=== PATIENT | male | born 1970 | race Caucasian/White ===

== ENCOUNTER → 2019-06-24 | Outpatient (CLI) | payer MEDICAID, SELFPAY | PROVIDERS: Visit Provider Social Worker Clinical | DX: F33.2 Major depressive disorder, recurrent severe without psychotic features (principal); F43.12 Post-traumatic stress disorder, chronic | CPT/HCPCS: 36415; 80061; 83036; 83721 ==

== ENCOUNTER → 2019-07-07 08:45 | Outpatient (BNVA) | payer MEDICAID, SELFPAY | PROVIDERS: PCP Nurse Practitioner Family; Visit Provider Social Worker Clinical | DX: F33.2 Major depressive disorder, recurrent severe without psychotic features (principal); F43.12 Post-traumatic stress disorder, chronic | CPT/HCPCS: 90834 ==

== ENCOUNTER → 2019-07-20 10:09 | Outpatient (BNVA) | payer MEDICAID, SELFPAY | PROVIDERS: PCP Nurse Practitioner Family; Visit Provider Nurse Practitioner | DX: F33.2 Major depressive disorder, recurrent severe without psychotic features (principal); F43.12 Post-traumatic stress disorder, chronic | CPT/HCPCS: 99213 ==

== ENCOUNTER → 2019-08-02 08:05 | Outpatient (BNVA) | payer MEDICAID, SELFPAY | PROVIDERS: PCP Nurse Practitioner Family; Visit Provider Social Worker Clinical | DX: F33.2 Major depressive disorder, recurrent severe without psychotic features (principal); F43.12 Post-traumatic stress disorder, chronic | CPT/HCPCS: 90834 ==

== ENCOUNTER → 2019-08-12 08:44 | Outpatient (BNVA) | payer MEDICAID, SELFPAY | PROVIDERS: PCP Nurse Practitioner Family; Visit Provider Social Worker Clinical | DX: F33.2 Major depressive disorder, recurrent severe without psychotic features (principal); F43.12 Post-traumatic stress disorder, chronic | CPT/HCPCS: 90834; 90839 ==

== ENCOUNTER → 2019-08-19 10:34 | Outpatient (BNVA) | payer MEDICAID, SELFPAY | PROVIDERS: PCP Nurse Practitioner Family; Visit Provider Otolaryngology | DX: M54.2 Cervicalgia (principal); R49.0 Dysphonia; R49.9 Unspecified voice and resonance disorder; R47.02 Dysphasia; J34.2 Deviated nasal septum | CPT/HCPCS: 99214 ==

== ENCOUNTER 2019-08-22 16:50 | Observation (INO) | payer MEDICAID, SELFPAY ==
[2019-08-22] VITALS (15 sets, daily range): BP systolic 106–162; BP diastolic 80–102; PULSE 60–99; RESP 12–20; TEMP 36.4–37.2; O2SAT 89–98
--- NOTE | 2019-08-22 07:06 | PM.HPUD ---
H&P update H&P Update: DATE OF SURGERY/PROCEDURE: 08/22/19 DATE H&P PERFORMED: 08/17/19 H&P UPDATE INFORMATION: H&P completed within last 30 days CHANGES TO PREVIOUS DOCUMENTATION: Possible mild right superior laryngeal nerve injury per ENT exam. Plan right-sided approach to minimize risk of bilateral nerve injury. PREOP DIAGNOSIS: Intervertebral disc disorder with myelopathy, midcervical PRIMARY INDICATION FOR PROCEDURE: Neck pain, gait instability, right > left upper extremity symptoms. PLANNED PROCEDURE: Operation Date: 08/22/19 10:55 Proposed Procedures C4-C5, revision C3-C4 anterior cervical discectomy/fusion/fixation, possible C6-C7, possible C5-C6, possible corpectomy ([id number]) M50.00(Not Applicable) - Ronny Posey MD Full H&P Perinent History: Medical/Surgical History: Medical History (Updated 08/19/19 @ 11:41 by Ronny De Los Santos MD) Deviated septum Dysphasia Dysphonia Intervertebral cervical disc disorder with myelopathy, cervical region Major depressive disorder, recurrent severe without psychotic features Post-traumatic stress disorder, chronic Family History: Family History (Updated 06/13/19 @ 10:55 by ALONZO Higgins) Father Diabetes CAD (coronary artery disease) Hypertension Dementia Brother CAD (coronary artery disease) Grandmother Stroke Maternal x3 Mother Dementia Schizophrenia Grandfather Cancer Both Maternal and Paternal Family/Other Cancer Uncles both maternal and paternal Social History: Social History Smoking and tobacco status: former smoker Alcohol intake: never Lives independently: Yes Household members: spouse Marital status: Current occupational status: unemployed History of recent travel: No
[2019-08-22 10:08] LABS: Glucose Point of Care 189 mg/dL (70-110)
[2019-08-22] MEDS: lidocaine 1% INJ 20 mL INTRADERMA (10:34)
[2019-08-22] MEDS: sodium chloride 0.9% 1,000 ML 30 ML IV (10:35)
--- NOTE | 2019-08-22 10:43 | ANES.PREANE2 ---
Pre-Anesthetic Assessment Pre-Anesthetic Assessment: Height/Weight: Height 1.73 m Weight 112.491 kg Temp Pulse Resp BP Pulse Ox 97.8 F 60 18 126/87 98 08/22/19 09:53 08/22/19 09:53 08/22/19 09:53 08/22/19 09:53 08/22/19 09:53 Preop Diagnosis: Intervertebral disc disorder with myelopathy, midcervical Proposed Procedure: Operation Date: 08/22/19 10:55 Proposed Procedures p C4-C5, revision C3-C4 anterior cervical discectomy/fusion/fixation, possible C6-C7, possibleC5-C6, possible corpectomy ([id number], [id number]) M50.00(Not Applicable) - Ronny Posey MD Last intake: Intake Last Liquid Date 08/22/19 Last Liquid Time 08:00 Last Solid Date 08/21/19 Last Solid Time 22:30 Social: Social History: Tobacco (quit 2000) and No alcohol Exam: Pre-Anes Outpt Exam: alert, oriented x 3, clear to auscultation bilaterally and regular rate & rhythm Airway: Submandibular: WNL Cervical ROM: WNL MP: 2 Dentition: Other (teeth ok) History/ROS: No significant history except as noted Pulmonary: Pulmonary: WOO and Sleep apnea CV/HEM: CV/HEM: CAD (stent 2017) and HTN Comments: aortic aneurisum 4.7cm : : Chronic renal Insufficiency Hepatic: Hepatic: None reported GI: GI: None reported Metabolic: Metabolic: DM, Hyperlipidemia and Morbid obesity Musc/skel: Musc/skel: Lower Back Pain, OA/DJD and Weakness Neuropsych: Neuropsych: Anxiety, Depression and Neuropathy (bilat UE, and right foot) Anesthetic Plan: ASA status: 3 Anesthesia: Anesthesia Evaluation and General Risk of > 500 ml blood loss (7ml/kg in children): No Meds/Allergies Current Medications: Current Medications Generic Name Dose Route Start Last Admin Trade Name Freq PRN Reason Stop Dose Admin Sodium Chloride 1,000 mls @ 30 ml s/hr 08/22/19 09:45 08/22/19 10:35 Sodium Chloride 0.9% IV 08/23/19 09:44 30 mls/hr .Q24H MANUEL Administration Lidocaine HCl 0.1 ml 08/22/19 09:36 08/22/19 10:34 Lidocaine 1% INTRADERMA 08/23/19 09:35 0.1 ml PRN PRN Administration anesthetic prior to IV start PFSH Anesthesia PFSH: Medical History Deviated septum Dysphasia Dysphonia Intervertebral cervical disc disorder with myelopathy, cervical region Major depressive disorder, recurrent severe without psychotic features Post-traumatic stress disorder, chronic Surgical History H/O carpal tunnel repair (~2018) H/O hernia repair Hx of cardiac catheterization S/P cervical spinal fusion (~06/15/17) C3-C4 ACDFF, 06/2017, Dr. Brigitte Guy Stented coronary artery Family History Father Diabetes CAD (coronary artery disease) Hypertension Dementia Brother CAD (coronary artery disease) Grandmother Stroke Maternal x3 Mother Dementia Schizophrenia Grandfather Cancer Both Maternal and Paternal Family/Other Cancer Uncles both maternal and paternal Social History Smoking and tobacco status: former smoker Alcohol intake: never Lives independently: Yes Household members: spouse Marital status: Current occupational status: unemployed History of recent travel: No Data Anesthesia Other Labs: Laboratory Results - last 48 hr 08/22/19 10:05 POC Glucose 189 Cardiac Studies: No Data to Display
--- NOTE | 2019-08-22 10:45 | XR_ITS ---
WS: [id number] XR cervical spine 1[facility]port [id number] REASON FOR EXAM: surgery FINDINGS: Intraoperative localization views a marker is seen anteriorly 0.6 to the level of the C3-4 level with anterior fusion and at level. Endotracheal tube well identified. XR/XR cervical spine 1[facility]port [id number] IMPRESSION: Intraoperative markers identified.
--- NOTE | 2019-08-22 11:06 | PM.OP2 ---
 Brief Operative Note: Date of procedure: 08/22/19 Pre-op diagnosis: Intervertebral disc disorder with myelopathy, midcervical Post-op diagnosis: same Procedure Done: C4 corpectomy, C3-C5 fusion/fixation Surgeon: Ronny Posey Estimated blood loss (mL): 50 Complications: None Post-op Plan: PACU, then surgical murillo Condition: stable Disposition: PACU Coding Level of Care Code Acute Rn Orthopaedic for Loretta Pradhan
[2019-08-22 11:55] LABS: Anion Gap 19.4 (5-19); Blood Urea Nitrogen 13 mg/dL (6-20); Calcium 10.5 mg/dL (8.5-10.5); Carbon Dioxide 23 mmol/L (22-29); Chloride 99 mmol/L (98-107); Glomerular Filtration Rate 89.7 mL/min (90-130); Glucose 190 mg/dL (65-115); Osmolality Calculated 285 mOsm/kg (285-295); Potassium 4.4 mmol/L (3.5-5.1); Sodium 137 mmol/L (136-145)
--- NOTE | 2019-08-22 12:51 | XR_ITS ---
WS: [id number] XR cervical spine [facility] [id number] REASON FOR EXAM: surgery FINDINGS: Lateral localizing interoperative projection of the cervical spine A marker is seen over the inferior growth plate of the C4 vertebra for localization. XR/XR cervical spine 1[facility]port [id number] IMPRESSION: Single localizing projections.
--- NOTE | 2019-08-22 14:44 | SUR.OPER ---
CALLED IN WAITING ROOM AND GAVE UPDATE
[2019-08-22] MEDS: ceFAZolin 1,000 mg SDV 2000 MG IVP ×2 (15:21)
--- NOTE | 2019-08-22 15:33 | XR_ITS ---
WS: [id number] XR cervical spine [facility] [id number] REASON FOR EXAM: SURGERY FINDINGS: Localization lateral view interoperative shows localization of the C5 level. There is anterior fusion C3 and C4. XR/XR cervical spine 1[facility]port [id number] IMPRESSION: Cervical spine lateral view C5 interoperative
--- NOTE | 2019-08-22 15:51 | XR_ITS ---
WS: [id number] XR cervical spine 1[facility] [id number] REASON FOR EXAM: SURGERY FINDINGS: Intraoperative lateral projection shows the fusion extends from the C3-C4-C5 level with int raspinal fusion the alignment is satisfactory. XR/XR cervical spine 1[facility]port [id number] IMPRESSION: Single view shows fusion now of C3, C4, C5 with intraspinal spacers.
[2019-08-22] MEDS: ondansetron 2 mg/ML SDV 2 mL 4 MG IVP ×2 (17:05→17:11)
[2019-08-22] MEDS: fentaNYL 50 mcg/mL INJ 2mL IVP ×2 (17:09→17:14)
[2019-08-22] MEDS: metoclopramide 5 mg/mL SDV 2 mL 10 MG IVP (17:41)
[2019-08-22 18:49] LABS: Glucose Point of Care 179 mg/dL (70-110)
[2019-08-22] MEDS: gemfibrozil 600 mg Tablet PO (18:56)
[2019-08-22] MEDS: docusate sodium 100 mg Capsule PO (18:56)
[2019-08-22] MEDS: divalproex ER 250 mg Tablet (24H) PO (18:56)
[2019-08-22] MEDS: HYDROcodone-acetaminophen 5-325 mg Tablet PO (18:57)
[2019-08-22] MEDS: ketorolac 30 mg/mL INJ IVP ×2 (18:57→23:45)
[2019-08-22] MEDS: lactated ringers 1,000 ML 90 ML IV (19:05)
--- NOTE | 2019-08-22 19:11 | P.PN_ITS ---
Subjective Subjective: Interval history: Reports sore throat. Sitting up in bed feeding himself Juliana. Vitals/I&O/Wt Last Vital Signs Temp 98.9 F 08/22/19 18:30 Pulse 99 08/22/19 18:30 Resp 18 08/22/19 18:30 BP 136/88 08/22/19 18:30 Pulse Ox 95 08/22/19 18:30 08/22/19 08/22/19 08/22/19 06:59 14:59 22:59 Intake Total 50 / 50 1000 / 1050 Output Total 900 / 900 Balance 50 / 50 100 / 150 Physical Exam Const: COMMON NORMALS: no apparent distress and alert GENERAL APPEARANCE: cooperative Neck/C-Spine: GENERAL: Yes trachea midline CERVICAL SPINE: Yes collar present OTHER: Surgical site dressing changed at bedside. Minimal serosanguineous drainage on dressing. Incision without erythema, fullness or active drainage. NECK IMAGES: 1. surgical incision Resp: COMMON NORMALS: normal respiratory effort EFFORT & INSPECTION: Yes able to speak in complete sentences and No stridor Neuro: COMMON NORMALS: moves all extremities SENSORIUM/ORIENTATION: Yes alert SPEECH: speech normal Psych: COMMON NORMALS: mental status grossly normal ATTITUDE: Yes calm and Yes engaged ACTIVITY/MOTOR BEHAVIOR: Yes appropriate eye contact THOUGHT CONTENT: Yes normal thought content INSIGHT: insight good JUDGEMENT: judgment good Urinary Catheter Management^: Wynne: Cath Placed During This Visit: yes Urethral Indwelling: No Urinary Catheter Date of Insertion: 08/22/19 Urinary Catheter Time of Insertion: 12:05 Data : 08/22/19 10:10 A&P Assessment and plan (1) Intervertebral cervical disc disorder with myelopathy, cervical region: Doing well after C4 corpectomy and anterior fusion/fixation performed earlier today. Intra-op/postop x-rays were suboptimal. Plan x-rays in R adiology Dept tomorrow. Complete scheduled IV antibiotic doses. Complete Physical Therapy postop spine protocol. Anticipate home tomorrow. Status: Acute Code(s): M50.00 - Cervical disc disorder with myelopathy, unspecified cervical region Attestations Medical Necessity Statement*: Patient is appropriate for in-hospital management after revision anterior cervical fusion and fixation surgery . Coding Level of Care Code Acute Supplier Quality Manager for [facility] Fwd Exam Detailed Diagnoses Intervertebral cervical disc disorder with myelopathy, cervical region M50.00
[2019-08-22] MEDS: atorvastatin 40 mg Tablet 80 MG PO (20:41)
[2019-08-22] MEDS: BuSPIRONE 10 mg Tablet PO (20:42)
[2019-08-22] MEDS: gabapentin 300 mg Capsule 600 MG PO (20:42)
[2019-08-22 21:03] LABS: Glucose Point of Care 176 mg/dL (70-110)
[2019-08-23] VITALS (7 sets, daily range): BP systolic 91–136; BP diastolic 55–80; PULSE 70–89; RESP 16–20; TEMP 36.6–36.7; O2SAT 90–95
[2019-08-23] MEDS: lactated ringers 1,000 ML 90 ML IV (05:43)
[2019-08-23 06:28] LABS: Glucose Point of Care 134 mg/dL (70-110)
[2019-08-23] MEDS: ketorolac 30 mg/mL INJ IVP ×2 (06:34→12:18)
--- NOTE | 2019-08-23 07:00 | XR_ITS ---
WS: [id number] XR cervical spine 3V* [id number] REASON FOR EXAM: postop fusion FINDINGS: Postop evaluation of the cervical spine shows now there is evidence of anterior fusion C3-C 4-C5 satisfactory placed.. There is mild deviation of the trachea toward the right side. XR/XR cervical spine 3V* [id number] IMPRESSION: Anterior fusion C3-C4-C5 with intraspinal fusion. There is mild deviation of the trachea toward the left side.
--- NOTE | 2019-08-23 08:58 | PC.PT ---
Evaluation completed, cervical collar adjustment and HEP instruction. pt walked 320'. However, pt noted swallowing problems, seem to have become worst since surgery. 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 Thank You
[2019-08-23] MEDS: docusate sodium 100 mg Capsule PO (09:01)
[2019-08-23] MEDS: losartan 50 mg Tablet 25 MG PO (09:01)
[2019-08-23] MEDS: ranolazine (12HR) 500 mg Tablet 1000 MG PO (09:01)
[2019-08-23] MEDS: PARoxetine 20 mg Tablet 40 MG PO (09:01)
[2019-08-23] MEDS: gemfibrozil 600 mg Tablet PO (09:02)
[2019-08-23] MEDS: BuSPIRONE 10 mg Tablet PO (09:02)
[2019-08-23] MEDS: gabapentin 300 mg Capsule 600 MG PO (09:03)
[2019-08-23] MEDS: divalproex ER 250 mg Tablet (24H) PO (09:03)
[2019-08-23] MEDS: ferrous sulfate EC 325 mg Tablet PO (09:03)
[2019-08-23] MEDS: isosorbide mononitrate ER 60 mg Tablet 120 MG PO (09:03)
[2019-08-23] MEDS: propranolol 20 mg Tablet 60 MG PO (09:10)
[2019-08-23] MEDS: lacosamide 50 mg Tablet 150 MG PO (09:10)
[2019-08-23] MEDS: HYDROcodone-acetaminophen 5-325 mg Tablet PO (09:22)
[2019-08-23 11:29] LABS: Glucose Point of Care 143 mg/dL (70-110)
--- NOTE | 2019-08-23 13:57 | ANE.PACU2 ---
 Inpatient post-anesthesia follow up: Airway intact: Yes Vital signs: Temperature 98 F Pulse Rate 89 Respiratory Rate 20 Blood Pressure 91/55 Pulse Oximetry 95 Oxygen Delivery Me thod Room Air Oxygen Flow Rate 2 Fraction of Inspir ed Oxygen Hydration adequate: Yes Nausea and vomiting: No Pain level: 2 Mental status: Baseline
--- NOTE | 2019-08-23 16:17 | PM.OP ---
Operative Report Date of procedure: August 22, 2019 Pre-op Diagnosis: Intervertebral disc disorder with myelopathy, midcervical Pre-op Diagnosis: Cervical fusion history Post-op diagnosis: same (with collapse of vertebra and instability of joint) Procedure Done: 1. C4 corpectomy. 2. C3-C5 anterior plate and screw fixation. 3. Placement of intervertebral prosthetic device. 4. C3-C5 anterior fusion utilizing morselized autograft obtained from the osteophytectomy/corpectomy. Implants: Bengal Interbody Cage. Synthes Vectra plate/screws. Specimens removed/disposition: C4-C5 disc to pathology for permanent section. C3-C4 fixation plate/screws to patient, after cleaning. Surgeon: Ronny Posey Anesthesia: General Estimated blood loss (mL): 50 IV fluids (mL): 1,000 Urine output (mL): 850 Complications: None. Condition: stable Disposition: PACU Brief History: The patient is a 49-year-old white male with symptomatic, radiographically confirmed cervical disc/joint disease and associated neural impingement. He had undergone a prior C3-C4 ACDFF, with transient symptom benefit obtained following surgery. Imaging studies demonstrated stable fixation hardware, a solid anterior fusion at C3-C4, and residual/recurrent disc-osteophyte related cord impingement at C3-C4, C4-C5 and posterior to C4. Lesser changes were noted at C5-C6 and C6-C7. Conservative management did not provide adequate lasting symptom relief. After review of the diagnostic and treatment options with the risks/potential benefits/rationale for each, the patient requested to proceed with surgical intervention. Pre-operative ENT evaluation suggested possible residual nerve dysfunction related to the prior right-sided neck surgery, and re-entry from the right was planned to minimize the risk of bilateral nerve palsy. Procedure: After routine preoperative evaluation and informed consent were obtained, the patient was taken to the Operating Room. He was placed under general endotracheal anesthesia by Anesthesia personnel. He was positioned supine and fit in the Gilbert-Wells tongs for the application of in-line cervical traction. The anterolateral neck on the right was prepared with hair clippers. The prior transverse surgical scar was marked with a sterile skin marker, after evaluation with intraoperative radiography. The area was scrubbed with Betadine, prepped with DuraPrep, and draped with sterile towels and drapes. Ioban surgical barrier was applied. The proposed incision site was infiltrated with 1% Xylocaine with Epinephrine. The skin incision was made and carried down into the subcutaneous tissues. The platysma was identified and divided in the direction of its fibers. A plane was dissected just medial to the carotid sheath and lateral to the midline esophagus and trachea. Prevertebral soft tissues were bluntly dissected free of the anterior margin of the cervical spine and the previously implanted fixation hardware. Longus coli muscles were freed from their medial attachments. Deep self-retaining retractors were placed. Extensive subcutaneous and prevertebral scarring was encountered. The locking mechanisms within the plate were released, and the bilateral C3 and C4 screws were removed intact. The plate was then removed, and the explanted hardware was transferred from the sterile field for cleaning and eventual return to the patient. Solid fusion was evident across the C3-C4 interspace. The C4-C5 interspace was then incised with a #11 blade. Discectomy was accomplished utilizing various curettes and pituitary rongeurs. Anterior marginal osteophytes were resected with the Lempert and Kerrison rongeurs. Cartilaginous end plates were stripped free with curettes. Posterior marginal osteophytes were resected with thin foot plate Kerrison rongeurs. The medial aspects of the neural foramina were enlarged in a similar manner. Posterior longitudinal ligament was divided and resected as necessary to further the decompression. Due to residual osteophyte encroachment posterior to C4 and the significant disc/osteophyte impingement at the fused C3-C4 interspace, a C4 corpectomy was pursued. The [employer] Benoit high-speed drill with tai mike and various rongeurs were utilized to complete the corpectomy/osteophytectomy portions of the procedure and for endplate preparation. Once the decompression was felt to be adequate, the corpectomy defect was sized. A 24 mm lordotic Bengal Cage was chosen. The Cage was packed with morselized autograft obtained from the osteophytectomy/corpectomy portions of the procedure. The Cage was placed with the aid of a mallet and impaction tools, while in-line cervical traction was applied via the Gilbert-Wells tongs. Intraoperative fluoroscopy was utilized to assess device positioning. Once the Cage was felt to be in good position, a Synthes Vectra plate of the desired size was chosen. The plate was secured to the C3 and C5 vertebral bodies, bilaterally, with a combination of 4.5mm x 16mm and 4.5mm x 14mm self-drilling screws. Final screw tightening was performed, and the locking mechanisms within the plate were noted to engage the screws at each site. The construct was inspected, fluoroscopically evaluated, and felt to be in good position and secure. The wound was copiously irrigated with sterile saline and antibiotic irrigation. Hemostasis was ensured with the bipolar electrocautery and SurgiFlo hemostatic matrix. Wound closure was performed in multiple layers with 2-0 Vicryl Plus simple interrupted closure of the platysma and deep dermis as separate layers. Final skin closure was performed with 4-0 Vicryl Plus in a running subcuticular pattern. Steri-Strips were applied, and a sterile dressing was placed. The patient was released from the [facility] and fit in a Karnes collar. He was transferred onto the Recovery Room cart in the supine position. He was extubated without incident. The patient tolerated the procedure well. All sponge, needle, and instrument counts were correct at the completion of the procedure.
--- NOTE | 2019-08-23 21:25 | PM.DCS ---
Discharge Providers Date of Admission: 08/22/19 16:50 Date of Discharge: August 23, 2019 Attending Provider at Admission: Ronny Posey MD Attending Provider at Discharge: Ronny Posey MD Primary Care Provider: Kaden Dempsey NP Diagnoses at Discharge Discharge Diagnosis (1) Intervertebral cervical disc disorder with myelopathy, cervical region: Status: Acute (2) Collapse of vertebra: Status: Acute (3) Instability of joint: Status: Acute (4) S/P cervical spinal fusion: Status: Acute Problem details: C3-C4 ACDFF, 06/2017, Dr. Brigitte Guy Reason for Visit Reason for Visit: Brief History: The patient is a 49-year-old white male with symptomatic, radiographically confirmed cervical disc/joint disease and associated neural impingement. He had undergone a prior C3-C4 ACDFF, with transient symptom benefit obtained following surgery. Imaging studies demonstrated stable fixation hardware, a solid anterior fusion at C3-C4, and residual/recurrent disc-osteophyte related cord impingement at C3-C4, C4-C5 and posterior to C4. Lesser changes were noted at C5-C6 and C6-C7. Conservative management did not provide adequate lasting symptom relief. After review of the diagnostic and treatment options with the risks/potential benefits/rationale for each, the patient requested to proceed with surgical intervention. Pre-operative ENT evaluation suggested possible residual nerve dysfunction related to the prior right-sided neck surgery, and re-entry from the right was planned to minimize the risk of bilateral nerve palsy. Hospital Course Hospital Course: The patient underwent a C4 corpectomy, C4-C5 and revision C3-C4 ACDFF on 08-22-2019. He tolerated the procedure well, and noted improvement in pre-operative symptoms following surgery. He experienced sore throat, but tolerated diet well. He completed perioperative IV antibiotics and the Physical Therapy postoperative spine protocol. He was ambulatory, voiding, and tolerating diet prior to discharge home on POD#1. Physical Exam Const: COMMON NORMALS: no apparent distress GENERAL APPEARANCE: cooperative and comfortable Neck/C-Spine: COMMON NORMALS: supple and no JVD GENERAL: Yes trachea midline and No anterior neck swelling CERVICAL SPINE: Yes collar present NECK IMAGES: 1. surgical scar Resp: COMMON NORMALS: normal respiratory effort EFFORT & INSPECTION: No tachypneic, No respiratory distress and No stridor Cardio: COMMON NORMALS: no JVD Extremity: COMMON NORMALS: no clubbing, cyanosis or edema Neuro: COMMON NORMALS: moves all extremities and no focal motor deficits (bilateral upper extremities) MOTOR EXAM: strength 5/5 throughout Psych: COMMON NORMALS: thought process normal and speech normal ATTITUDE: Yes calm and Yes engaged ACTIVITY/MOTOR BEHAVIOR: Yes appropriate eye contact SPEECH: Yes normal speech MOOD & AFFECT: Yes euthymic mood THOUGHT PROCESS: normal thought process THOUGHT CONTENT: Yes normal thought content INSIGHT: insight good JUDGEMENT: judgment good Skin: WOUNDS: Yes surgical site (surgical site dressing clean/dry/intact.) Urinary Catheter Management^: Wynne: Cath Placed During This Visit: yes Urethral Indwelling: No Urinary Catheter Date of Insertion: 08/22/19 Urinary Catheter Time of Insertion: 12:05 Discharge Data Data Completed and Pending: Completed Studies During Hospitalization Category Date Time Status XR cervical spine 1Vport 16162 Rout ine Exams 08/22/19 10:45 Completed XR cervical spine 1Vport 65980 Rout ine Exams 08/22/19 12:51 Completed XR cervical spine 1Vport 28705 Rout ine Exams 08/22/19 15:33 Completed XR cervical spine 1Vport [id number] Rout ine Exams 08/22/19 15:51 Completed XR cervical spine 3V* [id number] Routine Exams 08/23/19 07:00 Completed Pathology: Surgic al [PTH] Routine Pth 08/22/19 16:58 Completed Imaging^: Other Xray: Attestation: I personally reviewed and interpreted this imaging study as follows: (Postop changes of recent C4 corpectomy and C3-C5 anterior fusion/fixation. Limited evaluation of caudal extent of construct. ) Procedures Performed: C4 corpectomy. C4-C5 and revision C3-C4 anterior discectomy/osteophytectomy. C3-C5 anterior plate and screw fixation. Placement of C3-C5 interbody prosthetic device. C3-C5 anterior fusion utilizing morselized autograft from the osteophytectomy/corpectomy. Intravenous antibiotics. Physical Therapy. Vitals: Last Vital Signs Temp 98 F 08/23/19 13:22 Pulse 89 08/23/19 13:22 Resp 20 H 08/23/19 13:22 BP 91/55 08/23/19 13:22 Pulse Ox 95 08/23/19 13:22 Discharge Plan Discharge Patient Disposition: Home, Self-Care Condition: Stable Prescriptions: New Butler 10-325 mg tablet 1 tab PO Q4H MDD 5 tabs PRN (Reason: pain) Qty: 30 RF: 0 ketorolac 10 mg tablet 10 mg PO TID PRN (Reason: pain) Qty: 10 RF: 0 Continued promethazine 25 mg tablet 25 mg PO BID PRN (Reason: Nausea) RF: 0 tizanidine 2 mg capsule 1 mg PO BID PRN (Reason: Muscle Spasm) RF: 0 gemfibrozil 600 mg tablet 600 mg PO BID RF: 0 Lantus U-100 Insulin 100 unit/mL solution 30 unit SUBCUT BID RF: 0 propranolol 60 mg capsule,extended release 24 hr 60 mg PO BID RF: 0 atorvastatin 80 mg tablet 80 mg PO DAILY RF: 0 magnesium oxide 500 mg tablet 500 mg PO DAILY RF: 0 metformin 1,000 mg tablet extended release 24hr 1,000 mg PO BID RF: 0 Vimpat 150 mg tablet 150 mg PO BID RF: 0 modafinil 200 mg tablet 200 mg PO QAM RF: 0 isosorbide mononitrate 120 mg tablet extended release 24 hr 120 mg PO QAM RF: 0 Jardiance 25 mg tablet 25 mg PO QAM RF: 0 paroxetine HCl [Paxil] 40 mg tablet 40 mg PO DAILY Qty: 30 RF: 2 buspirone 10 mg tablet 10 mg PO TID Qty: 90 RF: 2 losartan 25 mg tablet 25 mg PO DAILY RF: 0 ranolazine [Ranexa] 1,000 mg tablet extended release 12 hr 1,000 mg PO BID RF: 0 divalproex [Depakote ER] 250 mg tablet extended release 24 hr 250 mg PO BID RF: 0 gabapentin 600 mg tablet 600 mg PO TID RF: 0 Iron (ferrous sulfate) 325 MG 325 mg PO DAILY RF: 0 Nitro-Bid 0.4 MG 0.4 mg buccal PRN RF: 0 acetaminophen 1,000 MG 1,000 mg PO DAILY RF: 0 insulin regular human 10 UNITS 10 units SUBCUT AC RF: 0 Held diclofenac potassium 50 mg tablet 50 mg PO ONCE PRN (Reason: Inflammation) RF: 0 Hold Instructions: Resume on 08/25/19. Hold while taking Toradol (ketorolac). aspirin [Adult Aspirin Regimen] 81 mg tablet,delayed release (DR/EC) 81 mg PO DAILY RF: 0 Hold Instructions: Resume on 08/25/19. tramadol 50 mg tablet 100 mg PO Q6H PRN (Reason: Pain) RF: 0 Hold Instructions: Resume on 08/26/19. Hold while taking hydrocodone (Butler). Brilinta 90 MG 90 mg PO BID RF: 0 Hold Instructions: Resume on 08/29/19. No Action amoxicillin 875 mg tablet 875 mg PO BID RF: 0 methylprednisolone [Medrol (Luis)] 4 mg tablets,dose pack See Rx Instructions PO PER PKG DIR Qty: 21 RF: 0 Discharge Orders: Discharge Order (Routine); Ordered 08/23/19 Ordered By: Ronny Posey Other Ambulatory Orders: XR cervical spine 3V* [id number] (Routine) Timeframe: 2 Weeks Facility: [facility] - Location: [facility] Ordered By: Ronny Posey Referrals: Ronny Posey MD [Physician] - 09/01/19 1:00 pm (You will need to have AP/lateral c-spine x-rays prior to visit.) Discharge Diet: Advance as tolerated Discharge Activity: Limit activity as instructed Patient Instructions: Hydrocodone/Acetaminophen (By mouth), Ketorolac (By mouth), Dysphagia, Dysphonia, Diabetic Neuropathy (DC) Activity Restrictions/Additional Instructions: Activity -Cervical fusion: Wear cervical collar 24 hours a day. Change as necessary for showering, shaving, or if it becomes soiled. -No lifting or reaching overhead. - No driving until office followup visit - No lifting/pushing/pulling over 10 pounds - Avoid twisting or bending - Walking is encouraged - Home exercise per physical therapist - You may engage in sexual intercourse at any time as long as it is comfortable for you - Check with your doctor before returning to work. Notify your doctor if you develop: - temperature of 101.5 degrees F. or higher - redness or swelling of the incision - Foul drainage - increasing pain - increasing numbness or tingling in the arms or legs - New or increasing problems with vision, balance, memory, speaking, nausea or vomiting Hygiene: - Showering is okay - No tub baths or soaking Other: Remove outer bandage 3 days after surgery. If you have paper strips, leave in place until they fall off on their own. If you have stitches, keep your incision dry until the stitches are removed. Your doctor's office is available to answer any questions from 7 AM to 5:00 PM, Thursday through at [phone]. After hours, go to the emergency room at [facility] or call 911 for assistance. 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
== END 2019-08-23 14:05 | disposition home or self-care (01) ==
LOC: MEDSURG 16:51
PROVIDERS: Anesthesiology; Admitting Provider Specialist; PCP Nurse Practitioner Family; Visit Provider Specialist
PROC: 0RB30ZZ Excision of Cervical Vertebral Disc, Open Approach (ICD-10-PCS; CPT 22551; principal; 2019-08-22 10:55)
DX: M50.021 Cervical disc disorder at C4-C5 level with myelopathy (principal); Z98.1 Arthrodesis status; M48.52XA Collapsed vertebra, not elsewhere classified, cervical region, initial encounter for fracture; G47.30 Sleep apnea, unspecified; I25.10 Atherosclerotic heart disease of native coronary artery without angina pectoris; Z95.5 Presence of coronary angioplasty implant and graft; I10 Essential (primary) hypertension; E11.9 Type 2 diabetes mellitus without complications; E66.01 Morbid (severe) obesity due to excess calories; Z68.37 Body mass index [BMI] 37.0-37.9, adult; E78.5 Hyperlipidemia, unspecified; M19.90 Unspecified osteoarthritis, unspecified site; Z83.3 Family history of diabetes mellitus; Z82.49 Family history of ischemic heart disease and other diseases of the circulatory system; Z87.891 Personal history of nicotine dependence
CPT/HCPCS: 20938; 22554; 63081; 12345; 36416; 72020; 72040; 80048; 82962; 88304; 96361; 96365; 96372; 96375; 97110; 97161; C1713; G0378; J0330; J0690; J1815; J1885; J2001; J2405; J2704; J2765; J3010; J3490; J7030; L0172; L0174

== ENCOUNTER → 2019-08-25 09:01 | Outpatient (BNVA) | payer MEDICAID, SELFPAY | PROVIDERS: PCP Nurse Practitioner Family; Visit Provider Counselor Professional | DX: F33.2 Major depressive disorder, recurrent severe without psychotic features (principal); F43.12 Post-traumatic stress disorder, chronic | CPT/HCPCS: 90834 ==

== ENCOUNTER 2019-08-26 16:10 | Outpatient (CLI) | payer MEDICAID, SELFPAY ==
--- NOTE | 2019-08-26 16:18 | CTR_ITS ---
PROCEDURE INFORMATION: Exam: CT Cervical Spine Without Contrast Exam date and time: 08/26/2019 5:01 PM Age: 49 years old Clinical indication: Device placement; Internal orthopedic prosthetic device, implant or graft of neck; Prior surgery; Surgery date: 3-7 days post-operative; Surgery type: C-spine; Additional info: S/P cervical spinal fusion TECHNIQUE: Imaging protocol: Computed tomography images of the cervical spine without contrast. Total DLP: 753.6 mGy-cm Radiation optimization: All CT scans at this facility use at least one of these dose optimization techniques: automated exposure control; mA and/or kV adjustment per patient size (includes targeted exams where dose is matched to clinical indication); or iterative reconstruction. COMPARISON: CT Cervical Spine w cont [id number] 05/09/2019 9:15 AM FINDINGS: Vertebrae: There are postsurgical changes in the cervical spine with anterior spinal fusion with anterior metallic plate and screws into the bodies of C3 and C5 and partial corpectomy with resection of the left side of the C4 vertebral body and placement of instrumentation and bone graft in its place. The vertebrae are normally aligned. Discs/Spinal canal/Neural foramina: No disc herniations. No spinal canal stenosis. No neural foraminal narrowing. Oropharynx: There is some abnormal air in fluid in the retropharyngeal and right parapharyngeal space extending to the anterior side of the neck on the right consistent with some postoperative air and fluid. This causes some tracheal deviation towards the left such as seen on the postoperative radiographs of 08/22/2019. Without IV contrast evaluation of the fluid is incomplete. Correlation with the clinical findings is suggested. Lungs: Lung apices are normal. CT/CT cervical spin wo con* [id number] IMPRESSION: Postoperative changes of recent anterior spinal fusion as described Radiation Dose CTDIVOL = (mGy): DLP = 753.6 (mGy-cm)
== END 2019-08-26 16:11 | disposition home or self-care (01) ==
LOC: RAD 16:14
PROVIDERS: PCP Nurse Practitioner Family; Visit Provider Specialist
DX: Z98.1 Arthrodesis status (principal)
CPT/HCPCS: 72125

== ENCOUNTER 2019-09-01 08:23 | Outpatient (CLI) | payer MEDICAID, SELFPAY ==
--- NOTE | 2019-09-01 08:31 | CT_ITS ---
WS: [id number] CT NECK TECHNIQUE: Noncontrast CT of the neck with coronal and sagittal reformatted images. CLINICAL INFORMATION: trouble swallowing COMPARISON: CT cervical August 26, 2019 DLP: 1512.[address] scans at [facility] use at least one of these dose optimization techniques: automat ed exposure control; mA and/or kV adjustment per patient size (includes targeted exams where dose is matched to clinical indication); or iterative reconstruction. FINDINGS: Recent postoperative changes anterior cervical fusion with straightening of the normal cervical lordo sis. Anterior cervical fusion with corpectomy and interbody fusion graft at C3-C5. Partial corpectomy at C4. Prevertebral soft tissue edema is similar in appearance the prior examination. Postoperative edema and fluid along the right anterior neck incision site. This is overall unchanged since the rece nt cervical spine CT. Scattered pockets of air along the incision track and corpectomy site slightly improved. Small amount of retropharyngeal and prevertebral fluid with scattered pockets of air. Edema with part ial effacement of the hypopharynx. Effacement of the right piriform sinus is unchanged. Normal vallec juvencio. Normal glottis and subglottic airway. Upper mediastinum appears normal. Parotid glands are normal. Normal submandibular glands. No other significant interval changes. CT/CT neck wo con [id number] IMPRESSION: 1. Recent postoperative changes anterior cervical fusion C3-C5 with partial co rpectomy and interbody fusion graft at C4. 2. Stable prevertebral soft tissue edema with persistent fluid collection soft tissues right neck along the surgical incision tract consistent with normal po stoperative change. Scattered air and fluid along the surgical tract. 3. Small amount of retropharyngeal and prevertebral fluid with scattered pocke ts of air not significantly changed. 4. Mild mass effect on the posterior hypopharynx with associated edema. Glotti s is normal. Effacement of the right piriform sinus is unchanged. No critical a irway stenosis. 5. No other significant changes from previous.
== END 2019-09-01 08:24 | disposition home or self-care (01) ==
LOC: RADWPI 08:26
PROVIDERS: PCP Nurse Practitioner Family; Visit Provider Specialist
DX: J39.2 Other diseases of pharynx (principal); R13.10 Dysphagia, unspecified; Z98.1 Arthrodesis status
CPT/HCPCS: 70490

== ENCOUNTER → 2019-09-15 10:59 | Outpatient (BNVA) | payer MEDICAID, SELFPAY | PROVIDERS: PCP Nurse Practitioner Family; Visit Provider Counselor Professional | DX: F43.12 Post-traumatic stress disorder, chronic (principal); F33.2 Major depressive disorder, recurrent severe without psychotic features | CPT/HCPCS: 90834 ==

== ENCOUNTER → 2019-09-22 10:44 | Outpatient (BNVA) | payer MEDICAID, SELFPAY | PROVIDERS: PCP Nurse Practitioner Family; Visit Provider Counselor Professional | DX: F43.12 Post-traumatic stress disorder, chronic (principal); F33.2 Major depressive disorder, recurrent severe without psychotic features | CPT/HCPCS: 90834 ==

== ENCOUNTER → 2019-09-29 11:06 | Outpatient (BNVA) | payer MEDICAID, SELFPAY | PROVIDERS: PCP Nurse Practitioner Family; Visit Provider Counselor Professional | DX: F43.12 Post-traumatic stress disorder, chronic (principal); F33.2 Major depressive disorder, recurrent severe without psychotic features | CPT/HCPCS: 90834 ==

== ENCOUNTER 2019-10-04 13:53 | Outpatient (CLI) | payer MEDICAID, SELFPAY ==
--- NOTE | 2019-10-04 13:59 | XR_ITS ---
WS: [id number] CERVICAL SPINE TECHNIQUE: 3 views of the cervical spine CLINICAL INFORMATION: S/P cervical spinal fusion COMPARISON: None. FINDINGS: Straightening of the normal cervical lordosis. Anterior cervical fusion C3-C5 with partial corpectomy and interbody fusion graft. Hardware appears in good position. XR/XR cervical spine 3V* [id number] IMPRESSION: Normal postoperative C3-C5 anterior interbody cervical fusion.
== END 2019-10-04 13:54 | disposition home or self-care (01) ==
PROVIDERS: PCP Nurse Practitioner Family; Visit Provider Specialist
DX: Z98.1 Arthrodesis status (principal)
CPT/HCPCS: 72040

== ENCOUNTER → 2019-10-06 11:04 | Outpatient (BNVA) | payer MEDICAID, SELFPAY | PROVIDERS: PCP Nurse Practitioner Family; Visit Provider Counselor Professional | DX: F33.2 Major depressive disorder, recurrent severe without psychotic features (principal); F43.12 Post-traumatic stress disorder, chronic | CPT/HCPCS: 90834 ==

== ENCOUNTER 2019-10-06 21:27 | Emergency (ER) | payer MEDICAID, SELFPAY ==
[2019-10-06 21:43] VITALS: BP 149/98; PULSE 76; RESP 18; TEMP 36.4; O2SAT 98; BMI 38.0
--- NOTE | 2019-10-06 21:46 | W.ED.NECK ---
HPI - Neck Pain/Injury General: Chief Complaint: Neck Pain/Injury Stated Complaint: neck pain Time Seen by Provider: 10/06/19 21:32 Source: patient Mode of arrival: ambulatory History of Present Illness: HPI Narrative: 49-year-old male who had a surgery 3 weeks ago on his neck states he was holding a great Wili jumped and pulled him forward. He states his neck went back and he had some pain in his neck and has had some tingling in his bilateral arms. Patient was in a collar. He took Freeport and states his pain is much better and is now 3 out of 10. He denies any decrease in sensation or weakness to states that his arms feel like there is healing imminent and they feel light complaint: neck pain Onset (ago): hour(s) Place: home Severity: moderate Severity scale (1-10): 4 Quality: sharp Duration: constant Associated symptoms: Denies headache(s) or nausea Review of Systems Const: Denies: fever, chills, body aches or change in appetite Eyes: Denies: blurry vision or eye discomfort ENMT: Denies: throat pain or dental pain Card: Denies: chest pain Resp: Denies: shortness of breath GI: Denies: abdominal pain, nausea, vomiting or diarrhea : Denies: painful urination Musc: Reports: neck pain Skin/Breast: Denies: rash Neuro: Denies: headache Psych: Denies: depression Nathan/Lymph: Denies: easy bruising All/Imm: Denies: hives PFSH ED PFSH: Medical History Deviated septum Dysphasia Dysphonia Intervertebral cervical disc disorder with myelopathy, cervical region Major depressive disorder, recurrent severe without psychotic features Post-traumatic stress disorder, chronic Surgical History H/O carpal tunnel repair (~2018) H/O hernia repair History of fusion of cervical spine C4 corpectomy, revision C3-C4 and C4-C5 plate-screw fixation/interbody fusion; 08/22/2019; [facility] [place] Hx of cardiac catheterization S/P cervical spinal fusion (~06/15/17) C3-C4 ACDFF, 06/2017, Dr. Brigitte Guy Stented coronary artery Family History Father Diabetes CAD (coronary artery disease) Hypertension Dementia Brother CAD (coronary artery disease) Grandmother Stroke Maternal x3 Mother Dementia Schizophrenia Grandfather Cancer Both Maternal and Paternal Family/Other Cancer Uncles both maternal and paternal Social History Smoking and tobacco status: former smoker Alcohol intake: never Lives independently: Yes Household members: spouse Marital status: Current occupational status: unemployed History of recent travel: No Physical Exam Const: COMMON NORMALS: no apparent distress, oriented x3 and healthy appearing HENMT: COMMON NORMALS: normocephalic and head/scalp atraumatic HEAD & SCALP: normocephalic and atraumatic Eye: COMMON NORMALS: PERRL and EOMs intact bilaterally PUPIL: Yes PERRL Neck/C-Spine: COMMON NORMALS: full ROM and supple OTHER: currently in a post op c collar Chest: COMMONS NORMALS: inspection of chest normal and palpation of chest normal Resp: COMMON NORMALS: normal respiratory effort, no retractions, no use of accessory muscles and clear to auscultation bilaterally AUSCULTATION: clear to auscultation bilaterally Cardio: COMMON NORMALS: regular rate, regular rhythm and no murmurs RATE: regular rate RHYTHM: regular rhythm GI: COMMON NORMALS: normal to inspection, nondistended, normoactive bowel sounds, soft to palpation, non-tender and no masses PALPATION: Yes soft Extremity: COMMON NORMALS: normal to inspection and full ROM Neuro: COMMON NORMALS: oriented x3, moves all extremities and no focal motor deficits Psych: COMMON NORMALS: mental status grossly normal, thought process normal and cooperative THOUGHT PROCESS: normal thought process Skin: COMMON NORMALS: no rashes or lesions noted and no wounds GENERAL SKIN EXAM: no rashes or lesions noted Course Vital Signs: Vital signs: Vital Signs Temperature 97.5 F L 10/06/19 21:43 Pulse Rate 76 10/06/19 21:43 Respiratory Rate 18 10/06/19 21:43 Blood Pressure 149/98 10/06/19 21:43 Pulse Oximetry 98 10/06/19 21:43 MDM - Neck Pain/Injury MDM Narrative: Medical decision making narrative: Patient presents admitted with neck pain after dog pulled him. Spoke to Dr. Posey who recommended CT of the neck. CT neck here is negative will discharge and he is to follow-up with Dr. Posey in 1 to 3 days. He is return if he has any worsening neurologic symptoms. Patient has no signs of major injury and neuro exam is benign. Patient is stable for discharge. Discharge Plan Discharge Patient Disposition: Home, Self-Care Clinical Impression: Neck pain Condition: Stable Prescriptions: No Action promethazine 25 mg tablet 25 mg PO BID PRN (Reason: Nausea) RF: 0 tizanidine 2 mg capsule 1 mg PO BID PRN (Reason: Muscle Spasm) RF: 0 gemfibrozil 600 mg tablet 600 mg PO BID RF: 0 diclofenac potassium 50 mg tablet 50 mg PO ONCE PRN (Reason: Inflammation) RF: 0 Hold Instructions: Resume on 08/25/19. Hold while taking Toradol (ketorolac). Lantus U-100 Insulin 100 unit/mL solution 30 unit SUBCUT BID RF: 0 aspirin [Adult Aspirin Regimen] 81 mg tablet,delayed release (DR/EC) 81 mg PO DAILY RF: 0 Hold Instructions: Resume on 08/25/19. propranolol 60 mg capsule,extended release 24 hr 60 mg PO BID RF: 0 tramadol 50 mg tablet 100 mg PO Q6H PRN (Reason: Pain) RF: 0 Hold Instructions: Resume on 08/26/19. Hold while taking hydrocodone (Freeport). atorvastatin 80 mg tablet 80 mg PO DAILY RF: 0 magnesium oxide 500 mg tablet 500 mg PO DAILY RF: 0 metformin 1,000 mg tablet extended release 24hr 1,000 mg PO BID RF: 0 Vimpat 150 mg tablet 150 mg PO BID RF: 0 modafinil 200 mg tablet 200 mg PO QAM RF: 0 isosorbide mononitrate 120 mg tablet extended release 24 hr 120 mg PO QAM RF: 0 Jardiance 25 mg tablet 25 mg PO QAM RF: 0 paroxetine HCl [Paxil] 40 mg tablet 40 mg PO DAILY Qty: 30 RF: 2 buspirone 10 mg tablet 10 mg PO TID Qty: 90 RF: 2 losartan 25 mg tablet 25 mg PO DAILY RF: 0 ranolazine [Ranexa] 1,000 mg tablet extended release 12 hr 1,000 mg PO BID RF: 0 methylprednisolone [Medrol (Luis)] 4 mg tablets,dose pack See Rx Instructions PO PER PKG DIR Qty: 21 RF: 0 divalproex [Depakote ER] 250 mg tablet extended release 24 hr 250 mg PO BID RF: 0 gabapentin 600 mg tablet 600 mg PO TID RF: 0 Brilinta 90 MG 90 mg PO BID RF: 0 Hold Instructions: Resume on 08/29/19. Iron (ferrous sulfate) 325 MG 325 mg PO DAILY RF: 0 Nitro-Bid 0.4 MG 0.4 mg buccal PRN RF: 0 acetaminophen 1,000 MG 1,000 mg PO DAILY RF: 0 insulin regular human 10 UNITS 10 units SUBCUT AC RF: 0 Freeport 10-325 mg tablet 1 tab PO Q4H MDD 5 tabs PRN (Reason: pain) Qty: 30 RF: 0 ketorolac 10 mg tablet 10 mg PO TID PRN (Reason: pain) Qty: 10 RF: 0 Discharge Orders: Discharge Order (Routine); Ordered 10/06/19 Ordered By: Zachariah Licea Referrals: [facility] [Other] Ronny Posey MD [Physician] - Kaden Dempsey NP [Primary Care Provider] - Discharge Diet: Advance as tolerated Discharge Activity: Resume usual activity Patient Instructions: Cervical Sprain (ED) Discharge Date/Time: 10/06/19 23:30 Coding Level of Care Code 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
--- NOTE | 2019-10-06 21:49 | CTR_ITS ---
PROCEDURE INFORMATION: Exam: CT Cervical Spine Without Contrast Exam date and time: 10/06/2019 9:50 PM Age: 49 years old Clinical indication: Injury or trauma; Injury history: Head whipped back breakining up a dog fight; Work related; Initial encounter; Sprain or strain, cervical ligaments; Prior surgery; Surgery date: 1-6 months; Surgery type: C-spine surgery 5 weeks ago TECHNIQUE: Imaging protocol: Computed tomography images of the cervical spine without contrast. Total DLP: 839.93 mGy-cm Radiation optimization: All CT scans at this facility use at least one of these dose optimization techniques: automated exposure control; mA and/or kV adjustment per patient size (includes targeted exams where dose is matched to clinical indication); or iterative reconstruction. COMPARISON: CT cervical spin wo con* [id number] 08/26/2019 5:24 PM FINDINGS: Vertebrae: Since 08/26/2019 there has been no change. There is chronic anterior metallic fusion of C3 through C5 including a corpectomy bone graft. There is no subluxation or retropulsion. C2-C3: No disc herniation. No spinal canal stenosis. No neural foraminal narrowing. C3-C4: No disc herniation. No spinal canal stenosis. No neural foraminal narrowing. C4-C5: No disc herniation. No spinal canal stenosis. No neural foraminal narrowing. C5-C6: No disc herniation. No spinal canal stenosis. No neural foraminal narrowing. C6-C7: No disc herniation. No spinal canal stenosis. No neural foraminal narrowing. C7-T1: No disc herniation. No spinal canal stenosis. No neural foraminal narrowing. Soft tissues: Subcutaneous gas droplets have resolved. However solid bony graft fusion is not yet obtained. Lungs: Lung apices are normal. CT/CT cervical spin wo con* [id number] IMPRESSION: No change. Chronic anterior metallic fusion and corpectomy. No significant central spinal stenosis. Radiation Dose CTDIVOL = (mGy): DLP = 839.93 (mGy-cm)
[2019-10-06 23:49] VITALS: BP 101/65; PULSE 78; RESP 18; TEMP 36.5
--- NOTE | 2019-10-07 11:39 | DCPLANNER ---
patient manager had message to schedule a follow up appointment for patient with Dr. Posey. patient manager called [facility], spoke with Montse, gave clinic patients information. patient manager was told that patients information would be printed and given to Vickey for review. Clinic will call catalytic case operator and patient with appointment information.
--- NOTE | 2019-10-14 10:02 | DCPLANNER ---
Patient has a follow up appointment scheduled for Thursday, October 19, 2019 with Arlyn at [facility]. Clinic will call patient with appointment information.
--- NOTE | 2019-11-30 07:59 | DCPLANNER ---
Patient attended appointment scheduled for 10.19.19 with [facility].
== END 2019-10-06 23:30 | disposition home or self-care (01) ==
PROVIDERS: Emergency Provider Emergency Medicine; PCP Nurse Practitioner Family
DX: M54.2 Cervicalgia (principal); E11.42 Type 2 diabetes mellitus with diabetic polyneuropathy; I73.9 Peripheral vascular disease, unspecified; J34.2 Deviated nasal septum; R47.02 Dysphasia; R49.0 Dysphonia; F43.12 Post-traumatic stress disorder, chronic; F33.2 Major depressive disorder, recurrent severe without psychotic features; Z79.4 Long term (current) use of insulin; Z79.82 Long term (current) use of aspirin; Z98.1 Arthrodesis status; Z87.891 Personal history of nicotine dependence
CPT/HCPCS: 12345; 72125; 90834; 99281; 99283

== ENCOUNTER → 2019-10-12 07:45 | Outpatient (BNVA) | payer MEDICAID, SELFPAY | PROVIDERS: PCP Nurse Practitioner Family; Visit Provider Nurse Practitioner | DX: F43.12 Post-traumatic stress disorder, chronic (principal); F33.2 Major depressive disorder, recurrent severe without psychotic features | CPT/HCPCS: 99214 ==

== ENCOUNTER → 2019-10-13 12:09 | Outpatient (BNVA) | payer MEDICAID, SELFPAY | PROVIDERS: PCP Nurse Practitioner Family; Visit Provider Counselor Professional | DX: F33.2 Major depressive disorder, recurrent severe without psychotic features (principal); F43.12 Post-traumatic stress disorder, chronic | CPT/HCPCS: 90834 ==

== ENCOUNTER 2019-10-19 07:48 | Outpatient (CLI) | payer MEDICAID, SELFPAY ==
--- NOTE | 2019-10-19 08:00 | CT_ITS ---
WS: [id number] CT CERVICAL SPINE TECHNIQUE: Noncontrast CT of the cervical spine with coronal and sagittal reformatted images. CLINICAL INFORMATION: Postop follow-up COMPARISON: CT October 06, 2019 DLP: 2475.[address] scans at [facility] use at least one of these dose optimization techniques: automat ed exposure control; mA and/or kV adjustment per patient size (includes targeted exams where dose is matched to clinical indication); or iterative reconstruction. FINDINGS: Straightening of the normal cervical lordosis. Anterior cervical fusion C3-C5 with partial corpectomy at C4 and interbody fusion graft. C2-C3: Normal. C3-C4: Postoperative changes. Mild central canal stenosis. Mild right foraminal narrowing. C4-C5: Postoperative changes. Mild central canal stenosis. Mild bilateral bony foraminal narrowing. M ild facet arthropathy. C5-C6: Postoperative changes. Mild bilateral bony foraminal narrowing. Spinal canal is patent. Mild f acet arthropathy. C6-C7: Mild osteophytic ridging. Spinal canal and foramen are patent. C7-T1: No significant disc bulging. Spinal canal and foramen are patent. Visualized posterior nasopharynx: Normal. Prevertebral soft tissues: Normal. CT/CT cervical spin wo con* [id number] IMPRESSION: 1. Straightening of the normal cervical lordosis. 2. Stable postoperative changes C3-C5 with anterior cervical fusion. Corpectom y at C4 with interbody fusion graft. No evidence of hardware loosening. 3. No significant central canal stenosis. 4. Mild bony foraminal narrowing described above.
== END 2019-10-19 07:49 | disposition home or self-care (01) ==
LOC: RADWPI 07:51
PROVIDERS: PCP Nurse Practitioner Family; Visit Provider Specialist
DX: Z98.1 Arthrodesis status (principal)
CPT/HCPCS: 72125

== ENCOUNTER → 2019-10-20 08:55 | Outpatient (BNVA) | payer MEDICAID, SELFPAY | PROVIDERS: PCP Nurse Practitioner Family; Visit Provider Counselor Professional | DX: F43.12 Post-traumatic stress disorder, chronic (principal); F33.2 Major depressive disorder, recurrent severe without psychotic features | CPT/HCPCS: 90834 ==

== ENCOUNTER → 2019-10-27 08:58 | Outpatient (BNVA) | payer MEDICAID, SELFPAY | PROVIDERS: PCP Nurse Practitioner Family; Visit Provider Counselor Professional | DX: F43.12 Post-traumatic stress disorder, chronic (principal); F33.2 Major depressive disorder, recurrent severe without psychotic features | CPT/HCPCS: 90834 ==

== ENCOUNTER → 2019-11-01 08:34 | Outpatient (BNVA) | payer MEDICAID, SELFPAY | PROVIDERS: PCP Nurse Practitioner Family; Visit Provider Counselor Professional | DX: F43.12 Post-traumatic stress disorder, chronic (principal); F33.2 Major depressive disorder, recurrent severe without psychotic features | CPT/HCPCS: 90834 ==

== ENCOUNTER → 2019-11-02 08:30 | Outpatient (BNVA) | payer MEDICAID, SELFPAY | PROVIDERS: PCP Nurse Practitioner Family; Visit Provider Counselor Professional | DX: F43.12 Post-traumatic stress disorder, chronic (principal); F33.2 Major depressive disorder, recurrent severe without psychotic features | CPT/HCPCS: 90834 ==

== ENCOUNTER → 2019-11-08 08:44 | Outpatient (BNVA) | payer MEDICAID, SELFPAY | PROVIDERS: PCP Nurse Practitioner Family; Visit Provider Counselor Professional | DX: F43.12 Post-traumatic stress disorder, chronic (principal); F33.2 Major depressive disorder, recurrent severe without psychotic features; F44.5 Conversion disorder with seizures or convulsions | CPT/HCPCS: 90834 ==

== ENCOUNTER → 2019-11-11 12:00 | Outpatient (BNVA) | payer MEDICAID, SELFPAY | PROVIDERS: Visit Provider Counselor Professional | DX: F43.12 Post-traumatic stress disorder, chronic (principal) | CPT/HCPCS: 90834 ==

== ENCOUNTER → 2019-11-16 08:45 | Outpatient (BNVA) | payer MEDICAID, SELFPAY | PROVIDERS: Visit Provider Counselor Professional | DX: F43.12 Post-traumatic stress disorder, chronic (principal); F33.2 Major depressive disorder, recurrent severe without psychotic features | CPT/HCPCS: 90834 ==

== ENCOUNTER → 2019-11-22 08:12 | Outpatient (BNVA) | payer MEDICAID, SELFPAY | PROVIDERS: Visit Provider Nurse Practitioner | DX: F43.12 Post-traumatic stress disorder, chronic (principal); F33.2 Major depressive disorder, recurrent severe without psychotic features | CPT/HCPCS: 90834 ==

== ENCOUNTER 2019-11-22 09:23 | Outpatient (CLI) | payer MEDICAID, SELFPAY ==
--- NOTE | 2019-11-22 09:33 | XR_ITS ---
WS: [id number] CERVICAL SPINE 5 VIEWS HISTORY: NECK PAIN, BACK PAIN, LUMBAR COMPARISON: None available. Straightening of the normal cervical lordosis. Anterior cervical fusion hardware from C3 to C5. Inter body spacers at C3-4 and C4-5. No lucency around the pedicle screws or interval change. Lateral masses of C1 and C2 are aligned. Soft tissues are normal. XR/XR cervical spine 3V* [id number] IMPRESSION: Postoperative changes from C3 to C5 appears stable as compared to 10/04/2019. No acute interval change.
--- NOTE | 2019-11-22 09:33 | XR_ITS ---
WS: [id number] LUMBAR SPINE: 3 VIEWS TECHNIQUE: AP, lateral and L5-S1 spot. HISTORY: NECK PAIN, BACK PAIN, LUMBAR pain. COMPARISON: 05/09/2019 and 05/04/2019 Posterior lumbar alignment is normal. Severe degenerative disc space narrowing at L5-S1 with vacuum p henomenon. Osteophytes extend posterior and anterior from the endplates. S1 is partially lumbarized. Very slight LEFT convex curvature of the lumbar spine. SI joints are symmetric bilaterally. No soft tissue abnormalities. XR/XR lumbar spine 2-3V* [id number] IMPRESSION: 1. Severe degenerative disc disease at L5-S1 with mild progression since 2018. 2. Partial sacralization of S1.
== END 2019-11-22 09:24 | disposition home or self-care (01) ==
LOC: RADWPI 09:26
PROVIDERS: Family Provider Nurse Practitioner Family; PCP Nurse Practitioner Family; Visit Provider Nurse Practitioner Family
DX: M54.2 Cervicalgia (principal); M54.5 Low back pain; M51.37 Other intervertebral disc degeneration, lumbosacral region; Q76.49 Other congenital malformations of spine, not associated with scoliosis
CPT/HCPCS: 72040; 72100; 99213

== ENCOUNTER → 2019-11-25 08:10 | Outpatient (BNVA) | payer MEDICAID, SELFPAY | PROVIDERS: Visit Provider Counselor Professional | DX: F43.12 Post-traumatic stress disorder, chronic (principal); F33.2 Major depressive disorder, recurrent severe without psychotic features | CPT/HCPCS: 90834 ==

== ENCOUNTER → 2019-11-29 08:37 | Outpatient (BNVA) | payer MEDICAID, SELFPAY | PROVIDERS: Visit Provider Counselor Professional | DX: F43.12 Post-traumatic stress disorder, chronic (principal); F33.2 Major depressive disorder, recurrent severe without psychotic features | CPT/HCPCS: 90834 ==

== ENCOUNTER 2019-12-05 08:14 | Outpatient (RCR) | payer MEDICAID, SELFPAY | END 2020-01-03 23:59 | disposition home or self-care (01) | LOC: SPT 08:14 | PROVIDERS: Family Provider Nurse Practitioner Family; PCP Nurse Practitioner Family; Referring Provider Specialist; Visit Provider Specialist | DX: M54.2 Cervicalgia (principal) | CPT/HCPCS: 97110; 97161 ==

== ENCOUNTER → 2019-12-07 08:13 | Outpatient (BNVA) | payer MEDICAID, SELFPAY | PROVIDERS: Family Provider Nurse Practitioner Family; PCP Nurse Practitioner Family; Visit Provider Counselor Professional | DX: F43.12 Post-traumatic stress disorder, chronic (principal); F33.2 Major depressive disorder, recurrent severe without psychotic features | CPT/HCPCS: 90834 ==

== ENCOUNTER → 2019-12-15 08:34 | Outpatient (BNVA) | payer MEDICAID, SELFPAY | PROVIDERS: Family Provider Nurse Practitioner Family; PCP Nurse Practitioner Family; Visit Provider Counselor Professional | DX: F43.12 Post-traumatic stress disorder, chronic (principal); F33.2 Major depressive disorder, recurrent severe without psychotic features | CPT/HCPCS: 90834 ==

== ENCOUNTER → 2019-12-21 08:14 | Outpatient (BNVA) | payer MEDICAID, SELFPAY | PROVIDERS: Family Provider Nurse Practitioner Family; PCP Nurse Practitioner Family; Visit Provider Counselor Professional | DX: F33.2 Major depressive disorder, recurrent severe without psychotic features (principal); F43.12 Post-traumatic stress disorder, chronic | CPT/HCPCS: 90834 ==

== ENCOUNTER → 2019-12-29 08:22 | Outpatient (BNVA) | payer MEDICAID, SELFPAY | PROVIDERS: Family Provider Nurse Practitioner Family; PCP Nurse Practitioner Family; Visit Provider Counselor Professional | DX: F43.12 Post-traumatic stress disorder, chronic (principal); F33.2 Major depressive disorder, recurrent severe without psychotic features; F44.5 Conversion disorder with seizures or convulsions | CPT/HCPCS: 90834 ==

== ENCOUNTER 2020-01-04 04:31 | Outpatient (RCR) | payer MEDICAID, SELFPAY | END 2020-02-03 23:59 | disposition home or self-care (01) | LOC: SPT 04:31 | PROVIDERS: Family Provider Nurse Practitioner Family; PCP Nurse Practitioner Family; Referring Provider Specialist; Visit Provider Specialist | DX: M54.2 Cervicalgia (principal) | CPT/HCPCS: 97110 ==

== ENCOUNTER 2020-01-04 21:47 | Emergency (ER) | payer MEDICAID, SELFPAY ==
[2020-01-04 21:58] VITALS: BP 134/72; PULSE 118; RESP 18; TEMP 36.9; O2SAT 95; BMI 38.0
--- NOTE | 2020-01-04 22:00 | XRR_ITS ---
PROCEDURE INFORMATION: Exam: XR Chest, 1 View Exam date and time: 01/04/2020 10:20 PM Age: 49 years old Clinical indication: Chest pain; Prior surgery; Surgery date: 6+ months; Surgery type: Stents; Patient HX: [place] like he got overheated working outside. Diaphoretic and tunnel vision. Some vomiting. Heart palpitations; Additional info: Cp TECHNIQUE: Imaging protocol: XR of the chest Views: 1 view. COMPARISON: CR Chest 1 [place] [id number] 05/26/2018 11:58 PM FINDINGS: Lungs: Lungs are well aerated without a focal area of consolidation. Pleural space: Unremarkable. No pleural effusion. No pneumothorax. Heart/Mediastinum: The cardiac silhouette appears enlarged, some of which is magnification related to the AP projection. Bones/joints: Unremarkable. XR/XR chest 1V portable [id number] IMPRESSION: Lungs are well aerated without a focal area of consolidation.
--- NOTE | 2020-01-04 22:10 | ED_ITS ---
HPI - Chest Pain General: Chief Complaint: Chest Pain Stated Complaint: heart palps Time Seen by Provider: 01/04/20 22:02 Source: patient Mode of arrival: ambulatory Limitations: no limitations History of Present Illness: HPI narrative: 49-year-old male who states he is outside working today at 2. Patient states he felt like he got overheated working outside and became diaphoretic and had tunnel vision. He states that he had another episode 1 hour later while he is working with the same. He states since then he has had nausea and did had vomiting. He states he had chest pain along with palpitations with heart rates up to 130s. States he is feeling improved currently being in cooler air. Heart rates now 109. He denies any shortness of breath. He denies any fevers. MD complaint: chest pain Associated symptoms: Reports nausea, palpitations and vomiting; Deny dyspnea or fever(s) Review of Systems Const: Denies: fever(s), chills, body aches or change in appetite Eyes: Denies: blurry vision or eye discomfort ENMT: Denies: throat pain or dental pain Card: Reports: chest pain and palpitations Resp: Denies: dyspnea GI: Reports: nausea and vomiting : Denies: dysuria Musc: Denies: neck pain or back pain Skin/Breast: Denies: rash Neuro: Denies: headache(s) Psych: Denies: depression Nathan/Lymph: Denies: easy bruising All/Imm: Denies: urticaria PFS ED PFSH: Medical History (Updated 01/05/20 @ 00:53 by Zachariah Licea MD) Deviated septum Dysphasia Dysphonia Intervertebral cervical disc disorder with myelopathy, cervical region Major depressive disorder, recurrent severe without psychotic features Post-traumatic stress disorder, chronic Surgical History H/O carpal tunnel repair (~2018) H/O hernia repair History of fusion of cervical spine C4 corpectomy, revision C3-C4 and C4-C5 plate-screw fixation/interbody fusion[place] [facility] [place] cardiac catheterization S/P cervical spinal fusion (~06/15/17) C3-C4 ACDFF, 06/2017, Dr. Brigitte Guy Stented coronary artery Family History Father Diabetes CAD (coronary artery disease) Hypertension Dementia Brother CAD (coronary artery disease) Grandmother Stroke Maternal x3 Mother Dementia Schizophrenia Grandfather Cancer Both Maternal and Paternal Family/Other Cancer Uncles both maternal and paternal Social History Smoking and tobacco status: former smoker Alcohol intake: never Lives independently: Yes Household members: spouse Marital status: Current occupational status: unemployed History of recent travel: No Physical Exam Const: COMMON NORMALS: no acute distress, patient oriented x3 and healthy appearing HENMT: COMMON NORMALS: normocephalic and atraumatic HEAD & SCALP: normocephalic and atraumatic Eye: COMMON NORMALS: Equal, round and reactive pupils present and EOMs intact bilaterally PUPIL: Yes Equal, round and reactive pupils present Neck/C-Spine: COMMON NORMALS: full ROM and supple Chest: COMMONS NORMALS: normal inspection of the chest and normal palpation of entire chest wall Resp: COMMON NORMALS: normal respiratory effort, No retractions, No use of accessory muscles and clear to auscultation bilaterally AUSCULTATION: clear to auscultation bilaterally Cardio: COMMON NORMALS: regular rhythm and No murmurs present (Cardio) RATE: tachycardic RHYTHM: regular rhythm GI: COMMON NORMALS: Normal to inspection, nondistended, normoactive bowel sounds present, Soft to palpation, non-tender and no masses PALPATION: Yes Soft to palpation Extremity: COMMON NORMALS: normal to inspection and full ROM Neuro: COMMON NORMALS: patient oriented x3, moves all extremities and no focal motor deficits Psych: COMMON NORMALS: mental status grossly normal, Normal thought process present and cooperative THOUGHT PROCESS: Normal thought process present Skin: COMMON NORMALS: no rashes or lesions noted and no wounds GENERAL SKIN EXAM: no rashes or lesions noted Course Vital Signs: Vital signs: Vital Signs Temperature 98.5 F 01/04/20 21:58 Pulse Rate 90 01/05/20 01:23 Respiratory Rate 18 01/05/20 01:23 Blood Pressure 127/70 01/05/20 01:23 Pulse Oximetry 98 01/05/20 01:23 MDM - Chest Pain MDM Narrative: Medical decision making narrative: Ronny presents with chest pain that is very atypical in nature. Patient's initial and repeat troponins here are negative. I believe this is likely all due to heat exposure. Patient is feeling improved I feel he is stable for discharge. He is to follow-up with primary care doctor in 3 to 5 days return to ER if worsening. Patient understands and agrees to plan. Lab Data: Labs: Lab Results 01/04/20 01/04/20 01/04/20 Range/Units 22:20 22:20 22:20 WBC 5.7 (4.0-10.0) 10^3/ uL RBC 5.15 (4.1-5.3) 10^6/u L Hgb 14.7 (11.7-16.6) g/dL Hct 43.8 (42.0-52.0) % MCV 85.0 (80-94) fL MCH 28.5 (28.0-34.0) pg MCHC 33.6 (30.0-36.0) g/dL RDW 13.3 (12.1-15.1) % Plt Count 302 (130-400) 10^3/c mm MPV 11.0 H (7.4-10.4) fL Neut % (Auto) 62.8 % Lymph % (Auto) 25.8 % [place] % (Auto) 9.2 % Eos % (Auto) 1.7 % Baso % (Auto) 0.2 % Neut # (Auto) 3.6 (1.8-7.7) 10^3/u L Lymph # (Auto) 1.5 (0.8-4.8) 10^3/u L [place] # (Auto) 0.5 (0.2-0.9) 10^3/u L Eos # (Auto) 0.1 (0.0-0.8) 10^3/u L Baso # (Auto) 0.0 (0.0-0.1) 10^3/u L Nucleated RBC % (a uto) 0 % Nucleated RBCs # 0.0 /100WBC Sodium 138 (136-145) mmol/L Potassium 3.8 (3.5-5.1) mmol/L Chloride 95 L (98-107) mmol/L Carbon Dioxide 22 (22-29) mmol/L Anion Gap 24.8 H (5-19) BUN 11 (6-20) mg/dL Creatinine 1.1 (0.7-1.2) mg/dL GFR Calculation 71.1 L (90-130) mL/min Glucose 346 H (65-115) mg/dL Calculated Osmolal ity 296 H (285-295) mOsm/k g Calcium 10.0 (8.5-10.5) mg/dL Total Bilirubin 0.7 (0.15-1.2) mg/dL AST 30 (0-40) U/L ALT 28 (0-41) U/L Alkaline Phosphata se 88 (40-130) IU/L Troponin T Baselin e 13 (0-15) ng/L Troponin T 120 Min lizet (0-15) ng/L Delta Troponin T (0-10) ABS# Total Protein 8.5 (6.6-8.7) g/dL Albumin 5.1 (3.5-5.2) g/dL Globulin 3.4 (1.3-4.6) g/dL 01/05/20 Range/Units 00:29 WBC (4.0-10.0) 10^3/ uL RBC (4.1-5.3) 10^6/u L Hgb (11.7-16.6) g/dL Hct (42.0-52.0) % MCV (80-94) fL MCH (28.0-34.0) pg MCHC (30.0-36.0) g/dL RDW (12.1-15.1) % Plt Count (130-400) 10^3/c mm MPV (7.4-10.4) fL Neut % (Auto) % Lymph % (Auto) % [place] % (Auto) % Eos % (Auto) % Baso % (Auto) % Neut # (Auto) (1.8-7.7) 10^3/u L Lymph # (Auto) (0.8-4.8) 10^3/u L [place] # (Auto) (0.2-0.9) 10^3/u L Eos # (Auto) (0.0-0.8) 10^3/u L Baso # (Auto) (0.0-0.1) 10^3/u L Nucleated RBC % (a uto) % Nucleated RBCs # /100WBC Sodium (136-145) mmol/L Potassium (3.5-5.1) mmol/L Chloride (98-107) mmol/L Carbon Dioxide (22-29) mmol/L Anion Gap (5-19) BUN (6-20) mg/dL Creatinine (0.7-1.2) mg/dL GFR Calculation (90-130) mL/min Glucose (65-115) mg/dL Calculated Osmolal ity (285-295) mOsm/k g Calcium (8.5-10.5) mg/dL Total Bilirubin (0.15-1.2) mg/dL AST (0-40) U/L ALT (0-41) U/L Alkaline Phosphata se (40-130) IU/L Troponin T Baselin e (0-15) ng/L Troponin T 120 Min lizet 11.55 (0-15) ng/L Delta Troponin T -1.45 L (0-10) ABS# Total Protein (6.6-8.7) g/dL Albumin (3.5-5.2) g/dL Globulin (1.3-4.6) g/dL Imaging Data^: CXR: Attestation: I personally reviewed and interpreted this imaging study as follows: My impression: no acute abnormality EKG Data^: EKG 1: Attestation: I personally reviewed and interpreted this EKG as follows: EKG interpretation date: 01/04/20 EKG interpretation time: 21:56 Interpretation: sinus tach hr [address] or t wave abnormalities qrs 89 qtc 383 Discharge Plan Discharge Patient Disposition: Home, Self-Care Clinical Impression: Chest pain Qualifiers: Chest pain type: unspecified Qualified Code(s): R07.9 - Chest pain, unspecified Headache Qualifiers: Headache type: unspecified Headache chronicity pattern: acute headache Intractability: not intractable Qualified Code(s): R51 - Headache Heat exposure Qualifiers: Encounter type: initial encounter Qualified Code(s): T67.9XXA - Effect of heat and light, unspecified, initial encounter Condition: Stable Prescriptions: No Action promethazine 25 mg tablet 25 mg PO BID PRN (Reason: Nausea) RF: 0 tizanidine 2 mg capsule 1 mg PO BID PRN (Reason: Muscle Spasm) RF: 0 gemfibrozil 600 mg tablet 600 mg PO BID RF: 0 diclofenac potassium 50 mg tablet 50 mg PO ONCE PRN (Reason: Inflammation) RF: 0 Hold Instructions: Resume on 08/25/19. Hold while taking Toradol (ketorolac). Lantus U-100 Insulin 100 unit/mL solution 30 unit SUBCUT BID RF: 0 aspirin [Adult Aspirin Regimen] 81 mg tablet,delayed release (DR/EC) 81 mg PO DAILY RF: 0 Hold Instructions: Resume on 08/25/19. propranolol 60 mg capsule,extended release 24 hr 60 mg PO BID RF: 0 tramadol 50 mg tablet 100 mg PO Q6H PRN (Reason: Pain) RF: 0 Hold Instructions: Resume on 08/26/19. Hold while taking hydrocodone ([place]). atorvastatin 80 mg tablet 80 mg PO DAILY RF: 0 magnesium oxide 500 mg tablet 500 mg PO DAILY RF: 0 metformin 1,000 mg tablet extended release 24hr 1,000 mg PO BID RF: 0 Vimpat 150 mg tablet 150 mg PO BID RF: 0 modafinil 200 mg tablet 200 mg PO QAM RF: 0 isosorbide mononitrate 120 mg tablet extended release 24 hr 120 mg PO QAM RF: 0 Jardiance 25 mg tablet 25 mg PO QAM RF: 0 losartan 25 mg tablet 25 mg PO DAILY RF: 0 ranolazine [Ranexa] 1,000 mg tablet extended release 12 hr 1,000 mg PO BID RF: 0 methylprednisolone [Medrol (Luis)] 4 mg tablets,dose pack See Rx Instructions PO PER PKG DIR Qty: 21 RF: 0 paroxetine HCl [Paxil] 30 mg tablet 60 mg PO DAILY Qty: 60 RF: 1 buspirone 10 mg tablet 10 mg PO TID Qty: 90 RF: 2 divalproex [Depakote ER] 250 mg tablet extended release 24 hr 250 mg PO BID RF: 0 gabapentin 600 mg tablet 600 mg PO TID RF: 0 nitroglycerin 0.4 mg tablet, sublingual 0.4 mg SUBLINGUAL Q5M PRN (Reason: chest pain) Qty: 25 RF: 3 Brilinta 90 MG 90 mg PO BID RF: 0 Hold Instructions: Resume on 08/29/19. Iron (ferrous sulfate) 325 MG 325 mg PO DAILY RF: 0 acetaminophen 1,000 MG 1,000 mg PO DAILY RF: 0 insulin regular human 10 UNITS 10 units SUBCUT AC RF: 0 [place] 10-325 mg tablet 1 tab PO Q4H MDD 5 tabs PRN (Reason: pain) Qty: 30 RF: 0 ketorolac 10 mg tablet 10 mg PO TID PRN (Reason: pain) Qty: 10 RF: 0 Discharge Orders: Discharge Order (Routine); Ordered 01/05/20 Ordered By: Zachariah Licea Referrals: Regla Watkins FNP [Primary Care Provider] - 1-3 days Discharge Diet: Advance as tolerated Discharge Activity: Resume usual activity Patient Instructions: Chest Pain (ED), Heat Exhaustion (ED) Discharge Date/Time: 01/05/20 01:28 Coding Level of Care Code ED [employer] for Loretta Fwsangita 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
[2020-01-04 22:33] LABS: Basophils % 0.2 %; Eosinophils # 0.1 10^3/uL (0.0-0.8); Eosinophils % 1.7 %; Hematocrit 43.8 % (42.0-52.0); Hemoglobin 14.7 g/dL (11.7-16.6); Lymphocytes # 1.5 10^3/uL (0.8-4.8); Lymphocytes % 25.8 %; Mean Corpuscular HGB Conc 33.6 g/dL (30.0-36.0); Mean Corpuscular Hemoglobin 28.5 pg (28.0-34.0); Monocytes # 0.5 10^3/uL (0.2-0.9); Monocytes % 9.2 %; Neutrophils # 3.6 10^3/uL (1.8-7.7); Neutrophils % 62.8 %; Nucleated Red Blood Cells % 0 %; Platelet Count 302 10^3/cmm (130-400); Red Blood Count 5.15 10^6/uL (4.1-5.3); Red Cell Distribution Width 13.3 % (12.1-15.1); White Blood Count 5.7 10^3/uL (4.0-10.0)
[2020-01-04 22:59] LABS: Alanine Aminotransferase 28 U/L (0-41); Albumin Level 5.1 g/dL (3.5-5.2); Alkaline Phosphatase 88 IU/L (40-130); Anion Gap 24.8 (5-19); Aspartate Amino Transferase 30 U/L (0-40); Blood Urea Nitrogen 11 mg/dL (6-20); Carbon Dioxide 22 mmol/L (22-29); Chloride 95 mmol/L (98-107); Globulin 3.4 g/dL (1.3-4.6); Glomerular Filtration Rate 71.1 mL/min (90-130); Glucose 346 mg/dL (65-115); Osmolality Calculated 296 mOsm/kg (285-295); Potassium 3.8 mmol/L (3.5-5.1); Sodium 138 mmol/L (136-145); Total Bilirubin 0.7 mg/dL (0.15-1.2); Total Protein 8.5 g/dL (6.6-8.7)
[2020-01-04 23:03] LABS: Troponin(5th) Baseline 13 ng/L (0-15)
[2020-01-04] MEDS: ondansetron 2 mg/ML SDV 2 mL 4 MG IVP (23:25)
[2020-01-04] MEDS: sodium chloride 0.9% 1,000 ML 999 ML IV (23:25)
[2020-01-05 00:41] VITALS: BP 120/71; PULSE 84; RESP 20; O2SAT 95
[2020-01-05 00:48] LABS: Troponin 5 2HR 11.55 ng/L (0-15)
[2020-01-05 00:49] VITALS: RESP 16
[2020-01-05] MEDS: morphine 4 mg/mL SDV 1 mL IVP (00:49)
[2020-01-05] MEDS: ondansetron 2 mg/ML SDV 2 mL 4 MG IVP (00:50)
[2020-01-05 01:19] LABS: Troponin 5 2HR Delta -1.45 ABS# (0-10)
[2020-01-05 01:22] VITALS: BP 123/70; PULSE 90; RESP 18; O2SAT 98
[2020-01-05 01:23] VITALS: BP 127/70; PULSE 90; RESP 18; O2SAT 98
== END 2020-01-05 01:28 | disposition home or self-care (01) ==
PROVIDERS: Emergency Provider Emergency Medicine; PCP Nurse Practitioner Family
DX: R07.9 Chest pain, unspecified (principal); R51 Headache; T67.9XXA Effect of heat and light, unspecified, initial encounter; Z79.4 Long term (current) use of insulin; Z79.82 Long term (current) use of aspirin; Z87.891 Personal history of nicotine dependence
CPT/HCPCS: 12345; 36415; 71045; 80053; 84484; 85025; 96361; 96374; 96375; 96376; 99282; 99284; J2270; J2405; J7030

== ENCOUNTER → 2020-01-05 08:00 | Outpatient (BNVA) | payer MEDICAID, SELFPAY | PROVIDERS: PCP Nurse Practitioner Family; Visit Provider Counselor Professional | DX: F43.12 Post-traumatic stress disorder, chronic (principal); F33.2 Major depressive disorder, recurrent severe without psychotic features; F44.5 Conversion disorder with seizures or convulsions | CPT/HCPCS: 90834; 90832 ==

== ENCOUNTER 2020-01-09 07:43 | Outpatient (CLI) | payer MEDICAID, SELFPAY ==
--- NOTE | 2020-01-09 08:00 | CT_ITS ---
WS: [id number] CTA THORACIC TECHNIQUE: Contrast enhanced CTA of the thoracic aorta with coronal and sagittal reformatted images a nd maximum intensity projection (MIP) images. CLINICAL INFORMATION: Evaluation of dilated aortic root COMPARISON: CT chest 8 16,018 DLP: 1377.[address] scans at [facility] use at least one of these dose optimization techniques: automat ed exposure control; mA and/or kV adjustment per patient size (includes targeted exams where dose is matched to clinical indication); or iterative reconstruction. FINDINGS: Normal caliber thoracic aorta. No evidence of thoracic aortic aneurysm. Aortic root measures 3.3 cm. LAD stent. No mediastinal or hilar lymphadenopathy. No evidence of dissection or intramural hematoma in the thoracic aorta. Visualized upper abdominal aorta is normal. Lungs are well aerated. No acute p ulmonary infiltrates. No suspicious pulmonary parenchymal abnormalities. Normal GE junction. Adrenal glands are normal. Hypertrophic changes thoracic spine. CT/CT angio chest [id number] IMPRESSION: 1. Normal caliber thoracic aorta. No evidence of aortic aneurysm. Normal aorti c root. 2. No mediastinal or hilar lymphadenopathy. 3. Lungs are well aerated. No acute pulmonary infiltrates. 4. No other significant findings.
[2020-01-09] MEDS: iohexol 350 mg/mL 100 mL Btl IV (08:40)
== END 2020-01-09 07:44 | disposition home or self-care (01) ==
LOC: RADWPI 07:46
PROVIDERS: Family Provider Nurse Practitioner Family; PCP Nurse Practitioner Family; Visit Provider Internal Medicine Cardiovascular Disease
DX: I77.810 Thoracic aortic ectasia (principal)
CPT/HCPCS: 71275; Q9967

== ENCOUNTER → 2020-01-12 08:12 | Outpatient (BNVA) | payer MEDICAID, SELFPAY | PROVIDERS: Family Provider Nurse Practitioner Family; PCP Nurse Practitioner Family; Visit Provider Counselor Professional | DX: F43.12 Post-traumatic stress disorder, chronic (principal); F33.2 Major depressive disorder, recurrent severe without psychotic features | CPT/HCPCS: 90834 ==

== ENCOUNTER → 2020-01-13 09:14 | Outpatient (BNVA) | payer MEDICAID, SELFPAY | PROVIDERS: Family Provider Nurse Practitioner Family; PCP Nurse Practitioner Family; Visit Provider Nurse Practitioner | DX: F43.12 Post-traumatic stress disorder, chronic (principal); F33.2 Major depressive disorder, recurrent severe without psychotic features | CPT/HCPCS: 99213 ==

== ENCOUNTER → 2020-01-19 07:55 | Outpatient (BNVA) | payer MEDICAID, SELFPAY | PROVIDERS: Family Provider Nurse Practitioner Family; PCP Nurse Practitioner Family; Visit Provider Counselor Professional | DX: F43.12 Post-traumatic stress disorder, chronic (principal); F33.2 Major depressive disorder, recurrent severe without psychotic features | CPT/HCPCS: 90834 ==

== ENCOUNTER → 2020-01-26 07:52 | Outpatient (BNVA) | payer MEDICAID, SELFPAY | PROVIDERS: Family Provider Nurse Practitioner Family; PCP Nurse Practitioner Family; Visit Provider Counselor Professional | DX: F43.12 Post-traumatic stress disorder, chronic (principal); F33.2 Major depressive disorder, recurrent severe without psychotic features | CPT/HCPCS: 90834 ==

== ENCOUNTER 2020-01-30 10:29 | Outpatient (CLI) | payer MEDICAID, SELFPAY ==
--- NOTE | 2020-01-30 10:45 | CT_ITS ---
WS: [id number] CT CERVICAL SPINE HISTORY: s/p cervical spinal fusion TECHNIQUE: Contiguous 2.5 mm axial imaging performed through the entire cervical spine. Sagittal and coronal reformats also performed. All CT scans at [facility] use at least one of these do se optimization techniques: automated exposure control; mA and/or kV adjustment per patient size (inc ludes targeted exams where dose is matched to clinical indication); or iterative reconstruction. DLP: 1840.32 mGycm COMPARISON: 10/19/2019 Mild straightening of the normal cervical lordosis. Anterior cervical fusion extends from C3 through C5. Partial corpectomy at C4. No change in position of the hardware. No lucency around the hardware c omponents. C2-C3: Normal. C3-C4: Osteophytic ridging with mild central and RIGHT foraminal narrowing. Small central disc protru josie. C4-C5: Diffuse osteophytic ridging. Mild central and bilateral foraminal stenosis. No change. C5-C6: Mild osteophytic ridging. Very mild encroachment upon the ventral thecal sac and foramen. C6-C7: Mild osteophytic ridging. No stenosis. C7-T1: Normal. Soft tissues are normal. Lung apices are clear. CT/CT cervical spin wo con* [id number] IMPRESSION: 1. Stable postoperative changes from C3 through C5 with anterior cervical fusi on hardware. 2. Partial C4 corpectomy. 3. Mild central and foraminal stenoses as above. No interval change.
== END 2020-01-30 10:30 | disposition home or self-care (01) ==
LOC: RADWPI 10:32
PROVIDERS: Family Provider Nurse Practitioner Family; PCP Nurse Practitioner Family; Visit Provider Specialist
DX: Z98.1 Arthrodesis status (principal); M48.02 Spinal stenosis, cervical region
CPT/HCPCS: 72125

== ENCOUNTER → 2020-02-02 07:56 | Outpatient (BNVA) | payer MEDICAID, SELFPAY | PROVIDERS: Family Provider Nurse Practitioner Family; PCP Nurse Practitioner Family; Visit Provider Counselor Professional | DX: F33.2 Major depressive disorder, recurrent severe without psychotic features (principal); F43.12 Post-traumatic stress disorder, chronic | CPT/HCPCS: 90834 ==

== ENCOUNTER → 2020-02-10 08:39 | Outpatient (BNVA) | payer MEDICAID, SELFPAY | PROVIDERS: Family Provider Nurse Practitioner Family; PCP Nurse Practitioner Family; Visit Provider Counselor Professional | DX: F43.12 Post-traumatic stress disorder, chronic (principal); F33.2 Major depressive disorder, recurrent severe without psychotic features | CPT/HCPCS: 90834; 99204 ==

== ENCOUNTER → 2020-02-16 08:33 | Outpatient (BNVA) | payer MEDICAID, SELFPAY | PROVIDERS: Family Provider Nurse Practitioner Family; PCP Nurse Practitioner Family; Visit Provider Counselor Professional | DX: F43.12 Post-traumatic stress disorder, chronic (principal); F33.2 Major depressive disorder, recurrent severe without psychotic features | CPT/HCPCS: 90834 ==

== ENCOUNTER → 2020-02-22 08:19 | Outpatient (BNVA) | payer MEDICAID, SELFPAY | PROVIDERS: Family Provider Nurse Practitioner Family; PCP Nurse Practitioner Family; Visit Provider Counselor Professional | DX: F43.12 Post-traumatic stress disorder, chronic (principal); F33.2 Major depressive disorder, recurrent severe without psychotic features | CPT/HCPCS: 90834 ==

== ENCOUNTER → 2020-02-27 07:47 | Outpatient (BNVA) | payer MEDICAID, SELFPAY | PROVIDERS: Family Provider Nurse Practitioner Family; PCP Nurse Practitioner Family; Visit Provider Psychiatry & Neurology Psychiatry | DX: F33.2 Major depressive disorder, recurrent severe without psychotic features (principal); F43.12 Post-traumatic stress disorder, chronic | CPT/HCPCS: 99204 ==

== ENCOUNTER → 2020-02-29 10:08 | Outpatient (BNVA) | payer MEDICAID, SELFPAY | PROVIDERS: Family Provider Nurse Practitioner Family; PCP Nurse Practitioner Family; Visit Provider Counselor Professional | DX: F43.12 Post-traumatic stress disorder, chronic (principal); F33.2 Major depressive disorder, recurrent severe without psychotic features | CPT/HCPCS: 90834 ==

== ENCOUNTER → 2020-03-07 08:35 | Outpatient (BNVA) | payer MEDICAID, SELFPAY | PROVIDERS: Family Provider Nurse Practitioner Family; PCP Nurse Practitioner Family; Visit Provider Counselor Professional | DX: F43.12 Post-traumatic stress disorder, chronic (principal); F33.2 Major depressive disorder, recurrent severe without psychotic features | CPT/HCPCS: 90834 ==

== ENCOUNTER → 2020-03-15 08:00 | Outpatient (BNVA) | payer MEDICAID, SELFPAY | PROVIDERS: Family Provider Nurse Practitioner Family; Visit Provider Counselor Professional | DX: F43.12 Post-traumatic stress disorder, chronic (principal); F33.2 Major depressive disorder, recurrent severe without psychotic features | CPT/HCPCS: 90834 ==

== ENCOUNTER → 2020-03-19 08:21 | Outpatient (BNVA) | payer MEDICAID, SELFPAY | PROVIDERS: Family Provider Nurse Practitioner Family; PCP Nurse Practitioner Family; Visit Provider Counselor Professional | DX: F43.12 Post-traumatic stress disorder, chronic (principal); F33.2 Major depressive disorder, recurrent severe without psychotic features | CPT/HCPCS: 90834 ==

== ENCOUNTER → 2020-03-26 08:54 | Outpatient (BNVA) | payer MEDICAID, SELFPAY | PROVIDERS: Family Provider Nurse Practitioner Family; Visit Provider Counselor Professional | DX: F43.12 Post-traumatic stress disorder, chronic (principal); F33.2 Major depressive disorder, recurrent severe without psychotic features | CPT/HCPCS: 90834 ==

== ENCOUNTER → 2020-03-27 10:41 | Outpatient (BNVA) | payer MEDICAID, SELFPAY | PROVIDERS: Family Provider Nurse Practitioner Family; Visit Provider Psychiatry & Neurology Psychiatry | DX: F32.3 Major depressive disorder, single episode, severe with psychotic features (principal); F43.12 Post-traumatic stress disorder, chronic | CPT/HCPCS: 99203 ==

== ENCOUNTER → 2020-04-06 09:18 | Outpatient (BNVA) | payer MEDICAID, SELFPAY | PROVIDERS: Family Provider Nurse Practitioner Family; Visit Provider Counselor Professional | DX: F43.12 Post-traumatic stress disorder, chronic (principal); F33.2 Major depressive disorder, recurrent severe without psychotic features | CPT/HCPCS: 90834 ==

== ENCOUNTER → 2020-04-09 08:28 | Outpatient (BNVA) | payer MEDICAID, SELFPAY | PROVIDERS: Family Provider Nurse Practitioner Family; Visit Provider Counselor Professional | DX: F43.12 Post-traumatic stress disorder, chronic (principal) | CPT/HCPCS: 90834; 99204 ==

== ENCOUNTER → 2020-04-16 08:33 | Outpatient (BNVA) | payer MEDICAID, SELFPAY | PROVIDERS: Family Provider Nurse Practitioner Family; Visit Provider Counselor Professional | DX: F32.3 Major depressive disorder, single episode, severe with psychotic features (principal); F43.12 Post-traumatic stress disorder, chronic | CPT/HCPCS: 90834 ==

== ENCOUNTER → 2020-04-17 09:50 | Outpatient (BNVA) | payer MEDICAID, SELFPAY | PROVIDERS: Family Provider Nurse Practitioner Family; Visit Provider Podiatrist Foot & Ankle Surgery | DX: E11.8 Type 2 diabetes mellitus with unspecified complications (principal); R21 Rash and other nonspecific skin eruption; M25.571 Pain in right ankle and joints of right foot | CPT/HCPCS: 73610 ==

== ENCOUNTER 2020-04-24 20:35 | Emergency (ER) | payer MEDICAID, SELFPAY ==
[2020-04-24 20:52] VITALS: BP 141/85; PULSE 80; RESP 14; TEMP 36.7; O2SAT 97; BMI 36.5
[2020-04-24 21:24] LABS: Add Urine Microscopic? NO
[2020-04-24] MEDS: sodium chloride 0.9% 1,000 ML 999 ML IV ×2 (21:34)
[2020-04-24] MEDS: insulin regular-human 100 units/1 mL 10 UNIT IVP (21:34)
[2020-04-24 21:43] LABS: ABG PCO2 39.5 mmHg (35-45); ABG PH Result 7.41 (7.35-7.45); Arterial Blood Gas Hematocrit 42.3 % (42-52); Base Excess ABG 0.6 mmol/L (-2.0-2.0); Blood Gas Allen Test Pos; Blood Gas Sample Site Radial, left; Blood Gas Sample Type Arterial; HCO3 ABG 25.2 mmol/L (22-26)
[2020-04-24 21:52] LABS: Bilirubin Urine Neg (Negative); Blood Urine Neg (Negative); Glucose Urine UA 4+ (Normal); Ketones Urine Negative (Negative); Leukocyte Esterase Urine Negative (Negative); Nitrate Urine Negative (Negative); Protein Urine Neg (Negative); Specific Gravity, Urine 1.005 (1.005-1.030); Urine Appearance Clear (CLEAR); Urine Color Yellow (Yellow); Urobilinogen Urine Norm (Negative); pH Urine 6.5 (5-7)
[2020-04-24 21:53] LABS: Alanine Aminotransferase 24 U/L (0-41); Albumin Level 4.3 g/dL (3.5-5.2); Alkaline Phosphatase 78 IU/L (40-130); Anion Gap 16.8 (5-19); Aspartate Amino Transferase 23 U/L (0-40); Blood Urea Nitrogen 13 mg/dL (6-20); Calcium 9.6 mg/dL (8.5-10.5); Carbon Dioxide 22 mmol/L (22-29); Chloride 93 mmol/L (98-107); Globulin 2.8 g/dL (1.3-4.6); Glomerular Filtration Rate 89.3 mL/min (90-130); Osmolality Calculated 292 mOsm/kg (285-295); Potassium 3.8 mmol/L (3.5-5.1); Sodium 128 mmol/L (136-145); Total Bilirubin 0.2 mg/dL (0.15-1.2); Total Protein 7.1 g/dL (6.6-8.7)
[2020-04-24 21:55] LABS: Glucose 571 mg/dL (65-115)
[2020-04-24 22:01] LABS: Basophils % 0.2 %; Eosinophils # 0.2 10^3/uL (0.0-0.8); Eosinophils % 3.8 %; Hematocrit 43.1 % (42.0-52.0); Lymphocytes # 1.7 10^3/uL (0.8-4.8); Lymphocytes % 28.9 %; Mean Corpuscular HGB Conc 32.5 g/dL (30.0-36.0); Mean Corpuscular Hemoglobin 27.9 pg (28.0-34.0); Mean Platelet Volume 11.2 fL (7.4-10.4); Monocytes # 0.5 10^3/uL (0.2-0.9); Monocytes % 8.2 %; Neutrophils # 3.37 10^3/uL (1.8-7.7); Neutrophils % 58.7 %; Nucleated Red Blood Cells % 0 %; Platelet Count 274 10^3/cmm (130-400); Red Blood Count 5.01 10^6/uL (4.1-5.3); Red Cell Distribution Width 12.6 % (12.1-15.1); White Blood Count 5.7 10^3/uL (4.0-10.0)
[2020-04-24 22:08] LABS: Ketone (Acetest) Serum Negative (Negative)
--- NOTE | 2020-04-24 22:11 | ED_ITS ---
HPI - General Adult General: Chief complaint: General Medical Stated complaint: blood sugar 600+ Time Seen by Provider: 04/24/20 21:06 Source: patient Mode of arrival: ambulatory Limitations: no limitations History of Present Illness: HPI narrative: 50-year-old male history diabetes states he checked his blood sugar tonight and was over 600. Patient does take insulin but states that he is scared of needles and has not been given himself his insulin shots. Patient denies any vomiting or diarrhea. Denies any chest pain. He is has felt slightly lightheaded. Denies any worsening or improving factors. Associated symptoms: Deny chest pain, dyspnea, headache(s), nausea, rash or vomiting Review of Systems Const: Denies: fever(s), chills, body aches or change in appetite Eyes: Denies: blurry vision or eye discomfort ENMT: Denies: throat pain or dental pain Card: Denies: chest pain Resp: Denies: dyspnea GI: Denies: abdominal pain, nausea, vomiting or diarrhea : Denies: dysuria Musc: Denies: neck pain or back pain Skin/Breast: Denies: rash Neuro: Denies: headache(s) Psych: Denies: depression Nathan/Lymph: Denies: easy bruising All/Imm: Denies: urticaria PFSH ED PFSH: Medical History Deviated septum Dysphasia Dysphonia Intervertebral cervical disc disorder with myelopathy, 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 Brigitte Guy Status post spinal arthrodesis Stented coronary artery Family History Father Diabetes CAD (coronary artery disease) Hypertension Dementia Brother CAD (coronary artery disease) Grandmother Stroke Maternal x3 Mother Dementia Schizophrenia Grandfather Cancer Both Maternal and Paternal Family/Other Cancer Uncles both maternal and paternal Social History Smoking and tobacco status: former smoker Alcohol intake: never Lives independently: Yes Household members: spouse Marital status: Current occupational status: unemployed History of recent travel: No Physical Exam Const: COMMON NORMALS: no acute distress, patient oriented x3 and healthy appearing HENMT: COMMON NORMALS: normocephalic and atraumatic HEAD & SCALP: normocephalic and atraumatic Eye: COMMON NORMALS: Equal, round and reactive pupils present and EOMs intact bilaterally PUPIL: Yes Equal, round and reactive pupils present Neck/C-Spine: COMMON NORMALS: full ROM and supple Chest: COMMONS NORMALS: normal inspection of the chest and normal palpation of entire chest wall Resp: COMMON NORMALS: normal respiratory effort, No retractions, No use of accessory muscles and clear to auscultation bilaterally AUSCULTATION: clear to auscultation bilaterally Cardio: COMMON NORMALS: regular rate, regular rhythm and No murmurs present (Cardio) RATE: regular rate RHYTHM: regular rhythm GI: COMMON NORMALS: Normal to inspection, nondistended, normoactive bowel sounds present, Soft to palpation, non-tender and no masses PALPATION: Yes Soft to palpation Extremity: COMMON NORMALS: normal to inspection and full ROM Neuro: COMMON NORMALS: patient oriented x3, moves all extremities and no focal motor deficits Psych: COMMON NORMALS: mental status grossly normal, Normal thought process present and cooperative THOUGHT PROCESS: Normal thought process present Skin: COMMON NORMALS: no rashes or lesions noted and no wounds GENERAL SKIN EXAM: no rashes or lesions noted Course Vital Signs: Vital signs: Vital Signs Temperature 98.1 F 04/24/20 20:52 Pulse Rate 80 04/24/20 20:52 Respiratory Rate 14 04/24/20 20:52 Blood Pressure 141/85 04/24/20 20:52 Pulse Oximetry 97 04/24/20 20:52 MDM - General Adult MDM Narrative: Medical decision making narrative: Patient presents here with hyperglycemia from noncompliance. Patient is not in DKA and he is well- appearing here. Patient is stable for discharge and is to use his insulin as prescribed. He is return if worsening Lab Data: Labs: Lab Results 04/24/20 04/24/20 04/24/20 Range/Units 20:55 21:15 21:15 WBC 5.7 (4.0-10.0) 10^3/ uL RBC 5.01 (4.1-5.3) 10^6/u L Hgb 14.0 (11.7-16.6) g/dL Hct 43.1 (42.0-52.0) % MCV 86.0 (80-94) fL MCH 27.9 L (28.0-34.0) pg MCHC 32.5 (30.0-36.0) g/dL RDW 12.6 (12.1-15.1) % Plt Count 274 (130-400) 10^3/c mm MPV 11.2 H (7.4-10.4) fL Neut % (Auto) 58.7 % Lymph % (Auto) 28.9 % [place] % (Auto) 8.2 % Eos % (Auto) 3.8 % Baso % (Auto) 0.2 % Neut # (Auto) 3.37 (1.8-7.7) 10^3/u L Lymph # (Auto) 1.7 (0.8-4.8) 10^3/u L [place] # (Auto) 0.5 (0.2-0.9) 10^3/u L Eos # (Auto) 0.2 (0.0-0.8) 10^3/u L Baso # (Auto) 0.0 (0.0-0.1) 10^3/u L Nucleated RBC % (a uto) 0 % Nucleated RBCs # 0.0 /100WBC Specimen Type Sample Site ABG pH (7.35-7.45) ABG pCO2 (35-45) mmHg ABG pO2 (80.0-100.0) mmH g ABG HCO3 (22-26) mmol/L ABG Base Excess (-2.0-2.0) mmol/ L Lamberto Test Hematocrit (42-52) % Phys Asst ID Sodium 128 L (136-145) mmol/L Potassium 3.8 (3.5-5.1) mmol/L Chloride 93 L (98-107) mmol/L Carbon Dioxide 22 (22-29) mmol/L Anion Gap 16.8 (5-19) BUN 13 (6-20) mg/dL Creatinine 0.9 (0.7-1.2) mg/dL GFR Calculation 89.3 L (90-130) mL/min Glucose 571 H* (65-115) mg/dL Calculated Osmolal ity 292 (285-295) mOsm/k g Calcium 9.6 (8.5-10.5) mg/dL Total Bilirubin 0.2 (0.15-1.2) mg/dL AST 23 (0-40) U/L ALT 24 (0-41) U/L Alkaline Phosphata se 78 (40-130) IU/L Total Protein 7.1 (6.6-8.7) g/dL Albumin 4.3 (3.5-5.2) g/dL Globulin 2.8 (1.3-4.6) g/dL Urine Color Yellow (Yellow) Urine Appearance Clear (CLEAR) Urine pH 6.5 (5-7) Ur Specific Gravit y 1.005 (1.005-1.030) Urine Protein Neg (Negative) Urine Glucose (UA) 4+ H (Normal) Urine Ketones Negative (Negative) Urine Blood Neg (Negative) Urine Nitrate Negative (Negative) Urine Bilirubin Neg (Negative) Urine Urobilinogen Norm (Negative) mg/dL Ur Leukocyte Lien ase Negative (Negative) Serum Ketones Negative (Negative) 20/20 Range/Units 21:35 WBC (4.0-10.0) 10^3/ uL RBC (4.1-5.3) 10^6/u L Hgb (11.7-16.6) g/dL Hct (42.0-52.0) % MCV (80-94) fL MCH (28.0-34.0) pg MCHC (30.0-36.0) g/dL RDW (12.1-15.1) % Plt Count (130-400) 10^3/c mm MPV (7.4-10.4) fL Neut % (Auto) % Lymph % (Auto) % [place] % (Auto) % Eos % (Auto) % Baso % (Auto) % Neut # (Auto) (1.8-7.7) 10^3/u L Lymph # (Auto) (0.8-4.8) 10^3/u L [place] # (Auto) (0.2-0.9) 10^3/u L Eos # (Auto) (0.0-0.8) 10^3/u L Baso # (Auto) (0.0-0.1) 10^3/u L Nucleated RBC % (a uto) % Nucleated RBCs # /100WBC Specimen Type Arterial Sample Site Radial, left ABG pH 7.41 (7.35-7.45) ABG pCO2 39.5 (35-45) mmHg ABG pO2 101.0 H (80.0-100.0) mmH g ABG HCO3 25.2 (22-26) mmol/L ABG Base Excess 0.6 (-2.0-2.0) mmol/ L Lamberto Test Pos Hematocrit 42.3 (42-52) % Phys Asst ID shanelle Sodium (136-145) mmol/L Potassium (3.5-5.1) mmol/L Chloride (98-107) mmol/L Carbon Dioxide (22-29) mmol/L Anion Gap (5-19) BUN (6-20) mg/dL Creatinine (0.7-1.2) mg/dL GFR Calculation (90-130) mL/min Glucose (65-115) mg/dL Calculated Osmolal ity (285-295) mOsm/k g Calcium (8.5-10.5) mg/dL Total Bilirubin (0.15-1.2) mg/dL AST (0-40) U/L ALT (0-41) U/L Alkaline Phosphata se (40-130) IU/L Total Protein (6.6-8.7) g/dL Albumin (3.5-5.2) g/dL Globulin (1.3-4.6) g/dL Urine Color (Yellow) Urine Appearance (CLEAR) Urine pH (5-7) Ur Specific Gravit y (1.005-1.030) Urine Protein (Negative) Urine Glucose (UA) (Normal) Urine Ketones (Negative) Urine Blood (Negative) Urine Nitrate (Negative) Urine Bilirubin (Negative) Urine Urobilinogen (Negative) mg/dL Ur Leukocyte Lien ase (Negative) Serum Ketones (Negative) Discharge Plan Discharge Patient Disposition: Home Clinical Impression: Hyperglycemia Condition: Stable Prescriptions: No Action promethazine 25 mg tablet 25 mg PO BID PRN (Reason: Nausea) RF: 0 tizanidine 2 mg capsule 1 mg PO BID PRN (Reason: Muscle Spasm) RF: 0 gemfibrozil 600 mg tablet 600 mg PO BID RF: 0 diclofenac potassium 50 mg tablet 50 mg PO ONCE PRN (Reason: Inflammation) RF: 0 Hold Instructions: Resume on 08/25/19. Hold while taking Toradol (ketorolac). Lantus U-100 Insulin 100 unit/mL solution 30 unit SUBCUT BID RF: 0 aspirin [Adult Aspirin Regimen] 81 mg tablet,delayed release (DR/EC) 81 mg PO DAILY RF: 0 Hold Instructions: Resume on 08/25/19. propranolol 60 mg capsule,extended release 24 hr 60 mg PO BID RF: 0 magnesium oxide 500 mg tablet 500 mg PO DAILY RF: 0 metformin 1,000 mg tablet extended release 24hr 1,000 mg PO BID RF: 0 Vimpat 150 mg tablet 150 mg PO BID RF: 0 modafinil 200 mg tablet 200 mg PO QAM RF: 0 isosorbide mononitrate 120 mg tablet extended release 24 hr 120 mg PO QAM RF: 0 Jardiance 25 mg tablet 25 mg PO QAM RF: 0 losartan 25 mg tablet 25 mg PO DAILY RF: 0 atorvastatin 80 mg tablet 40 mg PO DAILY RF: 0 ranolazine [Ranexa] 1,000 mg tablet extended release 12 hr 1,000 mg PO BID RF: 0 methylprednisolone [Medrol (Luis)] 4 mg tablets,dose pack See Rx Instructions PO PER PKG DIR Qty: 21 RF: 0 triamcinolone acetonide 0.1 % cream 1 applic TOPICAL DAILY 28 Days Qty: 30 RF: 0 buspirone 10 mg tablet 20 mg PO TID 30 Days Qty: 180 RF: 4 aripiprazole 10 mg tablet 10 mg PO DAILY 30 Days Qty: 30 RF: 4 modafinil 100 mg tablet 100 mg PO DAILY RF: 0 divalproex [Depakote ER] 250 mg tablet extended release 24 hr 250 mg PO BID RF: 0 paroxetine HCl [Paxil] 30 mg tablet 60 mg PO DAILY Qty: 60 RF: 1 nitroglycerin 0.4 mg tablet, sublingual 0.4 mg SUBLINGUAL Q5M PRN (Reason: chest pain) Qty: 25 RF: 3 Iron (ferrous sulfate) 325 MG 325 mg PO DAILY RF: 0 acetaminophen 1,000 MG 1,000 mg PO DAILY RF: 0 insulin regular human 10 UNITS 10 units SUBCUT AC RF: 0 [place] 10-325 mg tablet 1 tab PO Q4H MDD 5 tabs PRN (Reason: pain) Qty: 30 RF: 0 ketorolac 10 mg tablet 10 mg PO TID PRN (Reason: pain) Qty: 10 RF: 0 Discharge Orders: Discharge Order (Routine); Ordered 04/24/20 Ordered By: Zachariah Licea Referrals: Regla Watkins FNP [Primary Care Provider] - 1-3 days Discharge Diet: Advance as tolerated Discharge Activity: Resume usual activity Patient Instructions: Diabetic Hyperglycemia (ED) Coding Level of Care Code ED Lumber Checker for Chg 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
[2020-04-24 22:50] LABS: Glucose Point of Care 310 mg/dL (70-110)
[2020-04-24 23:13] VITALS: PULSE 87; RESP 18; O2SAT 99
[2020-04-25 06:36] LABS: Glucose Point of Care 570 mg/dL (70-110)
== END 2020-04-24 23:15 | disposition home or self-care (01) ==
PROVIDERS: Emergency Provider Emergency Medicine; PCP Nurse Practitioner Family
DX: E11.65 Type 2 diabetes mellitus with hyperglycemia (principal); Z79.4 Long term (current) use of insulin; Z79.82 Long term (current) use of aspirin; Z87.891 Personal history of nicotine dependence
CPT/HCPCS: 12345; 36416; 36600; 80053; 81003; 82009; 82803; 82962; 85025; 96361; 96374; 96375; 99283; J1815; J7030

== ENCOUNTER → 2020-04-26 07:56 | Outpatient (BNVA) | payer MEDICAID, SELFPAY | PROVIDERS: Family Provider Nurse Practitioner Family; Visit Provider Counselor Professional | DX: F32.3 Major depressive disorder, single episode, severe with psychotic features (principal); F43.12 Post-traumatic stress disorder, chronic | CPT/HCPCS: 90834 ==

== ENCOUNTER → 2020-04-30 08:13 | Outpatient (BNVA) | payer MEDICAID, SELFPAY | PROVIDERS: Family Provider Nurse Practitioner Family; Visit Provider Counselor Professional | DX: F43.12 Post-traumatic stress disorder, chronic (principal); F32.3 Major depressive disorder, single episode, severe with psychotic features | CPT/HCPCS: 90834 ==

== ENCOUNTER 2020-05-01 09:14 | Outpatient (CLI) | payer MEDICAID, SELFPAY ==
--- NOTE | 2020-05-01 09:43 | MR_ITS ---
WS: [id number] MRI RIGHT ANKLE NONCONTRAST AND CONTRAST TECHNIQUE: Sagittal proton density, sagittal STIR, axial proton density, axial T1, axial T2 fat sat, coronal proton density, coronal proton density fat sat, coronal T2 fat sat. Postgadolinium imaging ob tained CLINICAL INFORMATION: painful soft tissue mass COMPARISON: None. FINDINGS: Palpable marker in the area of concern in the anterior lower barrera. Normal underlying soft tissues. No evidence of pathologic mass or lesion. A few prominent veins in this area may correspond to the palp able abnormality. No evidence of drainable abscess or fluid collection. Distal tibial plafond is normal. Normal medial and lateral malleolus. Normal deltoid ligament and ATF . Normal bone marrow signal in the calcaneus. Distal Achilles is normal. Normal peroneal tendon sheat h. Partially visualized extensor and flexor compartment tendons appear normal. No other significant f indings. MR/MR ankle RT wo/w con [id number] IMPRESSION: 1. Palpable marker in the area of concern anterior lower barrera. No evidence of pathologic mass or lesion. Normal underlying soft tissues a few prominent veins which may correspond to area of concern. 2. No other abnormalities. 3. Normal bone marrow signal in the talus and calcaneus. 4. No other significant findings.
== END 2020-05-01 09:15 | disposition home or self-care (01) ==
LOC: RADWPI 09:15
PROVIDERS: Family Provider Nurse Practitioner Family; PCP Nurse Practitioner Family; Visit Provider Podiatrist Foot & Ankle Surgery
DX: M79.89 Other specified soft tissue disorders (principal)
CPT/HCPCS: 73723; A9579

== ENCOUNTER → 2020-05-07 13:42 | Outpatient (BNVA) | payer MEDICAID, SELFPAY | PROVIDERS: Family Provider Nurse Practitioner Family; PCP Nurse Practitioner Family; Visit Provider Psychiatry & Neurology Psychiatry | DX: F32.3 Major depressive disorder, single episode, severe with psychotic features (principal); F43.12 Post-traumatic stress disorder, chronic | CPT/HCPCS: 99204 ==

== ENCOUNTER 2020-05-08 14:38 | Outpatient (CLI) | payer MEDICAID, SELFPAY ==
--- NOTE | 2020-05-08 15:15 | MR_ITS ---
WS: [id number] MRI LUMBAR SPINE NONCONTRAST TECHNIQUE: Sagittal T1, T2 and STIR imaging. Axial T1 and T2 imaging. CLINICAL INFORMATION: M48.062 Spinal stenosis, lumbar region with neurogenic cl... COMPARISON: None. FINDINGS: Mild lumbar curve. No acute compression. Disc space narrowing worse L5-S1 with endplate degenerative changes. L1-L2: Normal. L2-L3: No significant disc bulging. Mild facet arthropathy. Spinal canal and foramen are patent. L3-L4: No significant disc bulging. Mild facet arthropathy. Mild left and no significant right forami nal narrowing. Spinal canal is patent. L4-L5: Mild disc bulging with slight effacement of ventral thecal sac. Mild bilateral foraminal narro wing. Mild facet arthropathy. Spinal canal is patent. L5-S1: Mild disc bulging with endplate ridging. Shallow central protrusion with slight impingement tr aversing S1 nerve roots bilaterally. Moderate facet arthropathy. Moderate to severe bilateral foramin al narrowing impinges the exiting L5 nerve roots bilaterally. Visualized pelvic bony structures: Normal. Paravertebral soft tissues: Normal. MR/MR lumbar spine wo con* [id number] IMPRESSION: 1. Mild lumbar curve. No acute compression. Disc space narrowing worse L5-S1. 2. Shallow central disc protrusion L5-S1 slightly impinges the traversing S1 n erve roots bilaterally. 3. Moderate to severe bilateral L5-S1 bony foraminal narrowing impinges the ex iting L5 nerve roots bilaterally.Correlation for L5 nerve root symptoms. 4. Small right foraminal protrusion with mild right L4-5 foraminal narrowing. 5. Moderate facet arthropathy L4-L5 and L5-S1.
== END 2020-05-08 14:39 | disposition home or self-care (01) ==
LOC: RADSHAW 14:40
PROVIDERS: Family Provider Nurse Practitioner Family; PCP Nurse Practitioner Family; Visit Provider Orthopaedic Surgery
DX: M48.062 Spinal stenosis, lumbar region with neurogenic claudication (principal); M47.816 Spondylosis without myelopathy or radiculopathy, lumbar region; M47.817 Spondylosis without myelopathy or radiculopathy, lumbosacral region; M51.26 Other intervertebral disc displacement, lumbar region; M51.27 Other intervertebral disc displacement, lumbosacral region
CPT/HCPCS: 72148

== ENCOUNTER → 2020-05-10 07:54 | Outpatient (BNVA) | payer MEDICAID, SELFPAY | PROVIDERS: Family Provider Nurse Practitioner Family; Visit Provider Counselor Professional | DX: F43.12 Post-traumatic stress disorder, chronic (principal); F33.2 Major depressive disorder, recurrent severe without psychotic features | CPT/HCPCS: 90834 ==

== ENCOUNTER → 2020-05-16 08:02 | Outpatient (BNVA) | payer MEDICAID, SELFPAY | PROVIDERS: Family Provider Nurse Practitioner Family; Visit Provider Counselor Professional | DX: F43.12 Post-traumatic stress disorder, chronic (principal); F33.2 Major depressive disorder, recurrent severe without psychotic features | CPT/HCPCS: 90834 ==

== ENCOUNTER → 2020-05-24 08:05 | Outpatient (BNVA) | payer MEDICAID, SELFPAY | PROVIDERS: Family Provider Nurse Practitioner Family; Visit Provider Counselor Professional | DX: F43.12 Post-traumatic stress disorder, chronic (principal); F33.2 Major depressive disorder, recurrent severe without psychotic features | CPT/HCPCS: 90834; 99204 ==

== ENCOUNTER → 2020-05-28 14:01 | Outpatient (BNVA) | payer MEDICAID, SELFPAY | PROVIDERS: Family Provider Nurse Practitioner Family; Visit Provider Psychiatry & Neurology Psychiatry | DX: F32.3 Major depressive disorder, single episode, severe with psychotic features (principal); Z20.828 Contact with and (suspected) exposure to other viral communicable diseases; F43.12 Post-traumatic stress disorder, chronic; M47.816 Spondylosis without myelopathy or radiculopathy, lumbar region | CPT/HCPCS: 87635; 99202 ==

== ENCOUNTER → 2020-05-29 07:52 | Outpatient (BNVA) | payer MEDICAID, SELFPAY | PROVIDERS: Family Provider Nurse Practitioner Family; Visit Provider Counselor Professional | DX: F43.12 Post-traumatic stress disorder, chronic (principal); F32.3 Major depressive disorder, single episode, severe with psychotic features | CPT/HCPCS: 90834 ==

== ENCOUNTER 2020-06-04 08:30 | Day surgery (SDC) | payer MEDICAID, SELFPAY ==
--- NOTE | 2020-05-30 09:33 | ECG_ITS ---
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: : 1970 Requested By: Jessenia Lopez Order Number: [id number] Lavinia MD: DYLON LILLY Measurements Intervals [place] Rate: 69 P: 37 IL: 151 QRS: 7 QRSD: 89 T: 36 QT: 408 QTc: 438 Interpretive Statements SINUS RHYTHM LOW QRS VOLTAGE IN EXTREMITY LEADS [QRS DEFLECTION < 0.5 mV IN LIMB LEADS] Compared to ECG 05/27/2018 00:10:12 Low QRS voltage now present Electronically Signed On 05-31-2020 15:32:18 DIRECTOR OF MANUFACTURING OPERATIONS by DYLON LILLY [email or web address] Museumpanola medical [email or web address] lake joint township district memorial hospitalTelemedicine Solutions [id number]
[2020-05-30 09:57] VITALS: BMI 36.3
--- NOTE | 2020-05-30 10:09 | ANES.PREANE2 ---
Pre-Anesthetic Assessment Pre-Anesthetic Assessment: Height/Weight: Height 1.73 m Weight 108.409 kg Preop Diagnosis: Intervertebral disc disorder with myelopathy, midcervical Proposed Procedure: Operation Date: 06/04/20 10:10 Proposed Procedures p L4/5 and L5/S1 Lumbar Laminectomy with partial fecetetomy 66339 [id number] M48.061(Not Applicable) - Wai Campbell DO Familial anesthetic complications: None Social: Social History: No alcohol and No tobacco Comment: former smoker Exam: Pre-Anes Outpt Exam: alert, oriented x 3, clear to auscultation bilaterally and regular rate & rhythm Airway: Cervical ROM: WNL (neck fusion) MP: 3 Dentition: Other (broken teeth, removed teeth) Additional comments: deviated nasal septum Pulmonary: Pulmonary: Sleep apnea (cpap) CV/HEM: CV/HEM: Angina (Stable) (take nitro 1x every 3 weeks, so has been improving), CAD (2 stents (last placed 2016 - not on blood thinner)) and HTN Comments: > 4 METS : : Chronic renal Insufficiency Metabolic: Metabolic: DM Neuropsych: Neuropsych: Seizure (psychogenic nonepileptic seizures) Anesthetic Plan: ASA status: 3 Anesthesia: General Risk of > 500 ml blood loss (7ml/kg in children): No PFSH Anesthesia PFSH: Medical History (Updated 05/10/20 @ 11:02 by Wai Campbell DO) Deviated septum Dysphasia Dysphonia Intervertebral cervical disc disorder with myelopathy, 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 Brigitte Guy Status post spinal arthrodesis Stented coronary artery Family History Father Diabetes CAD (coronary artery disease) Hypertension Dementia Brother CAD (coronary artery disease) Grandmother Stroke Maternal x3 Mother Dementia Schizophrenia Grandfather Cancer Both Maternal and Paternal Family/Other Cancer Uncles both maternal and paternal Social History Smoking and tobacco status: former smoker Alcohol intake: never Lives independently: Yes Household members: spouse Marital status: Current occupational status: unemployed History of recent travel: No Data Anesthesia Cardiac Studies: No Data to Display
[2020-06-04] VITALS (7 sets, daily range): BP systolic 112–134; BP diastolic 75–91; PULSE 69–95; RESP 11–18; TEMP 36.2–36.5; O2SAT 92–99
--- NOTE | 2020-06-04 | SCC_ITS ---
Procedure Done: 1. Right L4/5 Partial laminectomy and Partial facetectomy 2. Right L5/S1 Partial laminectomy and Partial facetectomy 21.0 seconds of fluoroscopic guidance, for a cumulative dose of 15.65 mGy, was provided to Dr. Campbell by the radiology department. C-arm images of the lumbar spine were saved for the patient's permanent record. [facility]
--- NOTE | 2020-06-04 | XR_ITS ---
WS: [id number] INTRAOPERATIVE TECHNIQUE: 4 Spot fluoroscopic images for intraoperative purposes. FLUOROSCOPY TIME: 21.0 seconds CLINICAL INFORMATION: Decompression, OR PICTURES COMPARISON: None. FINDINGS: Localization marker projected over the L5-S1 disc space. S1 is partially lumbarized. Final image demo nstrates localization marker over the L4-5 disc space on the AP imaging XR/XR lumbar spine 2-3V* [id number] IMPRESSION: Images obtained for intraoperative purposes.
[2020-06-04] MEDS: sodium chloride 0.9% 1,000 ML 30 ML IV (08:59)
--- NOTE | 2020-06-04 09:53 | P.ANESUD_ITS ---
Pre-Anesthetic Update Pre-Anesthetic Assessment: Date of Surgery/Procedure: 06/04/20 Preop Lalitha gnosis: Lumbar stenosis Proposed Procedure: Operation Date: 06/04/20 10:10 Proposed Procedures p L4/5 and L5/S1 Lumbar Laminectomy with partial fecetetomy 45712 [id number] M48.061(Not Applicable) - Wai Campbell DO Last Intake: Intake Last Liquid Date 06/03/20 Last Liquid Time 23:00 Last Solid Date 06/03/20 Last Solid Time 20:30 Vitals: Temperature 97.7 F 06/04/20 08:40 Temperature Source Temporal Artery S can 06/04/20 08:40 Pulse Rate 69 06/04/20 08:40 Pulse Rhythm 06/04/20 08:40 Pulse Strength 3+ Normal 06/04/20 08:40 Respiratory Rate 18 06/04/20 08:40 Blood Pressure 113/75 06/04/20 08:40 Blood Pressure [place] n 87 06/04/20 08:40 Pulse Oximetry 97 06/04/20 08:40 Oxygen Delivery Me thod 06/04/20 08:40 Exam: Pre-Anes Outpt Exam: alert, oriented x 3, clear to auscultation bilaterally and regular rate & rhythm Cardiac Studies: No Data to Display
[2020-06-04 09:54] LABS: Glucose Point of Care 174 mg/dL (70-110)
--- NOTE | 2020-06-04 11:12 | W.PM.OPSUD ---
Surgery/Procedure H&P Update DATE OF PROCEDURE: June 04, 2020 DATE H&P PERFORMED: 05/10/20 H&P UPDATE INFORMATION: I have reviewed H&P completed within last 30 days, I have examined patient prior to procedure and No changes to prior documentation PREOP DIAGNOSIS: Lumbar stenosis PLANNED PROCEDURE: Operation Date: 06/04/20 10:10 Proposed Procedures p L4/5 and L5/S1 Lumbar Laminectomy with partial fecetetomy [id number] M48.061(Not Applicable) - Wai Campbell DO
--- NOTE | 2020-06-04 12:06 | SUR.PREOP ---
Signed consent on chart order does not match consent provided by the office which has been signed by , patient, pre op nurse. notified of this. He said it did match, but was worded differently. It was stated to him that the wording needed to match. No new order or consent entered.
--- NOTE | 2020-06-04 13:27 | P.OP_ITS ---
Operative Report Date of procedure: June 04, 2020 Pre-op Diagnosis: Lumbar stenosis Post-op diagnosis: same Procedure Done: 1. Right L4/5 Partial laminectomy and Partial facetectomy 2. Right L5/S1 Partial laminectomy and Partial facetectomy Surgeon: Wai Campbell Anesthesia: General Estimated blood loss (mL): 10 Condition: stable Disposition: PACU Procedure: 1. Right L4/5 Partial laminectomy and Partial facetectomy 2. Right L5/S1 Partial laminectomy and Partial facetectomy Patient was brought to the operative suite placed in the prone position after undergoing anesthesia all areas impingement well-padded patient's prepped and draped normal sterile fashion. Skin was made over the L5 level. This confirmed with C-arm guidance then was brought to the right L5-S1 space. Dilators were passed to the retractors inserted onto the L5 lamina laminectomy and partial facetectomy were performed ligamentum flavum was taken down from L5-S1. Dura and S1 nerve root were identified the facet was taken down medially with a high- speed bur as well as Kerrison rongeurs and curettes ligamentum flavum was significant thickened. Dura was in good repair large curette was used to pass through the L5-S1 foramen as well as passed around the S1 pedicle. Ensuring that the nerves were adequately decompressed. Attention was then brought to the right L4-5 level. Dilators were passed to the retractors inserted onto the L4 lamina laminectomies perform using high-speed bur curettes Hamm and curettes. Ligamentum flavum was taken down from L4-L5. The L4-5 foramen was palpated and felt to be adequate decompressed with large curette and then the L5 nerve was traced around the L5 pedicle wounds were irrigated and wound was closed with Vicryl and Monocryl suture sterile dressings were applied and patient was transferred to the PACU in stable condition.
--- NOTE | 2020-06-04 13:39 | SUR.PHASEI ---
PT AWAKE ALERT ON RA GOOD RESP VSS IV PATENT PT ABLE TO MOVE ALL EXT TO COMMAND, PT VISUALIZED FINGERS EASILY, NO VISION PROBLEMS, PT TALKATIVE ASKING FOR WATER TO SIP ON,
--- NOTE | 2020-06-04 14:03 | PM.PACU ---
PACU note PACU note: VSS Post-Anesthesia Exam: awake Disposition: discharged
--- NOTE | 2020-06-04 17:06 | PM.PACU ---
PACU note PACU note: VSS Post-Anesthesia Exam: awake Disposition: discharged
== END 2020-06-04 14:40 | disposition home or self-care (01) ==
PROVIDERS: PCP Nurse Practitioner Family; Visit Provider Orthopaedic Surgery
PROC: (CPT 63030; principal; 2020-06-04 10:10)
DX: M48.061 Spinal stenosis, lumbar region without neurogenic claudication (principal); Z87.891 Personal history of nicotine dependence; Z98.1 Arthrodesis status
CPT/HCPCS: 63030; 63035; 12345; 36416; 72100; 76000; 82962; 93005; J0690; J2370; J2405; J2704; J2710; J3010; J3490; J7030

== ENCOUNTER → 2020-06-07 08:00 | Outpatient (BNVA) | payer MEDICAID, SELFPAY | PROVIDERS: Family Provider Nurse Practitioner Family; Visit Provider Counselor Professional | DX: F43.12 Post-traumatic stress disorder, chronic (principal); F33.2 Major depressive disorder, recurrent severe without psychotic features | CPT/HCPCS: 90834 ==

== ENCOUNTER → 2020-06-18 08:00 | Outpatient (BNVA) | payer MEDICAID, SELFPAY | PROVIDERS: Family Provider Nurse Practitioner Family; Visit Provider Counselor Professional | DX: F43.12 Post-traumatic stress disorder, chronic (principal); F33.2 Major depressive disorder, recurrent severe without psychotic features | CPT/HCPCS: 90834 ==

== ENCOUNTER → 2020-06-19 09:11 | Outpatient (BNVA) | payer MEDICAID, SELFPAY | PROVIDERS: Family Provider Nurse Practitioner Family; Visit Provider Psychiatry & Neurology Psychiatry | DX: F32.3 Major depressive disorder, single episode, severe with psychotic features (principal); F43.12 Post-traumatic stress disorder, chronic | CPT/HCPCS: 99204 ==

== ENCOUNTER → 2020-06-25 07:42 | Outpatient (BNVA) | payer MEDICAID, SELFPAY | PROVIDERS: Family Provider Nurse Practitioner Family; Visit Provider Counselor Professional | DX: F43.12 Post-traumatic stress disorder, chronic (principal); F33.2 Major depressive disorder, recurrent severe without psychotic features | CPT/HCPCS: 90834 ==

== ENCOUNTER → 2020-07-02 07:52 | Outpatient (BNVA) | payer MEDICAID, SELFPAY | PROVIDERS: Family Provider Nurse Practitioner Family; Visit Provider Counselor Professional | DX: F43.12 Post-traumatic stress disorder, chronic (principal); F33.2 Major depressive disorder, recurrent severe without psychotic features | CPT/HCPCS: 90834 ==

== ENCOUNTER → 2020-07-09 07:40 | Outpatient (BNVA) | payer MEDICAID, SELFPAY | PROVIDERS: Family Provider Nurse Practitioner Family; Visit Provider Counselor Professional | DX: F43.12 Post-traumatic stress disorder, chronic (principal); F33.2 Major depressive disorder, recurrent severe without psychotic features | CPT/HCPCS: 90834 ==

== ENCOUNTER → 2020-07-11 13:48 | Outpatient (BNVA) | payer OTHER, SELFPAY | PROVIDERS: Family Provider Nurse Practitioner Family; Visit Provider Psychiatry & Neurology Psychiatry | DX: F33.2 Major depressive disorder, recurrent severe without psychotic features (principal) | CPT/HCPCS: 80061; 83036 ==

== ENCOUNTER → 2020-07-18 08:07 | Outpatient (BNVA) | payer MEDICAID, SELFPAY ==
[2020-07-17 16:06] VITALS: BP 121/63; BMI 37.1
== END ==
PROVIDERS: Family Provider Nurse Practitioner Family; Visit Provider Counselor Professional
DX: F43.12 Post-traumatic stress disorder, chronic (principal)
CPT/HCPCS: 90834

== ENCOUNTER → 2020-07-23 07:58 | Outpatient (BNVA) | payer MEDICAID, SELFPAY ==
[2020-07-17 16:06] VITALS: BP 121/63; BMI 37.1
== END ==
PROVIDERS: Family Provider Nurse Practitioner Family; Visit Provider Counselor Professional
DX: F43.12 Post-traumatic stress disorder, chronic (principal); F33.2 Major depressive disorder, recurrent severe without psychotic features
CPT/HCPCS: 90834

== ENCOUNTER → 2020-07-27 07:45 | Outpatient (BNVA) | payer MEDICAID, SELFPAY ==
[2020-07-17 16:06] VITALS: BP 121/63; BMI 37.1
== END ==
PROVIDERS: Family Provider Nurse Practitioner Family; Visit Provider Psychiatry & Neurology Psychiatry
DX: F32.3 Major depressive disorder, single episode, severe with psychotic features (principal); F43.12 Post-traumatic stress disorder, chronic
CPT/HCPCS: 99204

== ENCOUNTER → 2020-07-30 07:50 | Outpatient (BNVA) | payer MEDICAID, SELFPAY ==
[2020-07-17 16:06] VITALS: BP 121/63; BMI 37.1
== END ==
PROVIDERS: Family Provider Nurse Practitioner Family; Visit Provider Counselor Professional
DX: F43.12 Post-traumatic stress disorder, chronic (principal); F33.2 Major depressive disorder, recurrent severe without psychotic features
CPT/HCPCS: 90834

== ENCOUNTER → 2020-08-13 07:37 | Outpatient (BNVA) | payer MEDICAID, SELFPAY ==
[2020-07-17 16:06] VITALS: BP 121/63; BMI 37.1
== END ==
PROVIDERS: Family Provider Nurse Practitioner Family; PCP Internal Medicine; Visit Provider Counselor Professional
DX: F43.12 Post-traumatic stress disorder, chronic (principal); F33.2 Major depressive disorder, recurrent severe without psychotic features
CPT/HCPCS: 90834

== ENCOUNTER → 2020-08-24 08:00 | Outpatient (BNVA) | payer MEDICAID, SELFPAY ==
[2020-08-21 08:32] VITALS: BP 121/63; BMI 37.1
== END ==
PROVIDERS: Family Provider Nurse Practitioner Family; PCP Internal Medicine; Visit Provider Counselor Professional
DX: F43.12 Post-traumatic stress disorder, chronic (principal); F33.2 Major depressive disorder, recurrent severe without psychotic features
CPT/HCPCS: 90834

== ENCOUNTER → 2020-08-28 08:38 | Outpatient (BNVA) | payer MEDICAID, SELFPAY ==
[2020-08-21 08:32] VITALS: BP 121/63; BMI 37.1
== END ==
PROVIDERS: Family Provider Nurse Practitioner Family; PCP Internal Medicine; Visit Provider Counselor Professional
DX: F43.12 Post-traumatic stress disorder, chronic (principal); F33.2 Major depressive disorder, recurrent severe without psychotic features
CPT/HCPCS: 90834

== ENCOUNTER → 2020-09-03 07:47 | Outpatient (BNVA) | payer MEDICAID, SELFPAY ==
[2020-08-21 08:32] VITALS: BP 121/63; BMI 37.1
== END ==
PROVIDERS: Family Provider Nurse Practitioner Family; PCP Internal Medicine; Visit Provider Counselor Professional
DX: F32.3 Major depressive disorder, single episode, severe with psychotic features (principal); F33.2 Major depressive disorder, recurrent severe without psychotic features
CPT/HCPCS: 90834

== ENCOUNTER 2020-09-03 11:49 | Outpatient (CLI) | payer MEDICARE, MEDICAID, SELFPAY ==
[2020-08-21 08:32] VITALS: BP 121/63; BMI 37.1
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
== END 2020-09-03 11:50 | disposition home or self-care (01) ==
PROVIDERS: PCP Internal Medicine; Visit Provider Nurse Practitioner Family
DX: M54.6 Pain in thoracic spine (principal); M54.2 Cervicalgia; M47.816 Spondylosis without myelopathy or radiculopathy, lumbar region
CPT/HCPCS: 72040; 72070; 72110

== ENCOUNTER → 2020-09-06 07:47 | Outpatient (BNVA) | payer MEDICAID, SELFPAY ==
[2020-08-21 08:32] VITALS: BP 121/63; BMI 37.1
== END ==
PROVIDERS: Family Provider Nurse Practitioner Family; PCP Internal Medicine; Visit Provider Counselor Professional
DX: F43.12 Post-traumatic stress disorder, chronic (principal); F33.2 Major depressive disorder, recurrent severe without psychotic features
CPT/HCPCS: 90834

== ENCOUNTER → 2020-09-07 07:41 | Outpatient (BNVA) | payer MEDICARE, MEDICAID, SELFPAY ==
[2020-08-21 08:32] VITALS: BP 121/63; BMI 37.1
== END ==
PROVIDERS: Family Provider Nurse Practitioner Family; PCP Internal Medicine; Visit Provider Psychiatry & Neurology Psychiatry
DX: F32.3 Major depressive disorder, single episode, severe with psychotic features (principal); F43.12 Post-traumatic stress disorder, chronic
CPT/HCPCS: 99204

== ENCOUNTER → 2020-09-11 07:41 | Outpatient (BNVA) | payer MEDICAID, SELFPAY ==
[2020-08-21 08:32] VITALS: BP 121/63; BMI 37.1
== END ==
PROVIDERS: Family Provider Nurse Practitioner Family; PCP Internal Medicine; Visit Provider Counselor Professional
DX: F43.12 Post-traumatic stress disorder, chronic (principal); F33.2 Major depressive disorder, recurrent severe without psychotic features
CPT/HCPCS: 90834

== ENCOUNTER → 2020-09-17 07:48 | Outpatient (BNVA) | payer MEDICAID, SELFPAY ==
[2020-08-21 08:32] VITALS: BP 121/63; BMI 37.1
== END ==
PROVIDERS: Family Provider Nurse Practitioner Family; PCP Internal Medicine; Visit Provider Counselor Professional
DX: F43.12 Post-traumatic stress disorder, chronic (principal); F33.2 Major depressive disorder, recurrent severe without psychotic features
CPT/HCPCS: 90834

== ENCOUNTER → 2020-09-24 07:46 | Outpatient (BNVA) | payer MEDICAID, SELFPAY ==
[2020-08-21 08:32] VITALS: BP 121/63; BMI 37.1
== END ==
PROVIDERS: Family Provider Nurse Practitioner Family; PCP Internal Medicine; Visit Provider Counselor Professional
DX: F43.12 Post-traumatic stress disorder, chronic (principal); F33.2 Major depressive disorder, recurrent severe without psychotic features
CPT/HCPCS: 90834

== ENCOUNTER → 2020-10-01 09:00 | Outpatient (BNVA) | payer MEDICARE, MEDICAID, SELFPAY ==
[2020-08-21 08:32] VITALS: BP 121/63; BMI 37.1
== END ==
PROVIDERS: Family Provider Nurse Practitioner Family; PCP Internal Medicine; Visit Provider Counselor Professional
DX: F43.12 Post-traumatic stress disorder, chronic (principal); F33.2 Major depressive disorder, recurrent severe without psychotic features
CPT/HCPCS: 90834

== ENCOUNTER → 2020-10-02 07:50 | Outpatient (BNVA) | payer MEDICARE, MEDICAID, SELFPAY ==
[2020-08-21 08:32] VITALS: BP 121/63; BMI 37.1
== END ==
PROVIDERS: Family Provider Nurse Practitioner Family; PCP Internal Medicine; Visit Provider Counselor Professional
DX: F43.12 Post-traumatic stress disorder, chronic (principal); F33.2 Major depressive disorder, recurrent severe without psychotic features
CPT/HCPCS: 90834

== ENCOUNTER → 2020-10-08 07:57 | Outpatient (BNVA) | payer MEDICAID, SELFPAY ==
[2020-08-21 08:32] VITALS: BP 121/63; BMI 37.1
== END ==
PROVIDERS: Family Provider Nurse Practitioner Family; PCP Internal Medicine; Visit Provider Counselor Professional
DX: F43.12 Post-traumatic stress disorder, chronic (principal)
CPT/HCPCS: 90834

== ENCOUNTER → 2020-10-16 07:54 | Outpatient (BNVA) | payer MEDICARE, MEDICAID, SELFPAY ==
[2020-08-21 08:32] VITALS: BP 121/63; BMI 37.1
== END ==
PROVIDERS: Family Provider Nurse Practitioner Family; PCP Internal Medicine; Visit Provider Counselor Professional
DX: F43.12 Post-traumatic stress disorder, chronic (principal); F33.2 Major depressive disorder, recurrent severe without psychotic features
CPT/HCPCS: 90834

== ENCOUNTER → 2020-10-22 07:38 | Outpatient (BNVA) | payer MEDICARE, MEDICAID, SELFPAY ==
[2020-08-21 08:32] VITALS: BP 121/63; BMI 37.1
== END ==
PROVIDERS: Family Provider Nurse Practitioner Family; PCP Internal Medicine; Visit Provider Psychiatry & Neurology Psychiatry
DX: F32.3 Major depressive disorder, single episode, severe with psychotic features (principal); F43.12 Post-traumatic stress disorder, chronic
CPT/HCPCS: 99214

== ENCOUNTER → 2020-10-23 07:45 | Outpatient (BNVA) | payer MEDICARE, MEDICAID, SELFPAY ==
[2020-08-21 08:32] VITALS: BP 121/63; BMI 37.1
== END ==
PROVIDERS: Family Provider Nurse Practitioner Family; PCP Internal Medicine; Visit Provider Counselor Professional
DX: F43.12 Post-traumatic stress disorder, chronic (principal)
CPT/HCPCS: 90834

== ENCOUNTER → 2020-10-29 07:57 | Outpatient (BNVA) | payer MEDICARE, MEDICAID, SELFPAY ==
[2020-08-21 08:32] VITALS: BP 121/63; BMI 37.1
== END ==
PROVIDERS: Family Provider Nurse Practitioner Family; PCP Internal Medicine; Visit Provider Counselor Professional
DX: F43.12 Post-traumatic stress disorder, chronic (principal); F33.2 Major depressive disorder, recurrent severe without psychotic features
CPT/HCPCS: 90834

== ENCOUNTER → 2020-12-20 07:38 | Outpatient (BNVA) | payer MEDICARE, MEDICAID, SELFPAY ==
[2020-08-21 08:32] VITALS: BP 121/63; BMI 37.1
== END ==
PROVIDERS: Family Provider Nurse Practitioner Family; PCP Internal Medicine; Visit Provider Psychiatry & Neurology Psychiatry
DX: F32.3 Major depressive disorder, single episode, severe with psychotic features (principal); F43.12 Post-traumatic stress disorder, chronic
CPT/HCPCS: 99214

== ENCOUNTER → 2021-01-24 07:44 | Outpatient (BNVA) | payer MEDICARE, MEDICAID, SELFPAY ==
[2020-08-21 08:32] VITALS: BP 121/63; BMI 37.1
== END ==
PROVIDERS: Family Provider Nurse Practitioner Family; PCP Internal Medicine; Visit Provider Psychiatry & Neurology Psychiatry
DX: F32.3 Major depressive disorder, single episode, severe with psychotic features (principal); F43.12 Post-traumatic stress disorder, chronic
CPT/HCPCS: 99214

== ENCOUNTER 2021-02-11 06:00 | Outpatient (RCR) | payer MEDICARE, MEDICAID, SELFPAY ==
[2020-08-21 08:32] VITALS: BP 121/63; BMI 37.1
== END 2021-03-05 23:59 | disposition home or self-care (01) ==
LOC: SPT 06:00
PROVIDERS: Family Provider Nurse Practitioner Family; PCP Internal Medicine; Referring Provider Internal Medicine; Visit Provider Internal Medicine
DX: M54.9 Dorsalgia, unspecified (principal)
CPT/HCPCS: 97110; G0283

== ENCOUNTER → 2021-02-12 08:57 | Outpatient (BNVA) | payer MEDICARE, MEDICAID, SELFPAY ==
[2020-08-21 08:32] VITALS: BP 121/63; BMI 37.1
== END ==
PROVIDERS: Family Provider Nurse Practitioner Family; PCP Internal Medicine; Visit Provider Social Worker Clinical
DX: F43.12 Post-traumatic stress disorder, chronic (principal); F33.2 Major depressive disorder, recurrent severe without psychotic features
CPT/HCPCS: 90834

== ENCOUNTER → 2021-02-21 07:46 | Outpatient (BNVA) | payer MEDICARE, MEDICAID, SELFPAY ==
[2020-08-21 08:32] VITALS: BP 121/63; BMI 37.1
== END ==
PROVIDERS: Family Provider Nurse Practitioner Family; PCP Internal Medicine; Visit Provider Psychiatry & Neurology Psychiatry
DX: F32.3 Major depressive disorder, single episode, severe with psychotic features (principal); F43.12 Post-traumatic stress disorder, chronic
CPT/HCPCS: 99214

== ENCOUNTER → 2021-02-25 08:49 | Outpatient (BNVA) | payer MEDICARE, MEDICAID, SELFPAY ==
[2020-08-21 08:32] VITALS: BP 121/63; BMI 37.1
== END ==
PROVIDERS: Family Provider Nurse Practitioner Family; PCP Internal Medicine; Visit Provider Social Worker Clinical
DX: F43.12 Post-traumatic stress disorder, chronic (principal); F33.2 Major depressive disorder, recurrent severe without psychotic features
CPT/HCPCS: 90791

== ENCOUNTER → 2021-03-04 08:45 | Outpatient (BNVA) | payer MEDICARE, MEDICAID, SELFPAY ==
[2020-08-21 08:32] VITALS: BP 121/63; BMI 37.1
== END ==
PROVIDERS: Family Provider Nurse Practitioner Family; PCP Internal Medicine; Visit Provider Social Worker Clinical
DX: F43.12 Post-traumatic stress disorder, chronic (principal); F33.2 Major depressive disorder, recurrent severe without psychotic features
CPT/HCPCS: 90834

== ENCOUNTER 2021-03-06 06:00 | Outpatient (RCR) | payer MEDICARE, MEDICAID, SELFPAY ==
[2020-08-21 08:32] VITALS: BP 121/63; BMI 37.1
== END 2021-03-14 23:00 | disposition home or self-care (01) ==
LOC: SPT 06:00
PROVIDERS: Family Provider Nurse Practitioner Family; PCP Internal Medicine; Referring Provider Internal Medicine; Visit Provider Internal Medicine
DX: M54.5 Low back pain (principal)
CPT/HCPCS: 97110

== ENCOUNTER → 2021-03-12 10:50 | Outpatient (BNVA) | payer MEDICARE, MEDICAID, SELFPAY ==
[2020-08-21 08:32] VITALS: BP 121/63; BMI 37.1
== END ==
PROVIDERS: Family Provider Nurse Practitioner Family; PCP Internal Medicine; Visit Provider Social Worker Clinical
DX: F43.12 Post-traumatic stress disorder, chronic (principal); F33.2 Major depressive disorder, recurrent severe without psychotic features
CPT/HCPCS: 90834

== ENCOUNTER → 2021-03-19 08:44 | Outpatient (BNVA) | payer MEDICARE, MEDICAID, SELFPAY ==
[2020-08-21 08:32] VITALS: BP 121/63; BMI 37.1
== END ==
PROVIDERS: Family Provider Nurse Practitioner Family; PCP Internal Medicine; Visit Provider Social Worker Clinical
DX: F43.12 Post-traumatic stress disorder, chronic (principal); F33.2 Major depressive disorder, recurrent severe without psychotic features
CPT/HCPCS: 90834

== ENCOUNTER 2021-03-21 14:48 | Outpatient (CLI) | payer MEDICARE, MEDICAID, SELFPAY ==
[2020-08-21 08:32] VITALS: BP 121/63; BMI 37.1
--- NOTE | 2021-03-21 15:00 | USCV_ITS ---
Ronny Benitez Age: 50 Gender: M : 1970 Exam Date: 03/21/2021 15:15 Ordering Phys: Lexi Levi MD ([email or web address]) Technologist: [place] [facility] [place]: Dilated aortic root, coronary artery disease BP: 120 / 78 HR: 83 Rhythm: Sinus Technical Quality: Adequate MEASUREMENTS (Male / Female) Normal Values 2D ECHO LV Diastolic Diameter PLAX 3.6 cm 4.2 - 5.9 / 3.9 - 5.3 cm LV Systolic Diameter PLAX 2.4 cm IVS Diastolic Thickness 1.1 cm 0.6 - 1.0 / 0.6 - 0.9 cm IVS Systolic Thickness 1.2 cm LVPW Diastolic Thickness 1.0 cm 0.6 - 1.0 / 0.6 - 0.9 cm LVPW Systolic Thickness 1.2 cm LVOT Diameter 2.2 cm LV Ejection Fraction 2D Teich 60.6 % LA Diameter 3.1 cm LA Width 3.9 cm LA Height 4.2 cm RA Width 4.4 cm RA Height 4.4 cm Aorta at Sinotubular Diameter 3.3 cm DOPPLER AV Peak Velocity 113.0 cm/s LVOT Peak Velocity 71.0 cm/s AV Area Cont Eq vti 2.6 cm squared AV Area Cont Eq pk 2.3 cm squared MV Area PHT 5.0 cm squared Mitral E to A Ratio 0.8 MV E' Velocity 66.0 cm/s Mitral E to LV E' Septal Ratio 5.9 TR Peak Velocity 208.0 cm/s TR Peak Gradient 17.3 mmHg TV Peak E Velocity 68.0 cm/s Right Atrial Pressure 3.0 mmHg Pulmonary Artery Systolic Pressu 20.3 mmHg FINDINGS Left Ventricle Normal left ventricular cavity size. Normal left ventricular systolic function. Left ventricular ejection fraction is estimated at 65%. No diagnostic regional wall motion abnormality. Normal diastolic function. Right Ventricle Normal right ventricular size and systolic function. Right ventricular systolic pressure 28 mmHg. Right Atrium Normal right atrial size. Left Atrium Left atrium not well visualized. Normal left atrial size. Mitral Valve Mildly thickened mitral valve. No mitral valve stenosis. No significant mitral valve regurgitation. Aortic Valve Mildly thickened trileaflet aortic valve. No aortic valve stenosis. No aortic valve regurgitation. Tricuspid Valve Tricuspid valve not well visualized. Trace tricuspid valve regurgitation. Pulmonic Valve Pulmonic valve not well visualized. Pericardium No pericardial effusion. Aorta Dilated aortic root measured anteroposteriorly at 45 mm. CONCLUSIONS 1. This is a technically difficult study. 2. Normal left ventricular cavity size and systolic function. Left ventricular ejection fraction is estimated at 65%. No diagnostic regional wall motion abnormality. Normal diastolic function. 3. Dilated aortic root measured anteroposteriorly at 45 mm. 4. No significant valvular abnormality. 5. No prior similar studies to compare. Lexi Levi MD (Electronically Signed) Final Date: 25 March 2021 16:28 S
== END 2021-03-21 14:49 | disposition home or self-care (01) ==
LOC: US 14:50
PROVIDERS: PCP Internal Medicine; Visit Provider Internal Medicine Cardiovascular Disease
DX: I25.118 Atherosclerotic heart disease of native coronary artery with other forms of angina pectoris (principal); I77.810 Thoracic aortic ectasia
CPT/HCPCS: 93306

== ENCOUNTER → 2021-03-26 08:36 | Outpatient (BNVA) | payer MEDICARE, MEDICAID, SELFPAY ==
[2020-08-21 08:32] VITALS: BP 121/63; BMI 37.1
== END ==
PROVIDERS: Family Provider Nurse Practitioner Family; PCP Internal Medicine; Visit Provider Social Worker Clinical
DX: F43.12 Post-traumatic stress disorder, chronic (principal); F33.2 Major depressive disorder, recurrent severe without psychotic features
CPT/HCPCS: 90834

== ENCOUNTER → 2021-04-08 08:44 | Outpatient (BNVA) | payer MEDICARE, MEDICAID, SELFPAY ==
[2020-08-21 08:32] VITALS: BP 121/63; BMI 37.1
== END ==
PROVIDERS: Family Provider Nurse Practitioner Family; PCP Internal Medicine; Visit Provider Social Worker Clinical
DX: F43.12 Post-traumatic stress disorder, chronic (principal); F33.2 Major depressive disorder, recurrent severe without psychotic features
CPT/HCPCS: 90834

== ENCOUNTER → 2021-04-11 08:31 | Outpatient (BNVA) | payer MEDICARE, MEDICAID, SELFPAY ==
[2020-08-21 08:32] VITALS: BP 121/63; BMI 37.1
== END ==
PROVIDERS: Family Provider Nurse Practitioner Family; PCP Internal Medicine; Visit Provider Psychiatry & Neurology Psychiatry
DX: F32.3 Major depressive disorder, single episode, severe with psychotic features (principal); F43.12 Post-traumatic stress disorder, chronic
CPT/HCPCS: 99214

== ENCOUNTER → 2021-04-18 09:44 | Outpatient (BNVA) | payer MEDICARE, MEDICAID, SELFPAY ==
[2020-08-21 08:32] VITALS: BP 121/63; BMI 37.1
== END ==
PROVIDERS: Family Provider Nurse Practitioner Family; PCP Internal Medicine; Visit Provider Social Worker Clinical
DX: F43.12 Post-traumatic stress disorder, chronic (principal); F33.2 Major depressive disorder, recurrent severe without psychotic features
CPT/HCPCS: 90834

== ENCOUNTER → 2021-04-25 08:45 | Outpatient (BNVA) | payer MEDICARE, MEDICAID, SELFPAY ==
[2020-08-21 08:32] VITALS: BP 121/63; BMI 37.1
== END ==
PROVIDERS: Family Provider Nurse Practitioner Family; PCP Internal Medicine; Visit Provider Social Worker Clinical
DX: F43.12 Post-traumatic stress disorder, chronic (principal); F33.2 Major depressive disorder, recurrent severe without psychotic features
CPT/HCPCS: 90834

== ENCOUNTER → 2021-05-02 10:45 | Outpatient (BNVA) | payer MEDICARE, MEDICAID, SELFPAY ==
[2020-08-21 08:32] VITALS: BP 121/63; BMI 37.1
== END ==
PROVIDERS: Family Provider Nurse Practitioner Family; PCP Internal Medicine; Visit Provider Social Worker Clinical
DX: F43.12 Post-traumatic stress disorder, chronic (principal); F33.2 Major depressive disorder, recurrent severe without psychotic features
CPT/HCPCS: 90834

== ENCOUNTER → 2021-05-09 12:48 | Outpatient (BNVA) | payer MEDICARE, MEDICAID, SELFPAY ==
[2020-08-21 08:32] VITALS: BP 121/63; BMI 37.1
== END ==
PROVIDERS: Family Provider Nurse Practitioner Family; PCP Internal Medicine; Visit Provider Social Worker Clinical
DX: F43.12 Post-traumatic stress disorder, chronic (principal); F33.2 Major depressive disorder, recurrent severe without psychotic features
CPT/HCPCS: 90834

== ENCOUNTER → 2021-05-13 08:20 | Outpatient (BNVA) | payer MEDICARE, MEDICAID, SELFPAY ==
[2020-08-21 08:32] VITALS: BP 121/63; BMI 37.1
== END ==
PROVIDERS: Family Provider Nurse Practitioner Family; PCP Internal Medicine; Visit Provider Internal Medicine
DX: E11.9 Type 2 diabetes mellitus without complications (principal); E78.2 Mixed hyperlipidemia; I25.118 Atherosclerotic heart disease of native coronary artery with other forms of angina pectoris; I73.9 Peripheral vascular disease, unspecified; Z79.4 Long term (current) use of insulin; Z79.84 Long term (current) use of oral hypoglycemic drugs; I10 Essential (primary) hypertension; Z87.891 Personal history of nicotine dependence
CPT/HCPCS: 99214

== ENCOUNTER → 2021-05-16 13:00 | Outpatient (BNVA) | payer MEDICARE, MEDICAID, SELFPAY ==
[2020-08-21 08:32] VITALS: BP 121/63; BMI 37.1
== END ==
PROVIDERS: Family Provider Nurse Practitioner Family; PCP Internal Medicine; Visit Provider Social Worker Clinical
DX: F43.12 Post-traumatic stress disorder, chronic (principal); F33.2 Major depressive disorder, recurrent severe without psychotic features
CPT/HCPCS: 90834

== ENCOUNTER → 2021-05-22 08:45 | Outpatient (BNVA) | payer MEDICARE, MEDICAID, SELFPAY ==
[2020-08-21 08:32] VITALS: BP 121/63; BMI 37.1
== END ==
PROVIDERS: Family Provider Nurse Practitioner Family; PCP Internal Medicine; Visit Provider Social Worker Clinical
DX: F43.12 Post-traumatic stress disorder, chronic (principal); F33.2 Major depressive disorder, recurrent severe without psychotic features
CPT/HCPCS: 90834

== ENCOUNTER → 2021-05-23 14:05 | Outpatient (BNVA) | payer MEDICARE, MEDICAID, SELFPAY ==
[2020-08-21 08:32] VITALS: BP 121/63; BMI 37.1
== END ==
PROVIDERS: Family Provider Nurse Practitioner Family; PCP Internal Medicine; Visit Provider Psychiatry & Neurology Psychiatry
DX: F32.3 Major depressive disorder, single episode, severe with psychotic features (principal); F43.12 Post-traumatic stress disorder, chronic
CPT/HCPCS: 99214

== ENCOUNTER → 2021-05-27 12:46 | Outpatient (BNVA) | payer MEDICARE, MEDICAID, SELFPAY ==
[2020-08-21 08:32] VITALS: BP 121/63; BMI 37.1
== END ==
PROVIDERS: Family Provider Nurse Practitioner Family; PCP Internal Medicine; Visit Provider Social Worker Clinical
DX: F43.12 Post-traumatic stress disorder, chronic (principal); F33.2 Major depressive disorder, recurrent severe without psychotic features
CPT/HCPCS: 90834

== ENCOUNTER → 2021-06-05 09:50 | Outpatient (BNVA) | payer MEDICARE, MEDICAID, SELFPAY ==
[2020-08-21 08:32] VITALS: BP 121/63; BMI 37.1
== END ==
PROVIDERS: Family Provider Nurse Practitioner Family; PCP Internal Medicine; Visit Provider Social Worker Clinical
DX: F43.12 Post-traumatic stress disorder, chronic (principal); F33.2 Major depressive disorder, recurrent severe without psychotic features
CPT/HCPCS: 90834

== ENCOUNTER → 2021-06-12 09:47 | Outpatient (BNVA) | payer MEDICARE, MEDICAID, SELFPAY ==
[2020-08-21 08:32] VITALS: BP 121/63; BMI 37.1
== END ==
PROVIDERS: Family Provider Nurse Practitioner Family; PCP Internal Medicine; Visit Provider Social Worker Clinical
DX: F43.12 Post-traumatic stress disorder, chronic (principal); F33.2 Major depressive disorder, recurrent severe without psychotic features
CPT/HCPCS: 90834

== ENCOUNTER → 2021-06-19 09:19 | Outpatient (BNVA) | payer MEDICARE, MEDICAID, SELFPAY ==
[2020-08-21 08:32] VITALS: BP 121/63; BMI 37.1
== END ==
PROVIDERS: Family Provider Nurse Practitioner Family; PCP Internal Medicine; Visit Provider Social Worker Clinical
DX: F43.12 Post-traumatic stress disorder, chronic (principal); F33.2 Major depressive disorder, recurrent severe without psychotic features
CPT/HCPCS: 90834

== ENCOUNTER → 2021-07-12 07:49 | Outpatient (BNVA) | payer MEDICARE, MEDICAID, SELFPAY ==
[2020-08-21 08:32] VITALS: BP 121/63; BMI 37.1
== END ==
PROVIDERS: Family Provider Nurse Practitioner Family; PCP Internal Medicine; Visit Provider Social Worker Clinical
DX: F43.12 Post-traumatic stress disorder, chronic (principal); F33.2 Major depressive disorder, recurrent severe without psychotic features
CPT/HCPCS: 90834

== ENCOUNTER → 2021-07-18 08:34 | Outpatient (BNVA) | payer MEDICARE, MEDICAID, SELFPAY ==
[2020-08-21 08:32] VITALS: BP 121/63; BMI 37.1
== END ==
PROVIDERS: Family Provider Nurse Practitioner Family; PCP Internal Medicine; Visit Provider Social Worker Clinical
DX: F43.12 Post-traumatic stress disorder, chronic (principal); F33.2 Major depressive disorder, recurrent severe without psychotic features
CPT/HCPCS: 90834

== ENCOUNTER → 2021-07-25 07:24 | Outpatient (BNVA) | payer MEDICARE, MEDICAID, SELFPAY ==
[2020-08-21 08:32] VITALS: BP 121/63; BMI 37.1
== END ==
PROVIDERS: Family Provider Nurse Practitioner Family; PCP Internal Medicine; Visit Provider Social Worker Clinical
DX: F43.12 Post-traumatic stress disorder, chronic (principal); F33.2 Major depressive disorder, recurrent severe without psychotic features
CPT/HCPCS: 90834

== ENCOUNTER 2021-07-27 07:49 | Outpatient (CLI) | payer MEDICARE, MEDICAID, SELFPAY ==
[2020-08-21 08:32] VITALS: BP 121/63; BMI 37.1
[2021-07-27 08:06] VITALS: BP 128/76; PULSE 63; RESP 16; TEMP 36.7; O2SAT 97; BMI 38.0
[2021-07-27 09:03] VITALS: BP 124/74; PULSE 61; RESP 16; TEMP 36.8; O2SAT 95
[2021-07-27 10:04] VITALS: BP 115/74; PULSE 60; RESP 14; TEMP 36.6; O2SAT 98
== END 2021-07-27 07:50 | disposition home or self-care (01) ==
PROVIDERS: PCP Internal Medicine; Visit Provider Internal Medicine
DX: U07.1 COVID-19 (principal)
CPT/HCPCS: 96365

== ENCOUNTER → 2021-08-01 08:48 | Outpatient (BNVA) | payer MEDICARE, MEDICAID, SELFPAY ==
[2020-08-21 08:32] VITALS: BP 121/63; BMI 37.1
== END ==
PROVIDERS: PCP Internal Medicine; Visit Provider Social Worker Clinical
DX: F43.12 Post-traumatic stress disorder, chronic (principal); F33.2 Major depressive disorder, recurrent severe without psychotic features
CPT/HCPCS: 90834

== ENCOUNTER → 2021-08-14 08:13 | Outpatient (BNVA) | payer MEDICARE, MEDICAID, SELFPAY ==
[2020-08-21 08:32] VITALS: BP 121/63; BMI 37.1
== END ==
PROVIDERS: PCP Internal Medicine; Visit Provider Social Worker Clinical
DX: F43.12 Post-traumatic stress disorder, chronic (principal); F33.2 Major depressive disorder, recurrent severe without psychotic features
CPT/HCPCS: 90834

== ENCOUNTER → 2021-08-16 10:45 | Outpatient (BNVA) | payer MEDICARE, MEDICAID, SELFPAY ==
[2020-08-21 08:32] VITALS: BP 121/63; BMI 37.1
== END ==
PROVIDERS: PCP Internal Medicine; Visit Provider Psychiatry & Neurology Psychiatry
DX: F32.3 Major depressive disorder, single episode, severe with psychotic features (principal); F43.12 Post-traumatic stress disorder, chronic
CPT/HCPCS: 99214

== ENCOUNTER → 2021-08-22 08:46 | Outpatient (BNVA) | payer MEDICARE, MEDICAID, SELFPAY ==
[2020-08-21 08:32] VITALS: BP 121/63; BMI 37.1
== END ==
PROVIDERS: PCP Internal Medicine; Visit Provider Social Worker Clinical
DX: F43.12 Post-traumatic stress disorder, chronic (principal); F33.2 Major depressive disorder, recurrent severe without psychotic features
CPT/HCPCS: 90834

== ENCOUNTER → 2021-08-27 08:38 | Outpatient (BNVA) | payer MEDICARE, MEDICAID, SELFPAY ==
[2020-08-21 08:32] VITALS: BP 121/63; BMI 37.1
== END ==
PROVIDERS: PCP Internal Medicine; Visit Provider Social Worker Clinical
DX: F43.12 Post-traumatic stress disorder, chronic (principal); F33.2 Major depressive disorder, recurrent severe without psychotic features
CPT/HCPCS: 90834

== ENCOUNTER → 2021-09-06 07:56 | Outpatient (BNVA) | payer MEDICARE, MEDICAID, SELFPAY ==
[2020-08-21 08:32] VITALS: BP 121/63; BMI 37.1
== END ==
PROVIDERS: PCP Internal Medicine; Visit Provider Social Worker Clinical
DX: F43.12 Post-traumatic stress disorder, chronic (principal); F33.2 Major depressive disorder, recurrent severe without psychotic features
CPT/HCPCS: 90834

== ENCOUNTER 2021-09-09 16:43 | Outpatient (CLI) | payer MEDICARE, MEDICAID, SELFPAY ==
[2020-08-21 08:32] VITALS: BP 121/63; BMI 37.1
--- NOTE | 2021-09-09 17:00 | XR_ITS ---
WS: [id number] RIGHT SHOULDER: 3 VIEW(S) TECHNIQUE: Internal and external rotation with Y view. HISTORY: SHOULDER PAIN, RIGHT, UNSPECIFIED FALL COMPARISON: None available. No fracture or dislocation or soft tissue abnormality. Glenohumeral and AC joints are unremarkable. XR/XR shoulder RT min 2V* [id number] IMPRESSION: Normal RIGHT shoulder.
== END 2021-09-09 16:44 | disposition home or self-care (01) ==
PROVIDERS: PCP Internal Medicine; Visit Provider Nurse Practitioner Family
DX: M25.511 Pain in right shoulder (principal); W19.XXXA Unspecified fall, initial encounter
CPT/HCPCS: 73030

== ENCOUNTER → 2021-09-12 08:48 | Outpatient (BNVA) | payer MEDICARE, MEDICAID, SELFPAY ==
[2020-08-21 08:32] VITALS: BP 121/63; BMI 37.1
== END ==
PROVIDERS: PCP Internal Medicine; Visit Provider Social Worker Clinical
DX: F33.2 Major depressive disorder, recurrent severe without psychotic features (principal); F43.12 Post-traumatic stress disorder, chronic
CPT/HCPCS: 90834

== ENCOUNTER → 2021-09-17 09:58 | Outpatient (BNVA) | payer MEDICARE, MEDICAID, SELFPAY ==
[2020-08-21 08:32] VITALS: BP 121/63; BMI 37.1
== END ==
PROVIDERS: PCP Internal Medicine; Visit Provider Social Worker Clinical
DX: F43.12 Post-traumatic stress disorder, chronic (principal); F33.2 Major depressive disorder, recurrent severe without psychotic features
CPT/HCPCS: 90834

== ENCOUNTER → 2021-09-27 07:58 | Outpatient (BNVA) | payer MEDICARE, MEDICAID, SELFPAY ==
[2020-08-21 08:32] VITALS: BP 121/63; BMI 37.1
== END ==
PROVIDERS: PCP Internal Medicine; Visit Provider Social Worker Clinical
DX: F43.12 Post-traumatic stress disorder, chronic (principal); F33.2 Major depressive disorder, recurrent severe without psychotic features
CPT/HCPCS: 90834

== ENCOUNTER → 2021-10-02 08:42 | Outpatient (BNVA) | payer MEDICARE, MEDICAID, SELFPAY ==
[2020-08-21 08:32] VITALS: BP 121/63; BMI 37.1
== END ==
PROVIDERS: PCP Internal Medicine; Visit Provider Social Worker Clinical
DX: F33.2 Major depressive disorder, recurrent severe without psychotic features
CPT/HCPCS: 90837; 90834

== ENCOUNTER → 2021-10-08 09:51 | Outpatient (BNVA) | payer MEDICARE, MEDICAID, SELFPAY ==
[2020-08-21 08:32] VITALS: BP 121/63; BMI 37.1
== END ==
PROVIDERS: PCP Internal Medicine; Visit Provider Social Worker Clinical
DX: F43.12 Post-traumatic stress disorder, chronic (principal); F33.2 Major depressive disorder, recurrent severe without psychotic features
CPT/HCPCS: 90837; 90834

== ENCOUNTER → 2021-10-18 10:48 | Outpatient (BNVA) | payer MEDICARE, MEDICAID, SELFPAY ==
[2020-08-21 08:32] VITALS: BP 121/63; BMI 37.1
== END ==
PROVIDERS: PCP Internal Medicine; Visit Provider Social Worker Clinical
DX: F43.12 Post-traumatic stress disorder, chronic (principal); F33.2 Major depressive disorder, recurrent severe without psychotic features
CPT/HCPCS: 90834

== ENCOUNTER → 2021-10-23 09:49 | Outpatient (BNVA) | payer MEDICARE, MEDICAID, SELFPAY ==
[2020-08-21 08:32] VITALS: BP 121/63; BMI 37.1
== END ==
PROVIDERS: PCP Internal Medicine; Visit Provider Social Worker Clinical
DX: F43.12 Post-traumatic stress disorder, chronic (principal); F33.2 Major depressive disorder, recurrent severe without psychotic features
CPT/HCPCS: 90834

== ENCOUNTER → 2021-10-30 09:56 | Outpatient (BNVA) | payer MEDICARE, MEDICAID, SELFPAY ==
[2020-08-21 08:32] VITALS: BP 121/63; BMI 37.1
== END ==
PROVIDERS: PCP Internal Medicine; Visit Provider Social Worker Clinical
DX: F43.12 Post-traumatic stress disorder, chronic (principal); F33.2 Major depressive disorder, recurrent severe without psychotic features
CPT/HCPCS: 90834

== ENCOUNTER → 2021-11-01 09:06 | Outpatient (BNVA) | payer MEDICARE, MEDICAID, SELFPAY ==
[2020-08-21 08:32] VITALS: BP 121/63; BMI 37.1
== END ==
PROVIDERS: PCP Internal Medicine; Visit Provider Psychiatry & Neurology Psychiatry
DX: F32.3 Major depressive disorder, single episode, severe with psychotic features (principal); F43.12 Post-traumatic stress disorder, chronic
CPT/HCPCS: 99214

== ENCOUNTER → 2021-11-05 12:54 | Outpatient (BNVA) | payer MEDICARE, MEDICAID, SELFPAY ==
[2020-08-21 08:32] VITALS: BP 121/63; BMI 37.1
== END ==
PROVIDERS: PCP Internal Medicine; Visit Provider Social Worker Clinical
DX: F43.12 Post-traumatic stress disorder, chronic (principal); F33.2 Major depressive disorder, recurrent severe without psychotic features
CPT/HCPCS: 90834

== ENCOUNTER → 2021-11-12 10:37 | Outpatient (BNVA) | payer MEDICARE, MEDICAID, SELFPAY ==
[2020-08-21 08:32] VITALS: BP 121/63; BMI 37.1
== END ==
PROVIDERS: PCP Internal Medicine; Visit Provider Internal Medicine
DX: F43.12 Post-traumatic stress disorder, chronic (principal); F33.2 Major depressive disorder, recurrent severe without psychotic features; E11.42 Type 2 diabetes mellitus with diabetic polyneuropathy; I25.118 Atherosclerotic heart disease of native coronary artery with other forms of angina pectoris; E78.2 Mixed hyperlipidemia; I73.9 Peripheral vascular disease, unspecified; Z87.891 Personal history of nicotine dependence; Z79.4 Long term (current) use of insulin; Z79.84 Long term (current) use of oral hypoglycemic drugs
CPT/HCPCS: 90834; 99214

== ENCOUNTER → 2021-11-19 08:56 | Outpatient (BNVA) | payer MEDICARE, MEDICAID, SELFPAY ==
[2020-08-21 08:32] VITALS: BP 121/63; BMI 37.1
== END ==
PROVIDERS: PCP Internal Medicine; Visit Provider Podiatrist Foot & Ankle Surgery
DX: F33.2 Major depressive disorder, recurrent severe without psychotic features (principal); E11.8 Type 2 diabetes mellitus with unspecified complications; I73.9 Peripheral vascular disease, unspecified; B35.1 Tinea unguium; E11.42 Type 2 diabetes mellitus with diabetic polyneuropathy; L84 Corns and callosities
CPT/HCPCS: 90834; 11056; 11721

== ENCOUNTER → 2021-11-25 07:55 | Outpatient (BNVA) | payer MEDICARE, MEDICAID, SELFPAY ==
[2020-08-21 08:32] VITALS: BP 121/63; BMI 37.1
== END ==
PROVIDERS: PCP Internal Medicine; Visit Provider Social Worker Clinical
DX: F43.12 Post-traumatic stress disorder, chronic (principal); F33.2 Major depressive disorder, recurrent severe without psychotic features
CPT/HCPCS: 90834

== ENCOUNTER → 2021-12-04 07:48 | Outpatient (BNVA) | payer MEDICARE, MEDICAID, SELFPAY ==
[2020-08-21 08:32] VITALS: BP 121/63; BMI 37.1
== END ==
PROVIDERS: PCP Internal Medicine; Visit Provider Social Worker Clinical
DX: F43.12 Post-traumatic stress disorder, chronic (principal); F33.2 Major depressive disorder, recurrent severe without psychotic features
CPT/HCPCS: 90834

== ENCOUNTER → 2021-12-11 07:47 | Outpatient (BNVA) | payer MEDICARE, MEDICAID, SELFPAY ==
[2020-08-21 08:32] VITALS: BP 121/63; BMI 37.1
== END ==
PROVIDERS: PCP Internal Medicine; Visit Provider Social Worker Clinical
DX: F43.12 Post-traumatic stress disorder, chronic (principal); F33.2 Major depressive disorder, recurrent severe without psychotic features
CPT/HCPCS: 90834

== ENCOUNTER → 2021-12-13 09:25 | Outpatient (BNVA) | payer MEDICARE, MEDICAID, SELFPAY ==
[2020-08-21 08:32] VITALS: BP 121/63; BMI 37.1
== END ==
PROVIDERS: PCP Internal Medicine; Visit Provider Internal Medicine Cardiovascular Disease
DX: I25.118 Atherosclerotic heart disease of native coronary artery with other forms of angina pectoris (principal); I10 Essential (primary) hypertension; E78.2 Mixed hyperlipidemia; E11.42 Type 2 diabetes mellitus with diabetic polyneuropathy; Z87.891 Personal history of nicotine dependence; Z79.4 Long term (current) use of insulin
CPT/HCPCS: 99214

== ENCOUNTER → 2021-12-17 07:46 | Outpatient (BNVA) | payer MEDICARE, MEDICAID, SELFPAY ==
[2020-08-21 08:32] VITALS: BP 121/63; BMI 37.1
== END ==
PROVIDERS: PCP Internal Medicine; Visit Provider Social Worker Clinical
DX: F33.2 Major depressive disorder, recurrent severe without psychotic features (principal); F43.12 Post-traumatic stress disorder, chronic
CPT/HCPCS: 90834

== ENCOUNTER → 2021-12-25 07:45 | Outpatient (BNVA) | payer MEDICARE, MEDICAID, SELFPAY ==
[2020-08-21 08:32] VITALS: BP 121/63; BMI 37.1
== END ==
PROVIDERS: PCP Internal Medicine; Visit Provider Social Worker Clinical
DX: F33.2 Major depressive disorder, recurrent severe without psychotic features (principal); F43.12 Post-traumatic stress disorder, chronic
CPT/HCPCS: 90834

== ENCOUNTER → 2021-12-30 07:45 | Outpatient (BNVA) | payer MEDICARE, MEDICAID, SELFPAY ==
[2020-08-21 08:32] VITALS: BP 121/63; BMI 37.1
== END ==
PROVIDERS: PCP Internal Medicine; Visit Provider Social Worker Clinical
DX: F33.2 Major depressive disorder, recurrent severe without psychotic features (principal); F43.12 Post-traumatic stress disorder, chronic
CPT/HCPCS: 90834

== ENCOUNTER → 2021-12-31 07:10 | Outpatient (BNVA) | payer MEDICARE, MEDICAID, SELFPAY ==
[2020-08-21 08:32] VITALS: BP 121/63; BMI 37.1
== END ==
PROVIDERS: PCP Internal Medicine; Visit Provider Psychiatry & Neurology Psychiatry
DX: F33.9 Major depressive disorder, recurrent, unspecified (principal); F43.12 Post-traumatic stress disorder, chronic
CPT/HCPCS: 99214

== ENCOUNTER 2022-02-03 09:06 | Outpatient (CLI) | payer MEDICARE, OTHER, MEDICAID, SELFPAY ==
[2020-08-21 08:32] VITALS: BP 121/63; BMI 37.1
[2022-02-03 10:15] LABS: Chol HDL Ratio 2.19 mg/dL (1.0-5.00); Cholesterol 103 mg/dL (0-200); HDL Cholesterol 47 mg/dL (60-100); LDL Cholesterol Calculated 18 mg/dL (50-129); LDL HDL Ratio 0.38 RATIO (0.00-3.22); Triglycerides 189 mg/dL (0-150)
[2022-02-03 10:37] LABS: Estmated Average Glucose 114; Hemoglobin A1C 5.6 % (4.0-6.0)
== END 2022-02-03 09:07 | disposition home or self-care (01) ==
LOC: LAB 09:09
PROVIDERS: PCP Internal Medicine; Visit Provider Internal Medicine
DX: E78.2 Mixed hyperlipidemia (principal); E11.9 Type 2 diabetes mellitus without complications
CPT/HCPCS: 36415; 80061; 83036

== ENCOUNTER → 2022-02-10 08:35 | Outpatient (BNVA) | payer MEDICARE, MEDICAID, SELFPAY ==
[2020-08-21 08:32] VITALS: BP 121/63; BMI 37.1
== END ==
PROVIDERS: PCP Internal Medicine; Visit Provider Internal Medicine
DX: E11.42 Type 2 diabetes mellitus with diabetic polyneuropathy (principal); E11.59 Type 2 diabetes mellitus with other circulatory complications; I25.118 Atherosclerotic heart disease of native coronary artery with other forms of angina pectoris; E78.2 Mixed hyperlipidemia; I73.9 Peripheral vascular disease, unspecified; Z87.891 Personal history of nicotine dependence; Z79.84 Long term (current) use of oral hypoglycemic drugs; Z79.4 Long term (current) use of insulin
CPT/HCPCS: 99214

== ENCOUNTER → 2022-03-25 07:59 | Outpatient (BNVA) | payer MEDICARE, MEDICAID, SELFPAY ==
[2020-08-21 08:32] VITALS: BP 121/63; BMI 37.1
== END ==
PROVIDERS: PCP Internal Medicine; Visit Provider Podiatrist Foot & Ankle Surgery
DX: I73.9 Peripheral vascular disease, unspecified (principal); B35.1 Tinea unguium; E11.42 Type 2 diabetes mellitus with diabetic polyneuropathy; L84 Corns and callosities; Z79.4 Long term (current) use of insulin; Z79.84 Long term (current) use of oral hypoglycemic drugs
CPT/HCPCS: 11056; 11721

== ENCOUNTER → 2022-03-27 09:32 | Outpatient (BNVA) | payer MEDICARE, MEDICAID, OTHER, SELFPAY ==
[2020-08-21 08:32] VITALS: BP 121/63; BMI 37.1
== END ==
PROVIDERS: Absent Provider Surgery; Visit Provider Surgery
DX: Z12.11 Encounter for screening for malignant neoplasm of colon (principal)
CPT/HCPCS: 99024

== ENCOUNTER 2022-06-20 06:04 | Day surgery (SDC) | payer OTHER, MEDICARE, MEDICAID, SELFPAY ==
[2020-08-21 08:32] VITALS: BP 121/63; BMI 37.1
[2022-06-18 08:49] VITALS: BMI 37.2
[2022-06-20 06:27] VITALS: BP 145/82; PULSE 67; RESP 18; TEMP 36.3; O2SAT 98
[2022-06-20 06:34] LABS: Glucose Point of Care 166 mg/dL (70-110)
[2022-06-20] MEDS: sodium chloride 0.9% 1,000 ML 30 ML IV (06:34)
--- NOTE | 2022-06-20 06:53 | ANES.PREANE2 ---
Pre-Anesthetic Assessment Height/Weight: Height 1.73 m Weight 111.13 kg Temp Pulse Resp BP Pulse Ox O2 Del Method 97.3 F L 67 18 145/82 98 06/20/22 06:27 06/20/22 06:27 06/20/22 06:27 06/20/22 06:27 06/20/22 06:27 06/20/22 06:27 Preop Diagnosis: screening Operation Date: 06/20/22 07:30 Proposed Procedures p Colonoscopy 29890,Z12.11(Not Applicable) - Cornelius James DO Familial anesthetic complications: None Was Beta Alberto taken within 24 hours: N/A Was Clonidine taken within 24 hours: N/A Last intake: Intake Last Liquid Date 06/19/22 Last Liquid Time 22:00 Last Solid Date 06/18/22 Last Solid Time 20:00 Social No alcohol and No tobacco Exam alert, oriented x 3, clear to auscultation bilaterally and regular rate & rhythm Airway Submandibular: within normal limits Cervical ROM: within normal limits Dentition: full History/ROS No significant history except as noted Pulmonary Sleep Apnea CV/HEM Coronary Artery Disease (2 stents 2016) and Hypertension None reported Hepatic None reported GI None reported Metabolic Diabetes Mellitus (Type II) and Morbid Obesity [facility] [place] Lower Back Pain Neuropsych Seizure (2016 once, no longer on medication) Anesthetic Plan ASA status: 3 Anesthesia: Anesthesia Evaluation and MAC Risk of > 500 ml blood loss (7ml/kg in children): No Medications/Allergies Home Medications Medication Instructions Recorded Confirmed Last Taken Type aspirin 81 mg tablet,delayed 81 mg PO DAILY 07/20/19 06/18/22 06/17/22 History release (Adult Aspirin Regimen) empagliflozin 25 mg tablet 25 mg PO QAM 07/20/19 06/18/22 06/19/22 History (Jardiance) magnesium oxide 500 mg tablet 500 mg PO DAILY 07/20/19 06/18/22 06/19/22 History metformin 1,000 mg tablet,extended 1,000 mg PO BID 07/20/19 06/18/22 06/18/22 History release 24hr Iron (ferrous sulfate) 325 mg PO DAILY 08/19/19 06/18/22 06/18/22 History fenofibrate nanocrystallized 145 145 mg PO DAILY 07/30/20 06/18/22 06/19/22 History mg tablet insulin glargine 100 unit/mL 40 unit SUBCUT DAILY 07/30/20 06/18/22 06/19/22 History subcutaneous solution (Lantus U-100 Insulin) atorvastatin 40 mg tablet 80 mg PO DAILY 10/22/20 06/18/22 06/19/22 History nitroglycerin 0.4 mg sublingual 0.4 mg sublingual Q5M PRN chest 01/08/21 06/18/22 07/26/21 Rx tablet pain #25 tabs acetaminophen 1,000 mg PO DAILY PRN Pain 01/24/21 06/18/22 06/18/22 History furosemide 20 mg tablet (Lasix) 20 mg PO DAILY PRN edema #30 tabs 01/29/21 06/20/22 06/06/22 Rx modafinil 200 mg tablet 200 mg PO BID 01/29/21 06/18/22 06/19/22 History insulin regular human 24 units SUBCUT .BEFOREMEAL 05/13/21 06/18/22 06/18/22 History Diabetic shoes with 3 inserts #1 ea 11/19/21 04/22/22 Unknown Rx evolocumab 140 mg/mL subcutaneous 140 mg SUBCUT .q 2 wks #6 mL 11/27/21 06/20/22 06/07/22 Rx pen injector (Pta Patel) propranolol 60 mg tablet 90 mg PO DIRECTED #135 tabs 12/13/21 06/18/22 06/19/22 Rx buspirone 10 mg tablet 20 mg PO TID 30 days #180 tabs 02/02/22 06/18/22 06/19/22 Rx paroxetine HCl 30 mg tablet (Paxil) 60 mg PO DAILY 30 days #60 tabs 02/02/22 06/18/22 06/18/22 Rx dextroamphetamine-amphetamine 5 mg 5 mg PO QAM 30 days #30 tabs 05/16/22 06/18/22 06/18/22 Rx tablet (Adderall) aripiprazole 20 mg tablet (Abilify) 20 mg PO DAILY 06/18/22 06/18/22 06/19/22 History bupropion HCl 150 mg 24 hr tablet, 150 mg PO QAM 06/18/22 06/18/22 06/19/22 History extended release (Wellbutrin XL) isosorbide mononitrate 120 mg 120 mg PO DAILY 06/18/22 06/18/22 06/19/22 History tablet,extended release 24 hr ranolazine 1,000 mg 1,000 mg PO BID 06/18/22 06/18/22 06/19/22 History tablet,extended release,12 hr (Ranexa) Allergies Allergy/AdvReac Type Severity Reaction Status Date / Time prednisone Allergy Intermediate ADR-Abdominal Verified 06/18/22 08:43 Pain Current Medications Generic Name Dose Route Start Last Admin Trade Name Freq PRN Reason Stop Dose Admin Sodium Chloride 1,000 mls @ 30 mls/hr 06/20/22 06:15 06/20/22 06:34 Sodium Chloride 0.9% IV 06/21/22 06:14 30 mls/hr .Q24H MANUEL Administration PFSH Anesthesia Medical History CAD (coronary artery disease) Deviated septum Diabetes mellitus Dysphasia Dysphonia HTN (hypertension) Hyperlipidemia Intervertebral cervical disc disorder with myelopathy, 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 Brigitte Guy Status post spinal arthrodesis Stented coronary artery Family History Father Diabetes CAD (coronary artery disease) Hypertension Dementia Brother CAD (coronary artery disease) Grandmother Stroke Maternal x3 Mother Dementia Schizophrenia Grandfather Cancer Both Maternal and Paternal Family/Other Cancer Uncles both maternal and paternal Social History Smoking and tobacco status: former smoker Quit status (tobacco): has quit using tobacco Year quit tobacco: 2000 Second hand smoke exposure: No Alcohol intake: never Lives independently: Yes Household members: spouse Marital status: Current occupational status: unemployed History of recent travel: No Current gender identity: Male Data Anesthesia Cardiac Studies: Echocardiogram 03/21/21
--- NOTE | 2022-06-20 07:49 | P.HP_ITS ---
Providers/Chief Complaint Primary Care Provider: Devora Rivera MD Chief Complaint: encounter for screening History of Present Illness Ronny Benitez is a 52 year old male here for his second screening colonoscopy. He denies any abdominal pain hematochezia melena or any other symptoms. Review of Systems General: Reports: 10 or more systems reviewed and unremarkable except in HPI and below Medications/Allergies Home Medications Medication Instructions Recorded Confirmed Last Taken Type aspirin 81 mg tablet,delayed 81 mg PO DAILY 07/20/19 06/18/22 06/17/22 History release (Adult Aspirin Regimen) empagliflozin 25 mg tablet 25 mg PO QAM 07/20/19 06/18/22 06/19/22 History (Jardiance) magnesium oxide 500 mg tablet 500 mg PO DAILY 07/20/19 06/18/22 06/19/22 History metformin 1,000 mg tablet,extended 1,000 mg PO BID 07/20/19 06/18/22 06/18/22 History release 24hr Iron (ferrous sulfate) 325 mg PO DAILY 08/19/19 06/18/22 06/18/22 History fenofibrate nanocrystallized 145 145 mg PO DAILY 07/30/20 06/18/22 06/19/22 History mg tablet insulin glargine 100 unit/mL 40 unit SUBCUT DAILY 07/30/20 06/18/22 06/19/22 History subcutaneous solution (Lantus U-100 Insulin) atorvastatin 40 mg tablet 80 mg PO DAILY 10/22/20 06/18/22 06/19/22 History nitroglycerin 0.4 mg sublingual 0.4 mg sublingual Q5M PRN chest 01/08/21 06/18/22 07/26/21 Rx tablet pain #25 tabs acetaminophen 1,000 mg PO DAILY PRN Pain 01/24/21 06/18/22 06/18/22 History furosemide 20 mg tablet (Lasix) 20 mg PO DAILY PRN edema #30 tabs 01/29/21 06/20/22 06/06/22 Rx modafinil 200 mg tablet 200 mg PO BID 01/29/21 06/18/22 06/19/22 History insulin regular human 24 units SUBCUT .BEFOREMEAL 05/13/21 06/18/22 06/18/22 History Diabetic shoes with 3 inserts #1 ea 11/19/21 04/22/22 Unknown Rx evolocumab 140 mg/mL subcutaneous 140 mg SUBCUT .q 2 wks #6 mL 11/27/21 06/20/22 06/07/22 Rx pen injector (Pat Patel) propranolol 60 mg tablet 90 mg PO DIRECTED #135 tabs 12/13/21 06/18/22 06/19/22 Rx buspirone 10 mg tablet 20 mg PO TID 30 days #180 tabs 02/02/22 06/18/22 06/19/22 Rx paroxetine HCl 30 mg tablet (Paxil) 60 mg PO DAILY 30 days #60 tabs 02/02/22 06/18/22 06/18/22 Rx dextroamphetamine-amphetamine 5 mg 5 mg PO QAM 30 days #30 tabs 05/16/22 06/18/22 06/18/22 Rx tablet (Adderall) aripiprazole 20 mg tablet (Abilify) 20 mg PO DAILY 06/18/22 06/18/22 06/19/22 History bupropion HCl 150 mg 24 hr tablet, 150 mg PO QAM 06/18/22 06/18/22 06/19/22 History extended release (Wellbutrin XL) isosorbide mononitrate 120 mg 120 mg PO DAILY 06/18/22 06/18/22 06/19/22 History tablet,extended release 24 hr ranolazine 1,000 mg 1,000 mg PO BID 06/18/22 06/18/22 06/19/22 History tablet,extended release,12 hr (Ranexa) Allergies Allergy/AdvReac Type Severity Reaction Status Date / Time prednisone Allergy Intermediate ADR-Abdominal Verified 06/18/22 08:43 Pain PFSH Acute PFSH: Medical History CAD (coronary artery disease) Deviated septum Diabetes mellitus Dysphasia Dysphonia HTN (hypertension) Hyperlipidemia Intervertebral cervical disc disorder with myelopathy, 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 Brigitte Guy Status post spinal arthrodesis Stented coronary artery Family History Father Diabetes CAD (coronary artery disease) Hypertension Dementia Brother CAD (coronary artery disease) Grandmother Stroke Maternal x3 Mother Dementia Schizophrenia Grandfather Cancer Both Maternal and Paternal Family/Other Cancer Uncles both maternal and paternal Social History Smoking and tobacco status: former smoker Quit status (tobacco): has quit using tobacco Year quit tobacco: 2000 Second hand smoke exposure: No Alcohol intake: never Lives independently: Yes Household members: spouse Marital status: Current occupational status: unemployed History of recent travel: No Current gender identity: Male Vitals/I&O/Wt Last Vital Signs Temp 97.3 F L 06/20/22 06:27 Pulse 67 06/20/22 06:27 Resp 18 06/20/22 06:27 BP 145/82 06/20/22 06:27 Pulse Ox 98 06/20/22 06:27 O2 Del Method 06/20/22 06:27 Weight last 48 hrs Weight 245 lb A&P Assessment and plan (1) Colon cancer screening: Plan Colonoscopy The risks and benefits of the procedure, including bleeding, infection, intestinal perforation requiring surgery, missed lesion were explained to the patient. The patient is understanding of the risks and wishes to proceed. Attestations Medical Necessity Statement*: Home Coding Level of Care Code Acute Sewer Contractor for Chg Fwd Diagnoses Colon cancer screening Z12.11
[2022-06-20 08:11] VITALS: BP 106/74; PULSE 68; RESP 17; TEMP 36.1; O2SAT 94
[2022-06-20 08:21] VITALS: BP 113/68; PULSE 67; RESP 16; O2SAT 93
--- NOTE | 2022-06-20 14:34 | ANE.PACU2 ---
Inpatient post-anesthesia follow up: Airway intact: Yes Vital signs: Temperature 97.0 F Pulse Rate 67 Respiratory Rate 16 Blood Pressure 113/68 Pulse Oximetry 93 Oxygen Delivery Me thod Room Air Oxygen Flow Rate Fraction of Inspir ed Oxygen Hydration adequate: Yes Nausea and vomiting: No Pain level: 1 Mental status: Baseline
== END 2022-06-20 08:45 | disposition home or self-care (01) ==
PROVIDERS: PCP Internal Medicine; Visit Provider Surgery
PROC: 0DJD8ZZ Inspection of Lower Intestinal Tract, Via Natural or Artificial Opening Endoscopic (ICD-10-PCS; CPT 45378; principal; 2022-06-20 07:30)
DX: Z12.11 Encounter for screening for malignant neoplasm of colon (principal); I25.10 Atherosclerotic heart disease of native coronary artery without angina pectoris; E11.9 Type 2 diabetes mellitus without complications; Z79.4 Long term (current) use of insulin; I10 Essential (primary) hypertension; E78.5 Hyperlipidemia, unspecified; Z98.1 Arthrodesis status; Z87.891 Personal history of nicotine dependence; G47.30 Sleep apnea, unspecified; Z95.5 Presence of coronary angioplasty implant and graft; E66.01 Morbid (severe) obesity due to excess calories; Z68.37 Body mass index [BMI] 37.0-37.9, adult; Z79.82 Long term (current) use of aspirin
CPT/HCPCS: 36416; 82962; G0121; J2704; J7030

== ENCOUNTER 2023-01-09 10:22 | Outpatient (CLI) | payer OTHER, MEDICARE, MEDICAID, SELFPAY ==
[2020-08-21 08:32] VITALS: BP 121/63; BMI 37.1
--- NOTE | 2023-01-09 10:37 | XR_ITS ---
WS: [id number] Chest 2 views, 01/09/2023 Clinical Data: CHEST WALL PAIN, COUGH Comparison: Portable chest, 01/04/2020 Findings: No nodules, masses or effusions are seen. There is minimal bibasilar patchy opacity which m ay represent atelectasis and/or minimal pneumonia. The heart is normal. The pulmonary vascularity is not increased. No pneumothorax is seen. The aortic arch and descending thoracic aorta show tortuosity . There is an anterior cervical disc fusion. XR/XR chest 2V* [id number] Impression: 1. Minimal bibasilar opacities which could represent atelectasis and/or pneumon ia. 2. Atherosclerosis.
== END 2023-01-09 10:23 | disposition home or self-care (01) ==
LOC: RAD 10:23
PROVIDERS: PCP Internal Medicine; Visit Provider Internal Medicine
DX: R07.89 Other chest pain (principal); R05.9 Cough, unspecified; R91.8 Other nonspecific abnormal finding of lung field; I70.90 Unspecified atherosclerosis
CPT/HCPCS: 71046

== ENCOUNTER 2023-01-23 08:26 | Outpatient (CLI) | payer OTHER, MEDICARE, MEDICAID, SELFPAY ==
[2020-08-21 08:32] VITALS: BP 121/63; BMI 37.1
--- NOTE | 2023-01-23 08:41 | XR_ITS ---
WS: [id number] Exam: XR chest 2V* [id number] Date/Time of Exam: 01/23/2023 8:44 AM Reason For Exam: CHEST WALL PAIN/COUGH Comparison 01/09/2023. The lungs are clear and fully expanded. Mild eventration of the right diaphragm unchanged. Normal car diomediastinal silhouette. No pleural effusions. Regional bony elements are intact. Fusion hardware s een in the lower C-spine. XR/XR chest 2V* [id number] IMPRESSION: 1. Negative chest.
== END 2023-01-23 08:27 | disposition home or self-care (01) ==
PROVIDERS: PCP Internal Medicine; Visit Provider Nurse Practitioner Family
DX: R07.89 Other chest pain (principal); R05.9 Cough, unspecified
CPT/HCPCS: 71046

== ENCOUNTER 2023-03-05 17:47 | Emergency (ER) | payer OTHER, MEDICARE, MEDICAID, SELFPAY ==
[2020-08-21 08:32] VITALS: BP 121/63; BMI 37.1
[2023-03-05 17:51] VITALS: BP 149/84; PULSE 105; RESP 18; TEMP 36.9; O2SAT 96; BMI 39.0
--- NOTE | 2023-03-05 17:56 | ECG_ITS ---
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 Measurements Intervals [facility] Rate: 104 P: 18 GA: 129 QRS: 71 QRSD: 89 T: 18 QT: 341 QTc: 449 Interpretive Statements SINUS TACHYCARDIA LOW QRS VOLTAGE IN EXTREMITY LEADS [QRS DEFLECTION < 0.5 mV IN LIMB LEADS] PATTERN CONSISTENT WITH PULMONARY DISEASE Compared to ECG 05/30/2020 10:06:42 Sinus rhythm no longer present Electronically Signed On 03-05-2023 22:41:05 CDT by Matthew Pantoja M.D. [email or web address]
--- NOTE | 2023-03-05 18:13 | XRR_ITS ---
PROCEDURE INFORMATION: Exam: XR Chest Exam date and time: 03/05/2023 6:31 PM Age: 52 years old Clinical indication: Pain; Chest pressure; Prior surgery; Surgery date: 6+ months; Surgery type: Stents; Additional info: Cp TECHNIQUE: Imaging protocol: Radiologic exam of the chest. Views: 1 view. COMPARISON: CR XR chest 2V* [id number] 01/23/2023 8:[address] chest performed January 2020. FINDINGS: Lungs: Unremarkable. No consolidation. Pleural spaces: Unremarkable. No pleural effusion. No pneumothorax. Heart/Mediastinum: Cardiac silhouette is unchanged unremarkable. There is mild tortuosity of the ascending aorta unchanged. Bones/joints: Unremarkable for age. XR/XR chest 1V portable [id number] IMPRESSION: Stable chest. No active disease.
[2023-03-05 19:23] LABS: Basophils % 0.5 %; Eosinophils # 0.2 10^3/uL (0.0-0.8); Eosinophils % 2.5 %; Hematocrit 42.9 % (37-53); Lymphocytes # 1.9 10^3/uL (0.8-4.8); Lymphocytes % 24.9 %; Mean Corpuscular HGB Conc 33.6 g/dL (30-55); Mean Corpuscular Hemoglobin 27.5 pg (27-33); Mean Corpuscular Volume 81.9 fl (82-101); Mean Platelet Volume 10.6 fL (7.4-10.4); Monocytes # 0.5 10^3/uL (0.2-0.9); Monocytes % 7.2 %; Neutrophils # 4.84 10^3/uL (1.8-7.7); Neutrophils % 64.5 %; Nucleated Red Blood Cells % 0 %; Platelet Count 279 10^3/cmm (157-399); Red Blood Count 5.24 10^6/uL (3.85-5.65); Red Cell Distribution Width 13.9 % (12.1-15.1); White Blood Count 7.51 10^3/uL (3.29-11.43)
--- NOTE | 2023-03-05 19:36 | ED_ITS ---
HPI - Chest Pain General: Chief Complaint: Chest Pain Stated Complaint: CP/ SOB/ sent by PCP with EKG Time Seen by Provider: 03/05/23 18:09 Source: patient Mode of arrival: ambulatory Limitations: no limitations History of Present Illness: 52-year-old male states he been having some chest pain along with shortness of breath over the last 2 days. He states he felt like he had some slight increased lower extremity edema as well. States the pains been a pressure type pain he denies any pain currently. Denies any vomiting or diarrhea or diaphoresis. Associated symptoms: Reports dyspnea; Deny abdominal pain, fever(s), nausea or vomiting Review of Systems Const: Denies: fever(s) or chills ENMT: Denies: throat pain or dental pain Card: Reports: chest pain Resp: Reports: dyspnea GI: Denies: abdominal pain, nausea, vomiting or diarrhea : Denies: dysuria Musc: Reports: extremity swelling; Denies: neck pain or back pain Skin/Breast: Denies: rash Neuro: Denies: headache(s) PFSH ED PFSH: Medical History CAD (coronary artery disease) Deviated septum Diabetes mellitus Dysphasia Dysphonia HTN (hypertension) Hyperlipidemia Intervertebral cervical disc disorder with myelopathy, 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 Brigitte Guy Status post spinal arthrodesis Stented coronary artery Family History Father Diabetes CAD (coronary artery disease) Hypertension Dementia Brother CAD (coronary artery disease) Grandmother Stroke Maternal x3 Mother Dementia Schizophrenia Grandfather Cancer Both Maternal and Paternal Family/Other Cancer Uncles both maternal and paternal Social History Smoking and tobacco status: former smoker Quit status (tobacco): has quit using tobacco Year quit tobacco: 2000 Second hand smoke exposure: No Alcohol intake: never Substance/Drug Use: former Lives independently: Yes Household members: spouse Marital status: Current occupational status: unemployed Current gender identity: Male Course Vital Signs: Vital signs: Vital Signs Temperature 98.4 F 03/05/23 17:51 Pulse Rate 105 H 03/05/23 17:51 Respiratory Rate 18 03/05/23 17:51 Blood Pressure 149/84 03/05/23 17:51 Pulse Oximetry 96 03/05/23 17:51 Oxygen Delivery Me thod Room Air 03/05/23 17:51 MDM - Chest Pain Medical Decision Making Patient presents here with chest pain atypical in nature his troponins and D- dimer EKG here are all normal he has no signs of acute coronary syndrome he does have follow-up with inspector electromechanical Dr. Hobbs of this month he is to follow-up as scheduled return if worsening he understands agrees to plan. Medical Records I reviewed the patient's medical records. Lab Data I reviewed the patient's lab results. 03/05/23 19:05 03/05/23 19:05 Radiology Impressions Chest X-Ray 03/05/23 18:13 IMPRESSION: Stable chest. No active disease. Laboratory Results WBC 7.51 10^3/uL (3.29-11.43) 03/05/23 19:05 RBC 5.24 10^6/uL (3.85-5.65) 03/05/23 19:05 Hgb 14.40 g/dL (11.27-16.99) 03/05/23 19:05 Hct 42.9 % (37-53) 03/05/23 19:05 MCV 81.9 fl (82-101) L 03/05/23 19:05 MCH 27.5 pg (27-33) 03/05/23 19:05 MCHC 33.6 g/dL (30-55) 03/05/23 19:05 RDW 13.9 % (12.1-15.1) 03/05/23 19:05 Plt Count 279 10^3/cmm (157-399) 03/05/23 19:05 MPV 10.6 fL (7.4-10.4) H 03/05/23 19:05 Neut % (Auto) 64.5 % 03/05/23 19:05 Lymph % (Auto) 24.9 % 03/05/23 19:05 [place] % (Auto) 7.2 % 03/05/23 19:05 Eos % (Auto) 2.5 % 03/05/23 19:05 Baso % (Auto) 0.5 % 03/05/23 19:05 Neut # (Auto) 4.84 10^3/uL (1.8-7.7) 03/05/23 19:05 Lymph # (Auto) 1.9 10^3/uL (0.8-4.8) 03/05/23 19:05 [place] # (Auto) 0.5 10^3/uL (0.2-0.9) 03/05/23 19:05 Eos # (Auto) 0.2 10^3/uL (0.0-0.8) 03/05/23 19:05 Baso # (Auto) 0.0 10^3/uL (0.0-0.1) 03/05/23 19:05 Nucleated RBC % (auto) 0 % 03/05/23 19:05 Nucleated RBCs # 0.0 /100WBC 03/05/23 19:05 D-Dimer 0.35 ug/mLFEU (0-0.59) 03/05/23 19:05 Sodium 133 mmol/L (136-145) L 03/05/23 19:05 Potassium 4.3 mmol/L (3.5-5.1) 03/05/23 19:05 Chloride 96 mmol/L (98-107) L 03/05/23 19:05 Carbon Dioxide 25 mmol/L (22-29) 03/05/23 19:05 Anion Gap 16.3 (5-19) 03/05/23 19:05 BUN 15 mg/dL (6-20) 03/05/23 19:05 Creatinine 0.9 mg/dL (0.7-1.2) 03/05/23 19:05 GFR Calculation 88.6 mL/min (90-130) L 03/05/23 19:05 Glucose 377 mg/dL (65-115) H 03/05/23 19:05 Calculated Osmolality 292 mOsm/kg (285-295) 03/05/23 19:05 Calcium 9.0 mg/dL (8.5-10.5) 03/05/23 19:05 Total Bilirubin 0.3 mg/dL (0.15-1.2) 03/05/23 19:05 AST 19 U/L (0-40) 03/05/23 19:05 ALT 22 U/L (0-41) 03/05/23 19:05 Alkaline Phosphatase 85 U/L (40-130) 03/05/23 19:05 Troponin T Baseline 9 ng/L (0-15) 03/05/23 19:05 Troponin T 120 Minute 11.20 ng/L (0-15) 03/05/23 21:04 Delta Troponin T 2.20 ABS# (0-10) 03/05/23 21:04 NT-Pro-B Natriuret Pep 36 pg/mL (0-125) 03/05/23 19:05 Total Protein 7.2 g/dL (6.6-8.7) 03/05/23 19:05 Albumin 4.4 g/dL (3.5-5.2) 03/05/23 19:05 Globulin 2.8 g/dL (1.3-4.6) 03/05/23 19:05 EKG Data EKG 1: I personally reviewed and interpreted this EKG as follows: EKG interpretation date: 03/05/23 EKG interpretation time: 19:35 Interpretation: nsr hr [address] or t wave abnormalities qrs 86 qtc 396 EKG 2: I personally reviewed and interpreted this EKG as follows: EKG interpretation date: 03/05/23 EKG interpretation time: 20:22 Interpretation: nsr hr [address] or t wave abnormalities qrs 87 qtc 397 Discharge Plan Discharge Patient Disposition: Home Clinical Impression: Chest pain Condition: Stable Prescriptions: No Action Lantus U-100 Insulin 100 unit/mL solution 40 unit SUBCUT DAILY aspirin [Adult Aspirin Regimen] 81 mg tablet,delayed release (DR/EC) 81 mg PO DAILY Hold Instructions: Resume on 08/25/19. magnesium oxide 500 mg tablet 500 mg PO DAILY metformin 1,000 mg tablet extended release 24hr 1,000 mg PO BID Jardiance 25 mg tablet 25 mg PO QAM modafinil 200 mg tablet 200 mg PO BID furosemide [Lasix] 20 mg tablet 20 mg PO DAILY PRN (Reason: edema) Qty: 30 2RF (DME) Diabetic shoes with 3 inserts See Rx Instructions .Route .MEDSUPPLY Qty: 1 0RF Rx Instructions: As directed by [facility] fenofibrate nanocrystallized 145 mg tablet 145 mg PO DAILY atorvastatin 40 mg tablet 80 mg PO DAILY propranolol 60 mg tablet 90 mg PO DIRECTED Qty: 135 3RF Rx Instructions: 60mg (1 tab) in AM and 30mg (0.5 tab) in PM Ozempic 1 mg/dose (2 mg/1.5 mL) pen injector SUBCUT aripiprazole [Abilify] 20 mg tablet 20 mg PO DAILY 30 Days Qty: 30 3RF bupropion HCl [Wellbutrin XL] 150 mg tablet extended release 24 hr 150 mg PO QAM Qty: 30 3RF buspirone 30 mg tablet 30 mg PO BID 30 Days Qty: 60 4RF clonazepam 0.5 mg tablet 0.5 mg PO DAILY PRN (Reason: anxiety) Qty: 15 3RF paroxetine HCl [Paxil] 30 mg tablet 60 mg PO DAILY 30 Days Qty: 60 3RF nitroglycerin 0.4 mg tablet, sublingual 0.4 mg SUBLINGUAL Q5M PRN (Reason: chest pain) Qty: 25 3RF Rx Instructions: do not exceed 3 doses per episode dextroamphetamine-amphetamine [Adderall] 5 mg tablet 5 mg PO QAM 30 Days Qty: 30 0RF Iron (ferrous sulfate) 325 MG 325 mg PO DAILY acetaminophen 1,000 MG 1,000 mg PO DAILY PRN (Reason: Pain) insulin regular human 10 UNITS 24 units SUBCUT .BEFOREMEAL Rx Instructions: base of 24 units plus 2 on a sliding scale, max dose of 28 per dose isosorbide mononitrate 120 mg tablet extended release 24 hr 120 mg PO DAILY Rx Instructions: TAKE 1 TABLET BY MOUTH EVERY MORNING ranolazine [Ranexa] 1,000 mg tablet extended release 12 hr 1,000 mg PO BID Discharge Orders: Discharge ED (Routine); Ordered 03/05/23 Ordered By: Zachariah Licea Referrals: Devora Rivera MD [Primary Care Provider] - 1-3 days Discharge Diet: Advance as tolerated Discharge Activity: Resume usual activity Patient Instructions: Chest Pain (ED) Coding Level of Care Code ED 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
[2023-03-05] MEDS: aspirin 81 mg Chew Tablet 324 MG PO (19:39)
[2023-03-05 19:43] LABS: Alanine Aminotransferase 22 U/L (0-41); Albumin Level 4.4 g/dL (3.5-5.2); Alkaline Phosphatase 85 U/L (40-130); Anion Gap 16.3 (5-19); Aspartate Amino Transferase 19 U/L (0-40); Blood Urea Nitrogen 15 mg/dL (6-20); Carbon Dioxide 25 mmol/L (22-29); Chloride 96 mmol/L (98-107); Globulin 2.8 g/dL (1.3-4.6); Glomerular Filtration Rate 88.6 mL/min (90-130); Glucose 377 mg/dL (65-115); Osmolality Calculated 292 mOsm/kg (285-295); Potassium 4.3 mmol/L (3.5-5.1); Sodium 133 mmol/L (136-145); Total Bilirubin 0.3 mg/dL (0.15-1.2); Total Protein 7.2 g/dL (6.6-8.7)
[2023-03-05 19:49] LABS: Troponin(5th) Baseline 9 ng/L (0-15)
[2023-03-05 20:07] LABS: D Dimer 0.35 ug/mLFEU (0-0.59)
--- NOTE | 2023-03-05 20:22 | ECG_ITS ---
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 Measurements Intervals [place] Rate: 73 P: 44 TN: 140 QRS: 2 QRSD: 87 T: 44 QT: 371 QTc: 411 Interpretive Statements SINUS RHYTHM Compared to ECG 05/30/2020 10:06:42 No significant changes Electronically Signed On 03-05-2023 22:41:10 CDT by Matthew Pantoja M.D. [id number]
[2023-03-05 20:29] LABS: NT Pro B Type Natriuretic Pept 36 pg/mL (0-125)
[2023-03-05 22:04] VITALS: BP 120/93; PULSE 84; RESP 18; O2SAT 96
== END 2023-03-05 22:05 | disposition home or self-care (01) ==
PROVIDERS: Emergency Provider Emergency Medicine; PCP Internal Medicine
DX: R07.9 Chest pain, unspecified (principal); Z79.82 Long term (current) use of aspirin; Z79.4 Long term (current) use of insulin; Z79.84 Long term (current) use of oral hypoglycemic drugs; Z87.891 Personal history of nicotine dependence; I25.10 Atherosclerotic heart disease of native coronary artery without angina pectoris; E11.9 Type 2 diabetes mellitus without complications; I10 Essential (primary) hypertension; E78.5 Hyperlipidemia, unspecified
CPT/HCPCS: 36415; 71045; 80053; 83880; 84484; 85025; 85378; 93005; 99285

== ENCOUNTER 2023-03-09 15:47 | Emergency (ER) | payer OTHER, MEDICARE, MEDICAID, SELFPAY ==
[2020-08-21 08:32] VITALS: BP 121/63; BMI 37.1
[2023-03-09 15:50] VITALS: BP 178/101; PULSE 90; RESP 16; TEMP 36.6; O2SAT 97; BMI 38.0
--- NOTE | 2023-03-09 15:56 | ECG_ITS ---
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 Measurements Intervals [place] Rate: 84 P: 44 DE: 148 QRS: 71 QRSD: 96 T: 38 QT: 361 QTc: 429 Interpretive Statements SINUS RHYTHM Compared to ECG 03/05/2023 20:22:02 No significant changes Electronically Signed On 03-09-2023 22:29:20 CDT by Matthew Pantoja M.D. [email or web address] medical [email or web address]/store/[id number]
--- NOTE | 2023-03-09 16:04 | XRR_ITS ---
PROCEDURE INFORMATION: Exam: XR Chest Exam date and time: 03/09/2023 4:09 PM Age: 52 years old Clinical indication: Pain; Chest pressure; Prior surgery; Surgery date: 6+ months; Surgery type: Coronary stents; Additional info: Chest pain TECHNIQUE: Imaging protocol: Radiologic exam of the chest. Views: 1 view. COMPARISON: CR (CHEST, ) 03/05/2023 6:31 PM FINDINGS: Lungs: Unremarkable. No consolidation. Pleural spaces: Unremarkable. No pleural effusion. No pneumothorax. Heart/Mediastinum: Unremarkable. No cardiomegaly. Bones/joints: Postsurgical hardware within the visualized lower cervical spine. Overlying monitor leads. Other findings: No significant change from previous exam. XR/XR chest 1V portable [id number] IMPRESSION: Stable chest with prior exam, without acute findings.
[2023-03-09 16:08] VITALS: BP 165/102; PULSE 81; RESP 17; O2SAT 98
[2023-03-09 16:54] LABS: Basophils % 0.4 %; Eosinophils # 0.2 10^3/uL (0.0-0.8); Eosinophils % 3.3 %; Hematocrit 38.9 % (37-53); Lymphocytes # 1.9 10^3/uL (0.8-4.8); Lymphocytes % 28.1 %; Mean Corpuscular HGB Conc 33.9 g/dL (30-55); Mean Corpuscular Hemoglobin 27.8 pg (27-33); Mean Corpuscular Volume 82.1 fl (82-101); Mean Platelet Volume 10.5 fL (7.4-10.4); Monocytes # 0.6 10^3/uL (0.2-0.9); Neutrophils # 3.93 10^3/uL (1.8-7.7); Neutrophils % 58.8 %; Nucleated Red Blood Cells % 0 %; Platelet Count 253 10^3/cmm (157-399); Red Blood Count 4.74 10^6/uL (3.85-5.65); White Blood Count 6.69 10^3/uL (3.29-11.43)
[2023-03-09 17:10] LABS: Partial Thromboplastin Time 26.2 SECONDS (23.9-36.7)
[2023-03-09] MEDS: nitroglycerin 0.4 mg sublingual Tablet SUBLINGUAL (17:12)
[2023-03-09] MEDS: metoprolol tartrate 1 mg/1 mL SDV 5 mL 5 MG IVP (17:12)
[2023-03-09 17:18] LABS: Troponin(5th) Baseline 6 ng/L (0-15)
[2023-03-09] MEDS: aspirin 325 mg Tablet PO (17:20)
[2023-03-09 17:26] LABS: Blood Urea Nitrogen 13 mg/dL (6-20); Calcium 9.1 mg/dL (8.5-10.5); Carbon Dioxide 22 mmol/L (22-29); Chloride 96 mmol/L (98-107); Glomerular Filtration Rate 88.6 mL/min (90-130); Glucose 421 mg/dL (65-115); NT Pro B Type Natriuretic Pept 36 pg/mL (0-125); Osmolality Calculated 294 mOsm/kg (285-295); Sodium 133 mmol/L (136-145)
--- NOTE | 2023-03-09 18:04 | ECG_ITS ---
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 Measurements Intervals [place] Rate: 99 P: 31 VA: 141 QRS: -14 QRSD: 89 T: 13 QT: 347 QTc: 446 Interpretive Statements SINUS RHYTHM INFERIOR MYOCARDIAL INFARCTION , PROBABLY OLD [40+ ms Q WAVE AND/OR ST/T ABNORMALITY IN II/aVF] Compared to ECG 03/09/2023 15:56:25 Myocardial infarct finding now present Electronically Signed On 03-09-2023 22:32:52 CDT by Matthew Pantoja M.D. [id number]
--- NOTE | 2023-03-09 18:04 | ED_ITS ---
HPI - Chest Pain General: Chief Complaint: Chest Pain Stated Complaint: chest pain Time Seen by Provider: 03/09/23 16:04 Source: patient Mode of arrival: ambulatory Limitations: no limitations History of Present Illness: See nursing assessment. 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 He denies any radiation of the pain. Denies any shortness of breath or nausea or vomiting. Denies any diaphoresis. He states he does have a history of coronary disease and had 2 stents placed 7 years ago for coronary artery disease. States he had chest pain about a week ago was seen in the emergency room at that time. He states work-up was negative that time. He has a follow-up appointment with his customer success manager Dr. Tejada on April 02. He states he is not on aspirin or Plavix. He does have history of coronary disease, hypertension but does not take any medications for hypertension, insulin-dependent diabetes mellitus. A lso has a history of ADHD. He states he quit smoking in 2000. States he has mild chest pressure now he rates 3 out of 10 in severity. He does not have nitroglycerin at home. Associated symptoms: Deny abdominal pain, dyspnea, fever(s), nausea, palpitations, syncope or vomiting Review of Systems Const: Denies: fever(s) or chills Eyes: Denies: change in vision ENMT: Denies: throat pain Card: Reports: chest pain; Denies: palpitations, irregular heart rhythm, edema, swelling of feet/ankles, lightheadedness, syncope or dyspnea on exertion Resp: Denies: dyspnea or wheezing GI: Denies: abdominal pain, nausea or vomiting : Denies: flank pain Musc: Denies: neck pain or back pain Skin/Breast: Denies: rash or pruritus Neuro: Denies: headache(s) or numbness in extremities Psych: Denies: anxiety Nathan/Lymph: Denies: enlarged lymph nodes PFSH ED PFSH: Medical History CAD (coronary artery disease) Deviated septum Diabetes mellitus Dysphasia Dysphonia HTN (hypertension) Hyperlipidemia Intervertebral cervical disc disorder with myelopathy, cervical region Major depressive disorder with psychotic features Major depressive disorder, recurrent severe without psychotic features Post-traumatic stress disorder, chronic Psychiatric care Recurrent major depression 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 Surgical History H/O carpal tunnel repair (~2018) H/O hernia repair History of fusion of cervical spine C4 corpectomy, revision C3-C4 and C4-C5 plate[place]screw fixation[place]interbody fusion[place] [facility] [place] of cardiac catheterization S/P cervical spinal fusion (~06/15/17) C3-C4 ACDFF, 06/2017, Dr. Brigitte Guy Status post spinal arthrodesis Stented coronary artery Family History Father Diabetes CAD (coronary artery disease) Hypertension Dementia Brother CAD (coronary artery disease) Grandmother Stroke Maternal x3 Mother Dementia Schizophrenia Grandfather Cancer Both Maternal and Paternal Family/Other Cancer Uncles both maternal and paternal Social History Smoking and tobacco status: former smoker Quit status (tobacco): has quit using tobacco Year quit tobacco: 2000 Second hand smoke exposure: No Alcohol intake: never Substance/Drug Use: former Lives independently: Yes Household members: spouse Marital status: Current occupational status: unemployed Current gender identity: Male Supplemental [facility] Information: Coronary stents x2 7 years ago Physical Exam Const: COMMON NORMALS: no acute distress, patient oriented x3, no limitations and well nourished GENERAL APPEARANCE: cooperative HENMT: COMMON NORMALS: normocephalic and atraumatic HEAD & SCALP: normocephalic and atraumatic FACE & SINUS: normal facial exam Eye: COMMON NORMALS: EOMs intact bilaterally Neck/C-Spine: COMMON NORMALS: full ROM, no lymphadenopathy, supple and no meningeal signs GENERAL: Yes normal visual inspection Lymph: LYMPHATIC: no lymphadenopathy noted Chest: COMMONS NORMALS: normal inspection of the chest and normal palpation of entire chest wall CHEST: No Ecchymosis present and No rash Resp: COMMON NORMALS: normal respiratory effort, No retractions and clear to auscultation bilaterally EFFORT & INSPECTION: No respiratory distress AUSCULTATION: clear to auscultation bilaterally Cardio: COMMON NORMALS: regular rate, regular rhythm and Peripheral pulses 2+ throughout JUGULAR VENOUS DISTENTION: no JVD RATE: regular rate RHYTHM: regular rhythm PERIPHERAL PULSES: Peripheral pulses 2+ throughout GI: COMMON NORMALS: Normal to inspection, nondistended, normoactive bowel sounds present, Soft to palpation, non-tender, No hepatosplenomegaly present and no masses PALPATION: Yes Soft to palpation and Yes No hepatosplenomegaly present OTHER: Obese : COMMON NORMALS: Yes no CVA tenderness BLADDER/KIDNEY EXAM: Yes no CVA tenderness Back/Pelvis: COMMON NORMALS: no CVA tenderness Extremity: COMMON NORMALS: normal to inspection, full ROM and capillary refill normal Neuro: COMMON NORMALS: patient oriented x3, CN's II-XII intact bilaterally, no focal motor deficits and no sensory deficits noted MENINGEAL SIGNS: Yes no meningeal signs Psych: COMMON NORMALS: mental status grossly normal and Normal thought process present THOUGHT PROCESS: Normal thought process present Skin: COMMON NORMALS: no rashes or lesions noted and no wounds GENERAL SKIN EXAM: no rashes or lesions noted Course Vital Signs: Vital signs: Vital Signs Temperature 97.9 F 03/09/23 15:50 Pulse Rate 81 03/09/23 16:08 Respiratory Rate 17 03/09/23 16:08 Blood Pressure 165/102 03/09/23 16:08 Pulse Oximetry 98 03/09/23 16:08 Oxygen Delivery Me thod Room Air 03/09/23 15:50 MDM - Chest Pain Medical Decision Making 52-year-old male with complaints of substernal chest pain with a history of coronary disease. Differential diagnoses include noncardiac chest pain, esophagitis, unstable angina, coronary disease. 2-hour troponin is essentially unchanged. Patient has an established customer success manager and will call the cardiology clinic tomorrow morning to see if he can get a sooner appointment. He likely needs cardiac stress test to evaluate his intermittent chest pain. 2000: A blood sugar down to 225. Lab Data 03/09/23 16:40 03/09/23 16:40 Radiology Impressions Chest X-Ray 03/09/23 16:04 IMPRESSION: Stable chest with prior exam, without acute findings. Laboratory Results WBC 6.69 10^3/uL (3.29-11.43) 03/09/23 16:40 RBC 4.74 10^6/uL (3.85-5.65) 03/09/23 16:40 Hgb 13.20 g/dL (11.27-16.99) 03/09/23 16:40 Hct 38.9 % (37-53) 03/09/23 16:40 MCV 82.1 fl (82-101) 03/09/23 16:40 MCH 27.8 pg (27-33) 03/09/23 16:40 MCHC 33.9 g/dL (30-55) 03/09/23 16:40 RDW 14.0 % (12.1-15.1) 03/09/23 16:40 Plt Count 253 10^3/cmm (157-399) 03/09/23 16:40 MPV 10.5 fL (7.4-10.4) H 03/09/23 16:40 Neut % (Auto) 58.8 % 03/09/23 16:40 Lymph % (Auto) 28.1 % 03/09/23 16:40 [place] % (Auto) 9.0 % 03/09/23 16:40 Eos % (Auto) 3.3 % 03/09/23 16:40 Baso % (Auto) 0.4 % 03/09/23 16:40 Neut # (Auto) 3.93 10^3/uL (1.8-7.7) 03/09/23 16:40 Lymph # (Auto) 1.9 10^3/uL (0.8-4.8) 03/09/23 16:40 [place] # (Auto) 0.6 10^3/uL (0.2-0.9) 03/09/23 16:40 Eos # (Auto) 0.2 10^3/uL (0.0-0.8) 03/09/23 16:40 Baso # (Auto) 0.0 10^3/uL (0.0-0.1) 03/09/23 16:40 Nucleated RBC % (auto) 0 % 03/09/23 16:40 Nucleated RBCs # 0.0 /100WBC 03/09/23 16:40 APTT 26.2 SECONDS (23.9-36.7) 03/09/23 16:40 Sodium 133 mmol/L (136-145) L 03/09/23 16:40 Potassium 4.0 mmol/L (3.5-5.1) 03/09/23 16:40 Chloride 96 mmol/L (98-107) L 03/09/23 16:40 Carbon Dioxide 22 mmol/L (22-29) 03/09/23 16:40 Anion Gap 19.0 (5-19) 03/09/23 16:40 BUN 13 mg/dL (6-20) 03/09/23 16:40 Creatinine 0.9 mg/dL (0.7-1.2) 03/09/23 16:40 GFR Calculation 88.6 mL/min (90-130) L 03/09/23 16:40 Glucose 421 mg/dL (65-115) H 03/09/23 16:40 POC Glucose 225 mg/dL (70-110) H 03/09/23 19:48 Calculated Osmolality 294 mOsm/kg (285-295) 03/09/23 16:40 Calcium 9.1 mg/dL (8.5-10.5) 03/09/23 16:40 Troponin T Baseline 6 ng/L (0-15) 03/09/23 16:40 Troponin T 120 Minute 6.81 ng/L (0-15) 03/09/23 19:03 Delta Troponin T 0.81 ABS# (0-10) 03/09/23 19:03 NT-Pro-B Natriuret Pep 36 pg/mL (0-125) 03/09/23 16:40 Imaging Data CXR: My impression: Nothing acute on chest x-ray. No infiltrates or effusions. No pulmonary edema or cardiomegaly. Patient has evidence of cervical fusion in the past. Radiologist's impression: [address] [id number] ReportSigned Patient: Ronny Benitez #: [id number]: 1970 /Sex: 52 / MADM Date: 03/09/23Loc: ERRoom/Bed:Attending Dr: Ordering Provider/Ordering MD: Earl Pagan MD Date of Service: 03/09/23 Procedure(s): XR chest 1V portable [id number] Accession Number(s): [id number] Report Number: [id number] PROCEDURE INFORMATION: Exam: XR Chest Exam date and time: 03/09/2023 4:09 PM Age: 52 years old Clinical indication: Pain; Chest pressure; Prior surgery; Surgery date: 6+ months; Surgery type: Coronary stents; Additional info: Chest pain TECHNIQUE: Imaging protocol: Radiologic exam of the chest. Views: 1 view. COMPARISON: CR (CHEST, ) 03/05/2023 6:31 PM FINDINGS: Lungs: Unremarkable. No consolidation. Pleural spaces: Unremarkable. No pleural effusion. No pneumothorax. Heart/Mediastinum: Unremarkable. No cardiomegaly. Bones/joints: Postsurgical hardware within the visualized lower cervical spine. Overlying monitor leads. Other findings: No significant change from previous exam. XR/XR chest 1V portable [id number] IMPRESSION: Stable chest with prior exam, without acute findings. Dictated By:Allen Todd MDSigned By:Allen Todd MDSigned Date/Time:03/09/23 1625 EKG Data EKG 1: I personally reviewed and interpreted this EKG as follows: EKG interpretation date: 03/09/23 EKG interpretation time: 16:03 Interpretation: Normal sinus rhythm with heart rate of 84. Normal QRS, normal ST segment, kinjal l P waves, normal T waves, normal NC interval, normal QT interval. Normal axis. Normal EKG. EKG 2: I personally reviewed and interpreted this EKG as follows: EKG interpretation date: 03/09/23 EKG interpretation time: 16:20 Prior EKG tracings: available for review Interpretation: Normal sinus rhythm heart rate 99. Normal axis, normal QRS, normal ST segment, normal NC interval, normal QT interval, normal P waves, normal T waves. Normal axis. Unchanged from previous EKG except for rate. Discharge Plan Discharge Patient Disposition: Home Clinical Impression: Insulin dependent diabetes mellitus Chest pain Qualifiers: Chest pain type: unspecified Qualified Code(s): R07.9 - Chest pain, unspecified HTN (hypertension) Qualifiers: Hypertension type: primary hypertension Qualified Code(s): I10 - Essential (primary) hypertension Hyperglycemia due to type 2 diabetes mellitus Qualifiers: Diabetes mellitus continuous churn buttermaker insulin use: with continuous churn buttermaker use Qualified Code(s): E11.65 - Type 2 diabetes mellitus with hyperglycemia Condition: Stable Prescriptions: No Action Lantus U-100 Insulin 100 unit/mL solution 40 unit SUBCUT DAILY aspirin [Adult Aspirin Regimen] 81 mg tablet,delayed release (DR/EC) 81 mg PO DAILY Hold Instructions: Resume on 08/25/19. magnesium oxide 500 mg tablet 500 mg PO DAILY metformin 1,000 mg tablet extended release 24hr 1,000 mg PO BID Jardiance 25 mg tablet 25 mg PO QAM modafinil 200 mg tablet 200 mg PO BID furosemide [Lasix] 20 mg tablet 20 mg PO DAILY PRN (Reason: edema) Qty: 30 2RF (DME) Diabetic shoes with 3 inserts See Rx Instructions .Route .MEDSUPPLY Qty: 1 0RF Rx Instructions: As directed by [facility] fenofibrate nanocrystallized 145 mg tablet 145 mg PO DAILY atorvastatin 40 mg tablet 80 mg PO DAILY propranolol 60 mg tablet 90 mg PO DIRECTED Qty: 135 3RF Rx Instructions: 60mg (1 tab) in AM and 30mg (0.5 tab) in PM Ozempic 1 mg/dose (2 mg/1.5 mL) pen injector SUBCUT aripiprazole [Abilify] 20 mg tablet 20 mg PO DAILY 30 Days Qty: 30 3RF bupropion HCl [Wellbutrin XL] 150 mg tablet extended release 24 hr 150 mg PO QAM Qty: 30 3RF buspirone 30 mg tablet 30 mg PO BID 30 Days Qty: 60 4RF clonazepam 0.5 mg tablet 0.5 mg PO DAILY PRN (Reason: anxiety) Qty: 15 3RF paroxetine HCl [Paxil] 30 mg tablet 60 mg PO DAILY 30 Days Qty: 60 3RF nitroglycerin 0.4 mg tablet, sublingual 0.4 mg SUBLINGUAL Q5M PRN (Reason: chest pain) Qty: 25 3RF Rx Instructions: do not exceed 3 doses per episode dextroamphetamine-amphetamine [Adderall] 5 mg tablet 5 mg PO QAM 30 Days Qty: 30 0RF Iron (ferrous sulfate) 325 MG 325 mg PO DAILY acetaminophen 1,000 MG 1,000 mg PO DAILY PRN (Reason: Pain) insulin regular human 10 UNITS 24 units SUBCUT .BEFOREMEAL Rx Instructions: base of 24 units plus 2 on a sliding scale, max dose of 28 per dose isosorbide mononitrate 120 mg tablet extended release 24 hr 120 mg PO DAILY Rx Instructions: TAKE 1 TABLET BY MOUTH EVERY MORNING ranolazine [Ranexa] 1,000 mg tablet extended release 12 hr 1,000 mg PO BID Discharge Orders: Discharge ED (Routine); Ordered 03/09/23 Ordered By: Earl Pagan Referrals: Devora Rivera MD [Primary Care Provider] - Discharge Diet: Diabetic and Low Salt Discharge Activity: Increase activity as tolerated Patient Instructions: Chest Pain (ED), Hypertension (ED), Diabetic Hyperglycemia (ED), Hypertension and Diabetes (ED), Diabetes and Nutrition (ED), Opioid Safety, Pain Management Activity Restrictions/Additional Instructions: Call your customer success manager in the morning to see if you can get an earlier appointment for work-up of your chest pain since you have been seen in the emergency room couple of times in the past week. Rest. Continue home medications as prescribed. May need to increase her insulin by 10% since your blood sugar was 420 here. You likely will need a cardiac stress test done due to your intermittent chest pain. Avoid added salt or caffeine. Coding Level of Care Code ED Middleware Engineer for Loretta Pradhan
[2023-03-09] MEDS: insulin regular-human 100 units/1 mL 7 UNIT IVP (18:22)
[2023-03-09 19:00] VITALS: BP 156/84; PULSE 76; RESP 16; O2SAT 95
[2023-03-09 19:30] VITALS: BP 131/86; PULSE 74; RESP 12; O2SAT 94
[2023-03-09 19:52] LABS: Glucose Point of Care 225 mg/dL (70-110)
[2023-03-09 19:54] LABS: Troponin 5 2HR 6.81 ng/L (0-15); Troponin 5 2HR Delta 0.81 ABS# (0-10)
[2023-03-09 20:12] VITALS: BP 149/78; PULSE 79; RESP 18; O2SAT 98
== END 2023-03-09 20:14 | disposition home or self-care (01) ==
PROVIDERS: Emergency Provider Family Medicine; PCP Internal Medicine
DX: E11.65 Type 2 diabetes mellitus with hyperglycemia (principal); R07.9 Chest pain, unspecified; I10 Essential (primary) hypertension; Z79.82 Long term (current) use of aspirin; Z79.4 Long term (current) use of insulin; Z79.84 Long term (current) use of oral hypoglycemic drugs; Z87.891 Personal history of nicotine dependence; I25.10 Atherosclerotic heart disease of native coronary artery without angina pectoris; E78.5 Hyperlipidemia, unspecified
CPT/HCPCS: 36416; 71045; 80048; 82962; 83880; 84484; 85025; 85730; 93005; 96374; 96375; 99285; J1815; J3490

== ENCOUNTER 2023-03-31 17:34 | Emergency (ER) | payer OTHER, MEDICARE, MEDICAID, SELFPAY ==
[2020-08-21 08:32] VITALS: BP 121/63; BMI 37.1
--- NOTE | 2023-03-31 17:36 | ECG_ITS ---
[facility] Test Date: 2023-03-31 Pat Name: Ronny Benitez Department: Room: Gender: Male Performance Improvement Specialist: : 1970 Requested By: Dann Christie Order Number: [id number] Lavinia MD: Sam Wesley M.D. Measurements Intervals [place] Rate: 107 P: 39 HI: 141 QRS: -22 QRSD: 88 T: 46 QT: 324 QTc: 434 Interpretive Statements SINUS TACHYCARDIA INFERIOR MYOCARDIAL INFARCTION , PROBABLY OLD [40+ ms Q WAVE AND/OR ST/T ABNORMALITY IN II/aVF] Compared to ECG 03/09/2023 16:14:54 Sinus rhythm no longer present Myocardial infarct finding still present Electronically Signed On 03-31-2023 21:12:36 CDT by Sam Wesley M.D. [id number]
[2023-03-31 17:42] VITALS: BP 146/93; PULSE 108; RESP 17; TEMP 36.5; O2SAT 96; BMI 38.0
--- NOTE | 2023-03-31 17:42 | XRR_ITS ---
PROCEDURE INFORMATION: Exam: XR Chest Exam date and time: 03/31/2023 6:05 PM Age: 53 years old Clinical indication: Shortness of breath; Prior surgery; Surgery date: 6+ months; Surgery type: Heart stents; Additional info: Cp TECHNIQUE: Imaging protocol: Radiologic exam of the chest. Views: 1 view. COMPARISON: 1. CR (CHEST, ) 03/09/2023 4:09 PM 2. CR (CHEST, ) 03/05/2023 6:31 PM 3. CR XR chest 2V* [id number] 01/23/2023 8:45 AM FINDINGS: Lungs: Unremarkable. No consolidation. Pleural spaces: Unremarkable. No pleural effusion. No pneumothorax. Heart/Mediastinum: Unremarkable. No cardiomegaly. Bones/joints: Unremarkable. XR/XR chest 1V portable [id number] IMPRESSION: No acute findings.
[2023-03-31 17:45] VITALS: BP 149/94; PULSE 111; O2SAT 94
[2023-03-31 18:00] VITALS: BP 172/111; PULSE 95; O2SAT 97
--- NOTE | 2023-03-31 18:03 | W.ED.CHESTPA ---
HPI - Chest Pain General: Chief Complaint: Chest Pain Stated Complaint: chest pain, sob, Time Seen by Provider: 03/31/23 17:47 History of Present Illness: This patient is a 53-year-old white male who presents to the ER stating that he has had chest pain off and on for the past few weeks. Today he developed chest pain 8:30 in the morning. Describes it more as a pressure sensation. He has also had palpitations. He took nitro several times today which helped. He takes aspirin daily and has taken his dose today. Currently rates his pain a 4 on a scale of 1-10. Patient states he is scheduled for an angiogram this . He does have a history of coronary artery disease with 2 stents. 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 Brigitte Guy Status post spinal arthrodesis Stented coronary artery Family History Father Diabetes CAD (coronary artery disease) Hypertension Dementia Brother CAD (coronary artery disease) Grandmother Stroke Maternal x3 Mother Dementia Schizophrenia Grandfather Cancer Both Maternal and Paternal Family/Other Cancer Uncles both maternal and paternal Social History Smoking and tobacco status: former smoker Quit status (tobacco): has quit using tobacco Year quit tobacco: 2000 Second hand smoke exposure: No Alcohol intake: never Substance/Drug Use: former Lives independently: Yes Household members: spouse Marital status: Current occupational status: unemployed Current gender identity: Male Physical Exam Const: COMMON NORMALS: no acute distress and patient oriented x3 HENMT: COMMON NORMALS: normocephalic HEAD & SCALP: normocephalic Eye: COMMON NORMALS: Equal, round and reactive pupils present, EOMs intact bilaterally and conjunctivae normal CONJUNCTIVA: Yes conjunctivae normal PUPIL: Yes Equal, round and reactive pupils present Neck/C-Spine: COMMON NORMALS: full ROM, no JVD and No carotid bruits Chest: COMMONS NORMALS: normal inspection of the chest and normal palpation of entire chest wall Resp: COMMON NORMALS: normal respiratory effort and clear to auscultation bilaterally AUSCULTATION: clear to auscultation bilaterally Cardio: COMMON NORMALS: no JVD GI: COMMON NORMALS: Normal to inspection, nondistended, normoactive bowel sounds present, Soft to palpation and non-tender PALPATION: Yes Soft to palpation Extremity: COMMON NORMALS: normal to inspection, no calf tenderness and no pedal edema Neuro: COMMON NORMALS: patient oriented x3, CN's II-XII intact bilaterally, moves all extremities, no focal motor deficits and no sensory deficits noted Skin: COMMON NORMALS: no rashes or lesions noted GENERAL SKIN EXAM: no rashes or lesions noted Course Vital Signs: Vital signs: Vital Signs Temperature 97.7 F 03/31/23 17:42 Pulse Rate 95 03/31/23 20:30 Respiratory Rate 17 03/31/23 17:42 Blood Pressure 154/87 03/31/23 20:30 Pulse Oximetry 94 03/31/23 20:30 Oxygen Delivery Me thod Room Air 03/31/23 20:30 MDM - Chest Pain Medical Decision Making EKG revealed mild sinus tachycardia at a rate of 107. No ST segment abnormalities. Chest x-ray was normal. CBC normal. CMP normal except for blood sugar of 357. BNP was normal at 36. Troponin was normal at 7. Patient was given sublingual nitro which did relieve his chest discomfort. Patient was discharged in stable condition instructed to use his sublingual nitro as needed. I did place him on isosorbide ER 30 mg/day and he was given his first dose in the emergency department. Contact ichthyology teacher as needed and follow-up with the angiogram on as previously scheduled. Lab Data 03/31/23 18:20 03/31/23 18:20 Radiology Impressions Chest X-Ray 03/31/23 17:42 IMPRESSION: No acute findings. Laboratory Results WBC 7.89 10^3/uL (3.29-11.43) 03/31/23 18:20 RBC 5.36 10^6/uL (3.85-5.65) 03/31/23 18:20 Hgb 15.60 g/dL (11.27-16.99) 03/31/23 18:20 Hct 42.7 % (37-53) 03/31/23 18:20 MCV 79.7 fl (82-101) L 03/31/23 18:20 MCH 29.1 pg (27-33) 03/31/23 18:20 MCHC 36.5 g/dL (30-55) 03/31/23 18:20 RDW 13.6 % (12.1-15.1) 03/31/23 18:20 Plt Count 323 10^3/cmm (157-399) 03/31/23 18:20 MPV 11.2 fL (7.4-10.4) H 03/31/23 18:20 Neut % (Auto) 63.4 % 03/31/23 18:20 Lymph % (Auto) 26.1 % 03/31/23 18:20 [place] % (Auto) 7.2 % 03/31/23 18:20 Eos % (Auto) 2.4 % 03/31/23 18:20 Baso % (Auto) 0.4 % 03/31/23 18:20 Neut # (Auto) 5.00 10^3/uL (1.8-7.7) 03/31/23 18:20 Lymph # (Auto) 2.1 10^3/uL (0.8-4.8) 03/31/23 18:20 [place] # (Auto) 0.6 10^3/uL (0.2-0.9) 03/31/23 18:20 Eos # (Auto) 0.2 10^3/uL (0.0-0.8) 03/31/23 18:20 Baso # (Auto) 0.0 10^3/uL (0.0-0.1) 03/31/23 18:20 Nucleated RBC % (auto) 0 % 03/31/23 18:20 Nucleated RBCs # 0.0 /100WBC 03/31/23 18:20 Sodium 134 mmol/L (136-145) L 03/31/23 18:20 Potassium 4.0 mmol/L (3.5-5.1) 03/31/23 18:20 Chloride 96 mmol/L (98-107) L 03/31/23 18:20 Carbon Dioxide 26 mmol/L (22-29) 03/31/23 18:20 Anion Gap 16.0 (5-19) 03/31/23 18:20 BUN 14 mg/dL (6-20) 03/31/23 18:20 Creatinine 0.9 mg/dL (0.7-1.2) 03/31/23 18:20 GFR Calculation 88.3 mL/min (90-130) L 03/31/23 18:20 Glucose 357 mg/dL (65-115) H 03/31/23 18:20 Calculated Osmolality 293 mOsm/kg (285-295) 03/31/23 18:20 Calcium 9.3 mg/dL (8.5-10.5) 03/31/23 18:20 Total Bilirubin 0.2 mg/dL (0.15-1.2) 03/31/23 18:20 AST 26 U/L (0-40) 03/31/23 18:20 ALT 21 U/L (0-41) 03/31/23 18:20 Alkaline Phosphatase 98 U/L (40-130) 03/31/23 18:20 Troponin T Baseline 7 ng/L (0-15) 03/31/23 18:20 Troponin T 120 Minute 6.95 ng/L (0-15) 03/31/23 20:17 Delta Troponin T -0.05 ABS# (0-10) L 03/31/23 20:17 NT-Pro-B Natriuret Pep 36 pg/mL (0-125) 03/31/23 18:20 Total Protein 7.7 g/dL (6.6-8.7) 03/31/23 18:20 Albumin 4.5 g/dL (3.5-5.2) 03/31/23 18:20 Globulin 3.2 g/dL (1.3-4.6) 03/31/23 18:20 All radiology interpretation(s) finalized by discharge Discharge Plan Discharge Patient Disposition: Home Clinical Impression: Chest pain Condition: Stable Prescriptions: New isosorbide mononitrate 30 mg tablet extended release 24 hr 30 mg PO QAM Qty: 30 0RF No Action Lantus U-100 Insulin 100 unit/mL solution 40 unit SUBCUT BID aspirin [Adult Aspirin Regimen] 81 mg tablet,delayed release (DR/EC) 81 mg PO DAILY Hold Instructions: Resume on 08/25/19. metformin 1,000 mg tablet extended release 24hr 1,000 mg PO BID modafinil 200 mg tablet 200 mg PO BID furosemide [Lasix] 20 mg tablet 20 mg PO DAILY PRN (Reason: edema) Qty: 30 2RF (DME) Diabetic shoes with 3 inserts See Rx Instructions .Route .MEDSUPPLY Qty: 1 0RF Rx Instructions: As directed by [facility] fenofibrate nanocrystallized 145 mg tablet 145 mg PO DAILY atorvastatin 40 mg tablet 80 mg PO DAILY propranolol 60 mg tablet 90 mg PO DIRECTED Qty: 135 3RF Rx Instructions: 60mg (1 tab) in AM and 30mg (0.5 tab) in PM Ozempic 1 mg/dose (2 mg/1.5 mL) pen injector SUBCUT aripiprazole [Abilify] 20 mg tablet 20 mg PO DAILY 30 Days Qty: 30 3RF bupropion HCl [Wellbutrin XL] 150 mg tablet extended release 24 hr 150 mg PO QAM Qty: 30 3RF buspirone 30 mg tablet 30 mg PO BID 30 Days Qty: 60 4RF clonazepam 0.5 mg tablet 0.5 mg PO DAILY PRN (Reason: anxiety) Qty: 15 3RF paroxetine HCl [Paxil] 30 mg tablet 60 mg PO DAILY 30 Days Qty: 60 3RF nitroglycerin 0.4 mg tablet, sublingual 0.4 mg SUBLINGUAL Q5M PRN (Reason: chest pain) Qty: 25 3RF Rx Instructions: do not exceed 3 doses per episode dextroamphetamine-amphetamine [Adderall] 5 mg tablet 5 mg PO QAM 30 Days Qty: 30 0RF acetaminophen 1,000 MG 1,000 mg PO DAILY PRN (Reason: Pain) insulin regular human 10 UNITS 24 units SUBCUT .BEFOREMEAL Rx Instructions: base of 24 units plus 2 on a sliding scale, max dose of 28 per dose Discharge Orders: Discharge ED (Routine); Ordered 03/31/23 Ordered By: Darryl Trevino Referrals: Devora Rivera MD [Primary Care Provider] - Coding Level of Care Code ED Business Continuity Management Director for Loretta Pradhan
[2023-03-31] MEDS: sodium chloride 0.9% 500 ML 999 ML IV (18:22)
[2023-03-31] MEDS: nitroglycerin 0.4 mg sublingual Tablet SUBLINGUAL ×2 (18:22→21:03)
[2023-03-31 18:36] LABS: Basophils % 0.4 %; Eosinophils # 0.2 10^3/uL (0.0-0.8); Eosinophils % 2.4 %; Hematocrit 42.7 % (37-53); Lymphocytes # 2.1 10^3/uL (0.8-4.8); Lymphocytes % 26.1 %; Mean Corpuscular HGB Conc 36.5 g/dL (30-55); Mean Corpuscular Hemoglobin 29.1 pg (27-33); Mean Corpuscular Volume 79.7 fl (82-101); Mean Platelet Volume 11.2 fL (7.4-10.4); Monocytes # 0.6 10^3/uL (0.2-0.9); Monocytes % 7.2 %; Neutrophils % 63.4 %; Nucleated Red Blood Cells % 0 %; Platelet Count 323 10^3/cmm (157-399); Red Blood Count 5.36 10^6/uL (3.85-5.65); Red Cell Distribution Width 13.6 % (12.1-15.1); White Blood Count 7.89 10^3/uL (3.29-11.43)
[2023-03-31 19:01] LABS: Troponin(5th) Baseline 7 ng/L (0-15)
[2023-03-31 19:15] VITALS: BP 201/97; PULSE 97; O2SAT 97
[2023-03-31 19:30] VITALS: BP 181/91; PULSE 91; O2SAT 94
[2023-03-31 19:31] LABS: Alanine Aminotransferase 21 U/L (0-41); Albumin Level 4.5 g/dL (3.5-5.2); Alkaline Phosphatase 98 U/L (40-130); Blood Urea Nitrogen 14 mg/dL (6-20); Calcium 9.3 mg/dL (8.5-10.5); Carbon Dioxide 26 mmol/L (22-29); Chloride 96 mmol/L (98-107); Globulin 3.2 g/dL (1.3-4.6); Glomerular Filtration Rate 88.3 mL/min (90-130); Glucose 357 mg/dL (65-115); NT Pro B Type Natriuretic Pept 36 pg/mL (0-125); Osmolality Calculated 293 mOsm/kg (285-295); Sodium 134 mmol/L (136-145); Total Bilirubin 0.2 mg/dL (0.15-1.2); Total Protein 7.7 g/dL (6.6-8.7)
[2023-03-31 19:34] LABS: Aspartate Amino Transferase 26 U/L (0-40)
--- NOTE | 2023-03-31 19:42 | ECG_ITS ---
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 Measurements Intervals [place] Rate: 99 P: 37 MO: 140 QRS: -10 QRSD: 87 T: 35 QT: 328 QTc: 421 Interpretive Statements SINUS RHYTHM LOW QRS VOLTAGE IN EXTREMITY LEADS [QRS DEFLECTION < 0.5 mV IN LIMB LEADS] PATTERN CONSISTENT WITH PULMONARY DISEASE Compared to ECG 03/31/2023 17:40:03 Low QRS voltage now present Sinus tachycardia no longer present Myocardial infarct finding no longer present Electronically Signed On 03-31-2023 21:19:28 CDT by Sam Wesley M.D. [id number]
[2023-03-31 20:30] VITALS: BP 154/87; PULSE 95; O2SAT 94
[2023-03-31] MEDS: isosorbide mononitrate ER 30 mg Tablet PO (21:02)
[2023-03-31 21:07] LABS: Troponin 5 2HR 6.95 ng/L (0-15); Troponin 5 2HR Delta -0.05 ABS# (0-10)
== END 2023-03-31 21:54 | disposition home or self-care (01) ==
PROVIDERS: Emergency Medicine; Emergency Provider Emergency Medicine; PCP Internal Medicine
DX: R07.9 Chest pain, unspecified (principal); Z79.82 Long term (current) use of aspirin; Z79.4 Long term (current) use of insulin; Z79.84 Long term (current) use of oral hypoglycemic drugs; Z87.891 Personal history of nicotine dependence; I25.10 Atherosclerotic heart disease of native coronary artery without angina pectoris; E11.9 Type 2 diabetes mellitus without complications; I10 Essential (primary) hypertension; E78.5 Hyperlipidemia, unspecified
CPT/HCPCS: 36415; 71045; 80053; 83880; 84484; 85025; 93005; 96360; 99285; J7040

== ENCOUNTER 2023-04-02 11:50 | Observation (INO) | payer OTHER, MEDICARE, MEDICAID, SELFPAY ==
[2020-08-21 08:32] VITALS: BP 121/63; BMI 37.1
[2023-04-02] VITALS (30 sets, daily range): BP systolic 109–158; BP diastolic 67–85; PULSE 75–102; RESP 8–22; O2SAT 90–96; BMI 38.0
--- NOTE | 2023-04-02 | XACV_ITS ---
Ht: 173 cm Wt: 113 kg BSA: 2.38 m2 Gender: Male : 1970 Any Known Allergies: Other Exam Priority: Routine Procedure(s): Procedure Description: Diagnostic procedure Procedure Description: PCI procedure Procedure Description: Drug Eluting Coronary Stent Procedure Description: Coronary Angiography Diagnostic Cath Status: Elective Diagnostic Findings * Left Anterior Descending has mid vessel stent with 20 to 30% in-stent restenosis. Step down seen post stent. * Posterior Descending Right has prior stent. It has a severe in-stent restenosis with 90% hazy stenosis. The stenosis is extending out of stent at proximal edge.. * Left Main has no disease. * Circumflex has no disease. * Coronary angiography shows right dominance. PCI Status: Elective PCI Indication: Other Interventional Findings * Procedure detail: We engaged RCA with JR4 guide catheter. IV heparin was administered to maintain anticoagulation. 0.014 run-through guidewire was used to cross the stenosis and was put in distal vessel. We predilated the stenosis with 3.0 x 12 mm NC balloon. This was followed by predilation with 2.75 x 15 mm balloon. We then placed a 3.0 x 15 mm resolute Ana drug-eluting stent. At this time final angiogram was performed that showed excellent stent expansion, no residual stenosis and RISHABH-3 flow. Guidewire and guide catheter were removed. 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 * Posterior Descending Right: 70% stenosis treated with a MDT NC EUPHORA RX [id number] BALLOON, MDT NC EUPHORA RX 2.37H27SA BALLOON, and MDT R ANA 3.0X15 TATE. 0% residual stenosis, RISHABH: 3 flow. Conclusions 1. Severe in-stent restenosis of 2. PDA 3. status post PCI with 1 stent.. 4. Posterior Descending Right was treated with a Balloon, Balloon, and Drug Eluting Stent. Recommendations * Dual antiplatelet therapy with aspirin and plavix for atleast 1 year. * High intensity statin therapy. * Outpatient cardiology follow up in 2-4 weeks. Interventional RX Recommendation: PCI w/o planned CABG Diagnostic RX Recommendation: PCI w/o planned CABG Anticoagulation: Heparin Pressures Phase:Rest AO : 108 / 69 ( 83 ) @ 11:05:00 AM 111 / 69 ( 85 ) @ 11:05:00 AM 92 / 78 ( 86 ) @ 11:10:00 AM 107 / 64 ( 80 ) @ 11:22:00 AM 91 / 72 ( 83 ) @ 11:23:00 AM 89 / 78 ( 84 ) @ 11:25:00 AM 99 / 83 ( 91 ) @ 11:29:00 AM 98 / 80 ( 90 ) @ 11:34:00 AM 96 / 76 ( 87 ) @ 11:35:00 AM 304 / 141 ( 174 ) @ 11:38:00 AM 95 / 79 ( 88 ) @ 11:40:00 AM Clinical Evaluation EBL: 5mL-10mL Procedural Details Procedure Consent Obtained. Admit Source: Out Patient. Current Diagnosis : Chest Pain. Pre-Procedure Time Out. Identified patient by full name and date of as verbalized by the patient/guarantor. Does the consent match the physician's order: Yes. Accurate & Complete Informed Consent: Yes. Inpatient/Outpatient History & Physical on Chart: Yes. If H&P is completed, is and addenduem needed: No; If yes, is the addendum complete: N/A. Visualize and Verify Site with Patient/Guarantor: N/A. Relevant Radiology Images available: Yes. The risks, benefits, and alternatives of sedation and/or procedure were discussed by physician. The patient agrees to continue. Procedure started. [place] Clinical Fraility Score: 3: Managing Well. Stock Shipper Indications: Worsening Angina. Chest Pain Symptom Assessment: Typical Angina Symptoms. Cardiovascular Instability: No, stable. Correct patient, site and procedure confirmed by cath team. Current diagnosis: Worsening Angina. PERRLA. Strong, equal hand brass roller bilaterally. Lungs clear x 5 lobes. IV Site on Arrival: 18 gauge in the right anticubital. IV Fluids: 0.9% NaCl at KVO. 0 mL infused prior to slab inspector. Pre Procedural Pulses: bilateral posterior tibial was 3+. Pre Procedural Pulses: bilateral dorsalis pedis was 3+. Pre Procedural Pulses: bilateral radial was 3+. Oxygen started at 3liters/min via nasal canula. bilateral groins was prepped with chloroprep then draped in the usual sterile fashion. right radial was prepped with chloroprep then draped in the usual sterile fashion. Physician notified. Baseline sample Acquired. HR: 62 BPM. Family updated by MD prior to arrival. Equipment: 6F - Radial. Equipment: 5F - Radial. Equipment: 5F - Femoral. Equipment: 6F - Femoral. Physician arrived. Physician scrubbed in. Immediate Pre-Procedure Time Out. Correct Patient: Yes; Correct Procedure: Yes; Correct Site: Yes; Correct Patient Position: Yes; Correct Supplies: Yes; Dried Flammable Prep: Yes; Blood Products Available: N/A;. Lidocaine 1% infiltrated to the right radial. Arterial access obtained. A 5 jordanian TIG catheter in over exchange wire. Catheter removed over the exhcange wire. unable to cannulate. A 5 jordanian JR4 catheter in over exchange wire. Multiple views taken of right coronary artery. Catheter removed over the exchange wire. A 5 jordanian JL3.5 catheter in over the exchange wire. Multiple views taken of left coronary artery. Catheter removed over the exchange wire. 6 jordanian JR 4 guide catheter was inserted over the wire. Guide seated in the LCS. Inventory: Runthrough, copilot, endoflator x2. Runthrough guidewire was advanced through the guide catheter to lesion in the PDA. Guidewire advanced across lesion. Inflation number : 1 A MDT NC EUPHORA RX [id number] BALLOON was prepped and advanced across the R PDA , then inflated to 12 ASHLEY for 0:15 seconds. Results checked. Inflation number: 2 The MDT NC EUPHORA RX 3.25V85SS BALLOON was reinflated across the R PDA, to 12 ASHLEY for 0:10 seconds. Results checked. Inflation number: 3 The MDT NC EUPHORA RX 3.49K08RN BALLOON was reinflated across the R PDA, to 10 ASHLEY for 0:11 seconds. Inflation number: 4 The MDT NC EUPHORA RX 3.02Q32BI BALLOON was reinflated across the R PDA, to 4 ASHLEY for 0:10 seconds. Inflation number: 5 The MDT NC EUPHORA RX 3.77B39KT BALLOON was reinflated across the R PDA, to 12 ASHLEY for 0:15 seconds. Balloon out. Results checked. Inflation number : 6 A MDT NC EUPHORA RX 2.80T55VR BALLOON was prepped and advanced across the R PDA , then inflated to 12 ASHLEY for 0:10 seconds. Inflation number: 7 The MDT NC EUPHORA RX 2.37I27ZS BALLOON was reinflated across the R PDA, to 18 ASHLEY for 0:23 seconds. Results checked. Balloon out. Results checked. Inflation Number : 8 A MDT R ANA 3.0X15 TATE -Lot Number# [id number] was prepped and advanced across the R PDA. The stent was deployed at 12 ASHLEY for 0:20 seconds. Expiration: 10/12/25. Results checked. stent balloon out over the wire. Inflation number: 9 The MDT NC EUPHORA RX 3.60G25XR BALLOON was reinflated across the R PDA, to 14 ASHLEY for 0:16 seconds. Inflation number: 10 The MDT NC EUPHORA RX 3.49I96PZ BALLOON was reinflated across the R PDA, to 12 ASHLEY for 0:10 seconds. Balloon out. Results checked. Wire out. Results checked. PTT drawn. Sent to lab. Guide catheter out over the exchange wire. Physician review of films. Physician scrubbed out. A TR Band was successful obtaining hemostatsis at the Right Radial artery insertion site. TR band placed. Hemostasis obtained. Post Procedure: Pulses reassessed and unchanged. PERRLA. Strong, equal hand brass roller bilaterally. No VTE prophylaxis required. Medication waste: Nitro- 49.8 mg. Total IV fluids: 75 mL. Fluoro: 15:02. Contrast type used: Omnipaque 300 mgI/mL, 500 mL bottle. [id number]. Post-op diagnosis: Severe RPDA Stenosis; status post 1 stent placement. Complications: None. Estimated blood loss: 5mL-10mL. Responsiveness - Normal response to verbal stimuli; alert and oriented, PERRLA. Airway - Unaffected, no intervention required; spontaneous ventilation. Circulation: W/N/L, pulses unchanged. Nausea/Vomiting: No. Procedure completed. Patient transferred by wheelchair to CPRU. Vital chart was stopped. Procedure started. Access Site Site: Right Radial artery Sheath Size: 6 Fr Hemostasis Method: TR Band Hemostasis Success: Successful Procedure Medications Start: 9:55 AM Stop: 9:55 AM Medication: Versed Amount: 1 mg Route: I.V. Start: 9:55 AM Stop: 9:55 AM Medication: Fentanyl Amount: 50 mcg Route: I.V. Start: 10:00 AM Stop: 10:00 AM Medication: Nitrogylcerin Amount: 200 mcg Route: I.A. Start: 10:04 AM Stop: 10:04 AM Medication: Versed Amount: 1 mg Route: I.V. Start: 10:05 AM Stop: 10:05 AM Medication: Heparin Amount: 5000 units Route: I.V. Start: 10:20 AM Stop: 10:20 AM Medication: Heparin Amount: 5000 units Route: I.V. Start: 10:31 AM Stop: 10:31 AM Medication: Heparin Amount: 1000 units Route: I.V. Start: 10:34 AM Stop: 10:34 AM Medication: Fentanyl Amount: 25 mcg Route: I.V. Start: 10:39 AM Stop: 10:39 AM Medication: Fentanyl Amount: 25 mcg Route: I.V. I, the attending physician, have reviewed and verified all procedure medications. Yes, all medications given per verbal order History/Risk Factors Hypertension: Yes Dyslipidemia: Yes Peripheral Arterial Disease (PAD): No Myocardial Infarction (MT): No Obesity: No Renal Disease: No Tobacco Use: Former Prior Interventions PCI: Yes CABG: No Valve Surgery: No Date of PCI: 12/09/2017 Report Signatures Finalized by Matthew Pantoja MD on 04/04/2023 12:52 PM
[2023-04-02] MEDS: aspirin 325 mg Tablet PO (07:40)
[2023-04-02] MEDS: diphenhydrAMINE 50 mg Capsule PO (07:40)
[2023-04-02 08:16] LABS: Glucose Point of Care 366 mg/dL (70-110)
--- NOTE | 2023-04-02 09:10 | W.PM.OPSUD ---
Surgery/Procedure H&P Update DATE OF PROCEDURE: April 02, 2023 DATE H&P PERFORMED: 03/19/23 H&P UPDATE INFORMATION: I have reviewed H&P completed within last 30 days, I have examined patient prior to procedure and No changes to prior documentation PREOP DIAGNOSIS: Worsening angina PRIMARY INDICATION FOR PROCEDURE: Worsening angina PLANNED PROCEDURE: Operation Date: 04/02/23 08:30 Proposed Procedures p [facility] [id number],I25.10(Left) - Matthew Pantoja M.D Possible percutaneous coronary intervetion PATIENT REASSESSED PRIOR TO SEDATION, WITH NO CHANGE NOTED: Yes PHYSICAL EXAM: alert, oriented x 3, clear to auscultation bilaterally and regular rate & rhythm AIRWAY EVAL/ANESTHESIA PLAN: normal airway, ASA III, Local Anesthesia, Risks, benefits & alternatives of sedation and/or procedure discussed and Patient agrees to continue as planned ADDITIONAL INFORMATION: Moderate sedation
--- NOTE | 2023-04-02 11:35 | PC.NURSE ---
1100: Patient returned to CPRU from laboratory monitor. TR Band to patient's right wrist intact, no drainage or hematoma noted. Vitals WDL. No c/o pain or discomfort. Will continue to monitor. 1130: Transfer orders received. TR Band to patient's right wrist intact, no drainage or hematoma noted. Vitals WDL. No c/o pain or discomfort. Report given to BRIDGET Branham. Patient transferred to CSU via wheelchair. All belongings sent with patient.
[2023-04-02 12:06] LABS: Partial Thromboplastin Time > 250.0 SECONDS (23.9-36.7)
[2023-04-02] MEDS: sodium chloride 0.9% 1,000 ML 100 ML IV ×2 (13:00→23:10)
[2023-04-02 16:55] LABS: Glucose Point of Care 363 mg/dL (70-110)
[2023-04-02] MEDS: insulin lispro 100 unit/1 mL SUBCUT ×2 (18:14→20:18)
[2023-04-02] MEDS: insulin glargine 100 units/1 mL 40 UNIT SUBCUT (20:18)
[2023-04-03 00:33] VITALS: BP 121/72; PULSE 74; RESP 17; TEMP 36.8; O2SAT 97
[2023-04-03 04:52] VITALS: BP 127/78; PULSE 72; RESP 15; TEMP 36.7; O2SAT 96
[2023-04-03 05:46] VITALS: PULSE 66
[2023-04-03 05:54] LABS: Glucose Point of Care 316 mg/dL (70-110)
[2023-04-03 06:22] LABS: Glucose Point of Care 212 mg/dL (70-110)
[2023-04-03] MEDS: isosorbide mononitrate ER 30 mg Tablet PO (07:17)
[2023-04-03] MEDS: buPROPion XL (24 HR) 150 mg Tablet PO (07:17)
[2023-04-03] MEDS: insulin lispro 100 unit/1 mL SUBCUT (07:17)
[2023-04-03 08:00] VITALS: BP 135/74; PULSE 86; RESP 12; TEMP 36.9; O2SAT 97
[2023-04-03] MEDS: atorvastatin 40 mg Tablet 80 MG PO (08:15)
[2023-04-03] MEDS: ARIPiprazole 10 mg Tablet 20 MG PO (08:15)
[2023-04-03] MEDS: aspirin 81 mg EC Tablet PO (08:15)
[2023-04-03] MEDS: clopidogrel 75 mg Tablet PO (08:15)
[2023-04-03] MEDS: insulin glargine 100 units/1 mL 40 UNIT SUBCUT (08:19)
--- NOTE | 2023-04-03 08:51 | PC.CHAP ---
Pastoral Care Encounter/Spiritual Assessment Type of Contact [] Declined fisher terrapin visit [] Patient/Family/Request visit [] Outpatient visit [] Follow-up visit [] Physician referral [] Code/Alert [x] Routine visit [] Staff referral [] Actively dying [] Patient sleeping [] Family support [] [] Out of room [] Palliative care [] [] Receiving care in room [] Pre-surgical visit [] Trauma [] Long length of stay [] ICU visit [] Other: Relational/Emotional Strength [x] Patient feels connected with others/family/visitors/staff [] Distress [] Loneliness/isolation [] Abandonment Spirituality of Patient [x] Person of Bettie [] Attends Anglican of their Bettie [x] Believes in Prayer [] Reads Bible or Jewish materials [] There are Spiritual issues to be addressed Supervisor Belt And Link Assembly Interventions [x] Prayer [x] Active listening [] Non-anxious presence [x] Spiritual/emotional support [] Crisis/trauma care [] Spiritual counseling [] Bereavement support [] Provided bereavement packet [] Provided Bible/devotional materials [] Provided toy/stuffed animal, coloring book to patient or family member [] Provided Communion [] Anointing/[place] [] Salvation x] Completed spiritual assessment [] Other: Impact on Illness or Injury [] Angry [] Fearful [] Anxious [] Often cries [] Exhaustion [] Unable to work [] Unable to attend islam [] Unable to walk/stand [] Unable to read [] Unable to drive [] Unable to eat/drink [] Unable to sleep [] Unable to be with family [] Patient intubated [] Other: Summary Time spent with patient 5 min
--- NOTE | 2023-04-03 08:59 | PM.DCS ---
Discharge Providers Date of Admission: 04/02/23 11:50 Date of Discharge: April 03, 2023 Attending Provider at Admission: Matthew Pantoja M.D Attending Provider at Discharge: Matthew Pantoja M.D Primary Care Provider: Devora Rivera MD Reason for Visit Reason for Visit: I25.10 Brief History: 53-year-old man with past medical history of CAD, diabetes, hypertension who has been having worsening angina. Plan for coronary angiogram with possible PCI. Hospital Course Hospital Course Coronary angiogram demonstrated severe PDA in-stent restenosis. He underwent successful revascularization with 1 stent. He was observed overnight and discharged home in a stable condition. He was discharged home on dual antiplatelet therapy with asprin and plavix Physical Exam Narrative: GENERAL: Patient is alert, awake and oriented x3. [] NECK: No jugular vein distension. [] HEENT: No cyanosis. No icterus. No pallor. [] HEART: Regular S1 and S2. No murmur, rub or gallop. [] LUNGS: Clear to auscultate bilaterally. [] CENTRAL NERVOUS SYSTEM: Grossly nonfocal. [] EXTREMITIES: Lower extremities with 1+ edema bilaterally. 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 Routine Exams 04/02/23 Taken Laboratory Results APTT > 250.0 SECONDS (23.9-36.7) H* 04/02/23 10:40 POC Glucose 212 mg/dL (70-110) H 04/03/23 06:08 Vitals Last Vital Signs Temp 98.5 F 04/03/23 08:00 Pulse 86 04/03/23 08:00 Resp 12 04/03/23 08:00 BP 135/74 04/03/23 08:00 Pulse Ox 97 04/03/23 08:00 O2 Del Method Room Air 04/03/23 08:00 Discharge Plan Discharge Patient Disposition: Home Condition: Stable Prescriptions: New clopidogrel 75 mg Tablet 75 mg PO DAILY Qty: 90 3RF Continued Lantus U-100 Insulin 100 unit/mL solution 40 unit SUBCUT BID aspirin [Adult Aspirin Regimen] 81 mg tablet,delayed release (DR/EC) 81 mg PO DAILY Hold Instructions: Resume on 08/25/19. modafinil 200 mg tablet 200 mg PO BID furosemide [Lasix] 20 mg tablet 20 mg PO DAILY PRN (Reason: edema) Qty: 30 2RF (DME) Diabetic shoes with 3 inserts See Rx Instructions .Route .MEDSUPPLY Qty: 1 0RF Rx Instructions: As directed by [facility] fenofibrate nanocrystallized 145 mg tablet 145 mg PO DAILY Ozempic 1 mg/dose (2 mg/1.5 mL) pen injector 1 mg SUBCUT Q7D aripiprazole [Abilify] 20 mg tablet 20 mg PO DAILY 30 Days Qty: 30 3RF bupropion HCl [Wellbutrin XL] 150 mg tablet extended release 24 hr 150 mg PO QAM Qty: 30 3RF buspirone 30 mg tablet 30 mg PO BID 30 Days Qty: 60 4RF clonazepam 0.5 mg tablet 0.5 mg PO DAILY PRN (Reason: anxiety) Qty: 15 3RF paroxetine HCl [Paxil] 30 mg tablet 60 mg PO DAILY 30 Days Qty: 60 3RF dextroamphetamine-amphetamine [Adderall] 5 mg tablet 5 mg PO QAM 30 Days Qty: 30 0RF acetaminophen 1,000 MG 1,000 mg PO DAILY PRN (Reason: Pain) insulin regular human 10 UNITS 24 units SUBCUT .BEFOREMEAL Rx Instructions: base of 24 units plus 2 on a sliding scale, max dose of 28 per dose atorvastatin 80 mg tablet 80 mg PO QPM propranolol 60 mg Tablet See Rx Instructions .ROUTE .COMPLEX Rx Instructions: 60 mg (1tablet) orally in the morning and 30 mg (1/2 tablet) in the evening. Held metformin 1,000 mg tablet extended release 24hr 1,000 mg PO BID Hold Instructions: Resume on 04/05/23. No Action clopidogrel [Plavix] 75 mg tablet 75 mg PO DAILY isosorbide mononitrate 30 mg tablet extended release 24 hr 30 mg PO QAM Qty: 90 3RF nitroglycerin 0.4 mg tablet, sublingual 0.4 mg SUBLINGUAL Q5M PRN (Reason: chest pain) Qty: 25 3RF Rx Instructions: do not exceed 3 doses per episode Discharge Orders: Discharge Order (Routine); Ordered 04/03/23 Ordered By: Matthew Pantoja Referrals: Matthew Pantoja M.D [Physician] - Chantelle Cueva FNP [Nurse Practitioner] - 7-10 days (Please call and schedule [facility] ) Discharge Diet: Cardiac and Diabetic Discharge Activity: Resume usual activity Patient Instructions: Heart Healthy Diet (DC), Coronary Angioplasty (DC), Chest Pain Stoplight, Opioid Safety, Post Angiogram Home Care Instructions Stand Alone Forms: Work/School Release Discharge Attestations Time Spent in Discharge Care*: less than 30 min Quality Metrics Clinical Quality Measures [ No reported AMI, CVA or VTE this stay] Coding Level of Care Code Acute Code for Chg Fwd Diagnoses
== END 2023-04-03 10:58 | disposition home or self-care (01) ==
LOC: CSU 11:51
PROVIDERS: Admitting Provider Internal Medicine; PCP Internal Medicine; Visit Provider Internal Medicine
DX: I25.118 Atherosclerotic heart disease of native coronary artery with other forms of angina pectoris (principal); I10 Essential (primary) hypertension; E78.2 Mixed hyperlipidemia; Z87.891 Personal history of nicotine dependence; E11.9 Type 2 diabetes mellitus without complications; Z79.82 Long term (current) use of aspirin; Z79.4 Long term (current) use of insulin; Z79.84 Long term (current) use of oral hypoglycemic drugs; Z98.1 Arthrodesis status; F32.3 Major depressive disorder, single episode, severe with psychotic features; R07.9 Chest pain, unspecified
CPT/HCPCS: 36415; 36416; 82962; 85730; 93454; 96360; 96365; 96367; 96372; 99152; 99153; C1725; C1769; C1874; C1887; C1894; C9600; G0378; J1644; J1815; J2250; J3010; J3490; J7030; Q0163; Q9967

== ENCOUNTER 2023-04-06 07:59 | Outpatient (CLI) | payer OTHER, MEDICARE, MEDICAID, SELFPAY ==
[2020-08-21 08:32] VITALS: BP 121/63; BMI 37.1
--- NOTE | 2023-04-06 08:11 | USCV_ITS ---
Ronny Benitez Age: 53 Gender: M : 1970 Exam Date: 04/06/2023 08:31 Ordering Phys: Devora Rivera MD Technologist: [place] [facility] [place]: peripheral edema BP: 148 / 80 HR: 90 Rhythm: Sinus Technical Quality: Adequate MEASUREMENTS (Male / Female) Normal Values 2D ECHO LV Chamber Size 5.2 cm RV Chamber Size 4.5 cm LVOT Diameter 2.1 cm LV Ejection Fraction MOD 2C 62.1 % LV Ejection Fraction 2C AL 62.7 % LA Diameter 2.9 cm LA Width 3.3 cm LA Height 4.9 cm RA Width 4.0 cm RA Height 5.3 cm Aorta at Sinotubular Diameter 3.3 cm IVC Diameter 1.6 cm M-MODE Aortic Annulus Diameter 4.0 cm LA Ao Ratio MM 0.8 MV E Point Septal Separation 1.1 cm DOPPLER AV Peak Velocity 130.0 cm/s LVOT Peak Velocity 106.0 cm/s AV Area Cont Eq vti 2.9 cm squared AV Area Cont Eq pk 2.9 cm squared MV Area PHT 3.2 cm squared Mitral E to A Ratio 0.8 MV E' Velocity 46.0 cm/s Mitral E to MV E' Ratio 11.1 Mitral E to LV E' Lateral Ratio 10.8 Mitral E to LV E' Septal Ratio 11.5 TR Peak Velocity 71.0 cm/s TR Peak Gradient 2.0 mmHg TV Peak E Velocity 77.0 cm/s Right Atrial Pressure 3.0 mmHg Pulmonary Artery Systolic Pressu 5.0 mmHg PV Peak Velocity 101.0 cm/s FINDINGS Left Ventricle Normal left ventricular size, systolic function with no diagnostic regional wall motion abnormalities. Left ventricular ejection fraction is estimated at 55 %. Normal diastolic function. Right Ventricle Normal right ventricular size and systolic function. RVSP could not be calculated due to incomplete tricuspid regurgitation velocity profile. Right Atrium Normal right atrial size. Left Atrium Normal left atrial size. Mitral Valve Structurally normal mitral valve. No mitral valve stenosis. No mitral valve regurgitation. Aortic Valve Structurally normal trileaflet aortic valve. No aortic valve stenosis. No aortic valve regurgitation. Tricuspid Valve Structurally normal tricuspid valve. Pulmonic Valve Pulmonic valve not well visualized. No pulmonary valve stenosis. Pericardium No pericardial effusion. Aorta Aorta not well visualized. Mildly dilated aortic root measured at 41 mm ashwin-posteriorly. IVC Normal IVC dimension with >50% respiratory change of the inferior vena cava. CONCLUSIONS 1. Normal left ventricular size, systolic function with no diagnostic regional wall motion abnormalities. Left ventricular ejection fraction is estimated at 55 %. Normal diastolic function. 2. Mildly dilated aortic root measured at 41 mm ashwin- posteriorly. However, it was not well visualized. 3. When compared to study dated 03/21/21, there may not have been any significant change. Lexi Levi MD (Electronically Signed) Final Date: 06 April 2023 17:14 S
== END 2023-04-06 08:00 | disposition home or self-care (01) ==
LOC: RAD 08:04
PROVIDERS: PCP Internal Medicine; Visit Provider Internal Medicine
DX: R60.0 Localized edema (principal)
CPT/HCPCS: 93306

== ENCOUNTER → 2023-04-16 10:18 | Outpatient (BNVA) | payer OTHER, MEDICARE, MEDICAID, SELFPAY ==
[2020-08-21 08:32] VITALS: BP 121/63; BMI 37.1
== END ==
PROVIDERS: PCP Internal Medicine; Visit Provider Nurse Practitioner Family
DX: I25.10 Atherosclerotic heart disease of native coronary artery without angina pectoris (principal)
CPT/HCPCS: 36415; 80048

== ENCOUNTER 2023-04-24 14:28 | Outpatient (RCR) | payer OTHER, MEDICARE, MEDICAID, SELFPAY ==
[2020-08-21 08:32] VITALS: BP 121/63; BMI 37.1
== END 2023-05-05 23:59 | disposition home or self-care (01) ==
LOC: CR 14:28
PROVIDERS: PCP Internal Medicine; Referring Provider Internal Medicine; Visit Provider Internal Medicine
DX: Z95.5 Presence of coronary angioplasty implant and graft (principal)
CPT/HCPCS: 93798

== ENCOUNTER 2023-05-11 15:30 | Outpatient (RCR) | payer OTHER, MEDICARE, MEDICAID, SELFPAY ==
[2020-08-21 08:32] VITALS: BP 121/63; BMI 37.1
== END 2023-06-04 23:59 | disposition home or self-care (01) ==
LOC: CR 15:30
PROVIDERS: PCP Internal Medicine; Referring Provider Internal Medicine; Visit Provider Internal Medicine
DX: Z95.5 Presence of coronary angioplasty implant and graft (principal)
CPT/HCPCS: 93798

== ENCOUNTER 2023-05-13 11:03 | Emergency (ER) | payer OTHER, MEDICARE, MEDICAID, SELFPAY ==
[2020-08-21 08:32] VITALS: BP 121/63; BMI 37.1
--- NOTE | 2023-05-13 11:04 | XR_ITS ---
WS: [id number] Portable AP upright chest, 05/13/2023 Clinical Data: cp Comparison: Portable chest, 03/31/2023 Findings: No nodules, masses or effusions are seen. The heart is normal. The pulmonary vascularity is not increased. No pneumonia or pneumothorax is seen. The aortic arch and descending thoracic aorta s how mild tortuosity. Monitor leads are on the chest wall. Impression: Atherosclerosis.
[2023-05-13 11:09] VITALS: BP 183/74; PULSE 117; RESP 17; O2SAT 98; BMI 38.0
--- NOTE | 2023-05-13 11:16 | W.ED.CHESTPA ---
HPI - Chest Pain General: Chief Complaint: Chest Pain Stated Complaint: sob, cp Time Seen by Provider: 05/13/23 11:12 Source: patient Mode of arrival: ambulatory Limitations: no limitations History of Present Illness: 53-year-old male has extensive coronary disease he had a stent placed in March he states he goes to cardiac rehab he states over the last 3 sessions this week he has had some chest pain along with shortness of breath after his rehab. States been more dyspnea he states that he does not have any pain currently did have some pain after his rehab based continue to have shortness of breath along with some tachycardia. Denies any fever denies any cough. Associated symptoms: Reports dyspnea; Deny abdominal pain, fever(s), nausea or vomiting Review of Systems Const: Denies: fever(s), chills, body aches or change in appetite ENMT: Denies: throat pain or dental pain Card: Reports: chest pain Resp: Reports: dyspnea GI: Denies: abdominal pain, nausea, vomiting or diarrhea Musc: Denies: neck pain or back pain Skin/Breast: Denies: rash Neuro: Denies: headache(s) PFSH ED PFSH: Medical History CAD (coronary artery disease) Deviated septum Diabetes mellitus Dysphasia Dysphonia HTN (hypertension) Hyperlipidemia Intervertebral cervical disc disorder with myelopathy, 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 Brigitte Guy Status post spinal arthrodesis Stented coronary artery Family History Father Diabetes CAD (coronary artery disease) Hypertension Dementia Brother CAD (coronary artery disease) Grandmother Stroke Maternal x3 Mother Dementia Schizophrenia Grandfather Cancer Both Maternal and Paternal Family/Other Cancer Uncles both maternal and paternal Social History Smoking and tobacco/nicotine status: former use of tobacco/nicotine Quit status (tobacco/nicotine): has quit using Year quit tobacco: 2000 Second hand smoke exposure: No Alcohol intake: never Substance/Drug Use: former Lives independently: Yes Household members: spouse Marital status: Current occupational status: unemployed Current gender identity: Male Physical Exam Const: COMMON NORMALS: patient oriented x3 HENMT: COMMON NORMALS: normocephalic and atraumatic HEAD & SCALP: normocephalic and atraumatic Eye: COMMON NORMALS: Equal, round and reactive pupils present and EOMs intact bilaterally PUPIL: Yes Equal, round and reactive pupils present Neck/C-Spine: COMMON NORMALS: full ROM and supple Chest: COMMONS NORMALS: normal inspection of the chest and normal palpation of entire chest wall Resp: COMMON NORMALS: normal respiratory effort, No retractions, No use of accessory muscles and clear to auscultation bilaterally AUSCULTATION: clear to auscultation bilaterally Cardio: COMMON NORMALS: regular rhythm and No murmurs present (Cardio) RATE: tachycardic RHYTHM: regular rhythm GI: INSPECTION: Yes normal to inspection Extremity: COMMON NORMALS: normal to inspection, full ROM and no calf tenderness Neuro: COMMON NORMALS: patient oriented x3, moves all extremities and no focal motor deficits Psych: COMMON NORMALS: mental status grossly normal, Normal thought process present and cooperative THOUGHT PROCESS: Normal thought process present Skin: COMMON NORMALS: no rashes or lesions noted and no wounds GENERAL SKIN EXAM: no rashes or lesions noted Course Vital Signs: Vital signs: Vital Signs Pulse Rate 111 H 05/13/23 12:34 Respiratory Rate 23 H 05/13/23 12:34 Blood Pressure 108/80 05/13/23 12:34 Pulse Oximetry 96 05/13/23 12:34 Oxygen Delivery Me thod Room Air 05/13/23 11:28 MDM - Chest Pain Medical Decision Making Patient presents here with chest pain has been chest pain-free here is initial repeat troponin level and D-dimer all negative. 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 Pino plan to follow in clinic on Thursday patient return if worsening he understands agrees to plan. Medical Records I reviewed the patient's medical records. Lab Data I reviewed the patient's lab results. 05/13/23 11:22 05/13/23 11:22 Laboratory Results WBC 7.38 10^3/uL (3.29-11.43) 05/13/23 11:22 RBC 5.21 10^6/uL (3.85-5.65) 05/13/23 11:22 Hgb 14.50 g/dL (11.27-16.99) 05/13/23 11:22 Hct 42.2 % (37-53) 05/13/23 11:22 MCV 81.0 fl (82-101) L 05/13/23 11:22 MCH 27.8 pg (27-33) 05/13/23 11:22 MCHC 34.4 g/dL (30-55) 05/13/23 11:22 RDW 13.7 % (12.1-15.1) 05/13/23 11:22 Plt Count 275 10^3/cmm (157-399) 05/13/23 11:22 MPV 10.5 fL (7.4-10.4) H 05/13/23 11:22 Neut % (Auto) 62.8 % 05/13/23 11:22 Lymph % (Auto) 26.3 % 05/13/23 11:22 [place] % (Auto) 7.5 % 05/13/23 11:22 Eos % (Auto) 2.3 % 05/13/23 11:22 Baso % (Auto) 0.7 % 05/13/23 11:22 Neut # (Auto) 4.64 10^3/uL (1.8-7.7) 05/13/23 11:22 Lymph # (Auto) 1.9 10^3/uL (0.8-4.8) 05/13/23 11:22 [place] # (Auto) 0.6 10^3/uL (0.2-0.9) 05/13/23 11:22 Eos # (Auto) 0.2 10^3/uL (0.0-0.8) 05/13/23 11:22 Baso # (Auto) 0.1 10^3/uL (0.0-0.1) 05/13/23 11:22 Nucleated RBC % (auto) 0 % 05/13/23 11:22 Nucleated RBCs # 0.0 /100WBC 05/13/23 11:22 D-Dimer 0.41 ug/mLFEU (0-0.59) 05/13/23 11:22 Sodium 133 mmol/L (136-145) L 05/13/23 11:22 Potassium 4.3 mmol/L (3.5-5.1) 05/13/23 11:22 Chloride 96 mmol/L (98-107) L 05/13/23 11:22 Carbon Dioxide 21 mmol/L (22-29) L 05/13/23 11:22 Anion Gap 20.3 (5-19) H 05/13/23 11:22 BUN 14 mg/dL (6-20) 05/13/23 11:22 Creatinine 1.0 mg/dL (0.7-1.2) 05/13/23 11:22 GFR Calculation 78.2 mL/min (90-130) L 05/13/23 11:22 Glucose 362 mg/dL (65-115) H 05/13/23 11:22 Calculated Osmolality 291 mOsm/kg (285-295) 05/13/23 11:22 Calcium 9.2 mg/dL (8.5-10.5) 05/13/23 11:22 Total Bilirubin 0.2 mg/dL (0.15-1.2) 05/13/23 11:22 AST 22 U/L (0-40) 05/13/23 11:22 ALT 25 U/L (0-41) 05/13/23 11:22 Alkaline Phosphatase 80 U/L (40-130) 05/13/23 11:22 Troponin T Baseline < 6 ng/L (0-15) 05/13/23 11:22 Troponin T 120 Minute 6.37 ng/L (0-15) 05/13/23 13:28 Delta Troponin T 0.37 ABS# (0-10) 05/13/23 13:28 NT-Pro-B Natriuret Pep 36 pg/mL (0-125) 05/13/23 11:22 Total Protein 6.9 g/dL (6.6-8.7) 05/13/23 11:22 Albumin 4.5 g/dL (3.5-5.2) 05/13/23 11:22 Globulin 2.4 g/dL (1.3-4.6) 05/13/23 11:22 All radiology interpretation(s) finalized by discharge EKG Data EKG 1: I personally reviewed and interpreted this EKG as follows: EKG interpretation date: 05/13/23 EKG interpretation time: 11:10 Interpretation: sinus tach hr [address] or t wave abnormalities qrs 86 qtc 374 EKG 2: I personally reviewed and interpreted this EKG as follows: EKG interpretation date: 05/13/23 EKG interpretation time: 13:17 Interpretation: nsr hr [address] or t wave abnormalities qrs 88 qtc 385 Discharge Plan Discharge Patient Disposition: Home Clinical Impression: Chest pain Condition: Stable Prescriptions: No Action Lantus U-100 Insulin 100 unit/mL solution 40 unit SUBCUT BID aspirin [Adult Aspirin Regimen] 81 mg tablet,delayed release (DR/EC) 81 mg PO DAILY Hold Instructions: Resume on 08/25/19. metformin 1,000 mg tablet extended release 24hr 1,000 mg PO BID Hold Instructions: Resume on 04/05/23. modafinil 200 mg tablet 200 mg PO BID furosemide [Lasix] 20 mg tablet 20 mg PO DAILY PRN (Reason: edema) Qty: 30 2RF (DME) Diabetic shoes with 3 inserts See Rx Instructions .Route .MEDSUPPLY Qty: 1 0RF Rx Instructions: As directed by [facility] fenofibrate nanocrystallized 145 mg tablet 145 mg PO DAILY Ozempic 1 mg/dose (2 mg/1.5 mL) pen injector 1 mg SUBCUT Q7D aripiprazole [Abilify] 20 mg tablet 20 mg PO DAILY 30 Days Qty: 30 3RF bupropion HCl [Wellbutrin XL] 150 mg tablet extended release 24 hr 150 mg PO QAM Qty: 30 3RF buspirone 30 mg tablet 30 mg PO BID 30 Days Qty: 60 4RF clonazepam 0.5 mg tablet 0.5 mg PO DAILY PRN (Reason: anxiety) Qty: 15 3RF paroxetine HCl [Paxil] 30 mg tablet 60 mg PO DAILY 30 Days Qty: 60 3RF clopidogrel [Plavix] 75 mg tablet 75 mg PO DAILY isosorbide mononitrate 30 mg tablet extended release 24 hr 30 mg PO QAM Qty: 90 3RF nitroglycerin 0.4 mg tablet, sublingual 0.4 mg SUBLINGUAL Q5M PRN (Reason: chest pain) Qty: 25 3RF Rx Instructions: do not exceed 3 doses per episode dextroamphetamine-amphetamine [Adderall] 5 mg tablet 5 mg PO QAM 30 Days Qty: 30 0RF acetaminophen 1,000 MG 1,000 mg PO DAILY PRN (Reason: Pain) insulin regular human 10 UNITS 24 units SUBCUT .BEFOREMEAL Rx Instructions: base of 24 units plus 2 on a sliding scale, max dose of 28 per dose atorvastatin 80 mg tablet 80 mg PO QPM propranolol 60 mg Tablet See Rx Instructions .ROUTE .COMPLEX Rx Instructions: 60 mg (1tablet) orally in the morning and 30 mg (1/2 tablet) in the evening. clopidogrel 75 mg Tablet 75 mg PO DAILY Qty: 90 3RF Discharge Orders: Discharge ED (Routine); Ordered 05/13/23 Ordered By: Zachariah Licea Referrals: Devora Rivera MD [Primary Care Provider] - Discharge Diet: Advance as tolerated Discharge Activity: Resume usual activity Patient Instructions: Chest Pain (ED) Coding Level of Care Code ED Classifier Tender for Loretta Pradhan
[2023-05-13 11:28] VITALS: BP 183/74; PULSE 110; RESP 16; O2SAT 97
[2023-05-13 11:38] LABS: Basophils # 0.1 10^3/uL (0.0-0.1); Basophils % 0.7 %; Eosinophils # 0.2 10^3/uL (0.0-0.8); Eosinophils % 2.3 %; Hematocrit 42.2 % (37-53); Lymphocytes # 1.9 10^3/uL (0.8-4.8); Lymphocytes % 26.3 %; Mean Corpuscular HGB Conc 34.4 g/dL (30-55); Mean Corpuscular Hemoglobin 27.8 pg (27-33); Mean Platelet Volume 10.5 fL (7.4-10.4); Monocytes # 0.6 10^3/uL (0.2-0.9); Monocytes % 7.5 %; Neutrophils # 4.64 10^3/uL (1.8-7.7); Neutrophils % 62.8 %; Nucleated Red Blood Cells % 0 %; Platelet Count 275 10^3/cmm (157-399); Red Blood Count 5.21 10^6/uL (3.85-5.65); Red Cell Distribution Width 13.7 % (12.1-15.1); White Blood Count 7.38 10^3/uL (3.29-11.43)
--- NOTE | 2023-05-13 11:44 | PC.NURSE ---
NEW BLOOD PRESSURE WAS LOWER THAN FIRST 183/74 DOWN TO 118/80 PROVIDER NOTIFIED AND DC LABETOLOL
[2023-05-13 11:53] LABS: D Dimer 0.41 ug/mLFEU (0-0.59)
[2023-05-13 12:12] LABS: Troponin(5th) Baseline < 6 ng/L (0-15)
[2023-05-13 12:22] LABS: Alanine Aminotransferase 25 U/L (0-41); Albumin Level 4.5 g/dL (3.5-5.2); Alkaline Phosphatase 80 U/L (40-130); Anion Gap 20.3 (5-19); Aspartate Amino Transferase 22 U/L (0-40); Blood Urea Nitrogen 14 mg/dL (6-20); Calcium 9.2 mg/dL (8.5-10.5); Carbon Dioxide 21 mmol/L (22-29); Chloride 96 mmol/L (98-107); Globulin 2.4 g/dL (1.3-4.6); Glomerular Filtration Rate 78.2 mL/min (90-130); Glucose 362 mg/dL (65-115); NT Pro B Type Natriuretic Pept 36 pg/mL (0-125); Osmolality Calculated 291 mOsm/kg (285-295); Potassium 4.3 mmol/L (3.5-5.1); Sodium 133 mmol/L (136-145); Total Bilirubin 0.2 mg/dL (0.15-1.2); Total Protein 6.9 g/dL (6.6-8.7)
[2023-05-13 12:34] VITALS: BP 108/80; PULSE 111; RESP 23; O2SAT 96
--- NOTE | 2023-05-13 13:17 | ECG_ITS ---
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 Measurements Intervals [place] Rate: 95 P: 40 MO: 128 QRS: 5 QRSD: 88 T: 41 QT: 332 QTc: 418 Interpretive Statements SINUS RHYTHM WITH SINUS ARRHYTHMIA LOW QRS VOLTAGE IN EXTREMITY LEADS [QRS DEFLECTION < 0.5 mV IN LIMB LEADS] POSSIBLE INFERIOR MYOCARDIAL INFARCTION , PROBABLY OLD [30 ms Q WAVE IN II/aVF] Compared to ECG 03/31/2023 19:36:06 Myocardial infarct finding now present Electronically Signed On 05-14-2023 0:51:59 INFORMATION DIRECTOR by Sam Wesley M.D. [email or web address].[employer]/store/OM/[id number]
[2023-05-13 13:57] LABS: Troponin 5 2HR 6.37 ng/L (0-15); Troponin 5 2HR Delta 0.37 ABS# (0-10)
--- NOTE | 2023-05-13 14:00 | DCPLANNER ---
Message sent to Cardiology for follow up of chest pain
== END 2023-05-13 14:11 | disposition home or self-care (01) ==
PROVIDERS: Emergency Provider Emergency Medicine; PCP Internal Medicine
DX: R07.9 Chest pain, unspecified (principal); Z79.82 Long term (current) use of aspirin; Z79.4 Long term (current) use of insulin; Z79.84 Long term (current) use of oral hypoglycemic drugs; Z79.02 Long term (current) use of antithrombotics/antiplatelets; Z87.891 Personal history of nicotine dependence; I25.10 Atherosclerotic heart disease of native coronary artery without angina pectoris; E11.9 Type 2 diabetes mellitus without complications; I10 Essential (primary) hypertension; E78.5 Hyperlipidemia, unspecified
CPT/HCPCS: 36415; 71045; 80053; 83880; 84484; 85025; 85378; 93005; 99285; J3490

== ENCOUNTER 2023-06-05 11:03 | Outpatient (RCR) | payer OTHER, MEDICARE, MEDICAID, SELFPAY ==
[2020-08-21 08:32] VITALS: BP 121/63; BMI 37.1
== END 2023-07-05 23:59 | disposition home or self-care (01) ==
LOC: CR 11:03
PROVIDERS: PCP Internal Medicine; Referring Provider Internal Medicine; Visit Provider Internal Medicine
DX: Z95.5 Presence of coronary angioplasty implant and graft (principal)
CPT/HCPCS: 93798

== ENCOUNTER 2023-07-03 14:37 | Emergency (ER) | payer OTHER, MEDICARE, MEDICAID, SELFPAY ==
[2020-08-21 08:32] VITALS: BP 121/63; BMI 37.1
[2023-07-03 15:07] VITALS: BP 111/73; PULSE 74; RESP 18; TEMP 36.6; O2SAT 94; BMI 42.9
--- NOTE | 2023-07-03 15:23 | XRR_ITS ---
PROCEDURE INFORMATION: Exam: XR Chest Exam date and time: 07/03/2023 4:11 PM Age: 53 years old Clinical indication: Shortness of breath; Prior surgery; Surgery date: 6+ months; Surgery type: Heart stents; Additional info: Poss aspiration of water TECHNIQUE: Imaging protocol: Radiologic exam of the chest. Views: 1 view. COMPARISON: CR XR chest 1V portable [id number] 05/13/2023 11:30 AM FINDINGS: Lungs: Unremarkable. No consolidation. Pleural spaces: Unremarkable. No pleural effusion. No pneumothorax. Heart/Mediastinum: Unremarkable. No cardiomegaly. Bones/joints: Previous cervical spine anterior fusion. XR/XR chest 1V portable [id number] IMPRESSION: No acute findings.
--- NOTE | 2023-07-03 15:42 | W.ED.GENADLT ---
HPI - General Adult General: Chief complaint: General Medical Stated complaint: cough Time Seen by Provider: 07/03/23 15:19 Source: patient Mode of arrival: ambulatory Limitations: no limitations History of Present Illness: Patient is a 53-year-old male here for evaluation of possible water aspiration. Patient states he was at a restaurant when he swallowed a drink of water and immediately felt like it got stuck in his chest. Patient states he began coughing and vomiting water. Patient states he has continued to cough up water. He feels like his chest is burning. He does not feel short of breath currently/at rest. He arrives to the ED in no acute distress with stable vital signs. Onset (ago): hour(s) Quality: burning Relieving factors: none Exacerbating factors: none Associated symptoms: Reports chest pain (feels like chest is burning); Deny dyspnea, malaise, palpitations or syncope Treatments prior to arrival: none Review of Systems Const: Denies: fever(s), chills, body aches, fatigue or malaise Card: Reports: chest pain (feels like chest is burning); Denies: palpitations, irregular heart rhythm, edema, swelling of feet/ankles, lightheadedness, syncope, pre-syncope, dyspnea on exertion, orthopnea, leg pain with exertion or acrocyanosis Resp: Reports: pain on inspiration; Denies: dyspnea, productive cough, non-productive cough, wheezing, stridor, change in phlegm color, hemoptysis or chest congestion GI: Denies: abdominal pain PFSH ED PFSH: Medical History Recurrent major depression 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 Psychiatric care Diabetes mellitus CAD (coronary artery disease) Hyperlipidemia HTN (hypertension) Major depressive disorder with psychotic features Deviated septum Dysphasia Dysphonia Intervertebral cervical disc disorder with myelopathy, cervical region Post-traumatic stress disorder, chronic Major depressive disorder, recurrent severe without psychotic features Surgical History Status post spinal arthrodesis History of fusion of cervical spine C4 corpectomy, revision C3-C4 and C4-C5 plate-screw fixation/interbody fusion; 08/22/2019; [facility] H/O hernia repair Hx of cardiac catheterization Stented coronary artery H/O carpal tunnel repair (~2018) S/P cervical spinal fusion (~06/15/17) C3-C4 ACDFF, 06/2017, Dr. Brigitte Guy Family History Father Diabetes CAD (coronary artery disease) Hypertension Dementia Brother CAD (coronary artery disease) Grandmother Stroke Maternal x3 Mother Dementia Schizophrenia Grandfather Cancer Both Maternal and Paternal Family/Other Cancer Uncles both maternal and paternal Social History Smoking and tobacco/nicotine status: former use of tobacco/nicotine Quit status (tobacco/nicotine): has quit using Year quit tobacco: 2000 Second hand smoke exposure: No Alcohol intake: never Substance/Drug Use: former Lives independently: Yes Household members: spouse Marital status: Current occupational status: unemployed Current gender identity: Male Physical Exam Const: COMMON NORMALS: no acute distress, patient oriented x3, no limitations, alert and well nourished NUTRITIONAL APPEARANCE: obese Neck/C-Spine: GENERAL: Yes normal visual inspection Chest: COMMONS NORMALS: normal inspection of the chest and normal palpation of entire chest wall Resp: COMMON NORMALS: normal respiratory effort and clear to auscultation bilaterally AUSCULTATION: clear to auscultation bilaterally Cardio: COMMON NORMALS: regular rate and regular rhythm RATE: regular rate RHYTHM: regular rhythm GI: COMMON NORMALS: Normal to inspection, nondistended, normoactive bowel sounds present, Soft to palpation and non-tender PALPATION: Yes Soft to palpation Neuro: COMMON NORMALS: patient oriented x3 SENSORIUM/ORIENTATION: Yes alert Course Vital Signs: Vital signs: Vital Signs Temperature 98 F 07/03/23 15:07 Pulse Rate 74 07/03/23 15:07 Respiratory Rate 18 07/03/23 15:07 Blood Pressure 111/73 07/03/23 15:07 Pulse Oximetry 94 07/03/23 15:07 Oxygen Delivery Me thod Room Air 07/03/23 15:07 [facility] - General Adult Medical Decision Making Patient appears in no acute distress. His vital signs are normal. He is satting at 94% on room air. CXR is unremarkable with no change compared to previous. Patient will be allowed discharge with return precautions. Medical Records I reviewed the patient's medical records. XR interpretation done by ED provider, pending radiology final review Discharge Plan Discharge Patient Disposition: Home Clinical Impression: Choking episode Condition: Stable Prescriptions: No Action Lantus U-100 Insulin 100 unit/mL solution 46 unit SUBCUT BID aspirin [Adult Aspirin Regimen] 81 mg tablet,delayed release (DR/EC) 81 mg PO QAM Hold Instructions: Resume on 08/25/19. metformin 1,000 mg tablet extended release 24hr 1,000 mg PO BID Hold Instructions: Resume on 04/05/23. furosemide [Lasix] 20 mg tablet 20 mg PO DAILY PRN (Reason: edema) Qty: 30 2RF (DME) Diabetic shoes with 3 inserts See Rx Instructions .Route .MEDSUPPLY Qty: 1 0RF Rx Instructions: As directed by [facility] fenofibrate nanocrystallized 145 mg tablet 145 mg PO DAILY isosorbide mononitrate 60 mg tablet extended release 24 hr 60 mg PO QAM Qty: 90 3RF bupropion HCl [Wellbutrin XL] 150 mg tablet extended release 24 hr 150 mg PO QAM Qty: 30 3RF buspirone 30 mg tablet 30 mg PO BID 30 Days Qty: 60 4RF clonazepam 0.5 mg tablet 0.5 mg PO DAILY PRN (Reason: anxiety) Qty: 15 3RF paroxetine HCl [Paxil] 30 mg tablet 60 mg PO DAILY 30 Days Qty: 60 3RF metoprolol tartrate 50 mg tablet 50 mg PO BID Qty: 60 0RF clopidogrel [Plavix] 75 mg tablet 75 mg PO DAILY nitroglycerin 0.4 mg tablet, sublingual 0.4 mg SUBLINGUAL Q5M PRN (Reason: chest pain) Qty: 25 3RF Rx Instructions: do not exceed 3 doses per episode dextroamphetamine-amphetamine [Adderall] 5 mg tablet 5 mg PO QAM 30 Days Qty: 30 0RF atorvastatin 80 mg tablet 80 mg PO QPM lisinopril 20 mg tablet 20 mg PO DAILY acetaminophen 500 mg Tablet 1,000 mg PO Q6H PRN (Reason: Pain) Humalog KwikPen Insulin 100 unit/mL insulin pen See Rx Instructions .ROUTE .COMPLEX Rx Instructions: base of 12 units plus 2 on a sliding scale, max dose of 28 per dose Jardiance 10 mg tablet 10 mg PO DAILY Ozempic 0.25 mg or 0.5 mg (2 mg/3 mL) pen injector 0.25 mg SUBCUT Q7D Rx Instructions: ON SAT Abilify 20 mg tablet 20 mg PO QAM Discharge Orders: Discharge ED (Routine); Ordered 07/03/23 Ordered By: Clarisse Linares Referrals: Devora Rivera MD [Primary Care Provider] - Coding Level of Care Code ED System Manager for Loretta Pradhan
== END 2023-07-03 16:31 | disposition home or self-care (01) ==
PROVIDERS: Emergency Provider Physician Assistant; PCP Internal Medicine
DX: T17.998A Other foreign object in respiratory tract, part unspecified causing other injury, initial encounter (principal); W44.F9XA Other object of natural or organic material, entering into or through a natural orifice, initial encounter; E11.9 Type 2 diabetes mellitus without complications; I25.10 Atherosclerotic heart disease of native coronary artery without angina pectoris; E78.5 Hyperlipidemia, unspecified; I10 Essential (primary) hypertension; Z87.891 Personal history of nicotine dependence
CPT/HCPCS: 71045; 99283

== ENCOUNTER 2023-08-20 09:05 | Outpatient (CLI) | payer OTHER, MEDICAID, SELFPAY ==
[2020-08-21 08:32] VITALS: BP 121/63; BMI 37.1
--- NOTE | 2023-08-20 09:14 | XR_ITS ---
WS: [id number] Cervical spine, 3 views, 08/20/2023 Clinical Data: NECK PAIN Comparison: Cervical spine, 09/03/2020 Findings: No compression fractures are seen. There is an anterior cervical disc fusion at C3-C5. Ther e is artificial disc material at C3-C4 and C4-C5. No prevertebral soft tissue swelling is present. Th e odontoid is unremarkable. The soft tissues of the neck and the lung apices are normal. Impression: Stable anterior cervical disc fusion C3-C5.
== END 2023-08-20 09:06 | disposition home or self-care (01) ==
LOC: LAB 09:08
PROVIDERS: PCP Internal Medicine; Visit Provider Internal Medicine
DX: M54.2 Cervicalgia (principal); Z98.1 Arthrodesis status
CPT/HCPCS: 72040

== ENCOUNTER → 2023-08-27 18:25 | Outpatient (BNVA) | payer OTHER, MEDICAID, SELFPAY ==
[2020-08-21 08:32] VITALS: BP 121/63; BMI 37.1
== END ==
PROVIDERS: PCP Internal Medicine; Visit Provider Nurse Practitioner
DX: J06.9 Acute upper respiratory infection, unspecified (principal)
CPT/HCPCS: 87400; 87426

== ENCOUNTER 2023-08-31 14:18 | Outpatient (CLI) | payer OTHER, SELFPAY ==
[2020-08-21 08:32] VITALS: BP 121/63; BMI 37.1
--- NOTE | 2023-08-31 14:26 | XR_ITS ---
WS: [id number] Exam: XR chest 2V* [id number] Date/Time of Exam: 08/31/2023 2:33 PM Reason For Exam: CHEST DISCOMFORT/COUGH Comparison 07/03/2023. Findings: The lungs are clear and fully expanded. Costophrenic angles are sharp. No infiltrates. Bronchovascula r relief appears normal. Cardiac silhouette is unremarkable. Bony elements are intact. IMPRESSION: Unremarkable chest radiograph.
== END 2023-08-31 14:19 | disposition home or self-care (01) ==
LOC: RAD 14:20
PROVIDERS: PCP Internal Medicine; Visit Provider Nurse Practitioner Family
DX: R05.9 Cough, unspecified (principal); R07.9 Chest pain, unspecified
CPT/HCPCS: 71046

== ENCOUNTER → 2023-09-01 15:00 | Outpatient (BNVA) | payer OTHER, SELFPAY ==
[2020-08-21 08:32] VITALS: BP 121/63; BMI 37.1
== END ==
PROVIDERS: PCP Internal Medicine; Visit Provider Orthopaedic Surgery
DX: M54.2 Cervicalgia (principal); M79.601 Pain in right arm; Z98.1 Arthrodesis status
CPT/HCPCS: 72040

== ENCOUNTER 2023-10-16 06:51 | Outpatient (CLI) | payer OTHER, MEDICARE, MEDICAID, SELFPAY ==
[2020-08-21 08:32] VITALS: BP 121/63; BMI 37.1
--- NOTE | 2023-10-16 07:15 | MR_ITS ---
WS: [id number] MRI CERVICAL SPINE NONCONTRAST TECHNIQUE: Sagittal T1, T2 and STIR imaging. Axial T2, gradient, and fiesta imaging. CLINICAL INFORMATION: neck pain COMPARISON: CT cervical 01/30/2020. Outside MRI 2018. FINDINGS: Straightening of the normal cervical lordosis. Postoperative changes ACDF C3-C5. No high-grade centra l canal stenosis. Tiny amount of chronic myelomalacia in the cervical cord at C3-4 unchanged. Partial corpectomy at C4 with interbody strut graft C2-C3: Moderate facet arthropathy. Mild LEFT foraminal narrowing. C3-C4: ACDF. Mild bilateral bony foraminal narrowing. Mild central canal stenosis. C4-C5: Interbody strut graft. Mild bilateral bony foraminal narrowing. Mild central canal stenosis. M oderate facet arthropathy. C5-C6: Mild disc bulge with osteophytic ridging. Moderate LEFT and mild RIGHT bony foraminal narrowin g. Moderate facet arthropathy. Mild central canal stenosis. C6-C7: Central disc osteophyte protrusion. Slight indentation on the cervical cord with mild central canal stenosis. Moderate LEFT greater than RIGHT bony foraminal narrowing. Uncovertebral joint hypert rophy. Moderate facet arthropathy. C7-T1: Mild LEFT and no significant RIGHT foraminal narrowing. Visualized brain stem structures: Normal. Prevertebral soft tissues: Normal. IMPRESSION: 1. Straightening of the normal cervical lordosis. ACDF C3-C5 with partial corpectomy at C4. 2. Chronic myelomalacia at the C3 level with mild chronic cord atrophy. 3. Disc osteophyte protrusion C6-7 with mild central canal stenosis and slight indentation of the ce rvical cord. 4. Moderate LEFT bony foraminal narrowing C5-C6 and C6-C7. 5. Mild chronic central canal stenosis C3-C5.
== END 2023-10-16 06:52 | disposition home or self-care (01) ==
LOC: RAD 06:51
PROVIDERS: PCP Internal Medicine; Visit Provider Orthopaedic Surgery
DX: M54.2 Cervicalgia (principal); M48.02 Spinal stenosis, cervical region; G95.89 Other specified diseases of spinal cord
CPT/HCPCS: 72141

== ENCOUNTER 2023-12-19 14:56 | Inpatient (IN) | payer OTHER, MEDICARE, MEDICAID, SELFPAY ==
[2020-08-21 08:32] VITALS: BP 121/63; BMI 37.1
[2023-12-19] VITALS (14 sets, daily range): BP systolic 93–126; BP diastolic 47–74; PULSE 72–93; RESP 16–29; TEMP 36.9–37; O2SAT 92–97; BMI 37.2
--- NOTE | 2023-12-19 15:08 | ECG_ITS ---
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 Measurements Intervals [place] Rate: 79 P: 27 SD: 146 QRS: -14 QRSD: 92 T: 29 QT: 363 QTc: 418 Interpretive Statements SINUS RHYTHM LOW QRS VOLTAGE IN EXTREMITY LEADS [QRS DEFLECTION < 0.5 mV IN LIMB LEADS] POSSIBLE ANTERIOR MYOCARDIAL INFARCTION , PROBABLY OLD [30 ms Q WAVE IN V3/V4, OR R < 0.2 mV IN V4] Compared to ECG 05/13/2023 13:17:31 Sinus arrhythmia no longer present Myocardial infarct finding still present Electronically Signed On 12-19-2023 21:32:40 CDT by Matthew Pantoja M.D. [id number] f
--- NOTE | 2023-12-19 15:29 | XRR_ITS ---
PROCEDURE INFORMATION: Exam: XR Chest Exam date and time: 12/19/2023 4:05 PM Age: 53 years old Clinical indication: Chest pressure; Patient HX: Chest pain; Cardiac stents x TECHNIQUE: Imaging protocol: Radiologic exam of the chest. Views: 1 view. COMPARISON: CR XR chest 2V* [id number] 31/08/2023 14:35 FINDINGS: Lungs: Unremarkable. No consolidation. Pleural spaces: Unremarkable. No pleural effusion. No pneumothorax. Heart/Mediastinum: Unremarkable. No cardiomegaly. Bones/joints: Unremarkable. XR/XR chest 1V portable [id number] IMPRESSION: Clear hypoventilatory chest
--- NOTE | 2023-12-19 15:49 | ED_ITS ---
HPI - Chest Pain 2 General: Chief Complaint: Chest Pain Stated Complaint: CP Time Seen by Provider: 12/19/23 15:27 History of Present Illness: 53-year-old man with a history of hypert ension, obesity, type 2 diabetes mellitus, hyperlipidemia and coronary artery disease status post stents who presents the emergency room with chest pain. He said around 11:00, 4 hours ago he had a episode of chest pain and took a couple of nitros and improved. Came back around 3 and he took some nitro and it has improved some but is still mild. He had some radiation into his left arm. Some mild diaphoresis. No nausea or vomiting. No cough. No fevers. No lower extremity swelling. He does feel slightly short of breath he says Review of Systems 2 Narrative: Constitutional symptoms: Negative except as documented in HPI. Skin symptoms: Negative except as documented in HPI. Eye symptoms: Negative except as documented in HPI. ENMT symptoms: Negative except as documented in HPI. Respiratory symptoms: Negative except as documented in HPI. Cardiovascular symptoms: Negative except as documented in HPI. Gastrointestinal symptoms: Negative except as documented in HPI. Genitourinary symptoms: Negative except as documented in HPI. Musculoskeletal symptoms: Negative except as documented in HPI. Neurologic symptoms: Negative except as documented in HPI. Psychiatric symptoms: Negative except as documented in HPI. Endocrine symptoms: Negative except as documented in HPI. PFSH ED 2 PFSH: Medical History Recurrent major depression 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 Psychiatric care Diabetes mellitus CAD (coronary artery disease) Hyperlipidemia HTN (hypertension) Major depressive disorder with psychotic features Deviated septum Dysphasia Dysphonia Intervertebral cervical disc disorder with myelopathy, cervical region Post-traumatic stress disorder, chronic Major depressive disorder, recurrent severe without psychotic features Surgical History Status post spinal arthrodesis History of fusion of cervical spine C4 corpectomy, revision C3-C4 and C4-C5 plate-screw fixation/interbody fusion[place] [facility] [place] Hx of cardiac catheterization Stented coronary artery H/O carpal tunnel repair (~2018) S/P cervical spinal fusion (~06/15/17) C3-C4 ACDFF, 06/2017, Dr. Brigitte Guy Family History Father Diabetes CAD (coronary artery disease) Hypertension Dementia Brother CAD (coronary artery disease) Grandmother Stroke Maternal x3 Mother Dementia Schizophrenia Grandfather Cancer Both Maternal and Paternal Family/Other Cancer Uncles both maternal and paternal Social History Smoking and tobacco/nicotine status: former use of tobacco/nicotine Quit status (tobacco/nicotine): has quit using Year quit tobacco: 2000 Second hand smoke exposure: No Alcohol intake: never Substance/Drug Use: former Lives independently: Yes Household members: spouse Marital status: Current occupational status: unemployed Current gender identity: Male Physical Exam 2 Narrative: EXAM NARRATIVE: General: Alert, no acute distress. Skin: Warm, dry. Head: Normocephalic, atraumatic. Neck: Supple, trachea midline. Eye: Extraocular movements are intact. Ears, nose, mouth and throat: mucosa moist. Cardiovascular: Regular, Normal peripheral perfusion. Respiratory: Lungs are clear to auscultation, respirations are non-labored, breath sounds are equal, Symmetrical chest wall expansion. Gastrointestinal: Soft, Nontender, Non distended, Normal bowel sounds. Musculoskeletal: Normal ROM, no deformity. Neurological: Alert and oriented, No focal neurological deficit observed. Psychiatric: Cooperative, appropriate mood & affect. Course 2 Vital Signs: Vital signs: Vital Signs Temperature 98.6 F 12/19/23 15:02 Pulse Rate 75 12/19/23 15:44 Respiratory Rate 17 12/19/23 15:02 Blood Pressure 114/65 12/19/23 15:44 Pulse Oximetry 97 12/19/23 15:44 Oxygen Delivery Me thod Room Air 12/19/23 15:44 MDM - Chest Pain Medical Decision Making Differential diagnosis for patient with chest pain includes but is not limited to and based on the above HPI, review of systems and physical exam: Pneumonia. unstable angina. angina. Acute coronary syndrome / MS. Pulmonary embolism. Costochondritis / musculoskeletal. Pleurisy. Pericarditis. Esophageal spasm. Pancreatis. Cholecystitis. Workup: Lab work, chest X-ray and EKG ordered to evaluate, rule in and rule out above pathologies. EKG: Time 1459. Rate 79. Normal sinus rhythm, No ST-T changes, no ectopy, normal SC & QRS intervals, This was reviewed and interpreted by myself the ER physician at 1505 Chest x-ray: No acute process. No infiltrate. No pneumothorax. No cardiomegaly. This was reviewed and interpreted by myself the ER physician. Lab Review: Laboratory results were reviewed and interpreted by myself the emergency room physician. White count is 6. Normal. No anemia. Hemoglobin is 14. Renal function is stable at fourteen 0.8. Sodium is low at 127 but likely just secondary to hyperglycemia with a glucose of 426. Initial cardiac markers negative. Repeat EKG: Time 1718. Rate 77. Normal sinus rhythm, No ST-T changes, no ectopy, normal SC & QRS intervals, This was reviewed and interpreted by myself the ER physician at 1722. No changes from previous EKG. I reviewed the patient's medical record. Emergency Department Assessment of Chest Pain Score (EDACS) from [employer] on 12/19/2023 All calculations should be rechecked by clinician prior to use RESULT SUMMARY: 20 points Not low risk. This patient is not a candidate for early discharge and should receive a standard chest pain evaluation with delayed troponin testing. INPUTS: Age ?> 53 years Sex ?> 6 = Male Diaphoresis ?> 3 = Yes Pain radiates to arm, shoulder, neck, or jaw ?> 5 = Yes Pain occurred or worsened with inspiration ?> 0 = No Pain is reproduced by palpation ?> 0 = No HEART Pathway for Early Discharge in Acute Chest Pain from [employer] on 12/19/2023 All calculations should be rechecked by clinician prior to use RESULT SUMMARY: 5 points HEART Pathway Score High risk 12-65% 30-day MACE Admit to hospital or observation. Further testing indicated. INPUTS: History ?> 2 = Highly suspicious EKG ?> 0 = Normal Age ?> 1 = 45-64 Risk factors ?> 2 = >= risk factors or history of atherosclerotic disease Initial troponin ?> 0 = <=ormal limit Reexamination: Patient remained stable. No increased work of breathing. No oxygen requirement. No altered mental status. He has a very mild nagging chest pain of about 1-2 he says. Assessment and plan: Chest pain Coronary artery disease Hyperglycemia -1 L normal saline bolus and 10 of IV insulin for his hyperglycemia ? Admit for observation and continued trending of troponins. -I discussed the patient with the hospitalist on-call who is admitting the patient. - Discussed findings and plan with patient. Answered any questions. - All laboratory values were reviewed and interpreted personally by myself, the ER physician - All imaging was reviewed and interpreted personally by myself, the ER physician. - Evaluation and treatment of this problem were appropriate in the emergency setting Lab Data 12/19/23 15:45 12/19/23 15:45 Radiology Impressions Chest X-Ray 12/19/23 15:29 IMPRESSION: Clear hypoventilatory chest Laboratory Results WBC 6.34 10^3/uL (3.29-11.43) 12/19/23 15:45 RBC 4.82 10^6/uL (3.85-5.65) 12/19/23 15:45 Hgb 14.10 g/dL (11.27-16.99) 12/19/23 15:45 Hct 39.2 % (37-53) 12/19/23 15:45 MCV 81.3 fl (82-101) L 12/19/23 15:45 MCH 29.3 pg (27-33) 12/19/23 15:45 MCHC 36.0 g/dL (30-55) 12/19/23 15:45 RDW 13.7 % (12.1-15.1) 12/19/23 15:45 Plt Count 257 10^3/cmm (157-399) 12/19/23 15:45 MPV 11.0 fL (7.4-10.4) H 12/19/23 15:45 Neut % (Auto) 59.1 % 12/19/23 15:45 Lymph % (Auto) 29.3 % 12/19/23 15:45 [place] % (Auto) 8.2 % 12/19/23 15:45 Eos % (Auto) 2.2 % 12/19/23 15:45 Baso % (Auto) 0.6 % 12/19/23 15:45 Neut # (Auto) 3.74 10^3/uL (1.8-7.7) 12/19/23 15:45 Lymph # (Auto) 1.9 10^3/uL (0.8-4.8) 12/19/23 15:45 [place] # (Auto) 0.5 10^3/uL (0.2-0.9) 12/19/23 15:45 Eos # (Auto) 0.1 10^3/uL (0.0-0.8) 12/19/23 15:45 Baso # (Auto) 0.0 10^3/uL (0.0-0.1) 12/19/23 15:45 Nucleated RBC % (auto) 0 % 12/19/23 15:45 Nucleated RBCs # 0.0 /100WBC 12/19/23 15:45 Sodium 127 mmol/L (136-145) L 12/19/23 15:45 Potassium 3.8 mmol/L (3.5-5.1) 12/19/23 15:45 Chloride 91 mmol/L (98-107) L 12/19/23 15:45 Carbon Dioxide 22 mmol/L (22-29) 12/19/23 15:45 Anion Gap 17.8 (5-19) 12/19/23 15:45 BUN 14 mg/dL (6-20) 12/19/23 15:45 Creatinine 0.8 mg/dL (0.7-1.2) 12/19/23 15:45 GFR Calculation 101.1 mL/min (90-130) 12/19/23 15:45 Glucose 426 mg/dL (65-115) H 12/19/23 15:45 Calculated Osmolality 283 mOsm/kg (285-295) L 12/19/23 15:45 Calcium 8.9 mg/dL (8.5-10.5) 12/19/23 15:45 Total Bilirubin 0.3 mg/dL (0.15-1.2) 12/19/23 15:45 AST 5 U/L (0-40) 12/19/23 15:45 ALT < 5 U/L (0-41) 12/19/23 15:45 Alkaline Phosphatase 78 U/L (40-130) 12/19/23 15:45 Troponin T Baseline 7 ng/L (0-15) 12/19/23 15:45 Total Protein 7.0 g/dL (6.6-8.7) 12/19/23 15:45 Albumin 3.8 g/dL (3.5-5.2) 12/19/23 15:45 Globulin 3.2 g/dL (1.3-4.6) 12/19/23 15:45 All radiology interpretation(s) finalized by discharge Discharge Plan Discharge Patient Disposition: Placed in Observation Admit Provider: Adrián Rubio Clinical Impression: Hyperglycemia Chest pain Qualifiers: Chest pain type: unspecified Qualified Code(s): R07.9 - Chest pain, unspecified CAD (coronary artery disease) Qualifiers: Coronary Disease-Associated Artery/Lesion type: [place] artery [place] vs. transplanted heart: [place] heart Associated angina: with stable angina Qualified Code(s): I25.118 - Atherosclerotic heart disease of [place] coronary artery with other forms of angina pectoris Coding Level of Care Code ED Photographer Motion Picture for Loretta Pradhan
[2023-12-19 16:02] LABS: Basophils % 0.6 %; Eosinophils # 0.1 10^3/uL (0.0-0.8); Eosinophils % 2.2 %; Hematocrit 39.2 % (37-53); Lymphocytes # 1.9 10^3/uL (0.8-4.8); Lymphocytes % 29.3 %; Mean Corpuscular Hemoglobin 29.3 pg (27-33); Mean Corpuscular Volume 81.3 fl (82-101); Monocytes # 0.5 10^3/uL (0.2-0.9); Monocytes % 8.2 %; Neutrophils # 3.74 10^3/uL (1.8-7.7); Neutrophils % 59.1 %; Nucleated Red Blood Cells % 0 %; Platelet Count 257 10^3/cmm (157-399); Red Blood Count 4.82 10^6/uL (3.85-5.65); Red Cell Distribution Width 13.7 % (12.1-15.1); White Blood Count 6.34 10^3/uL (3.29-11.43)
[2023-12-19 16:35] LABS: Albumin Level 3.8 g/dL (3.5-5.2); Alkaline Phosphatase 78 U/L (40-130); Blood Urea Nitrogen 14 mg/dL (6-20); Calcium 8.9 mg/dL (8.5-10.5); Carbon Dioxide 22 mmol/L (22-29); Chloride 91 mmol/L (98-107); Creatinine Clr Calc Pharmacy 129.1285; Globulin 3.2 g/dL (1.3-4.6); Glomerular Filtration Rate 101.1 mL/min (90-130); Glucose 426 mg/dL (65-115); Osmolality Calculated 283 mOsm/kg (285-295); Sodium 127 mmol/L (136-145); Total Bilirubin 0.3 mg/dL (0.15-1.2)
[2023-12-19 16:36] LABS: Troponin(5th) Baseline 7 ng/L (0-15)
[2023-12-19 16:46] LABS: Alanine Aminotransferase < 5 U/L (0-41); Aspartate Amino Transferase 5 U/L (0-40)
[2023-12-19 16:50] LABS: Anion Gap 17.8 (5-19)
[2023-12-19 16:51] LABS: Potassium 3.8 mmol/L (3.5-5.1)
[2023-12-19] MEDS: sodium chloride 0.9% 1,000 ML 999 ML IV (17:19)
[2023-12-19] MEDS: insulin regular-human 100 units/1 mL 10 UNIT IVP (17:19)
--- NOTE | 2023-12-19 17:29 | ECG_ITS ---
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 Measurements Intervals [place] Rate: 77 P: 3 SC: 129 QRS: -17 QRSD: 96 T: -4 QT: 365 QTc: 414 Interpretive Statements SINUS RHYTHM LOW QRS VOLTAGE IN EXTREMITY LEADS [QRS DEFLECTION < 0.5 mV IN LIMB LEADS] POSSIBLE ANTERIOR MYOCARDIAL INFARCTION , PROBABLY OLD [30 ms Q WAVE IN V3/V4, OR R < 0.2 mV IN V4] Compared to ECG 12/19/2023 14:59:55 No significant changes Electronically Signed On 12-19-2023 21:35:46 CDT by Matthew Pantoja M.D. [id number]
[2023-12-19 18:39] LABS: Troponin 5 2HR 6.09 ng/L (0-15)
[2023-12-19 18:40] LABS: Troponin 5 2HR Delta -0.91 ABS# (0-10)
[2023-12-19 18:57] LABS: Add Urine Microscopic? NO; Charge for UA Resulting for Rev
[2023-12-19 19:06] LABS: Procalcitonin 0.05 ng/mL (0-0.5); Thyroid Stimulating Hormone 1.51 uIU/mL (0.27-4.20); Vitamin B12 859 pg/mL (232-1245)
[2023-12-19 19:14] LABS: Bilirubin Urine Neg (Negative); Blood Urine Neg (Negative); Glucose Urine UA 4+ (Normal); Ketones Urine 1+ (Negative); Leukocyte Esterase Urine Negative (Negative); Nitrate Urine Negative (Negative); Protein Urine Neg (Negative); Urine Appearance Clear (CLEAR); Urine Color Yellow (Yellow); Urobilinogen Urine Neg (Negative); pH Urine 7 (5-7)
[2023-12-19 19:17] LABS: Blood Urea Nitrogen 14 mg/dL (6-20); Calcium 9.5 mg/dL (8.5-10.5); Carbon Dioxide 19 mmol/L (22-29); Chloride 94 mmol/L (98-107); Creatinine Clr Calc Pharmacy 129.1285; Glomerular Filtration Rate 101.1 mL/min (90-130); Glucose 443 mg/dL (65-115); Iron 80 ug/dL (59-158); Osmolality Calculated 290 mOsm/kg (285-295); Percent Saturation 27.4 % (20-50); Sodium 130 mmol/L (136-145); Total Iron Binding Capacity 291 mcg/dl; Unsaturated Iron Binding 211 ug/dL (112-347)
[2023-12-19 19:20] LABS: Anion Gap 20.9 (5-19); Potassium 3.9 mmol/L (3.5-5.1)
[2023-12-19] MEDS: aspirin 325 mg EC Tablet PO (19:52)
[2023-12-19] MEDS: pantoprazole 40 mg SDV IVP (19:53)
[2023-12-19] MEDS: enoxaparin 40 mg/0.4 mL Syringe SUBCUT (19:55)
[2023-12-19 20:39] LABS: Glucose Point of Care 299 mg/dL (70-110)
[2023-12-19] MEDS: insulin lispro 100 unit/1 mL SUBCUT (21:12)
--- NOTE | 2023-12-19 21:12 | ECG_ITS ---
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 Measurements Intervals [place] Rate: 70 P: 31 AK: 147 QRS: -4 QRSD: 96 T: 39 QT: 384 QTc: 415 Interpretive Statements SINUS RHYTHM Compared to ECG 12/19/2023 17:18:06 Myocardial infarct finding no longer present Electronically Signed On 12-19-2023 21:34:38 CDT by Matthew Pantoja M.D. [id number]
[2023-12-19 22:02] LABS: Troponin 5 6HR 7.09 ng/L (0-15); Troponin 5 6HR Delta 0.09 ng/L (0-12)
--- NOTE | 2023-12-19 22:23 | PM.HP ---
Providers/Chief Complaint Admitting Physician: Adrián Rubio MD Primary Care Provider: Devora Rivera MD Chief Complaint: CP History of Present Illness Ronny Benitez is a 53 year old male with past medical history of CAD prior stents and LAD and PDA, diabetes , C6-7 disc hernitaion , ypertension, obesity, type 2 diabetes mellitus, hyperlipidemia presented to the hospital with chest pain. Pain started at around 11:00 this morning. He took nitroglycerin and the pain improved. However he has still continued to have intermittent chest pain located in the middle of the chest. Associated symptoms have included diaphoresis and radiation into the left arm. No nausea or vomiting. Review of Systems General: Reports: 10 or more systems reviewed and unremarkable except in HPI and below Const: Denies: fever(s), chills or body aches Eyes: Denies: change in vision, blurry vision or photophobia ENMT: Reports: hoarseness; Denies: throat pain, enlarged tonsils, odynophagia or nasal congestion Card: Denies: chest pain, palpitations, irregular heart rhythm, edema, swelling of feet/ankles, lightheadedness, pre-syncope, dyspnea on exertion or orthopnea Resp: Denies: dyspnea, productive cough, non-productive cough, wheezing, stridor, pain on inspiration, change in phlegm color, hemoptysis or chest congestion GI: Denies: abdominal pain, nausea, vomiting, hematemesis, coffee ground emesis, dysphagia, heartburn, diarrhea, constipation, GI cramping, change in stool character, hematochezia or melena : Denies: flank pain, dysuria, urinary frequency, urinary urgency, urinary hesitancy or hematuria Musc: Denies: neck pain, back pain, extremity pain, joint swelling, joint warmth or deformity Neuro: Denies: headache(s), numbness in extremities, weakness in extremities, sensory changes, difficulty walking, frequent falls, dizziness, vertigo, behavioral changes, Slurred speech present or seizure-like activity Psych: Denies: anxiety, depression, suicidal ideation or homicidal ideation Endo: Denies: polyuria, polydipsia, tired all the time, cold intolerance or hot flashes Nathan/Lymph: Denies: easy bruising or easy bleeding Medications/Allergies Home Medications Medication Instructions Recorded Confirmed Last Taken Type aspirin 81 mg tablet,delayed 81 mg PO QAM 07/20/19 12/01/23 07/03/23 History release (Adult Aspirin Regimen) metformin 1,000 mg tablet,extended 1,000 mg PO BID 07/20/19 12/01/23 07/03/23 History release 24hr (osmotic) fenofibrate nanocrystallized 145 145 mg PO DAILY 07/30/20 12/01/23 07/03/23 History mg tablet furosemide 20 mg tablet (Lasix) 20 mg PO DAILY PRN edema #30 tabs 01/29/21 12/01/23 03/31/23 Rx Diabetic shoes with 3 inserts #1 ea 11/19/21 12/01/23 Unknown Rx insulin glargine 100 unit/mL 46 unit SUBCUT BID 03/19/23 12/01/23 07/03/23 History subcutaneous solution (Lantus U-100 Insulin) atorvastatin 80 mg tablet 80 mg PO QPM 04/03/23 12/01/23 07/02/23 History clopidogrel 75 mg tablet (Plavix) 75 mg PO DAILY 04/16/23 12/01/23 07/03/23 History isosorbide mononitrate 60 mg 60 mg PO QAM #90 tabs 06/08/23 12/01/23 07/03/23 Rx tablet,extended release 24 hr acetaminophen 500 mg tablet 1,000 mg PO Q6H PRN Pain 07/03/23 12/01/23 Unknown History empagliflozin 10 mg tablet 10 mg PO DAILY 07/03/23 12/01/23 07/03/23 History (Jardiance) insulin lispro 100 unit/mL See Rx Instructions .Route .COMPLEX 07/03/23 12/01/23 07/03/23 History subcutaneous pen (Humalog KwikPen (U-100) Insulin) lisinopril 20 mg tablet 20 mg PO DAILY 07/03/23 12/01/23 07/03/23 History metoprolol tartrate 50 mg tablet 50 mg PO BID #60 tabs 07/10/23 12/01/23 Unknown Rx aripiprazole 20 mg tablet (Abilify) 20 mg PO DAILY #30 tabs 12/04/23 12/04/23 Unknown Rx bupropion HCl 150 mg 24 hr tablet, 150 mg PO QAM #30 tabs 12/04/23 12/04/23 Unknown Rx extended release (Wellbutrin XL) buspirone 30 mg tablet 30 mg PO BID 30 days #60 tabs 12/04/23 12/04/23 Unknown Rx clonazepam 0.5 mg tablet 0.5 mg PO DAILY PRN anxiety #15 12/04/23 12/04/23 Unknown Rx tabs paroxetine HCl 30 mg tablet (Paxil) 60 mg (2 x 30 mg) PO DAILY 30 days 12/04/23 12/04/23 Unknown Rx #60 tabs nitroglycerin 0.4 mg sublingual 0.4 mg sublingual Q5M PRN chest 12/07/23 Unknown Rx tablet pain #25 tabs dextroamphetamine-amphetamine 5 mg 5 mg PO QAM 30 days #30 tabs 12/17/23 Unknown Rx tablet (Adderall) Allergies Allergy/AdvReac Type Severity Reaction Status Date / Time prednisone Allergy Intermediate ADR-Abdominal Verified 12/19/23 15:08 Pain PFSH Acute PFSH: Medical History Recurrent major depression 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 Psychiatric care Diabetes mellitus CAD (coronary artery disease) Hyperlipidemia HTN (hypertension) Major depressive disorder with psychotic features Deviated septum Dysphasia Dysphonia Intervertebral cervical disc disorder with myelopathy, cervical region Post-traumatic stress disorder, chronic Major depressive disorder, recurrent severe without psychotic features Surgical History Status post spinal arthrodesis History of fusion of cervical spine C4 corpectomy, revision C3-C4 and C4-C5 plate[place]screw fixation/interbody fusion[place] [facility] [place] Hx of cardiac catheterization Stented coronary artery H/O carpal tunnel repair (~2018) S/P cervical spinal fusion (~06/15/17) C3-C4 ACDFF, 06/2017, Dr. Brigitte Guy Family History Father Diabetes CAD (coronary artery disease) Hypertension Dementia Brother CAD (coronary artery disease) Grandmother Stroke Maternal x3 Mother Dementia Schizophrenia Grandfather Cancer Both Maternal and Paternal Family/Other Cancer Uncles both maternal and paternal Social History Smoking and tobacco/nicotine status: former use of tobacco/nicotine Quit status (tobacco/nicotine): has quit using Year quit tobacco: 2000 Second hand smoke exposure: No Alcohol intake: never Substance/Drug Use: former Lives independently: Yes Household members: spouse Marital status: Current occupational status: unemployed Current gender identity: Male Vitals/I&O/Wt Last Vital Signs Temp 98.5 F 12/19/23 21:13 Pulse 74 12/19/23 21:13 Resp 16 12/19/23 21:13 BP 93/47 12/19/23 21:13 Pulse Ox 97 12/19/23 21:27 O2 Del Method Room Air 12/19/23 21:27 12/19/23 12/19/23 12/19/23 06:59 14:59 22:59 Intake Total 1000 / 1000 Balance 1000 / 1000 Weight last 48 hrs Weight 111.13 kg Physical Exam Narrative: General: No acute distress, AO x3 HEENT: PERRLA, pupils bilaterally equal and reactive, pallors not present Chest: Normal vesicular breath sounds, no added sounds, equal good air entry bilaterally CVS: S1-S2 regular, no murmurs, no tachycardia, no gallops, no rubs Abdomen: Soft, nontender, no organomegaly, bowel sounds present Neuro: No focal deficits, no facial deformity, AO x3, power 5/5 in all limbs Data 12/20/23 03:24 12/20/23 03:24 Other data: Date of Service: 04/06/23 Procedure(s): CV. echo complete* [id number] CONCLUSIONS 1. Normal left ventricular size, systolic function with no diagnostic regional wall motion abnormalities. Left ventricular ejection fraction is estimated at 55 %. Normal diastolic function. 2. Mildly dilated aortic root measured at 41 mm [place]- posteriorly. However, it was not well visualized. 3. When compared to study dated 03/21/21, there may not have been any significant change. A&P Assessment and plan (1) CAD (coronary artery disease): Qualifiers: Coronary Disease-Associated Artery/Lesion type: [place] artery [place] vs. transplanted heart: [place] heart Associated angina: with stable angina Qualified Code(s): I25.118 - Atherosclerotic heart disease of [place] coronary artery with other forms of angina pectoris (2) Chest pain: Qualifiers: Chest pain type: unspecified Qualified Code(s): R07.9 - Chest pain, unspecified Plan 53-year-old male with significant past medical history of coronary artery disease presenting today with chest pain. EKG showing sinus rhythm without acute ST-T wave changes. Troponin series with baseline troponin at 7, 2-hour troponin at 6, pending 6-hour troponin trend. Given patient's past significant past medical history would observe overnight in the cardiac stepdown unit. Continues to have persistent chest pain may need further cardiac evaluation, possible stress test. Elavated blood sugar, start high dose insulin sliding scale, recheck CMP after insulin administration, check serum ketones, A1c Attestations Medical Necessity Statement*: less than 2 midnight stay is anticipated Coding Level of Care Code Acute Code for Chg Fwd Moderate MDM includes number and complexity of problems actively addressed during encounter, amount and/or complexity of data reviewed/ordered and described risk of complication, morbidity or mortality of management as documented Diagnoses Coronary artery disease of [place] artery of [place] heart with stable angina pectoris I25.118 Coronary Disease-Associated Artery/Lesion type: [place] artery [place] vs. transplanted heart: [place] heart Associated angina: with stable angina Chest pain R07.9 Chest pain type: unspecified
[2023-12-20] VITALS (8 sets, daily range): BP systolic 92–131; BP diastolic 53–70; PULSE 66–81; RESP 12–18; TEMP 36.6–36.9; O2SAT 92–96
[2023-12-20 03:54] LABS: Basophils % 0.3 %; Eosinophils # 0.2 10^3/uL (0.0-0.8); Hematocrit 38.8 % (37-53); Lymphocytes # 2.2 10^3/uL (0.8-4.8); Lymphocytes % 37.2 %; Mean Corpuscular HGB Conc 36.3 g/dL (30-55); Mean Corpuscular Hemoglobin 29.9 pg (27-33); Mean Corpuscular Volume 82.4 fl (82-101); Mean Platelet Volume 11.2 fL (7.4-10.4); Monocytes # 0.5 10^3/uL (0.2-0.9); Neutrophils # 3.05 10^3/uL (1.8-7.7); Neutrophils % 50.8 %; Nucleated Red Blood Cells % 0 %; Platelet Count 240 10^3/cmm (157-399); Red Blood Count 4.71 10^6/uL (3.85-5.65); Red Cell Distribution Width 13.9 % (12.1-15.1)
[2023-12-20 04:18] LABS: Estmated Average Glucose 298
[2023-12-20 04:38] LABS: Albumin Level 3.7 g/dL (3.5-5.2); Alkaline Phosphatase 64 U/L (40-130); Blood Urea Nitrogen 17 mg/dL (6-20); Calcium 9.1 mg/dL (8.5-10.5); Carbon Dioxide 21 mmol/L (22-29); Chloride 101 mmol/L (98-107); Creatinine Clr Calc Pharmacy 129.1285; Globulin 3.1 g/dL (1.3-4.6); Glomerular Filtration Rate 101.1 mL/min (90-130); Glucose 224 mg/dL (65-115); Magnesium 2.1 mg/dL (1.7-2.3); Osmolality Calculated 295 mOsm/kg (285-295); Phosphorus 4.4 mg/dL (2.5-4.5); Sodium 138 mmol/L (136-145); Total Bilirubin 0.2 mg/dL (0.15-1.2); Total Protein 6.8 g/dL (6.6-8.7)
[2023-12-20 04:39] LABS: Chol HDL Ratio 14.64 mg/dL (1.0-5.00); Cholesterol 322 mg/dL (0-200); HDL Cholesterol 22 mg/dL (60-100)
[2023-12-20 04:51] LABS: Alanine Aminotransferase < 5 U/L (0-41); Aspartate Amino Transferase 5 U/L (0-40)
[2023-12-20 04:54] LABS: Anion Gap 19.8 (5-19); Potassium 3.8 mmol/L (3.5-5.1); Triglycerides 2044 mg/dL (0-150)
[2023-12-20] MEDS: aspirin 81 mg EC Tablet PO (05:08)
[2023-12-20] MEDS: isosorbide mononitrate ER 60 mg Tablet PO (05:09)
[2023-12-20] MEDS: buPROPion XL (24 HR) 150 mg Tablet PO (05:09)
[2023-12-20 05:21] LABS: LDL Cholesterol Direct 59 mg/dL (0-100)
[2023-12-20 05:42] LABS: Ketone (Acetest) Serum Negative (Negative)
[2023-12-20 06:17] LABS: Glucose Point of Care 232 mg/dL (70-110)
[2023-12-20 06:34] LABS: Folate Level 16.6 ng/mL (4.5-32.2)
[2023-12-20] MEDS: ARIPiprazole 10 mg Tablet 20 MG PO (08:57)
[2023-12-20] MEDS: metoprolol tartrate 50 mg Tablet PO ×2 (08:57→17:42)
[2023-12-20] MEDS: insulin lispro 100 unit/1 mL SUBCUT ×4 (08:57→21:29)
[2023-12-20] MEDS: fenofibrate 145 mg Tablet PO (08:57)
[2023-12-20] MEDS: clopidogrel 75 mg Tablet PO (08:57)
[2023-12-20] MEDS: lisinopril 20 mg Tablet PO (08:57)
[2023-12-20] MEDS: PARoxetine 20 mg Tablet 60 MG PO (08:57)
[2023-12-20] MEDS: BuSPIRONE 10 mg Tablet 30 MG PO ×2 (08:57→17:42)
[2023-12-20] MEDS: insulin glargine 100 units/1 mL 46 UNIT SUBCUT ×2 (09:22→17:42)
[2023-12-20 10:10] LABS: Lipase 77 U/L (13-60)
--- NOTE | 2023-12-20 11:20 | USCV_ITS ---
Ronny Benitez Age: 53 Gender: M : 1970 Exam Date: 12/20/2023 16:38 Ordering Phys: Kendall Dwyer MD Technologist: Gurvinder Adhikari Exam Location: [facility] [place] Indication: chest pain BP: 108 / 53 HR: 61 Rhythm: Sinus Technical Quality: Adequate MEASUREMENTS (Male / Female) Normal Values 2D ECHO LV Diastolic Diameter PLAX 4.7 cm 4.2 - 5.9 / 3.9 - 5.3 cm IVS Diastolic Thickness 1.3 cm 0.6 - 1.0 / 0.6 - 0.9 cm IVS Systolic Thickness 1.5 cm LVPW Diastolic Thickness 1.6 cm 0.6 - 1.0 / 0.6 - 0.9 cm LVPW Systolic Thickness 1.5 cm LVOT Diameter 2.1 cm LV Ejection Fraction 2D Teich 60.5 % LV Ejection Fraction MOD 2C 70.8 % LV Ejection Fraction 2C AL 70.9 % LA Diameter 3.8 cm RA Systolic Volume 4C AL 28.5 ml RA Systolic Volume 4C MOD 28.8 ml LA Sys Volume AL 32.3 cm cubed LA Sys Volume Index AL 13.7 cm cubed/m squared Aorta at Sinotubular Diameter 2.7 cm IVC Diameter 1.4 cm M-MODE LA Ao Ratio MM 0.8 AV Cusp Separation MM 1.8 cm DOPPLER AV Peak Velocity 96.0 cm/s LVOT Peak Velocity 87.0 cm/s AV Area Cont Eq vti 3.0 cm squared AV Area Cont Eq pk 3.2 cm squared MV Peak Velocity 97.0 cm/s MV Area PHT 5.7 cm squared Mitral E to A Ratio 0.8 TR Peak Velocity 216.0 cm/s TR Peak Gradient 18.7 mmHg TR Mean Velocity 175.0 cm/s TR Mean Gradient 13.6 mmHg TR Velocity Time Integral 55.3 cm PV Peak Velocity 52.0 cm/s RV Ejection Time 0.3 s FINDINGS Left Ventricle Left ventricle is normal size. LV systolic function is normal with EF of 50-55%. No regional wall motion abnormalities. Grade 1 diastolic dysfunction. Right Ventricle Normal in size and function Right Atrium Normal in size Left Atrium Normal in size Mitral Valve Structurally normal mitral valve. Trace mitral regurgitation. Aortic Valve Aortic valve is thickened. No significant stenosis. Mild aortic regurgitation. Tricuspid Valve Insufficient TR jet to calculate RVSP. Pulmonic Valve Not well visualized Pericardium Normal Aorta Normal in size IVC Appears to be normal CONCLUSIONS LV systolic function is normal with EF of 50-55% Grade 1 diastolic dysfunction Trace mitral regurgitation Mild aortic regurgitation Compared to prior echocardiogram from 2022, patient now has grade 1 diastolic dysfunction and mild aortic regurgitation Matthew Pantoja MD (Electronically Signed) Final Date: 20 December 2023 22:09 S
--- NOTE | 2023-12-20 11:21 | ECG_ITS ---
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 The perfusion scan will be documented separately. DATA: Baseline heart rate was 61 beats per minute. Baseline blood pressure was 92/72 millimeters of mercury. Maximum heart rate achieved was 94. which was 56 % of the predicted target heart rate. Maximum blood pressure was 92/72 millimeters of mercury. The reason for ending the test was completion of the protocol. The patient did not experience any symptoms. ELECTROCARDIOGRAM: BASELINE: Sinus rhythm. Left axis., Interventricular conduction delay, otherwise, no ST-T changes suggestive of ischemia noted. No arrhythmia noted. EXERCISE: After Lexiscan injection, no ST-T changes suggestive of ischemic noted. No arrhythmia noted. CONCLUSION: Please note due to baseline abnormality of the EKG specificity and sensitivity of the EKG portion of LexiScan MIBI stress test will be low 1. EKG not suggestive of ischemia 2. Lexiscan injection unremarkable. 3. Perfusion scan will be documented separately. Electronically Signed On 12-22-2023 21:45:35 CDT by DYLON LILLY [email or web address]
[2023-12-20 11:53] LABS: Glucose Point of Care 234 mg/dL (70-110)
[2023-12-20] MEDS: sodium chloride 0.9% 1,000 ML 75 ML IV (12:28)
--- NOTE | 2023-12-20 13:07 | PM.PN ---
Vitals/I&O/Wt Last Vital Signs Temp 97.8 F 12/20/23 12:00 Pulse 81 12/20/23 12:00 Resp 12 12/20/23 07:58 BP 92/58 12/20/23 12:00 Pulse Ox 95 12/20/23 07:58 O2 Del Method Room Air 12/20/23 07:58 12/19/23 12/20/23 12/20/23 22:59 06:59 14:59 Intake Total 1000 / 1000 480 / 1480 120 / 120 Output Total 600 / 600 Balance 1000 / 1000 480 / 1480 -480 / -480 Weight last 48 hrs Weight 111.312 kg Weight 111.13 kg Physical Exam Const: COMMON NORMALS: no acute distress and patient oriented x3 Resp: COMMON NORMALS: normal respiratory effort, No retractions, No use of accessory muscles and clear to auscultation bilaterally AUSCULTATION: clear to auscultation bilaterally Cardio: COMMON NORMALS: regular rate, regular rhythm, S1 normal heart sound present and S2 normal heart sound present RATE: regular rate RHYTHM: regular rhythm HEART SOUNDS: S1 normal heart sound present and S2 normal heart sound present GI: COMMON NORMALS: Normal to inspection, nondistended, normoactive bowel sounds present and non-tender Extremity: COMMON NORMALS: no pedal edema Neuro: COMMON NORMALS: patient oriented x3 Psych: COMMON NORMALS: mental status grossly normal Data 12/20/23 03:24 12/20/23 03:24 A&P Assessment and plan (1) CAD (coronary artery disease): Qualifiers: Coronary Disease-Associated Artery/Lesion type: [place] artery [place] vs. transplanted heart: [place] heart Associated angina: with stable angina Qualified Code(s): I25.118 - Atherosclerotic heart disease of [place] coronary artery with other forms of angina pectoris (2) Chest pain: Qualifiers: Chest pain type: unspecified Qualified Code(s): R07.9 - Chest pain, unspecified (3) Hyperglycemia: (4) Diabetes mellitus: Qualifiers: Diabetes mellitus type: type 2 Diabetes mellitus snf insulin use: with snf use Diabetes mellitus complication status: with neurologic complications (5) Hypertriglyceridemia: Plan 53-year-old male with significant past medical history of coronary artery disease presenting today with chest pain. EKG showing sinus rhythm without acute ST-T wave changes. Troponin series with baseline troponin at 7, 2-hour troponin at 6, pending 6-hour troponin 7.09 Given patient's past significant past medical history would observe overnight in the cardiac stepdown unit. cath 2023 * Left Anterior Descending has mid vessel stent with 20 to 30% in-stent restenosis. Step down seen post stent. * Posterior Descending Right has prior stent. It has a severe in-stent restenosis with 90% hazy stenosis. The stenosis is extending out of stent at proximal edge.. * Left Main has no disease. * Circumflex has no disease. * Coronary angiography shows right dominance. plan: -N.p.o. midnight, cardiac echo, cardiac stress test, monitor for chest pain, continue aspirin, statin, Plavix Hypertriglyceridemia, triglycerides over 1999 ? Does not complain of abdominal pain, although triglycerides minimally elevated, no nausea, no vomiting ? IV fluids ? Continue statin, fenofibrate ? Will check triglycerides tomorrow ? Tightly controlled blood sugars Ultrasound abdomen Elavated blood sugar, start high dose insulin sliding scale, recheck CMP after insulin administration, check serum ketones, A1c Attestations Medical Necessity Statement*: Patient requires hospitalization, inpatient, greater than 2 minutes, for chest pain, hypertriglyceridemia Diagnoses Coronary artery disease of [place] artery of [place] heart with stable angina pectoris I25.118 Coronary Disease-Associated Artery/Lesion type: [place] artery [place] vs. 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
--- NOTE | 2023-12-20 13:13 | USR_ITS ---
PROCEDURE INFORMATION: Exam: US Abdomen Complete Exam date and time: 12/20/2023 6:19 PM Age: 53 years old Clinical indication: Abnormal findings; Abnormal lab test; Elevated lipase; Additional info: Elevated lipase TECHNIQUE: Imaging protocol: Real-time ultrasound of the abdomen with image documentation. Complete exam. COMPARISON: ES surgery / GI images 04/29/2019 7:45 AM FINDINGS: Liver: Diffuse increase in hepatic parenchymal echogenicity, consistent with fatty infiltration. Liver is enlarged measuring 17 cm. Gallbladder: Normal. No gallstones. There is no gallbladder wall thickening. Biliary ducts: Normal. No stones. No dilation. CBD measures 0.5 cm. Pancreas: Pancreas is obscured by bowel gas. Right kidney: Normal. No mass. No hydronephrosis. Right kidney measures 12.8 cm. Left kidney: Normal. No mass. No hydronephrosis. Left kidney measures 12.5 cm. Spleen: Normal. No splenomegaly. Spleen measures 10.5 cm. Aorta: Normal. No aneurysm. Inferior vena cava: Normal. Portal venous: Portal vein is patent with adequate hepatopedal flow. US/US abdomen complete* [id number] IMPRESSION: 1. Hepatic steatosis. 2. Hepatomegaly.
[2023-12-20 16:45] LABS: Glucose Point of Care 279 mg/dL (70-110)
[2023-12-20] MEDS: atorvastatin 40 mg Tablet 80 MG PO (17:42)
[2023-12-20] MEDS: pantoprazole 40 mg SDV IVP (17:42)
[2023-12-20] MEDS: enoxaparin 40 mg/0.4 mL Syringe SUBCUT (20:40)
[2023-12-20 20:59] LABS: Glucose Point of Care 249 mg/dL (70-110)
[2023-12-21] VITALS (8 sets, daily range): BP systolic 86–132; BP diastolic 59–65; PULSE 62–82; RESP 14–19; TEMP 36.7–36.8; O2SAT 94–97
[2023-12-21] MEDS: sodium chloride 0.9% 1,000 ML 75 ML IV (00:40)
[2023-12-21] MEDS: isosorbide mononitrate ER 60 mg Tablet PO (05:28)
[2023-12-21] MEDS: aspirin 81 mg EC Tablet PO (05:28)
[2023-12-21] MEDS: buPROPion XL (24 HR) 150 mg Tablet PO (05:28)
[2023-12-21 06:34] LABS: Glucose Point of Care 172 mg/dL (70-110)
[2023-12-21 06:41] LABS: Chol HDL Ratio 14.67 mg/dL (1.0-5.00); Cholesterol 352 mg/dL (0-200); HDL Cholesterol 24 mg/dL (60-100)
[2023-12-21 06:53] LABS: Triglycerides 2072 mg/dL (0-150)
--- NOTE | 2023-12-21 06:58 | PC.NURSE ---
Patient off the floor for stress test.
[2023-12-21] MEDS: regadenoson 0.4 Mg/5 ml Syringe 0.400000000000000022 MG IVP (07:12)
[2023-12-21 07:13] LABS: LDL Cholesterol Direct 60 mg/dL (0-100)
--- NOTE | 2023-12-21 08:27 | PC.NURSE ---
Patient returned to CSU from stress test at 0825.
[2023-12-21] MEDS: insulin glargine 100 units/1 mL 46 UNIT SUBCUT (08:46)
[2023-12-21] MEDS: insulin lispro 100 unit/1 mL SUBCUT ×2 (08:46→12:06)
[2023-12-21] MEDS: fenofibrate 145 mg Tablet PO (08:47)
[2023-12-21] MEDS: PARoxetine 20 mg Tablet 60 MG PO (08:47)
[2023-12-21] MEDS: clopidogrel 75 mg Tablet PO (08:47)
[2023-12-21] MEDS: BuSPIRONE 10 mg Tablet 30 MG PO (08:47)
[2023-12-21] MEDS: ARIPiprazole 10 mg Tablet 20 MG PO (08:48)
--- NOTE | 2023-12-21 09:08 | PC.CHAP ---
Pastoral Care Encounter/Spiritual Assessment Type of Contact [] Declined canal boat captain visit [] Patient/Family/Request visit [] Outpatient visit [] Follow-up visit [] Physician referral [] Code/Alert [x] Routine visit [] Staff referral [] Actively dying [] Patient sleeping [] Family support [] [x] Out of room [] Palliative care [] [] Receiving care in room [] Pre-surgical visit [] Trauma [] Long length of stay [] ICU visit [] Other: Relational/Emotional Strength [] Patient feels connected with others/family/visitors/staff [] Distress [] Loneliness/isolation [] Abandonment Spirituality of Patient [] Person of Bettie [] Attends Judaism of their Bettie [] Believes in Prayer [] Reads Bible or Rastafari materials [] There are Spiritual issues to be addressed Local Delivery Driver Interventions [] Prayer [] Active listening [] Non-anxious presence [] Spiritual/emotional support [] Crisis/trauma care [] Spiritual counseling [] Bereavement support [] Provided bereavement packet [] Provided Bible/devotional materials [] Provided toy/stuffed animal, coloring book to patient or family member [] Provided Communion [] Anointing/[place] [] Salvation [] Completed spiritual assessment [] Other: Impact on Illness or Injury [] Angry [] Fearful [] Anxious [] Often cries [] Exhaustion [] Unable to work [] Unable to attend cheondoism [] Unable to walk/stand [] Unable to read [] Unable to drive [] Unable to eat/drink [] Unable to sleep [] Unable to be with family [] Patient intubated [] Other: Summary Time spent with patient
--- NOTE | 2023-12-21 09:17 | PC.NURSE ---
Provider is notified about patient last several blood pressures being soft, approved holding lisinopril and metoprolol.
--- NOTE | 2023-12-21 09:19 | PC.NURSE ---
Provider ordered to resume NS at 50ml/hr.
--- NOTE | 2023-12-21 11:21 | NMCV_ITS ---
NM carmen perf SPECT r/s* [id number] Ronny Benitez Age: 53 Gender: M : 1970 Exam Date: 12/21/2023 11:21 Ordering Phys: Kendall Dwyer MD Technologist: JIMENA Santana Exam Location: [facility] Indications: CP STRESS TEST [facility] IMAGE PROTOCOL Rest/Stress 1 Lexiscan Day Radiopharmaceutical Dose (mCi) Administration Site Administered by Rest: Tc-99m 11.0 IV JIMENA Santana Sestamibi Stress:Tc-99m 33.0 IV JIMENA Santana Sestamibi Rest: 21-Dec-2023 60 Discovery 630 Stress: 21-Dec-2023 30 Discovery 630 0.4mg Lexiscan. Images obtained in supine and prone position. SPECT RESULTS Technical Quality: Good Raw Data Analysis: Normal Image Corrections: Patient motion artifact - motion correction applied Summed Stress Score: 0 Summed Rest Score: 2 Summed Difference Score: 0 PERFUSION FINDINGS There is a small sized, fixed perfusion defect noted in the inferior wall. 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 No evidence of ischemia. FUNCTIONAL RESULTS (calculated via Gated SPECT) Stress Image LV EF (%): 66 Stress EDV (mL):80 TID: 0.86 Stress ESV (mL):27 FUNCTIONAL FINDINGS: There is normal left ventricular systolic function. IMPRESSIONS 1. 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 No evidence of ischemia. 2. LV systolic function is normal. Matthew Pantoja MD (Electronically Signed) Final Date: 21 December 2023 08:55 S
[2023-12-21 11:37] LABS: Glucose Point of Care 188 mg/dL (70-110)
[2023-12-21] MEDS: omega-3 fatty acids 1,000 mg Capsule 1000 MG PO (12:26)
--- NOTE | 2023-12-21 12:50 | PM.DCS ---
Discharge Providers Date of Admission: 12/20/23 13:35 Date of Discharge: December 21, 2023 Attending Provider at Admission: Adrián Rubio MD Attending Provider at Discharge: Kendall Dwyer MD Primary Care Provider: Devora Rivera MD Diagnoses at Discharge Discharge Diagnosis (1) CAD (coronary artery disease): Status: Acute Qualifiers: Coronary Disease-Associated Artery/Lesion type: circle artery [place] vs. transplanted heart: circle heart Associated angina: with stable angina Qualified Code(s): I25.118 - Atherosclerotic heart disease of circle coronary artery with other forms of angina pectoris (2) Chest pain: Status: Acute Qualifiers: Chest pain type: unspecified Qualified Code(s): R07.9 - Chest pain, unspecified (3) Hyperglycemia: Status: Acute (4) Diabetes mellitus: Status: Acute Qualifiers: Diabetes mellitus type: type 2 Diabetes mellitus correction insulin use: with correction use Diabetes mellitus complication status: with neurologic complications (5) Hypertriglyceridemia: Status: Acute Reason for Visit Reason for Visit: CP Hospital Course Hospital Course Ronny Benitez is a 53 year old male with past medical history of CAD prior stents and LAD and PDA, diabetes , C6-7 disc hernitaion , ypertension, obesity, type 2 diabetes mellitus, hyperlipidemia presented to the hospital with chest pain. Pain started at around 11:00 this morning. He took nitroglycerin and the pain improved. However he has still continued to have intermittent chest pain located in the middle of the chest. Associated symptoms have included diaphoresis and radiation into the left arm. No nausea or vomiting Patient was admitted to [facility] for chest pain, monitored as inpatient, no significant delta troponin, no acute ST-T wave changes, echocardiogram no acute findings, stress test low probability CAD, remained chest pain-free, follow-up with cardiology as outpatient, if any recurrent chest pain go to emergency room. Discharged on his home aspirin, statin, Plavix with a close follow-up with cardiology as outpatient, hold Adderall for now For patient's hypertriglyceridemia, no complaints of abdominal pain, does report a family history of hypertriglyceridemia, possible familial hypertriglyceridemia, no recurrent chest pain, will be discharged on atorvastatin 80 mg daily, maximum dose of fenofibrate, discharged on omega-3, with optimized type 2 diabetes mellitus, on metformin, Jardiance, insulin. Follow-up with primary care provider for recheck triglyceride levels, had a extensive discussion with him about diet control measures to lower triglyceride levels, tight control of blood sugars. Follow-up with Dr. Barros. Patient was advised if he were to have any recurrent chest pain or shortness of breath or abdominal pain these are life-threatening complications of hypertriglyceridemia please go to emergency room Physical Exam Const: COMMON NORMALS: no acute distress and patient oriented x3 Resp: COMMON NORMALS: normal respiratory effort, No retractions, No use of accessory muscles and clear to auscultation bilaterally AUSCULTATION: clear to auscultation bilaterally Cardio: COMMON NORMALS: regular rate, regular rhythm, S1 normal heart sound present and S2 normal heart sound present RATE: regular rate RHYTHM: regular rhythm HEART SOUNDS: S1 normal heart sound present and S2 normal heart sound present GI: COMMON NORMALS: Normal to inspection, nondistended, normoactive bowel sounds present and non-tender Extremity: COMMON NORMALS: no pedal edema Neuro: COMMON NORMALS: patient oriented x3 Psych: COMMON NORMALS: mental status grossly normal Discharge Data Studies Completed and Pending Completed Studies During Hospitalization Category Date Time Status Sestamibi Stress Test Request Routine Exams 12/20/23 11:21 Draft XR chest 1V portable [id number] Stat Exams 12/19/23 15:29 Completed NM carmen perf SPECT r/s* [id number] Routine Nuc Med 12/21/23 11:21 Completed CV. echo complete* [id number] Routine Ultrasound 12/20/23 11:20 Completed US abdomen complete* [id number] Routine Ultrasound 12/20/23 13:13 Completed Radiology Impressions Chest X-Ray 12/19/23 15:29 IMPRESSION: Clear hypoventilatory chest Abdomen Ultrasound 12/20/23 13:13 IMPRESSION: 1. Hepatic steatosis. 2. Hepatomegaly. Laboratory Results WBC 6.00 10^3/uL (3.29-11.43) 12/20/23 03:24 RBC 4.71 10^6/uL (3.85-5.65) 12/20/23 03:24 Hgb 14.10 g/dL (11.27-16.99) 12/20/23 03:24 Hct 38.8 % (37-53) 12/20/23 03:24 MCV 82.4 fl (82-101) 12/20/23 03:24 MCH 29.9 pg (27-33) 12/20/23 03:24 MCHC 36.3 g/dL (30-55) 12/20/23 03:24 RDW 13.9 % (12.1-15.1) 12/20/23 03:24 Plt Count 240 10^3/cmm (157-399) 12/20/23 03:24 MPV 11.2 fL (7.4-10.4) H 12/20/23 03:24 Neut % (Auto) 50.8 % 12/20/23 03:24 Lymph % (Auto) 37.2 % 12/20/23 03:24 [place] % (Auto) 8.0 % 12/20/23 03:24 Eos % (Auto) 3.0 % 12/20/23 03:24 Baso % (Auto) 0.3 % 12/20/23 03:24 Neut # (Auto) 3.05 10^3/uL (1.8-7.7) 12/20/23 03:24 Lymph # (Auto) 2.2 10^3/uL (0.8-4.8) 12/20/23 03:24 [place] # (Auto) 0.5 10^3/uL (0.2-0.9) 12/20/23 03:24 Eos # (Auto) 0.2 10^3/uL (0.0-0.8) 12/20/23 03:24 Baso # (Auto) 0.0 10^3/uL (0.0-0.1) 12/20/23 03:24 Nucleated RBC % (auto) 0 % 12/20/23 03:24 Nucleated RBCs # 0.0 /100WBC 12/20/23 03:24 Sodium 138 mmol/L (136-145) 12/20/23 03:24 Potassium 3.8 mmol/L (3.5-5.1) 12/20/23 03:24 Chloride 101 mmol/L (98-107) 12/20/23 03:24 Carbon Dioxide 21 mmol/L (22-29) L 12/20/23 03:24 Anion Gap 19.8 (5-19) H 12/20/23 03:24 BUN 17 mg/dL (6-20) 12/20/23 03:24 Creatinine 0.8 mg/dL (0.7-1.2) 12/20/23 03:24 GFR Calculation 101.1 mL/min (90-130) 12/20/23 03:24 Glucose 224 mg/dL (65-115) H 12/20/23 03:24 POC Glucose 188 mg/dL (70-110) H 12/21/23 11:33 Estimat Average Glucose 298 12/20/23 03:24 Hemoglobin A1c 12.0 % (4.0-6.0) H 12/20/23 03:24 Calculated Osmolality 295 mOsm/kg (285-295) 12/20/23 03:24 Calcium 9.1 mg/dL (8.5-10.5) 12/20/23 03:24 Phosphorus 4.4 mg/dL (2.5-4.5) 12/20/23 03:24 Magnesium 2.1 mg/dL (1.7-2.3) 12/20/23 03:24 Iron 80 ug/dL (59-158) 12/19/23 15:45 TIBC 291 mcg/dl 12/19/23 15:45 % Saturation 27.4 % (20-50) 12/19/23 15:45 Unsat Iron Binding 211 ug/dL (112-347) 12/19/23 15:45 Total Bilirubin 0.2 mg/dL (0.15-1.2) 12/20/23 03:24 AST 5 U/L (0-40) 12/20/23 03:24 ALT < 5 U/L (0-41) 12/20/23 03:24 Alkaline Phosphatase 64 U/L (40-130) 12/20/23 03:24 Troponin T Baseline 7 ng/L (0-15) 12/19/23 15:45 Troponin T 120 Minute 6.09 ng/L (0-15) 12/19/23 17:45 Delta Troponin T -0.91 ABS# (0-10) L 12/19/23 17:45 Troponin T Hi Sens 6Hr 7.09 ng/L (0-15) 12/19/23 21:32 Troponin T Hi Sens 6Hr Delta 0.09 ng/L (0-12) 12/19/23 21:32 Total Protein 6.8 g/dL (6.6-8.7) 12/20/23 03:24 Albumin 3.7 g/dL (3.5-5.2) 12/20/23 03:24 Globulin 3.1 g/dL (1.3-4.6) 12/20/23 03:24 Triglycerides 2072 mg/dL (0-150) H 12/21/23 06:13 Cholesterol 352 mg/dL (0-200) H 12/21/23 06:13 LDL Cholesterol Direct 60 mg/dL (0-100) 12/21/23 06:13 LDL Cholesterol, Calc Not Reportable 12/21/23 06:13 HDL Cholesterol 24 mg/dL (60-100) L 12/21/23 06:13 LDL/HDL Ratio Not Reportable 12/21/23 06:13 Cholesterol/HDL Ratio 14.67 mg/dL (1.0-5.00) H 12/21/23 06:13 Lipase 77 U/L (13-60) H 12/20/23 03:24 Vitamin B12 859 pg/mL (232-1245) 12/19/23 15:45 Folate 16.6 ng/mL (4.5-32.2) 12/20/23 03:24 Procalcitonin 0.05 ng/mL (0-0.5) 12/19/23 15:45 TSH 1.51 uIU/mL (0.27-4.20) 12/19/23 15:45 Urine Color Yellow (Yellow) 12/19/23 18:40 Urine Appearance Clear (CLEAR) 12/19/23 18:40 Urine pH 7 (5-7) 12/19/23 18:40 Ur Specific [place] 1.010 (1.005-1.030) 12/19/23 18:40 Urine Protein Neg (Negative) 12/19/23 18:40 Urine Glucose (UA) 4+ (Normal) H 12/19/23 18:40 Urine Ketones 1+ (Negative) H 12/19/23 18:40 Urine Blood Neg (Negative) 12/19/23 18:40 Urine Nitrate Negative (Negative) 12/19/23 18:40 Urine Bilirubin Neg (Negative) 12/19/23 18:40 Urine Urobilinogen Neg mg/dL (Negative) 12/19/23 18:40 Ur Leukocyte Esterase Negative (Negative) 12/19/23 18:40 Serum Ketones Negative (Negative) 12/20/23 03:24 Vitals Last Vital Signs Temp 98.0 F 12/21/23 11:32 Pulse 76 12/21/23 11:32 Resp 19 H 12/21/23 11:32 BP 100/59 12/21/23 11:32 Pulse Ox 94 12/21/23 11:32 O2 Del Method Room Air 12/21/23 11:32 Discharge Plan Discharge Patient Disposition: Home Condition: Stable Prescriptions: New nitroglycerin 0.4 mg Tablet, Sublingual 0.4 mg sublingual Q5M PRN (Reason: Chest Pain) 30 Days Qty: 30 0RF omega-3 fatty acids 1,000 mg Capsule 1,000 mg PO BID 30 Days Qty: 60 0RF Continued Lantus U-100 Insulin 100 unit/mL solution 50 unit SUBCUT BID aspirin [Adult Aspirin Regimen] 81 mg tablet,delayed release (DR/EC) 81 mg PO QAM Hold Instructions: Resume on 08/25/19. metformin 1,000 mg tablet extended release 24hr 1,000 mg PO BID Hold Instructions: Resume on 04/05/23. (DME) Diabetic shoes with 3 inserts See Rx Instructions .Route .MEDSUPPLY Qty: 1 0RF Rx Instructions: As directed by [facility] [employer] [facility] fenofibrate nanocrystallized 145 mg tablet 145 mg PO DAILY isosorbide mononitrate 60 mg tablet extended release 24 hr 60 mg PO QAM Qty: 90 3RF Abilify 20 mg tablet 20 mg PO DAILY Qty: 30 5RF bupropion HCl [Wellbutrin XL] 150 mg tablet extended release 24 hr 150 mg PO QAM Qty: 30 5RF buspirone 30 mg tablet 30 mg PO BID 30 Days Qty: 60 5RF clonazepam 0.5 mg tablet 0.5 mg PO DAILY PRN (Reason: anxiety) Qty: 15 5RF paroxetine HCl [Paxil] 30 mg tablet 60 mg PO DAILY 30 Days Qty: 60 5RF clopidogrel [Plavix] 75 mg tablet 75 mg PO DAILY metoprolol tartrate 50 mg tablet 50 mg PO BID Qty: 60 3RF nitroglycerin 0.4 mg tablet, sublingual 0.4 mg SUBLINGUAL Q5M PRN (Reason: chest pain) Qty: 25 3RF Rx Instructions: do not exceed 3 doses per episode dextroamphetamine-amphetamine [Adderall] 5 mg tablet 5 mg PO QAM 30 Days Qty: 30 0RF atorvastatin 80 mg tablet 80 mg PO QPM lisinopril 20 mg tablet 20 mg PO DAILY acetaminophen 500 mg Tablet 1,000 mg PO Q6H PRN (Reason: Pain) insulin lispro [Humalog KwikPen Insulin] 100 unit/mL insulin pen See Rx Instructions .ROUTE .COMPLEX Rx Instructions: base of 12 units plus 2 on a sliding scale, max dose of 28 per dose Jardiance 10 mg tablet 10 mg PO DAILY Discharge Orders: Discharge Order (Routine); Ordered 12/21/23 Ordered By: Kendall Dwyer Referrals: Devora Rivera MD [Primary Care Provider] - 12/25/23 10:30 am Matthew Pantoja M.D [Physician] - 1 week Norberto Barros MD [Physician] - 1-3 days (hypertriglycedemia) Discharge Diet: Cardiac Discharge Activity: Resume usual activity Patient Instructions: Low Fat Diet (DC), Hyperlipidemia (DC), Opioid Safety Activity Restrictions/Additional Instructions: - If you have any recurrent chest pain go to emergency room -for hypertriglyceridemia, please adhere to low-fat and low-carb diet -Please take atorvastatin, fenofibrate, omega-3's as prescribed -If you develop chest pain, or shortness of breath, or abdominal pain, these could be life-threatening complications for hypertriglyceridemia, please go emergently to the emergency room -Please follow-up with your primary care provider so they can monitor your triglyceride levels, triglycerides on discharge was 2071 Please follow-up with Dr. Barros Please follow-up with cardiology -If you develop chest pain -Please monitor blood sugars closely Discharge Attestations Time Spent in Discharge Care*: greater than 30 min Quality Metrics Clinical Quality Measures [ No reported AMI, CVA or VTE this stay] Coding Level of Care Code 85630 Total time (in minutes) for Discharge: 45 Diagnoses Coronary artery disease of circle artery of circle heart with stable angina pectoris I25.118 Coronary Disease-Associated Artery/Lesion type: circle artery [place] vs. 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
--- NOTE | 2023-12-21 14:56 | PC.NURSE ---
Patient is discharged by himself. He drove himself to the ED and his car is still here. He is driving himself home.
== END 2023-12-21 14:54 | disposition home or self-care (01) | DRG 638 ==
LOC: ER 15:52 → CSU 17:35
PROVIDERS: Student in an Organized Health Care Education/Training Program; Admitting Provider Student in an Organized Health Care Education/Training Program; Emergency Provider Emergency Medicine; PCP Internal Medicine; Visit Provider Family Medicine
DX: E11.65 Type 2 diabetes mellitus with hyperglycemia (principal); F33.9 Major depressive disorder, recurrent, unspecified; I25.119 Atherosclerotic heart disease of native coronary artery with unspecified angina pectoris; I10 Essential (primary) hypertension; E66.9 Obesity, unspecified; E78.5 Hyperlipidemia, unspecified; F43.12 Post-traumatic stress disorder, chronic; E78.1 Pure hyperglyceridemia; Z95.5 Presence of coronary angioplasty implant and graft; Z68.38 Body mass index [BMI] 38.0-38.9, adult; Z79.82 Long term (current) use of aspirin; Z79.84 Long term (current) use of oral hypoglycemic drugs; Z79.4 Long term (current) use of insulin; Z79.02 Long term (current) use of antithrombotics/antiplatelets; Z98.1 Arthrodesis status; Z87.891 Personal history of nicotine dependence
CPT/HCPCS: 36415; 36416; 71045; 76700; 78452; 80048; 80053; 80061; 81003; 82009; 82607; 82746; 82962; 83036; 83540; 83550; 83690; 83721; 83735; 84100; 84145; 84443; 84484; 85025; 93005; 93017; 93306; 94664; 96372; 96374; 96375; 96376; 99285; A9500; C9113; G0378; J1650; J1815; J2785; J7030

== ENCOUNTER 2024-03-02 09:52 | Outpatient (CLI) | payer MEDICARE, OTHER, SELFPAY ==
[2023-12-21 10:05] VITALS: BP 104/59; BMI 37.2
[2024-03-02 10:45] LABS: Chol HDL Ratio 8.39 mg/dL (1.0-5.00); Cholesterol 260 mg/dL (0-200); HDL Cholesterol 31 mg/dL (60-100)
[2024-03-02 10:52] LABS: Triglycerides > 1157 mg/dL (0-150); VLDL Cholestrol Calculation 231 mg/dL (0-30)
[2024-03-02 11:25] LABS: LDL Cholesterol Direct 93 mg/dL (0-100)
== END 2024-03-02 09:53 | disposition home or self-care (01) ==
LOC: LAB 09:55
PROVIDERS: PCP Internal Medicine; Visit Provider Nurse Practitioner Family
DX: E78.1 Pure hyperglyceridemia (principal); E78.2 Mixed hyperlipidemia
CPT/HCPCS: 36415; 80061; 82172; 83721

== ENCOUNTER 2024-05-27 07:32 | Outpatient (CLI) | payer OTHER, MEDICAID, SELFPAY ==
[2023-12-21 10:05] VITALS: BP 104/59; BMI 37.2
--- NOTE | 2024-05-27 07:45 | USCV_ITS ---
GalileoRonny quesada Age: 54 Gender: M : 1970 Exam Date: 05/27/2024 08:10 Ordering Phys: Matthew Pantoja M.D ([email or web address]) Technologist: Gurvinder Adhikari Exam Location: [facility] [place] Indication: shortness of breath BP: 106 / 70 HR: 68 Rhythm: Sinus Technical Quality: Adequate MEASUREMENTS (Male / Female) Normal Values 2D ECHO LV Diastolic Diameter PLAX 3.9 cm 4.2 - 5.9 / 3.9 - 5.3 cm IVS Diastolic Thickness 1.5 cm 0.6 - 1.0 / 0.6 - 0.9 cm IVS Systolic Thickness 1.9 cm LVPW Diastolic Thickness 1.8 cm 0.6 - 1.0 / 0.6 - 0.9 cm LVPW Systolic Thickness 1.9 cm LVOT Diameter 2.0 cm LV Ejection Fraction 2D Teich 50.1 % LV Ejection Fraction MOD 4C 65.5 % LV Ejection Fraction MOD 2C 57.0 % LV Ejection Fraction 2C AL 57.1 % LA Diameter 3.8 cm RA Systolic Volume 4C AL 59.9 ml RA Systolic Volume 4C MOD 60.3 ml LA Sys Volume AL 55.0 cm cubed LA Sys Volume Index AL 22.2 cm cubed/m squared Aorta at Sinotubular Diameter 2.8 cm IVC Diameter 2.2 cm M-MODE LA Ao Ratio MM 1.0 AV Cusp Separation MM 1.9 cm DOPPLER AV Peak Velocity 101.0 cm/s LVOT Peak Velocity 99.0 cm/s AV Area Cont Eq vti 3.0 cm squared AV Area Cont Eq pk 3.2 cm squared MV Peak Velocity 103.0 cm/s MV Area PHT 4.8 cm squared Mitral E to A Ratio 0.9 TV Peak Velocity 170.5 cm/s TR Peak Velocity 207.0 cm/s TR Peak Gradient 17.1 mmHg TR Mean Velocity 187.0 cm/s TR Mean Gradient 14.3 mmHg TR Velocity Time Integral 71.4 cm PV Peak Velocity 60.3 cm/s RV Ejection Time 0.2 s FINDINGS Left Ventricle Left ventricular is normal in size. LV systolic function is normal with EF of 55 to 60%. No regional wall motion abnormalities are seen. Grade 1 diastolic dysfunction. Right Ventricle Normal in size and function Right Atrium Normal in size Left Atrium Normal in size Mitral Valve Structurally normal mitral valve. Trace mitral regurgitation. Aortic Valve Structurally normal aortic valve. No significant stenosis or regurgitation. Tricuspid Valve Mild tricuspid regurgitation. Pulmonary artery systolic pressure is normal. Pulmonic Valve Not well visualized Pericardium Normal Aorta Normal in size IVC Apperas to be dilated CONCLUSIONS LV systolic function is normal with EF of 55 to 60%. Grade 1 diastolic dysfunction. Trace mitral regurgitation Mild tricuspid regurgitation IVC appears to be dilated Compared to prior echocardiogram from 12/2023, no significant changes are seen. Matthew Pantoja MD (Electronically Signed) Final Date: 29 May 2024 13:53 S
== END 2024-05-27 07:33 | disposition home or self-care (01) ==
PROVIDERS: PCP Internal Medicine; Visit Provider Internal Medicine
DX: I50.30 Unspecified diastolic (congestive) heart failure (principal); I87.8 Other specified disorders of veins; R06.02 Shortness of breath
CPT/HCPCS: 93306

== ENCOUNTER 2024-05-31 14:06 | Outpatient (CLI) | payer OTHER, MEDICAID, SELFPAY ==
[2023-12-21 10:05] VITALS: BP 104/59; BMI 37.2
--- NOTE | 2024-05-31 14:12 | XRR_ITS ---
PROCEDURE INFORMATION: Exam: XR Chest Exam date and time: 05/31/2024 2:18 PM Age: 54 years old Clinical indication: Dyspnea; Prior surgery; Surgery date: 6+ months; Surgery type: Stent; Patient HX: Difficulty breathing and SOB x 4 wks, bilateral ankle welling and fatigue since TECHNIQUE: Imaging protocol: Radiologic exam of the chest. Views: 2 views. PA and Lateral COMPARISON: CR XR chest 1V portable [id number] 12/19/2023 4:05 PM FINDINGS: Tubes, catheters and devices: Plate and screws overlie the midline cervical spine. Lungs: Possible minimal central perihilar pulmonary venous congestion or infiltrates within the lungs, without definite pulmonary edema. The peripheral lungs are otherwise clear. Pleural spaces: No pleural effusion. No pneumothorax. Heart/Mediastinum: The cardiac silhouette appears borderline prominent. Bones/joints: Mild generalized bony degenerative changes. Bony structures appear otherwise unremarkable. XR/XR chest 2V* [id number] IMPRESSION: 1. Borderline prominence of the cardiac silhouette. 2. Possible central pulmonary venous congestion or minimal perihilar infiltrates.
== END 2024-05-31 14:07 | disposition home or self-care (01) ==
LOC: LAB 14:08
PROVIDERS: PCP Internal Medicine; Visit Provider Nurse Practitioner Family
DX: R91.8 Other nonspecific abnormal finding of lung field (principal); R06.00 Dyspnea, unspecified
CPT/HCPCS: 71046

== ENCOUNTER 2024-07-13 20:45 | Inpatient (IN) | payer OTHER, MEDICARE, MEDICAID, SELFPAY ==
[2023-12-21 10:05] VITALS: BP 104/59; BMI 37.2
[2024-07-13 20:45] VITALS: BP 159/103; PULSE 79; RESP 18; TEMP 36.7; O2SAT 98; BMI 40.3
--- NOTE | 2024-07-13 20:47 | ECG_ITS ---
[employer] Test Date: 2024-07-13 Pat Name: Ronny Benitez Department: Room: Gender: Male Tube Drawer: : 1970 Requested By: Kenyatta Christie Order Number: [id number] Lavinia MD: Sam Wesley M.D. Measurements Intervals [place] Rate: 79 P: 34 OH: 148 QRS: 57 QRSD: 98 T: 84 QT: 371 QTc: 426 Interpretive Statements SINUS RHYTHM WITH MARKED SINUS ARRHYTHMIA LOW QRS VOLTAGE IN PRECORDIAL LEADS [QRS DEFLECTION < 1.0 mV IN CHEST LEADS] MARKED ST ELEVATION, CONSIDER INFERIOR INJURY [MARKED ST ELEVATION W/O NORMALLY INFLECTED T-WAVE IN II/aVF] ACUTE VA Compared to ECG 12/19/2023 21:12:20 Low QRS voltage now present ST (T wave) deviation now present Myocardial infarct finding now present Electronically Signed On 07-14-2024 18:18:22 ELECTRICAL AND INSTRUMENTATION MECHANIC by Sam Wesley M.D. [email or web address]
[2024-07-13] MEDS: heparin 5,000 unit/mL INJ 1 mL 4000 UNIT IVP (21:03)
[2024-07-13] MEDS: morphine 4 mg/mL SDV 1 mL IVP (21:03)
[2024-07-13] MEDS: clopidogrel 300 mg Tablet 600 MG PO (21:03)
[2024-07-13 21:04] LABS: Basophils % 0.4 %; Eosinophils # 0.2 10^3/uL (0.0-0.8); Eosinophils % 3.1 %; Hematocrit 39.5 % (37-53); Lymphocytes # 2.4 10^3/uL (0.8-4.8); Lymphocytes % 30.6 %; Mean Corpuscular HGB Conc 32.4 g/dL (30-55); Mean Corpuscular Hemoglobin 26.2 pg (27-33); Mean Corpuscular Volume 80.8 fl (82-101); Mean Platelet Volume 10.1 fL (7.4-10.4); Monocytes # 0.6 10^3/uL (0.2-0.9); Monocytes % 8.2 %; Neutrophils # 4.38 10^3/uL (1.8-7.7); Neutrophils % 57.2 %; Nucleated Red Blood Cells % 0 %; Platelet Count 282 10^3/cmm (157-399); Red Blood Count 4.89 10^6/uL (3.85-5.65); Red Cell Distribution Width 14.4 % (12.1-15.1); White Blood Count 7.67 10^3/uL (3.29-11.43)
[2024-07-13 21:08] VITALS: BP 136/76; PULSE 85; RESP 20; O2SAT 100
[2024-07-13] MEDS: ondansetron 2 mg/ML SDV 2 mL 4 MG IVP (21:10)
--- NOTE | 2024-07-13 21:11 | ED_ITS ---
HPI - Chest Pain 2 General: Chief Complaint: Chest Pain Stated Complaint: Poss STEMI Time Seen by Provider: 07/13/24 20:46 History of Present Illness: 54-year-old man with history of obesity, hypertension, diabetes and coronary artery disease status post stenting about a year ago who is still on Plavix. He is brought to the emergency room by ambulance with chest pain. EKG appears to be showing a STEMI. I called the STEMI immediately upon arrival as we rolled the patient to the room based on the rhythm strips provided by the ambulance service. He said he saw his tire gauge was on and went to change a tire in the cold. Developed sudden substernal chest pain. He is diaphoretic. He appears pale. At the time he arrived in the room his pain is improved slightly. Initial EKG does not show ST elevation but the repeat a few minutes later does. Related Data Home Medications Medication Instructions Recorded Confirmed aspirin 81 mg tablet,delayed 81 mg PO QAM 07/20/19 05/17/24 release (Adult Aspirin Regimen) metformin 1,000 mg tablet,extended 1,000 mg PO BID 07/20/19 05/17/24 release 24hr (osmotic) fenofibrate nanocrystallized 145 145 mg PO DAILY 07/30/20 05/17/24 mg tablet insulin glargine 100 unit/mL 50 unit SUBCUT BID 03/19/23 05/17/24 subcutaneous solution (Lantus U-100 Insulin) atorvastatin 80 mg tablet 80 mg PO QPM 04/03/23 05/17/24 acetaminophen 500 mg tablet 1,000 mg PO Q6H PRN Pain 07/03/23 05/17/24 empagliflozin 10 mg tablet 10 mg PO DAILY 07/03/23 05/17/24 (Jardiance) insulin lispro 100 unit/mL See Rx Instructions .Route .COMPLEX 07/03/23 05/17/24 subcutaneous pen (Humalog KwikPen (U-100) Insulin) lisinopril 20 mg tablet 20 mg PO DAILY 07/03/23 05/17/24 Previous Rx's Medication Instructions Recorded Diabetic shoes with 3 inserts #1 ea 11/19/21 icosapent ethyl 1 gram capsule 2 g (2 x 1 gram) PO BID #360 caps 01/13/24 clopidogrel 75 mg tablet See Rx Instructions .Route 03/03/24 .COMPLEX #90 tabs pioglitazone 45 mg tablet (Actos) 45 mg PO DAILY #90 tabs 03/03/24 evolocumab 140 mg/mL subcutaneous 140 mg SUBCUT .every 2 weeks #2 mL 03/08/24 pen injector (Pat aPtel) ezetimibe 10 mg tablet 10 mg PO DAILY #90 tabs 03/15/24 metoprolol tartrate 50 mg tablet See Rx Instructions .Route 05/02/24 .COMPLEX #180 tabs aripiprazole 20 mg tablet (Abilify) 20 mg PO DAILY #30 tabs 05/17/24 bupropion HCl 150 mg 24 hr tablet, 150 mg PO QAM #30 tabs 05/17/24 extended release (Wellbutrin XL) buspirone 30 mg tablet 30 mg PO BID 30 days #60 tabs 05/17/24 paroxetine HCl 30 mg tablet (Paxil) 60 mg (2 x 30 mg) PO DAILY 30 days 05/17/24 #60 tabs dextroamphetamine-amphetamine 10 10 mg PO DAILY 30 days #30 tabs 06/15/24 mg tablet nitroglycerin 0.4 mg sublingual See Rx Instructions .Route 06/15/24 tablet .COMPLEX #25 tabs isosorbide mononitrate 60 mg 60 mg PO QAM #90 tabs 07/13/24 tablet,extended release 24 hr Allergies Allergy/AdvReac Type Severity Reaction Status Date / Time prednisone Allergy Intermediate ADR-Abdominal Verified 07/13/24 20:56 Pain Review of Systems 2 Narrative: Constitutional symptoms: Negative except as documented in HPI. Skin symptoms: Negative except as documented in HPI. Eye symptoms: Negative except as documented in HPI. ENMT symptoms: Negative except as documented in HPI. Respiratory symptoms: Negative except as documented in HPI. Cardiovascular symptoms: Negative except as documented in HPI. Gastrointestinal symptoms: Negative except as documented in HPI. Genitourinary symptoms: Negative except as documented in HPI. Musculoskeletal symptoms: Negative except as documented in HPI. Neurologic symptoms: Negative except as documented in HPI. Psychiatric symptoms: Negative except as documented in HPI. Endocrine symptoms: Negative except as documented in HPI. PFSH ED 2 PFSH: Medical History Recurrent major depression 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 Psychiatric care Diabetes mellitus CAD (coronary artery disease) Hyperlipidemia HTN (hypertension) Major depressive disorder with psychotic features Deviated septum Dysphasia Dysphonia Intervertebral cervical disc disorder with myelopathy, cervical region Post-traumatic stress disorder, chronic Major depressive disorder, recurrent severe without psychotic features Surgical History Status post spinal arthrodesis History of fusion of cervical spine C4 corpectomy, revision C3-C4 and C4-C5 plate-screw fixation/interbody fusion; 08/22/2019; [facility] H/O hernia repair Hx of cardiac catheterization Stented coronary artery H/O carpal tunnel repair (~2018) S/P cervical spinal fusion (~06/15/17) C3-C4 ACDFF, 06/2017, Dr. Brigitte Guy Family History Father Diabetes CAD (coronary artery disease) Hypertension Dementia Brother CAD (coronary artery disease) Grandmother Stroke Maternal x3 Mother Dementia Schizophrenia Grandfather Cancer Both Maternal and Paternal Family/Other Cancer Uncles both maternal and paternal Social History Smoking and tobacco/nicotine status: never used tobacco/nicotine Quit status (tobacco/nicotine): has quit using Year quit tobacco: 2000 Second hand smoke exposure: No Alcohol intake: never Substance/Drug Use: former Lives independently: Yes Household members: spouse Marital status: Current occupational status: unemployed Current gender identity: Male Physical Exam 2 Narrative: EXAM NARRATIVE: General: Alert, appears in some distress Skin: Warm, pale, diaphoretic. Head: Normocephalic, atraumatic. Neck: Supple, trachea midline. Eye: Extraocular movements are intact. Ears, nose, mouth and throat: mucosa moist. Cardiovascular: Regular, Normal peripheral perfusion. Respiratory: Lungs are clear to auscultation, respirations are non-labored, breath sounds are equal, Symmetrical chest wall expansion. Gastrointestinal: Soft, Nontender, Non distended Musculoskeletal: Normal ROM, no deformity. Neurological: Alert and oriented, No focal neurological deficit observed. Psychiatric: Cooperative, appropriate mood & affect. Course 2 Vital Signs: Vital signs: Vital Signs Temperature 98.0 F 07/13/24 20:45 Pulse Rate 85 07/13/24 21:08 Respiratory Rate 20 H 07/13/24 21:08 Blood Pressure 136/76 07/13/24 21:08 Pulse Oximetry 100 07/13/24 21:08 Oxygen Delivery Me thod Room Air 07/13/24 21:08 MDM - Chest Pain Medical Decision Making Differential diagnosis for patient with chest pain includes but is not limited to and based on the above HPI, review of systems and physical exam: Pneumonia. unstable angina. angina. Acute coronary syndrome / PA. Pulmonary embolism. Costochondritis / musculoskeletal. Pleurisy. Pericarditis. Esophageal spasm. Pancreatis. Cholecystitis. Orders placed to evaluate differential diagnosis based on the above differential, HPI and physical exam EKG review prior to arrival. I reviewed multiple EKGs from the ambulance. All but 1 show an obvious inferior [address] elevation myocardial infarction. [address] elevation is no longer present. I called the STEMI overhead immediately and spoke with Dr. Eddy prior to even getting the initial EKG here in the emergency room. EKG: Time 2047. Rate 69. Normal sinus rhythm, No ST-T changes, no ectopy, normal CO & QRS intervals, This was reviewed and interpreted by myself the ER physician at 2048. This is change from EKGs done on the ambulance. He says pain has improved somewhat at this time. Repeat EKG: Time 2055. Rate 79. Normal sinus rhythm, ST elevation inferior leads. reciprocal depression lateral leads. , no ectopy, normal CO & QRS intervals, this was reviewed and interpreted by myself the emergency room physician at 2056. This was similar to EKGs on the ambulance and change from the first EKG done here. Consultation: I spoke with Dr. Eddy who is taking the patient to the Structural Biologist. He recommends 600 Plavix, heparin bolus and aspirin which were given here in the emergency room. Lab Review: Laboratory results were reviewed and interpreted by myself the emergency room physician. No leukocytosis. No anemia. Mean and creatinine are normal. Glucose is mildly elevated at 213. Initial troponin is only 10. Symptoms only started just before arrival so this is not surprising. I reviewed the patient's medical record. Reexamination: Patient still appears somewhat diaphoretic. He says his symptoms are improving somewhat. No altered mental status. No focal motor deficits. No increased work of breathing. Assessment and plan: STEMI Coronary artery disease Chest pain ?Heparin bolus given. 600 mg Plavix given. IV morphine and IV Zofran. -I discussed the patient with the hospitalist on-call who is admitting the patient. - Discussed findings and plan with patient. Answered any questions. - All laboratory values were reviewed and interpreted personally by myself, the ER physician - All imaging was reviewed and interpreted personally by myself, the ER physician. - Evaluation and treatment of this problem were appropriate in the emergency setting Lab Data 07/13/24 21:00 07/13/24 21:00 Laboratory Results WBC 7.67 10^3/uL (3.29-11.43) 07/13/24 21:00 RBC 4.89 10^6/uL (3.85-5.65) 07/13/24 21:00 Hgb 12.80 g/dL (11.27-16.99) 07/13/24 21:00 Hct 39.5 % (37-53) 07/13/24 21:00 MCV 80.8 fl (82-101) L 07/13/24 21: MCH 26.2 pg (27-33) L 07/13/24 21:00 MCHC 32.4 g/dL (30-55) 07/13/24 21:00 RDW 14.4 % (12.1-15.1) 07/13/24 21:00 Plt Count 282 10^3/cmm (157-399) 07/13/24 21:00 MPV 10.1 fL (7.4-10.4) 07/13/24 21:00 Neut % (Auto) 57.2 % 07/13/24 21:00 Lymph % (Auto) 30.6 % 07/13/24 21:00 Bacon % (Auto) 8.2 % 07/13/24 21:00 Eos % (Auto) 3.1 % 07/13/24 21:00 Baso % (Auto) 0.4 % 07/13/24 21:00 Neut # (Auto) 4.38 10^3/uL (1.8-7.7) 07/13/24 21:00 Lymph # (Auto) 2.4 10^3/uL (0.8-4.8) 07/13/24 21:00 Bacon # (Auto) 0.6 10^3/uL (0.2-0.9) 07/13/24 21:00 Eos # (Auto) 0.2 10^3/uL (0.0-0.8) 07/13/24 21:00 Baso # (Auto) 0.0 10^3/uL (0.0-0.1) 07/13/24 21:00 Nucleated RBC % (auto) 0 % 07/13/24 21:00 Nucleated RBCs # 0.0 /100WBC 07/13/24 21:00 Sodium 137 mmol/L (136-145) 07/13/24 21:00 Potassium 4.3 mmol/L (3.5-5.1) 07/13/24 21:00 Chloride 100 mmol/L (98-107) 07/13/24 21:00 Carbon Dioxide 24 mmol/L (22-29) 07/13/24 21:00 Anion Gap 17.3 (5-19) 07/13/24 21:00 BUN 20 mg/dL (6-20) 07/13/24 21:00 Creatinine 1.1 mg/dL (0.7-1.2) 07/13/24 21:00 GFR Calculation 69.8 mL/min (90-130) L 07/13/24 21:00 Glucose 213 mg/dL (65-115) H 07/13/24 21:00 Calculated Osmolality 293 mOsm/kg (285-295) 07/13/24 21:00 Calcium 9.4 mg/dL (8.5-10.5) 07/13/24 21:00 Total Bilirubin 0.2 mg/dL (0.15-1.2) 07/13/24 21:00 AST 17 U/L (0-40) 07/13/24 21:00 ALT 18 U/L (0-41) 07/13/24 21:00 Alkaline Phosphatase 57 U/L (40-130) 07/13/24 21:00 Troponin T Baseline 10 ng/L (0-15) 07/13/24 21:00 NT-Pro-B Natriuret Pep < 36 pg/mL (0-125) 07/13/24 21:00 Total Protein 7.3 g/dL (6.6-8.7) 07/13/24 21:00 Albumin 4.5 g/dL (3.5-5.2) 07/13/24 21: Globulin 2.8 g/dL (1.3-4.6) 07/13/24 21:00 No radiology studies performed this visit Discharge Plan Discharge Patient Disposition: Admitted As Inpatient Clinical Impression: ST elevation myocardial infarction (STEMI), Coronary artery disease, Chest pain Condition: Stable Coding Level of Care Code ED Transplant Immunologist for Loretta Pradhan
--- NOTE | 2024-07-13 21:12 | XACV_ITS ---
Exam Room: 2 Ht: 173 cm Wt: 120 kg BSA: 2.46 m2 Gender: Male : 1970 Any Known Allergies: Other Exam Priority: Routine Procedure(s): Procedure Description: Diagnostic procedure Procedure Description: PCI procedure Procedure Description: Drug Eluting Coronary Stent Procedure Description: PTCA Procedure Description: Miscellaneous Procedure Description: ACT Procedure Description: [facility] Diagnostic Cath Status: Emergency Diagnostic Findings * Left Main has no disease. * Left Anterior Descending has no disease but luminal irregularity. * Circumflex has no disease but luminal irregularity. * Distal Right Coronary Artery to Right Posterior AV: subtotal occlusion, RISHABH: 3 flow. It is culprit vessel. * Posterior Descending Right: subtotal occlusion, RISHABH: 3 flow. * Coronary angiography shows right dominance. PCI Status: Emergency PCI Indication: STEMI - Immediate PCI for STEMI Interventional Findings * Distal Right Coronary Artery to Right Posterior AV: 99% stenosis treated with a AB TREK 2.50X15 RX BALLOON, MDT Ember ANA 3.5X30 TATE, AB TREK 2.50X8 RX BALLOON, and MDT JOANIE EUPHORA RX 3.27S52JS BALLOON. 0% residual stenosis, RISHABH: 3 flow. * Posterior Descending Right: 99% stenosis treated with a Balloon. 50% residual stenosis. Successful intervention. Conclusions 1. There is subtotal occlusion coronary artery disease with one vessel disease. 2. Distal Right Coronary Artery to Right Posterior AV was treated with a Balloon, Drug Eluting Stent, Balloon, and Balloon. 3. Posterior Descending Right was treated with a Balloon. Recommendations * 1-Return to inpatient for close monitoring and routine cath care 2-Risk factor modification for secondary prevention 3-Statin and aspirin 81 mg life-long, if tolerated 4-Patient was pre-loaded with 600 mg of Plavix, continue Plavix 75mg p.o. daily for at least one year. We will assess at the end of one year again to continue if further or not 5-Continue optimal medical management 6-Follow up with Pantoja in four weeks and your primary care in 10 days. Interventional RX Recommendation: PCI w/o planned CABG Diagnostic RX Recommendation: PCI w/o planned CABG Pressures Phase:Rest AO : 128 / 81 ( 99 ) @ 4:23:24 PM 103 / 78 ( 90 ) @ 4:23:24 PM 131 / 91 ( 106 ) @ 4:23:24 PM Clinical Evaluation EBL: 5mL-10mL Procedural Details Pre-Procedure Time Out. Identified patient by full name and date of as verbalized by the patient/guarantor. Does the consent match the physician's order: N/A Emergent; Informed Consent not obtained due to time critical life threat. Accurate & Complete Informed Consent: N/A Emergent; Informed Consent not obtained due to time critical life threat. Inpatient/Outpatient History & Physical on Chart: N/A Emergent; Informed Consent not obtained due to time critical life threat. If H&P is completed, is and addenduem needed: N/A Emergent; Informed Consent not obtained due to time critical life threat; If yes, is the addendum complete: N/A Emergent. Visualize and Verify Site with Patient/Guarantor: N/A. Relevant Radiology Images available: N/A Emergent. The risks, benefits, and alternatives of sedation and/or procedure were discussed by physician. The patient agrees to continue. Procedure started. [facility] Clinical Fraility Score: 3: Managing Well. [employer] Indications: ACS <= 24 hours. Chest Pain Symptom Assessment: Typical Angina Symptoms. Correct patient, site and procedure confirmed by cath team. Current diagnosis: STEMI. PERRLA. Strong, equal hand tufter bilaterally. Lungs clear x 5 lobes. IV Site on Arrival: 20 gauge in the left anticubital. IV Site on Arrival: 20 gauge in the right forearm. IV Fluids: 0.9% NaCl at KVO. 200 mL infused prior to soap slabber. Pre Procedural Pulses: bilateral radial was 3+. Oxygen started at 2liters/min via nasal canula. right radial was prepped with chloroprep then draped in the usual sterile fashion. right groin was prepped with chloroprep then draped in the usual sterile fashion. Baseline sample Acquired. HR: 86 BPM. Physician notified. Physician arrived. Admit Source: Emergency department. Physician scrubbed in. Immediate Pre-Procedure Time Out. Correct Patient: Yes; Correct Procedure: Yes; Correct Site: Yes; Correct Patient Position: Yes; Correct Supplies: Yes; Dried Flammable Prep: Yes; Blood Products Available: No;. Lidocaine 1% infiltrated to the right radial. Arterial access obtained. ACT drawn. Results 187 seconds. Therapeutic limits - pre-heparin administration 90-150 seconds and monitoring heparin during a vascular procedure >250 seconds. 6 israeli JR 4 guide catheter was inserted over the wire. Add inventory: Co-balloon pilot, Endoflator. View taken of RCA. Runthrough guidewire was advanced through the guide catheter to lesion in the PLV. 2nd runthrough guidewire advanced through guide catheter to PDA. Balloon inserted to lesion in the distal RCA over the runthrough wire in PLV. Inflation number : 1 A AB TREK 2.50X15 RX BALLOON was prepped and advanced across the Dist RCA , then inflated to 14 ASHLEY for 0:13 seconds. Balloon out. Balloon inserted to lesion in the distal RCA over the wire in PDA. Inflation number: 2 The AB TREK 2.50X15 RX BALLOON was reinflated across the Dist RCA, to 18 ASHLEY for 0:16 seconds. Inflation number: 3 The AB TREK 2.50X15 RX BALLOON was reinflated across the Dist RCA, to 18 ASHLEY for 0:09 seconds. Balloon out. Results checked. Stent inserted to lesion in the distal RCA over runthrough wire in PLV. Inflation Number : 4 A EMILY Pa ANA 3.5X30 TATE -Lot Number#[id number] EXP 12-16-2026 was prepped and advanced across the Dist RCA. The stent was deployed at 12 ASHLEY for 0:14 seconds. Stent balloon out over wire. Balloon inserted to lesion in the distal RCA. Inflation number : 5 A AB TREK 2.50X8 RX BALLOON was prepped and advanced across the Dist RCA , then inflated to 12 ASHLEY for 0:13 seconds. Inflation number: 6 The AB TREK 2.50X8 RX BALLOON was reinflated across the Dist RCA, to 18 ASHLEY for 0:16 seconds. Results checked. Balloon out. Balloon inserted to lesion in the distal RCA. Inflation number : 7 A MDT NC EUPHORA RX 3.95W22WU BALLOON was prepped and advanced across the Dist RCA , then inflated to 6 ASHLEY for 0:11 seconds. Inflation number: 8 The MDT NC EUPHORA RX 3.82L34ZD BALLOON was reinflated across the Dist RCA, to 6 ASHLEY for 0:15 seconds. Inflation number: 9 The MDT NC EUPHORA RX 3.09J08WU BALLOON was reinflated across the Dist RCA, to 8 ASHLEY for 0:19 seconds. Inflation number: 10 The MDT NC EUPHORA RX 3.85K15NF BALLOON was reinflated across the Dist RCA, to 8 ASHLEY for 0:17 seconds. Balloon out. Wires pulled back into guide. Results checked. Wire out. ACT drawn. Results 236 seconds. Therapeutic limits - pre-heparin administration 90-150 seconds and monitoring heparin during a vascular procedure >250 seconds. Guide catheter out. A 5 israeli Ac catheter in over wire. Catheter removed over the exchange wire. A 5 israeli JL4 catheter in over wire. Multiple views taken of left coronary artery. Catheter removed over the exchange wire. A TR Band was successful obtaining hemostatsis at the Right Radial artery insertion site. Physician scrubbed out. Post Procedure: Pulses reassessed and unchanged. PERRLA. Strong, equal hand tufter bilaterally. No VTE prophylaxis required. Medication's Wasted: Lidocaine 1% = 18 mL. Medication's Wasted: Nitro = 49.8 mg. Medication's Wasted: Heparin = 1000 units. Total IV fluids: 100 mL. Post-op diagnosis: Inferior wall NV , status post PCI placement of 1 TATE. Complications: None. PCI Indication: STEMI. Estimated blood loss: 5mL-10mL. Responsiveness - Normal response to verbal stimuli; alert and oriented, PERRLA. Airway - Unaffected, no intervention required; spontaneous ventilation. Circulation: W/N/L, pulses unchanged. Nausea/Vomiting: No. Procedure completed. Patient transferred by wheelchair to 1st floor. Vital chart was stopped. Access Site Site: Right Radial artery Sheath Size: 6 Fr Hemostasis Method: TR Band Hemostasis Success: Successful Procedure Medications Start: 9:25 PM Stop: 9:25 PM Medication: Versed Amount: 1 mg Route: I.V. Start: 9:25 PM Stop: 9:25 PM Medication: Fentanyl Amount: 50 mcg Route: I.V. Start: 9:28 PM Stop: 9:28 PM Medication: Versed Amount: 1 mg Route: I.V. Start: 9:30 PM Stop: 9:30 PM Medication: Nitrogylcerin Amount: 200 mcg Route: I.A. Start: 9:36 PM Stop: 9:36 PM Medication: Heparin Amount: 6000 units Route: I.V. Start: 9:47 PM Stop: 9:47 PM Medication: Versed 1 mg and Fentanyl 25 mcg Route: I.V. Start: 9:52 PM Stop: 9:52 PM Medication: Fentanyl Amount: 25 mcg Route: I.V. Start: 10:01 PM Stop: 10:01 PM Medication: Versed Amount: 1 mg Route: I.V. Start: 10:14 PM Stop: 10:14 PM Medication: Heparin Amount: 4000 units Route: I.V. Start: 10:19 PM Stop: 10:19 PM Medication: Aggrastat 12.5 mg/250 mL Amount: 60 ml Route: I.V. bolus I, the attending physician, have reviewed and verified all procedure medications. Yes, all medications given per verbal order Report Signatures Finalized by Real Eddy MD on 07/26/2024 06:58 PM
--- NOTE | 2024-07-13 21:20 | P.HP_ITS ---
Providers/Chief Complaint 2 Primary Care Provider: Devora Rivera MD Chief Complaint: Poss STEMI History of Present Illness Ronny Benitez is a 54 year old male past medical history significant hypertension hyperlipidemia coronary artery disease started having chest pain while changing the tire of his vehicle called 911, EMS strip was consistent with inferior wall ST elevation. Patient was loaded with Plavix given heparin bolus of 4000 units we will plan to take him to the [facility]. Medications/Allergies Home Medications Medication Instructions Recorded Confirmed Last Taken Type aspirin 81 mg tablet,delayed 81 mg PO QAM 07/20/19 05/17/24 07/03/23 History release (Adult Aspirin Regimen) metformin 1,000 mg tablet,extended 1,000 mg PO BID 07/20/19 05/17/24 07/03/23 History release 24hr (osmotic) fenofibrate nanocrystallized 145 145 mg PO DAILY 07/30/20 05/17/24 07/03/23 History mg tablet Diabetic shoes with 3 inserts #1 ea 11/19/21 05/17/24 Unknown Rx insulin glargine 100 unit/mL 50 unit SUBCUT BID 03/19/23 05/17/24 07/03/23 History subcutaneous solution (Lantus U-100 Insulin) atorvastatin 80 mg tablet 80 mg PO QPM 04/03/23 05/17/24 07/02/23 History acetaminophen 500 mg tablet 1,000 mg PO Q6H PRN Pain 07/03/23 05/17/24 Unknown History empagliflozin 10 mg tablet 10 mg PO DAILY 07/03/23 05/17/24 07/03/23 History (Jardiance) insulin lispro 100 unit/mL See Rx Instructions .Route .COMPLEX 07/03/23 05/17/24 07/03/23 History subcutaneous pen (Humalog KwikPen (U-100) Insulin) lisinopril 20 mg tablet 20 mg PO DAILY 07/03/23 05/17/24 07/03/23 History icosapent ethyl 1 gram capsule 2 g (2 x 1 gram) PO BID #360 caps 01/13/24 05/17/24 Unknown Rx clopidogrel 75 mg tablet See Rx Instructions .Route 03/03/24 05/17/24 Unknown Rx .COMPLEX #90 tabs pioglitazone 45 mg tablet (Actos) 45 mg PO DAILY #90 tabs 03/03/24 05/17/24 Unknown Rx evolocumab 140 mg/mL subcutaneous 140 mg SUBCUT .every 2 weeks #2 mL 03/08/24 05/17/24 Unknown Rx pen injector (Pat Patel) ezetimibe 10 mg tablet 10 mg PO DAILY #90 tabs 03/15/24 05/17/24 Unknown Rx metoprolol tartrate 50 mg tablet See Rx Instructions .Route 05/02/24 05/17/24 Unknown Rx .COMPLEX #180 tabs aripiprazole 20 mg tablet (Abilify) 20 mg PO DAILY #30 tabs 05/17/24 05/17/24 Unknown Rx bupropion HCl 150 mg 24 hr tablet, 150 mg PO QAM #30 tabs 05/17/24 05/17/24 Unknown Rx extended release (Wellbutrin XL) buspirone 30 mg tablet 30 mg PO BID 30 days #60 tabs 05/17/24 05/17/24 Unknown Rx paroxetine HCl 30 mg tablet (Paxil) 60 mg (2 x 30 mg) PO DAILY 30 days 05/17/24 05/17/24 Unknown Rx #60 tabs dextroamphetamine-amphetamine 10 10 mg PO DAILY 30 days #30 tabs 06/15/24 Unknown Rx mg tablet nitroglycerin 0.4 mg sublingual See Rx Instructions .Route 06/15/24 Unknown Rx tablet .COMPLEX #25 tabs isosorbide mononitrate 60 mg 60 mg PO QAM #90 tabs 07/13/24 Unknown Rx tablet,extended release 24 hr Allergies Allergy/AdvReac Type Severity Reaction Status Date / Time prednisone Allergy Intermediate ADR-Abdominal Verified 07/13/24 20:56 Pain PFSH Acute 2 PFSH: Medical History Recurrent major depression 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 Psychiatric care Diabetes mellitus CAD (coronary artery disease) Hyperlipidemia HTN (hypertension) Major depressive disorder with psychotic features Deviated septum Dysphasia Dysphonia Intervertebral cervical disc disorder with myelopathy, cervical region Post-traumatic stress disorder, chronic Major depressive disorder, recurrent severe without psychotic features Surgical History Status post spinal arthrodesis History of fusion of cervical spine C4 corpectomy, revision C3-C4 and C4-C5 plate-screw fixation/interbody fusion; 08/22/2019; [facility] [place] H/O hernia repair Hx of cardiac catheterization Stented coronary artery H/O carpal tunnel repair (~2018) S/P cervical spinal fusion (~06/15/17) C3-C4 ACDFF, 06/2017, Dr. Brigitte Guy Family History Father Diabetes CAD (coronary artery disease) Hypertension Dementia Brother CAD (coronary artery disease) Grandmother Stroke Maternal x3 Mother Dementia Schizophrenia Grandfather Cancer Both Maternal and Paternal Family/Other Cancer Uncles both maternal and paternal Social History Smoking and tobacco/nicotine status: never used tobacco/nicotine Quit status (tobacco/nicotine): has quit using Year quit tobacco: 2000 Second hand smoke exposure: No Alcohol intake: never Substance/Drug Use: former Lives independently: Yes Household members: spouse Marital status: Current occupational status: unemployed Current gender identity: Male Vitals/I&O/Wt Last Vital Signs Temp 98.0 F 07/13/24 20:45 Pulse 85 07/13/24 21:08 Resp 20 H 07/13/24 21:08 BP 136/76 07/13/24 21:08 Pulse Ox 100 07/13/24 21:08 O2 Del Method Room Air 07/13/24 21:08 Weight last 48 hrs Weight 265 lb 0.001 oz Physical Exam 2 Const: OTHER: GENERAL: Patient is alert, awake and oriented x3. moderate distress appeared to be diaphoretic HEART: Regular S1 and S2. No murmur, rub or gallop. LUNGS: Clear to auscultate bilaterally. CENTRAL NERVOUS SYSTEM: Grossly nonfocal. EXTREMITIES: Lower extremities with out edema bilaterally. Data 07/13/24 21:00 07/13/24 21:00 A&P Assessment and plan (1) ST elevation (STEMI) myocardial infarction: Will proceed with emergent left heart cath/PCI if indicated. Further plan will be as as per progress the patient (2) Diabetes mellitus: Hold oral hypoglycemics we will start patient on sliding scale Qualifiers: Diabetes mellitus type: type 2 Diabetes mellitus longterm insulin use: with roasterman use Diabetes mellitus complication status: with neurologic complications (3) PVD (peripheral vascular disease): Stable Attestations 2 Medical Necessity Statement*: Am expecting his stay to cross more than 2 midnights. Coding Level of Care Code Acute Code for [facility] Fwd Diagnoses ST elevation (STEMI) myocardial infarction I21.3 Diabetes mellitus E11.9 Diabetes mellitus type: type 2 Diabetes mellitus roasterman insulin use: with longterm use Diabetes mellitus complication status: with neurologic complications PVD (peripheral vascular disease) I73.9
[2024-07-13 21:21] LABS: Troponin(5th) Baseline 10 ng/L (0-15)
[2024-07-13 21:36] LABS: Alanine Aminotransferase 18 U/L (0-41); Albumin Level 4.5 g/dL (3.5-5.2); Alkaline Phosphatase 57 U/L (40-130); Anion Gap 17.3 (5-19); Aspartate Amino Transferase 17 U/L (0-40); Blood Urea Nitrogen 20 mg/dL (6-20); Calcium 9.4 mg/dL (8.5-10.5); Carbon Dioxide 24 mmol/L (22-29); Chloride 100 mmol/L (98-107); Creatinine Clr Calc Pharmacy 96.7726; Globulin 2.8 g/dL (1.3-4.6); Glomerular Filtration Rate 69.8 mL/min (90-130); Glucose 213 mg/dL (65-115); NT Pro B Type Natriuretic Pept < 36 pg/mL (0-125); Osmolality Calculated 293 mOsm/kg (285-295); Potassium 4.3 mmol/L (3.5-5.1); Sodium 137 mmol/L (136-145); Total Bilirubin 0.2 mg/dL (0.15-1.2); Total Protein 7.3 g/dL (6.6-8.7)
[2024-07-13 23:00] VITALS: BP 153/92; PULSE 91; RESP 15; O2SAT 98
[2024-07-13 23:15] VITALS: BP 143/85; PULSE 92; RESP 18; O2SAT 97
--- NOTE | 2024-07-13 23:19 | ECG_ITS ---
[email or web address] Date: 2024-07-13 Pat Name: Ronny Benitez Department: Room: 112 Gender: Male Quality Assurance Nurse: : 1970 Requested By: Kenyatta Christie Order Number: [id number] Kate MD: Sam Wesley M.D. Measurements Intervals [place] Rate: 90 P: 43 W[place]: 149 QRS: -4 QRSD: 95 T: 74 QT: 367 QTc: 450 Interpretive Statements SINUS RHYTHM Compared to ECG 07/13/2024 20:56:15 Sinus arrhythmia no longer present ST (T wave) deviation no longer present Myocardial infarct finding no longer present Electronically Signed On 07-14-2024 18:25:07 SOFTWARE MANAGER by Sam Wesley M.D. [email or web address]
[2024-07-13 23:30] VITALS: BP 135/106; PULSE 90; RESP 19; O2SAT 91
[2024-07-13 23:45] VITALS: BP 135/64; PULSE 90; RESP 19; O2SAT 91
[2024-07-14] VITALS (20 sets, daily range): BP systolic 108–132; BP diastolic 64–81; PULSE 65–87; RESP 11–22; TEMP 36.6–36.8; O2SAT 90–95
--- NOTE | 2024-07-14 00:08 | PM.PROC ---
Procedure Note: Date of procedure: 07/13/24 Pre-procedure diagnosis: ST elevation OK of inferior wall Procedure: Drug-eluting stent to distal RCA into PLV and balloon angioplasty of bifurcating PDA lesion. Continue aspirin statin beta-natalia and Plavix. Continue IV fluid 100 mL/h for 1 L Echocardiogram in the morning Coding Level of Care Code Acute Code for [facility] Fwd
--- NOTE | 2024-07-14 00:09 | USCV_ITS ---
Galileosangita Ronny Age: 54 Gender: M : 1970 Exam Date: 07/14/2024 00:24 Ordering Phys: Real Eddy MD ([email or web address]) Technologist: CHU Exam Location: [facility] [place] Indication: STEMI, obesity, HTN, DM, hx CAD s/p cardiac stents BP: 153 / 92 HR: 77 Rhythm: Sinus Technical Quality: Adequate MEASUREMENTS (Male / Female) Normal Values 2D ECHO LV Diastolic Diameter PLAX 4.8 cm 4.2 - 5.9 / 3.9 - 5.3 cm IVS Diastolic Thickness 1.5 cm 0.6 - 1.0 / 0.6 - 0.9 cm IVS Systolic Thickness 2.2 cm LVPW Diastolic Thickness 1.3 cm 0.6 - 1.0 / 0.6 - 0.9 cm LVPW Systolic Thickness 2.0 cm LVOT Diameter 2.3 cm LV Ejection Fraction 2D Teich 62.1 % LV Ejection Fraction MOD 4C 49.0 % LV Ejection Fraction MOD 2C 45.5 % LV Ejection Fraction 2C AL 45.2 % LA Diameter 2.2 cm Aorta at Sinotubular Diameter 4.0 cm IVC Diameter 1.7 cm M-MODE LA Ao Ratio MM 0.4 AV Cusp Separation MM 1.9 cm DOPPLER AV Peak Velocity 108.0 cm/s LVOT Peak Velocity 98.0 cm/s AV Area Cont Eq vti 5.0 cm squared AV Area Cont Eq pk 3.9 cm squared MV Peak Velocity 110.0 cm/s MV Area PHT 3.0 cm squared Mitral E to A Ratio 0.9 TV Peak E Velocity 48.0 cm/s PV Peak Velocity 66.0 cm/s FINDINGS Left Ventricle Left ventricle is normal in size. LV systolic function is normal with EF 50 to 55%. No regional wall motion abnormalities are seen. Right Ventricle Normal in size and function Right Atrium Normal in size Left Atrium Normal in size Mitral Valve Structurally normal mitral valve. Trace mitral regurgitation. Aortic Valve Structurally normal aortic valve. No significant stenosis or regurgitation. Tricuspid Valve Insufficient TR jet to calculate RVSP Pulmonic Valve Not well visualized Pericardium Normal Aorta Normal in size IVC Appears to be normal CONCLUSIONS LV systolic function is normal with EF of 50-55% Trace mitral regurgitation Compared to prior echocardiogram from 05/2024, no significant changes are seen. Matthew Pantoja MD (Electronically Signed) Final Date: 15 July 2024 12:36 S
[2024-07-14] MEDS: atorvastatin 40 mg Tablet 80 MG PO (00:36)
[2024-07-14] MEDS: sodium chloride 0.9% 1,000 ML 100 ML IV (00:37)
--- NOTE | 2024-07-14 00:46 | PM.CONSULT ---
Providers/Reason For Consult Consulting Physician/Specialty*: Postop diabetes management Reason for Consult*: Postop diabetes, hospitalist Attending Physician: Real Eddy MD Primary Care Provider: Devora Rivera MD History of Present Illness History of Present Illness Ronny Benitez is a 54 year old male morbid obesity, statin intolerance, established coronary artery disease, compliant with medications, on multiple medications for diabetes presented to the hospital with chest pain when he was changing a tire of his vehicle, and call 911, he was diagnosed with STEMI, STEMI alert was called Dr. Eddy did coronary angiogram, status post PCI distal RCA Hospitalist service consulted for post cath diabetes management Review of Systems Const: Denies: fever(s) Eyes: Denies: change in vision Card: Reports: chest pain Resp: Reports: dyspnea Medications/Allergies Home Medications Medication Instructions Recorded Confirmed Last Taken Type aspirin 81 mg tablet,delayed 81 mg PO QAM 07/20/19 05/17/24 07/03/23 History release (Adult Aspirin Regimen) metformin 1,000 mg tablet,extended 1,000 mg PO BID 07/20/19 05/17/24 07/03/23 History release 24hr (osmotic) fenofibrate nanocrystallized 145 145 mg PO DAILY 07/30/20 05/17/24 07/03/23 History mg tablet Diabetic shoes with 3 inserts #1 ea 11/19/21 05/17/24 Unknown Rx insulin glargine 100 unit/mL 50 unit SUBCUT BID 03/19/23 05/17/24 07/03/23 History subcutaneous solution (Lantus U-100 Insulin) atorvastatin 80 mg tablet 80 mg PO QPM 04/03/23 05/17/24 07/02/23 History acetaminophen 500 mg tablet 1,000 mg PO Q6H PRN Pain 07/03/23 05/17/24 Unknown History empagliflozin 10 mg tablet 10 mg PO DAILY 07/03/23 05/17/24 07/03/23 History (Jardiance) insulin lispro 100 unit/mL See Rx Instructions .Route .COMPLEX 07/03/23 05/17/24 07/03/23 History subcutaneous pen (Humalog KwikPen (U-100) Insulin) lisinopril 20 mg tablet 20 mg PO DAILY 07/03/23 05/17/24 07/03/23 History icosapent ethyl 1 gram capsule 2 g (2 x 1 gram) PO BID #360 caps 01/13/24 05/17/24 Unknown Rx clopidogrel 75 mg tablet See Rx Instructions .Route 03/03/24 05/17/24 Unknown Rx .COMPLEX #90 tabs pioglitazone 45 mg tablet (Actos) 45 mg PO DAILY #90 tabs 03/03/24 05/17/24 Unknown Rx evolocumab 140 mg/mL subcutaneous 140 mg SUBCUT .every 2 weeks #2 mL 03/08/24 05/17/24 Unknown Rx pen injector (Pat Patel) ezetimibe 10 mg tablet 10 mg PO DAILY #90 tabs 03/15/24 05/17/24 Unknown Rx metoprolol tartrate 50 mg tablet See Rx Instructions .Route 05/02/24 05/17/24 Unknown Rx .COMPLEX #180 tabs aripiprazole 20 mg tablet (Abilify) 20 mg PO DAILY #30 tabs 05/17/24 05/17/24 Unknown Rx bupropion HCl 150 mg 24 hr tablet, 150 mg PO QAM #30 tabs 05/17/24 05/17/24 Unknown Rx extended release (Wellbutrin XL) buspirone 30 mg tablet 30 mg PO BID 30 days #60 tabs 05/17/24 05/17/24 Unknown Rx paroxetine HCl 30 mg tablet (Paxil) 60 mg (2 x 30 mg) PO DAILY 30 days 05/17/24 05/17/24 Unknown Rx #60 tabs dextroamphetamine-amphetamine 10 10 mg PO DAILY 30 days #30 tabs 06/15/24 Unknown Rx mg tablet nitroglycerin 0.4 mg sublingual See Rx Instructions .Route 06/15/24 Unknown Rx tablet .COMPLEX #25 tabs isosorbide mononitrate 60 mg 60 mg PO QAM #90 tabs 07/13/24 Unknown Rx tablet,extended release 24 hr Allergies Allergy/AdvReac Type Severity Reaction Status Date / Time prednisone Allergy Intermediate ADR-Abdominal Verified 07/13/24 20:56 Pain Current Medications Generic Name Dose Route Start Last Admin Trade Name Freq PRN Reason Stop Dose Admin Atorvastatin Calcium 80 mg 07/13/24 22:30 07/14/24 00:36 Atorvastatin 40 Mg Tablet PO 80 mg BEDTIME MANUEL Administration Sodium Chloride 1,000 mls @ 100 mls/hr 07/13/24 22:30 07/14/24 00:37 Sodium Chloride 0.9% IV 100 mls/hr .Q10H MANULE Administration PFSH Acute PFSH: Medical History Recurrent major depression 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 Psychiatric care Diabetes mellitus CAD (coronary artery disease) Hyperlipidemia HTN (hypertension) Major depressive disorder with psychotic features Deviated septum Dysphasia Dysphonia Intervertebral cervical disc disorder with myelopathy, cervical region Post-traumatic stress disorder, chronic Major depressive disorder, recurrent severe without psychotic features Surgical History Status post spinal arthrodesis History of fusion of cervical spine C4 corpectomy, revision C3-C4 and C4-C5 plate-screw fixation/interbody fusion[place] [facility] [place] Hx of cardiac catheterization Stented coronary artery H/O carpal tunnel repair (~2018) S/P cervical spinal fusion (~06/15/17) C3-C4 ACDFF, 06/2017, Dr. Brigitte Guy Family History Father Diabetes CAD (coronary artery disease) Hypertension Dementia Brother CAD (coronary artery disease) Grandmother Stroke Maternal x3 Mother Dementia Schizophrenia Grandfather Cancer Both Maternal and Paternal Family/Other Cancer Uncles both maternal and paternal Social History Smoking and tobacco/nicotine status: never used tobacco/nicotine Quit status (tobacco/nicotine): has quit using Year quit tobacco: 2000 Second hand smoke exposure: No Alcohol intake: never Substance/Drug Use: former Lives independently: Yes Household members: spouse Marital status: Current occupational status: unemployed Current gender identity: Male Vitals/I&O/Wt Last Vital Signs Temp 98.0 F 07/13/24 20:45 Pulse 83 07/14/24 00:30 Resp 16 07/14/24 00:30 BP 111/72 07/14/24 00:30 Pulse Ox 90 07/14/24 00:30 O2 Del Method Room Air 07/13/24 23:30 Weight last 48 hrs Weight 120.202 kg Weight 120.202 kg Physical Exam Narrative: Morbidly obese No active chest pain GCS 15 Nonfocal neuroexam Pleasant cooperative Normotensive Currently on room air No audible stridor or wheezing S1, S2 TR band right wrist no active bleeding Data 07/13/24 21:00 07/13/24 21:00 A&P Assessment and plan (1) Post-traumatic stress disorder, chronic: (2) Major depressive disorder, recurrent severe without psychotic features: (3) ST elevation (STEMI) myocardial infarction: (4) CAD (coronary artery disease): Qualifiers: Associated angina: with stable angina Coronary Disease-Associated Artery/Lesion type: [place] artery [place] vs. transplanted heart: [place] heart Qualified Code(s): I25.118 - Atherosclerotic heart disease of [place] coronary artery with other forms of angina pectoris (5) HTN (hypertension): Qualifiers: Hypertension type: primary hypertension Qualified Code(s): I10 - Essential (primary) hypertension (6) PVD (peripheral vascular disease): (7) Coronary artery disease: (8) Diabetes mellitus: Qualifiers: Diabetes mellitus complication status: with neurologic complications Diabetes mellitus [facility] insulin use: with technician terminal and repeater use Diabetes mellitus type: type 2 Plan STEMI Status post PCI of distal RCA Continue dual antiplatelet therapy Added ezetimibe, Repatha Added insulin sliding scale Continue Lantus 45 units twice daily Continue IV fluids overnight as per cardiology Patient uses CPAP which I will request, he was is at 13 cm, no oxygen blended Consult Attestations Medical Necessity Statement: As per cardiology Diagnoses Post-traumatic stress disorder, chronic F43.12 Major depressive disorder, recurrent severe without psychotic features F33.2 ST elevation (STEMI) myocardial infarction I21.3 Coronary artery disease of [place] artery of [place] heart with stable angina pectoris I25.118 Associated angina: with stable angina Coronary Disease-Associated Artery/Lesion type: [place] artery [place] vs. transplanted heart: [place] heart Essential hypertension I10 Hypertension type: primary hypertension PVD (peripheral vascular disease) I73.9 Diabetes mellitus E11.9 Diabetes mellitus complication status: with neurologic complications Diabetes mellitus technician terminal and repeater insulin use: with technician terminal and repeater use Diabetes mellitus type: type 2
[2024-07-14 01:09] LABS: Glucose Point of Care 169 mg/dL (70-110)
[2024-07-14 03:14] LABS: Basophils % 0.3 %; Eosinophils # 0.1 10^3/uL (0.0-0.8); Eosinophils % 1.6 %; Hematocrit 38.3 % (37-53); Lymphocytes # 1.7 10^3/uL (0.8-4.8); Mean Corpuscular HGB Conc 32.9 g/dL (30-55); Mean Corpuscular Hemoglobin 26.9 pg (27-33); Mean Corpuscular Volume 81.8 fl (82-101); Mean Platelet Volume 9.8 fL (7.4-10.4); Monocytes # 0.5 10^3/uL (0.2-0.9); Monocytes % 6.5 %; Neutrophils # 5.18 10^3/uL (1.8-7.7); Neutrophils % 69.1 %; Nucleated Red Blood Cells % 0 %; Platelet Count 248 10^3/cmm (157-399); Red Blood Count 4.68 10^6/uL (3.85-5.65); Red Cell Distribution Width 14.6 % (12.1-15.1)
[2024-07-14 03:36] LABS: Anion Gap 14.1 (5-19); Blood Urea Nitrogen 16 mg/dL (6-20); Calcium 8.7 mg/dL (8.5-10.5); Carbon Dioxide 24 mmol/L (22-29); Chloride 102 mmol/L (98-107); Creatinine Clr Calc Pharmacy 118.2776; Glomerular Filtration Rate 87.9 mL/min (90-130); Glucose 172 mg/dL (65-115); Osmolality Calculated 287 mOsm/kg (285-295); Potassium 4.1 mmol/L (3.5-5.1); Sodium 136 mmol/L (136-145)
[2024-07-14 03:37] LABS: Estmated Average Glucose 171; Hemoglobin A1C 7.6 % (4.0-6.0)
[2024-07-14 03:58] LABS: Troponin 5 6HR 255.6 ng/L (0-15); Troponin 5 6HR Delta 245.6 ng/L (0-12)
--- NOTE | 2024-07-14 04:13 | ECG_ITS ---
[facility] Test Date: 2024-07-14 Pat Name: Ronny Benitez Department: Room: 112 Gender: Male Retirement Manager: : 1970 Requested By: Kenyatta Christie Order Number: [id number] Lavinia MD: Sam Wesley M.D. Measurements Intervals [place] Rate: 82 P: 42 [place]: 151 QRS: -11 QRSD: 93 T: 57 QT: 390 QTc: 457 Interpretive Statements SINUS RHYTHM WITH OCCASIONAL SUPRAVENTRICULAR PREMATURE COMPLEXES LOW QRS VOLTAGE IN PRECORDIAL LEADS [QRS DEFLECTION < 1.0 mV IN CHEST LEADS] POSSIBLE INFERIOR MYOCARDIAL INFARCTION , PROBABLY OLD [30 ms Q WAVE IN II/aVF] Compared to ECG 07/13/2024 23:19:30 Low QRS voltage now present Myocardial infarct finding now present Electronically Signed On 07-14-2024 18:25:52 SURVEILLANCE CAMERA TECHNICIAN by Sam Wesley M.D. [id number]
[2024-07-14 06:25] LABS: Glucose Point of Care 180 mg/dL (70-110)
--- NOTE | 2024-07-14 06:52 | PC.NURSE ---
TR band removed @ 0649. No hematoma formation noted. Site bandage is dry and intact.
[2024-07-14] MEDS: clopidogrel 75 mg Tablet PO (08:14)
[2024-07-14] MEDS: aspirin 81 mg EC Tablet 160 MG PO (08:14)
[2024-07-14] MEDS: ezetimibe 10 mg Tablet PO (08:14)
[2024-07-14] MEDS: insulin lispro 100 unit/1 mL SUBCUT (08:15)
[2024-07-14] MEDS: metoprolol tartrate 50 mg Tablet PO (08:15)
[2024-07-14] MEDS: fenofibrate 145 mg Tablet PO (08:15)
[2024-07-14 11:32] LABS: Glucose Point of Care 199 mg/dL (70-110)
--- NOTE | 2024-07-14 12:04 | PM.PN ---
Subjective Subjective: Patient came in with STEMI last night, taken to [facility] for coronary angiogram. He had TATE x1 to the distal RCA into PLV, balloon angioplasty of bifurcating PDA lesion. He has done well overnight, TR band has been removed and no hematoma present at the radial cath site. He has not had any chest pain or shortness of breath since the procedure. Blood pressure is well controlled. Vitals/I&O/Wt Last Vital Signs Temp 98.1 F 07/14/24 11:24 Pulse 66 07/14/24 11:24 Resp 17 07/14/24 11:24 BP 114/70 07/14/24 11:24 Pulse Ox 95 07/14/24 11:24 O2 Del Method Room Air 07/14/24 11:24 07/13/24 07/14/24 07/14/24 22:59 06:59 14:59 Intake Total 100 / 100 240 / 240 Output Total 0 / 0 Balance 100 / 100 240 / 240 Weight last 48 hrs Weight 265 lb 0.001 oz Weight 265 lb 0.001 oz Weight 265 lb 0.001 oz Data 07/14/24 03:01 07/14/24 03:01 Coding Level of Care Code Acute Code for Chg Fwd
--- NOTE | 2024-07-14 12:38 | P.DS_ITS ---
<Statement entered by Real Eddy MD - 07/15/24 23:49> Patient was evaluated and cared for in conjunction with an advanced practice practitioner. I personally examined the patient and reviewed the chart and all pertinent data including imaging, telemetry, and laboratory results. I discussed the patient in detail with the advanced practice practitioner. Please see their note for complete H&P testing result and agreed upon plan of care for the patient. Discharge Providers Date of Admission: 07/13/24 22:55 Date of Discharge: July 14, 2024 Attending Provider at Admission: Real Eddy MD Attending Provider at Discharge: Real Eddy MD Primary Care Provider: Devora Rivera MD Diagnoses at Discharge Discharge Diagnosis (1) ST elevation (STEMI) myocardial infarction: Status: Acute Qualifiers: Involved coronary artery: right coronary artery Qualified Code(s): I21.11 - ST elevation (STEMI) myocardial infarction involving right coronary artery (2) Post-traumatic stress disorder, chronic: Status: Acute (3) Major depressive disorder, recurrent severe without psychotic features: Status: Acute (4) CAD (coronary artery disease): Status: Acute Qualifiers: Associated angina: with stable angina Coronary Disease-Associated Artery/Lesion type: [place] artery [place] vs. transplanted heart: [place] heart Qualified Code(s): I25.118 - Atherosclerotic heart disease of [place] coronary artery with other forms of angina pectoris (5) HTN (hypertension): Status: Acute Qualifiers: Hypertension type: primary hypertension Qualified Code(s): I10 - Essential (primary) hypertension (6) PVD (peripheral vascular disease): Status: Acute (7) Diabetes mellitus: Status: Acute Qualifiers: Diabetes mellitus complication status: with neurologic complications Diabetes mellitus salvage determiner insulin use: with salvage determiner use Diabetes mellitus type: type 2 Reason for Visit Reason for Visit: Poss STEMI Brief History: Ronny Benitez is a 54 year old male past medical history significant hypertension hyperlipidemia coronary artery disease started having chest pain while changing the tire of his vehicle called 911, EMS strip was consistent with inferior wall ST elevation. Patient was loaded with Plavix given heparin bolus of 4000 units we will plan to take him to the [facility]. Hospital Course Hospital Course He underwent coronary angiogram for STEMI last night with TATE x 1 to distal RCA into PLV, balloon angioplasty of bifurcating PDA lesion. No complications with right radial cath site, no hematoma. He had chest pain briefly following the procedure but has since resolved. He will be discharged home today continuing his home medications including aspirin, Plavix, atorvastatin 80mg daily, Zetia, fenofibrate, Jardiance, metoprolol tartrate and lisinopril. He appears well compensated, no symptoms of heart failure. Resume metformin on 07/18/24. Physical Exam Const: COMMON NORMALS: no acute distress and patient oriented x3 GENERAL APPEARANCE: cooperative ORIENTATION/CONSCIOUSNESS: Yes awake, Yes oriented to person, Yes oriented to place and Yes oriented to time Chest: COMMONS NORMALS: normal inspection of the chest and normal palpation of entire chest wall CHEST: Yes Symmetrical chest wall rise Resp: COMMON NORMALS: normal respiratory effort, No retractions, No use of accessory muscles and clear to auscultation bilaterally AUSCULTATION: clear to auscultation bilaterally Cardio: COMMON NORMALS: regular rate, regular rhythm, S1 normal heart sound present, S2 normal heart sound present, No gallops present (Cardio), No clicks present (Cardio), No murmurs present (Cardio) and No rub (Cardio) RATE: regular rate RHYTHM: regular rhythm HEART SOUNDS: S1 normal heart sound present and S2 normal heart sound present PERIPHERAL PULSES: radial pulses present positive right 2+ and femoral pulses present positive right 2+ Neuro: COMMON NORMALS: patient oriented x3 and moves all extremities SENSORIUM/ORIENTATION: Yes oriented to person, Yes oriented to place and Yes oriented to time Skin: WOUNDS: Yes surgical site (no hematoma palpable) Details: no odor Discharge Data Studies Completed and Pending Pending at discharge Category Date Time Status REGISTERED ROUTE ASSOCIATE request for service Stat Exams 07/13/24 21:12 Taken US echo complete [CV. echo complete* [id number]] Routine Ultrasound 07/14/24 00:09 Taken Laboratory Results WBC 7.50 10^3/uL (3.29-11.43) 07/14/24 03:01 RBC 4.68 10^6/uL (3.85-5.65) 07/14/24 03:01 Hgb 12.60 g/dL (11.27-16.99) 07/14/24 03:01 Hct 38.3 % (37-53) 07/14/24 03:01 MCV 81.8 fl (82-101) L 07/14/24 03:01 MCH 26.9 pg (27-33) L 07/14/24 03:01 MCHC 32.9 g/dL (30-55) 07/14/24 03:01 RDW 14.6 % (12.1-15.1) 07/14/24 03:01 Plt Count 248 10^3/cmm (157-399) 07/14/24 03:01 MPV 9.8 fL (7.4-10.4) 07/14/24 03:01 Neut % (Auto) 69.1 % 07/14/24 03:01 Lymph % (Auto) 22.0 % 07/14/24 03:01 [place] % (Auto) 6.5 % 07/14/24 03:01 Eos % (Auto) 1.6 % 07/14/24 03:01 Baso % (Auto) 0.3 % 07/14/24 03:01 Neut # (Auto) 5.18 10^3/uL (1.8-7.7) 07/14/24 03:01 Lymph # (Auto) 1.7 10^3/uL (0.8-4.8) 07/14/24 03:01 [place] # (Auto) 0.5 10^3/uL (0.2-0.9) 07/14/24 03:01 Eos # (Auto) 0.1 10^3/uL (0.0-0.8) 07/14/24 03:01 Baso # (Auto) 0.0 10^3/uL (0.0-0.1) 07/14/24 03:01 Nucleated RBC % (auto) 0 % 07/14/24 03:01 Nucleated RBCs # 0.0 /100WBC 07/14/24 03:01 Sodium 136 mmol/L (136-145) 07/14/24 03:01 Potassium 4.1 mmol/L (3.5-5.1) 07/14/24 03:01 Chloride 102 mmol/L (98-107) 07/14/24 03:01 Carbon Dioxide 24 mmol/L (22-29) 07/14/24 03:01 Anion Gap 14.1 (5-19) 07/14/24 03:01 BUN 16 mg/dL (6-20) 07/14/24 03:01 Creatinine 0.9 mg/dL (0.7-1.2) 07/14/24 03:01 GFR Calculation 87.9 mL/min (90-130) L 07/14/24 03:01 Glucose 172 mg/dL (65-115) H 07/14/24 03:01 POC Glucose 199 mg/dL (70-110) H 07/14/24 11:22 Estimat Average Glucose 171 07/14/24 03:01 Hemoglobin A1c 7.6 % (4.0-6.0) H 07/14/24 03:01 Calculated Osmolality 287 mOsm/kg (285-295) 07/14/24 03:01 Calcium 8.7 mg/dL (8.5-10.5) 07/14/24 03:01 Total Bilirubin 0.2 mg/dL (0.15-1.2) 07/13/24 21:00 AST 17 U/L (0-40) 07/13/24 21:00 ALT 18 U/L (0-41) 07/13/24 21:00 Alkaline Phosphatase 57 U/L (40-130) 07/13/24 21:00 Troponin T Baseline 10 ng/L (0-15) 07/13/24 21:00 Troponin T Hi Sens 6Hr 255.6 ng/L (0-15) H 07/14/24 03:01 Troponin T Hi Sens 6Hr Delta 245.6 ng/L (0-12) H* 07/14/24 03:01 NT-Pro-B Natriuret Pep < 36 pg/mL (0-125) 07/13/24 21:00 Total Protein 7.3 g/dL (6.6-8.7) 07/13/24 21:00 Albumin 4.5 g/dL (3.5-5.2) 07/13/24 21:00 Globulin 2.8 g/dL (1.3-4.6) 07/13/24 21:00 Vitals Last Vital Signs Temp 98.1 F 07/14/24 11:24 Pulse 66 07/14/24 11:24 Resp 17 07/14/24 11:24 BP 114/70 07/14/24 11:24 Pulse Ox 95 07/14/24 11:24 O2 Del Method Room Air 07/14/24 11:24 Discharge Plan Discharge Patient Disposition: Home Condition: Stable Prescriptions: New clopidogrel 75 mg Tablet 75 mg PO DAILY Qty: 90 0RF Continued aspirin [Adult Aspirin Regimen] 81 mg tablet,delayed release (DR/EC) 81 mg PO QAM Hold Instructions: Resume on 08/25/19. (DME) Diabetic shoes with 3 inserts See Rx Instructions .Route .MEDSUPPLY Qty: 1 0RF Rx Instructions: As directed by [facility] fenofibrate nanocrystallized 145 mg tablet 145 mg PO DAILY pioglitazone [Actos] 45 mg tablet 45 mg PO DAILY Qty: 90 1RF Abilify 20 mg tablet 20 mg PO DAILY Qty: 30 5RF bupropion HCl [Wellbutrin XL] 150 mg tablet extended release 24 hr 150 mg PO QAM Qty: 30 5RF buspirone 30 mg tablet 30 mg PO BID 30 Days Qty: 60 5RF paroxetine HCl [Paxil] 30 mg tablet 60 mg PO DAILY 30 Days Qty: 60 5RF ezetimibe 10 mg tablet 10 mg PO DAILY Qty: 90 1RF metoprolol tartrate 50 mg tablet See Rx Instructions .ROUTE .COMPLEX Qty: 180 3RF Dose Instruction: take one tablet BY MOUTH TWICE DAILY Rx Instructions: Take 1 tablet by mouth twice daily. nitroglycerin 0.4 mg tablet, sublingual See Rx Instructions .ROUTE .COMPLEX Qty: 25 2RF Dose Instruction: dissolve ONE tablet UNDER THE TONGUE every FIVE minutes NEEDED for CHEST pain: DO not exceed THREE doses PER episode Rx Instructions: Dissolve ONE tablet UNDER THE TONGUE every FIVE minutes NEEDED for CHEST pain: DO not exceed THREE doses PER episode isosorbide mononitrate 60 mg tablet extended release 24 hr 60 mg PO QAM Qty: 90 3RF dextroamphetamine-amphetamine 10 mg tablet 10 mg PO QAM 30 Days Qty: 30 0RF atorvastatin 80 mg tablet 80 mg PO QPM lisinopril 20 mg tablet 20 mg PO DAILY acetaminophen 500 mg Tablet 1,000 mg PO Q6H PRN (Reason: Pain) insulin lispro [Humalog KwikPen Insulin] 100 unit/mL insulin pen See Rx Instructions .ROUTE .COMPLEX Rx Instructions: Inject 12 units plus 2 on a sliding scale, max dose of 28 per dose Jardiance 10 mg tablet 10 mg PO DAILY potassium chloride 8 mEq capsule, extended release 8 meq PO DAILY PRN (Reason: Edema) furosemide 20 mg tablet 20 mg PO QAM PRN (Reason: Edema) omega-3 acid ethyl esters 1 gram capsule 1 cap PO BID insulin glargine [Lantus Solostar U-100 Insulin] 100 unit/mL (3 mL) insulin pen See Rx Instructions .ROUTE .COMPLEX Rx Instructions: INJECT 50 UNITS SUBCUTANEOUSLY EVERY MORNING AND 40 UNITS SUBCUTANEOUSLY EVERY EVENING. Held metformin 1,000 mg tablet extended release 24hr 1,000 mg PO BID Hold Instructions: Resume on 04/05/23. Discontinued clopidogrel 75 mg tablet 75 mg PO DAILY Discharge Orders: Discharge Order (Routine); Ordered 07/14/24 Ordered By: Chantelle Cueva Referrals: Devora Rivera MD [Primary Care Provider] - 07/21/24 11:15 am Clarisse Harley NP [Nurse Practitioner] - 7-10 days Discharge Diet: Cardiac and Diabetic Discharge Activity: Increase activity as tolerated Patient Instructions: Opioid Safety Activity Restrictions/Additional Instructions: Limit lifting more than 5 pounds with the right arm for the next 48 hours. May return to work on Thursday. Discharge Date/Time: 07/14/24 13:04 Discharge Attestations Time Spent in Discharge Care*: less than 30 min Quality Metrics Clinical Quality Measures [ No reported AMI, CVA or VTE this stay] Coding Level of Care Code Acute Code for Chg Fwd Diagnoses ST elevation myocardial infarction involving right coronary artery I21.11 Involved coronary artery: right coronary artery Post-traumatic stress disorder, chronic F43.12 Major depressive disorder, recurrent severe without psychotic features F33.2 Coronary artery disease of [place] artery of [place] heart with stable angina pectoris I25.118 Associated angina: with stable angina Coronary Disease-Associated Artery/Lesion type: [place] artery [place] vs. transplanted heart: [place] heart Essential hypertension I10 Hypertension type: primary hypertension PVD (peripheral vascular disease) I73.9 Diabetes mellitus E11.9 Diabetes mellitus complication status: with neurologic complications Diabetes mellitus retirement insulin use: with retirement use Diabetes mellitus type: type 2
--- NOTE | 2024-07-14 13:37 | PC.NURSE ---
Nurse called in medication order to [facility] pharmacy main campus and requested meds to beds prior to DC. Clopidogrel 75mg daily phoned to Pharmacist.
== END 2024-07-14 15:50 | disposition home or self-care (01) | DRG 322 ==
LOC: ER 21:13 → CCL 21:15 → CSU 22:56
PROVIDERS: Internal Medicine; Admitting Provider Internal Medicine Cardiovascular Disease; Emergency Provider Emergency Medicine; PCP Internal Medicine; Visit Provider Internal Medicine Cardiovascular Disease
PROC: 027034Z Dilation of Coronary Artery, One Artery with Drug-eluting Intraluminal Device, Percutaneous Approach (ICD-10-PCS; principal; 2024-07-13 21:15)
PROC: 027034Z Dilation of Coronary Artery, One Artery with Drug-eluting Intraluminal Device, Percutaneous Approach (ICD-10-PCS; 2024-07-13 21:15)
DX: I21.11 ST elevation (STEMI) myocardial infarction involving right coronary artery (principal); F33.2 Major depressive disorder, recurrent severe without psychotic features; Z68.41 Body mass index [BMI] 40.0-44.9, adult; F43.12 Post-traumatic stress disorder, chronic; I25.10 Atherosclerotic heart disease of native coronary artery without angina pectoris; I10 Essential (primary) hypertension; E11.51 Type 2 diabetes mellitus with diabetic peripheral angiopathy without gangrene; E78.5 Hyperlipidemia, unspecified; E66.01 Morbid (severe) obesity due to excess calories; Z87.891 Personal history of nicotine dependence; Z95.5 Presence of coronary angioplasty implant and graft; Z79.02 Long term (current) use of antithrombotics/antiplatelets; Z79.4 Long term (current) use of insulin; Z79.84 Long term (current) use of oral hypoglycemic drugs; Z79.82 Long term (current) use of aspirin
CPT/HCPCS: 36415; 36416; 80048; 80053; 82962; 83036; 83880; 84484; 85025; 85347; 93005; 93306; 93454; 96372; 96374; 96375; 96376; 99152; 99153; 99285; C1725; C1769; C1874; C1887; C1894; C9600; J1644; J1815; J2250; J2270; J2405; J3010; J3490; J7030; Q9967

== ENCOUNTER → 2024-07-25 16:36 | Outpatient (BNVA) | payer OTHER, MEDICARE, MEDICAID, SELFPAY ==
[2024-07-20 09:31] VITALS: BP 125/64; BMI 40.3
== END ==
PROVIDERS: PCP Internal Medicine; Visit Provider Nurse Practitioner Family
DX: I10 Essential (primary) hypertension (principal)
CPT/HCPCS: 36415; 80053; 83880

== ENCOUNTER 2024-08-05 07:31 | Outpatient (CLI) | payer OTHER, MEDICAID, SELFPAY ==
[2024-07-20 09:31] VITALS: BP 125/64; BMI 40.3
[2024-08-05 08:08] LABS: Blood Urea Nitrogen 16 mg/dL (6-20); Calcium 9.4 mg/dL (8.5-10.5); Carbon Dioxide 22 mmol/L (22-29); Chloride 98 mmol/L (98-107); Glomerular Filtration Rate 63.1 mL/min (90-130); Glucose 222 mg/dL (65-115); Osmolality Calculated 290 mOsm/kg (285-295); Sodium 136 mmol/L (136-145)
== END 2024-08-05 07:32 | disposition home or self-care (01) ==
LOC: LAB 07:33
PROVIDERS: PCP Internal Medicine; Visit Provider Nurse Practitioner Family
DX: I25.118 Atherosclerotic heart disease of native coronary artery with other forms of angina pectoris (principal); M79.89 Other specified soft tissue disorders
CPT/HCPCS: 36415; 80048

== ENCOUNTER 2024-08-09 15:33 | Outpatient (CLI) | payer OTHER, SELFPAY ==
[2024-07-20 09:31] VITALS: BP 125/64; BMI 40.3
--- NOTE | 2024-08-09 15:45 | USR_ITS ---
PROCEDURE INFORMATION: Exam: US Duplex Lower Extremity Veins, Bilateral Exam date and time: 08/09/2024 3:45 PM Age: 54 years old Clinical indication: Swelling (edema) of limb; Lower extremity, bilateral; Minimal swelling; Additional info: Lower extremity swelling, please look at venous relux TECHNIQUE: Imaging protocol: Real-time duplex ultrasound of the bilateral extremities with 2-D escobar scale, color Doppler flow and spectral waveform analysis including responses to compression and other maneuvers (when performed) with image documentation. Complete exam focused on the lower extremity veins. COMPARISON: MR ankle RT wo/w con [id number] 05/01/2020 10:00 AM FINDINGS: Right deep veins: Unremarkable. The common femoral, femoral, proximal profunda femoral and popliteal veins are patent without thrombus. Normal Doppler waveforms. Normal compressibility and/or augmentation response. Left deep veins: Unremarkable. The common femoral, femoral, proximal profunda femoral and popliteal veins are patent without thrombus. Normal Doppler waveforms. Normal compressibility and/or augmentation response. Superficial veins: Greater saphenous veins at the saphenofemoral junctions are patent bilaterally without thrombus. Soft tissues: Unremarkable. Other findings: No evidence of venous reflux bilaterally. US/[place] [id number] IMPRESSION: 1. No evidence of deep vein thrombosis. 2. No venous reflux identified.
== END 2024-08-09 15:34 | disposition home or self-care (01) ==
LOC: RAD 15:37
PROVIDERS: PCP Internal Medicine; Visit Provider Nurse Practitioner Family
DX: M79.89 Other specified soft tissue disorders (principal)
CPT/HCPCS: 93970

== ENCOUNTER 2024-08-31 08:31 | Outpatient (RCR) | payer OTHER, SELFPAY ==
[2024-07-20 09:31] VITALS: BP 125/64; BMI 40.3
== END 2024-09-02 23:59 | disposition home or self-care (01) ==
LOC: CR 08:31
PROVIDERS: PCP Internal Medicine; Visit Provider Internal Medicine
DX: I25.10 Atherosclerotic heart disease of native coronary artery without angina pectoris (principal)
CPT/HCPCS: 93798

== ENCOUNTER 2024-09-03 11:01 | Outpatient (RCR) | payer OTHER, SELFPAY ==
[2024-07-20 09:31] VITALS: BP 125/64; BMI 40.3
== END 2024-10-03 23:59 | disposition home or self-care (01) ==
LOC: CR 11:01
PROVIDERS: PCP Internal Medicine; Visit Provider Internal Medicine
DX: I25.10 Atherosclerotic heart disease of native coronary artery without angina pectoris (principal)
CPT/HCPCS: 93798

== ENCOUNTER 2024-10-04 09:51 | Outpatient (RCR) | payer OTHER, SELFPAY ==
[2024-07-20 09:31] VITALS: BP 125/64; BMI 40.3
== END 2024-11-02 23:59 | disposition home or self-care (01) ==
LOC: CR 09:51
PROVIDERS: PCP Internal Medicine; Referring Provider Internal Medicine; Visit Provider Internal Medicine
DX: I25.10 Atherosclerotic heart disease of native coronary artery without angina pectoris (principal)
CPT/HCPCS: 93798

== ENCOUNTER → 2024-11-02 08:55 | Outpatient (BNVA) | payer OTHER, SELFPAY ==
[2024-07-20 09:31] VITALS: BP 125/64; BMI 40.3
== END ==
PROVIDERS: PCP Internal Medicine; Visit Provider Family Medicine Adult Medicine
DX: M25.511 Pain in right shoulder (principal)
CPT/HCPCS: 73030

== ENCOUNTER 2024-11-03 09:17 | Outpatient (RCR) | payer OTHER, SELFPAY ==
[2024-07-20 09:31] VITALS: BP 125/64; BMI 40.3
== END 2024-12-06 10:41 | disposition home or self-care (01) ==
LOC: CR 09:17
PROVIDERS: PCP Internal Medicine; Referring Provider Internal Medicine; Visit Provider Internal Medicine
DX: I25.10 Atherosclerotic heart disease of native coronary artery without angina pectoris (principal)
CPT/HCPCS: 93798

== ENCOUNTER 2024-11-04 14:42 | Emergency (ER) | payer OTHER, SELFPAY ==
[2024-07-20 09:31] VITALS: BP 125/64; BMI 40.3
--- NOTE | 2024-11-04 14:44 | XR_ITS ---
WS: [id number] Portable AP upright chest, 11/04/2024 Clinical Data: cp Comparison: Two-view chest, 05/31/2024 Findings: No nodules, masses or effusions are seen. The heart is normal. The pulmonary vascularity is not increased. No pneumonia or pneumothorax is seen. XR/XR chest 1V portable [id number] Impression: Negative chest.
--- NOTE | 2024-11-04 14:49 | ECG_ITS ---
[facility] Test Date: 2024-11-04 Pat Name: Ronny Benitez Department: Room: Gender: Male Biometrics Technician: : 1970 Requested By: Zachariah Licea Order Number: [id number] Lavinia MD: Matthew Pantoja M.D. Measurements Intervals [place] Rate: 75 P: 32 MT: 148 QRS: 7 QRSD: 84 T: 50 QT: 353 QTc: 396 Interpretive Statements SINUS RHYTHM LOW QRS VOLTAGE IN PRECORDIAL LEADS [QRS DEFLECTION < 1.0 mV IN CHEST LEADS] Compared to ECG 07/14/2024 04:13:57 Myocardial infarct finding no longer present Electronically Signed On 11-07-2024 09:25:17 CDT by Matthew Pantoja M.D. [email or web address]
[2024-11-04 14:51] VITALS: BP 125/75; PULSE 77; RESP 18; TEMP 36.6; O2SAT 99
[2024-11-04 15:15] LABS: Basophils % 0.7 %; Eosinophils # 0.2 10^3/uL (0.0-0.8); Eosinophils % 3.1 %; Hematocrit 39.8 % (37-53); Lymphocytes # 1.6 10^3/uL (0.8-4.8); Mean Corpuscular HGB Conc 33.4 g/dL (30-55); Mean Corpuscular Hemoglobin 27.8 pg (27-33); Mean Corpuscular Volume 83.1 fl (82-101); Mean Platelet Volume 10.7 fL (7.4-10.4); Monocytes # 0.5 10^3/uL (0.2-0.9); Monocytes % 8.5 %; Neutrophils # 3.48 10^3/uL (1.8-7.7); Neutrophils % 59.4 %; Nucleated Red Blood Cells % 0 %; Platelet Count 248 10^3/cmm (157-399); Red Blood Count 4.79 10^6/uL (3.85-5.65); Red Cell Distribution Width 14.6 % (12.1-15.1); White Blood Count 5.86 10^3/uL (3.29-11.43)
--- NOTE | 2024-11-04 15:17 | USR_ITS ---
PROCEDURE INFORMATION: Exam: US Duplex Right Lower Extremity Veins, Limited Exam date and time: 11/04/2024 4:14 PM Age: 54 years old Clinical indication: Edema, localized; Lower extremity, right; Additional info: Leg swelling TECHNIQUE: Imaging protocol: Real-time duplex ultrasound of the right extremity with 2-D escobar scale, color Doppler flow and spectral waveform analysis including responses to compression and other maneuvers (when performed) with image documentation. Limited exam was focused on the right lower extremity veins. COMPARISON: [place] [id number] 08/09/2024 3:45 PM FINDINGS: Right deep veins: Unremarkable. The common femoral, femoral, proximal profunda femoral and popliteal veins are patent without thrombus. Normal Doppler waveforms. Normal compressibility and/or augmentation response. Superficial veins: Greater saphenous vein at the saphenofemoral junction is patent without thrombus. Soft tissues: There is subcutaneous edema in the lower leg. US/[place] [id number] IMPRESSION: No deep venous thrombosis.
--- NOTE | 2024-11-04 15:18 | W.ED.SOB ---
HPI - SOB/Dyspnea General: Chief Complaint: Shortness of Breath/Dyspnea Stated Complaint: cardiac symptoms (sent by [employer]) Time Seen by Provider: 11/04/24 15:05 Source: patient Mode of arrival: ambulatory Limitations: no limitations History of Present Illness: HPI Narrative: 54-year-old male said a history of heart attack in the past states that over the last 3 weeks he has been having shortness of breath with exertion he has been having some slight chest pressure as well. He states he had some increased swelling in his legs right more than left. He denies any pain at this time has had a slight cough over the last 3 weeks as well. Denies any fevers Associated symptoms: Reports chest pain; Deny abdominal pain, fever(s), nausea or vomiting Related Data Home Medications ?Medication ?Instructions ?Recorded ?Confirmed aspirin 81 mg tablet,delayed 81 mg PO QAM 07/20/19 11/04/24 release (Adult Aspirin Regimen) metformin 1,000 mg tablet,extended 1,000 mg PO BID 07/20/19 11/04/24 release 24hr (osmotic) Held on 07/14/24. Instructions: Resume on 07/18/24. resume on Thursday fenofibrate nanocrystallized 145 145 mg PO DAILY 07/30/20 11/04/24 mg tablet atorvastatin 80 mg tablet 80 mg PO QPM 04/03/23 11/04/24 acetaminophen 500 mg tablet 1,000 mg PO Q6H PRN Pain 07/03/23 11/04/24 empagliflozin 10 mg tablet 10 mg PO DAILY 07/03/23 11/04/24 (Jardiance) insulin lispro 100 unit/mL See Rx Instructions .Route .COMPLEX 07/03/23 11/04/24 subcutaneous pen (Humalog KwikPen (U-100) Insulin) lisinopril 20 mg tablet 20 mg PO DAILY 07/03/23 11/04/24 furosemide 20 mg tablet 20 mg PO QAM PRN Edema 07/14/24 11/04/24 insulin glargine 100 unit/mL (3 See Rx Instructions .Route .COMPLEX 07/14/24 11/04/24 mL) subcutaneous pen (Lantus Solostar U-100 Insulin) omega-3 acid ethyl esters 1 gram 1 cap PO BID 07/14/24 11/04/24 capsule potassium chloride 8 mEq 8 meq PO DAILY PRN Edema 07/14/24 11/04/24 capsule,extended release amoxicillin 875 mg-potassium 1 tab PO BID 11/04/24 11/04/24 clavulanate 125 mg tablet metoprolol tartrate 50 mg tablet 50 mg PO BID 11/04/24 11/04/24 pioglitazone 45 mg tablet 45 mg PO DAILY 11/04/24 11/04/24 sulfamethoxazole 800 1 tab PO BID 11/04/24 11/04/24 mg-trimethoprim 160 mg tablet Previous Rx's ?Medication ?Instructions ?Recorded Diabetic shoes with 3 inserts #1 ea 11/19/21 ezetimibe 10 mg tablet 10 mg PO DAILY #90 tabs 03/15/24 aripiprazole 20 mg tablet (Abilify) 20 mg PO DAILY #30 tabs 05/17/24 bupropion HCl 150 mg 24 hr tablet, 150 mg PO QAM #30 tabs 05/17/24 extended release (Wellbutrin XL) buspirone 30 mg tablet 30 mg PO BID 30 days #60 tabs 05/17/24 paroxetine HCl 30 mg tablet (Paxil) 60 mg (2 x 30 mg) PO DAILY 30 days 05/17/24 #60 tabs nitroglycerin 0.4 mg sublingual See Rx Instructions .Route 06/15/24 tablet .COMPLEX #25 tabs isosorbide mononitrate 60 mg 60 mg PO QAM #90 tabs 07/13/24 tablet,extended release 24 hr clopidogrel 75 mg tablet 75 mg PO DAILY #90 tabs 07/14/24 tizanidine 4 mg tablet 4 mg PO BID PRN muscle spasticity 10/03/24 #60 tabs dextroamphetamine-amphetamine 10 10 mg PO QAM 30 days #30 tabs 10/13/24 mg tablet mupirocin 2 % topical ointment 1 applic topical BID #22 grams 10/25/24 (Centany) Allergies Allergy/AdvReac Type Severity Reaction Status Date / Time prednisone Allergy Intermediate ADR-Chest Verified 11/04/24 14:55 Pain Review of Systems Const: Denies: fever(s), chills, body aches or change in appetite ENMT: Denies: throat pain or dental pain Card: Reports: chest pain Resp: Reports: dyspnea and non-productive cough GI: Denies: abdominal pain, nausea, vomiting or diarrhea Musc: Denies: neck pain or back pain Skin/Breast: Denies: rash Neuro: Denies: headache(s) PFSH ED PFSH: Medical History Joint pain in the shoulder/clavicle region Recurrent major depression 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 Psychiatric care Diabetes mellitus CAD (coronary artery disease) Hyperlipidemia HTN (hypertension) Major depressive disorder with psychotic features Deviated septum Dysphasia Dysphonia Intervertebral cervical disc disorder with myelopathy, cervical region Post-traumatic stress disorder, chronic Major depressive disorder, recurrent severe without psychotic features Surgical History Status post spinal arthrodesis History of fusion of cervical spine C4 corpectomy, revision C3-C4 and C4-C5 plate-screw fixation/interbody fusion; 08/22/2019; [facility] [place] H/O hernia repair Hx of cardiac catheterization Stented coronary artery H/O carpal tunnel repair (~2018) S/P cervical spinal fusion (~06/15/17) C3-C4 ACDFF, 06/2017, Dr. Brigitte Guy Family History Father Diabetes CAD (coronary artery disease) Hypertension Dementia Brother CAD (coronary artery disease) Grandmother Stroke Maternal x3 Mother Dementia Schizophrenia Grandfather Cancer Both Maternal and Paternal Family/Other Cancer Uncles both maternal and paternal Social History Smoking and tobacco/nicotine status: current every day tobacco/nicotine user Quit status (tobacco/nicotine): has quit using Year quit tobacco: 2000 Second hand smoke exposure: No Alcohol intake: never Substance/Drug Use: former Lives independently: Yes Household members: spouse Marital status: Current occupational status: unemployed Current gender identity: Male Physical Exam Const: COMMON NORMALS: patient oriented x3 HENMT: COMMON NORMALS: normocephalic and atraumatic HEAD & SCALP: normocephalic and atraumatic Eye: COMMON NORMALS: conjunctivae normal CONJUNCTIVA: Yes conjunctivae normal Neck/C-Spine: COMMON NORMALS: full ROM and supple Chest: COMMONS NORMALS: normal inspection of the chest Resp: COMMON NORMALS: normal respiratory effort, No retractions, No use of accessory muscles and clear to auscultation bilaterally AUSCULTATION: clear to auscultation bilaterally Cardio: COMMON NORMALS: regular rate, regular rhythm and No murmurs present (Cardio) RATE: regular rate RHYTHM: regular rhythm GI: COMMON NORMALS: Normal to inspection, nondistended, normoactive bowel sounds present, Soft to palpation, non-tender and no masses PALPATION: Yes Soft to palpation Extremity: COMMON NORMALS: full ROM NARRATIVE EXTREMITY EXAM: edema to lower extremities R>L Neuro: COMMON NORMALS: patient oriented x3, moves all extremities and no focal motor deficits Psych: COMMON NORMALS: mental status grossly normal, Normal thought process present and cooperative THOUGHT PROCESS: Normal thought process present Skin: COMMON NORMALS: no rashes or lesions noted and no wounds GENERAL SKIN EXAM: no rashes or lesions noted Course Vital Signs: Vital signs: Vital Signs Temperature 97.9 F 11/04/24 14:51 Pulse Rate 77 11/04/24 14:51 Respiratory Rate 18 11/04/24 14:51 Blood Pressure 125/75 11/04/24 14:51 Pulse Oximetry 99 11/04/24 14:51 Oxygen Delivery Me thod Room Air 11/04/24 14:51 MDM - SOB/Dyspnea Medical Decision Making Patient presents here with dyspnea along with some chest pain he has been well-appearing here D-dimer troponins ultrasound of his leg is negative I spoke to technical delivery manager Dr. Pino patient stable for discharge she has to follow-up with cardiology in 4 to 7 days return if worsening he understands agrees to plan Medical Records I reviewed the patient's medical records. Lab Data I reviewed the patient's lab results. 11/04/24 15:09 11/04/24 15:09 Labs/Radiology: Radiology Impressions Chest X-Ray 11/04/24 14:44 Impression: Negative chest. Venous Duplex 11/04/24 15:17 IMPRESSION: No deep venous thrombosis. Laboratory Results WBC 5.86 10^3/uL (3.29-11.43) 11/04/24 15:09 RBC 4.79 10^6/uL (3.85-5.65) 11/04/24 15:09 Hgb 13.30 g/dL (11.27-16.99) 11/04/24 15:09 Hct 39.8 % (37-53) 11/04/24 15:09 MCV 83.1 fl (82-101) 11/04/24 15:09 MCH 27.8 pg (27-33) 11/04/24 15:09 MCHC 33.4 g/dL (30-55) 11/04/24 15:09 RDW 14.6 % (12.1-15.1) 11/04/24 15:09 Plt Count 248 10^3/cmm (157-399) 11/04/24 15:09 MPV 10.7 fL (7.4-10.4) H 11/04/24 15:09 Neut % (Auto) 59.4 % 11/04/24 15:09 Lymph % (Auto) 28.0 % 11/04/24 15:09 [place] % (Auto) 8.5 % 11/04/24 15:09 Eos % (Auto) 3.1 % 11/04/24 15:09 Baso % (Auto) 0.7 % 11/04/24 15:09 Neut # (Auto) 3.48 10^3/uL (1.8-7.7) 11/04/24 15:09 Lymph # (Auto) 1.6 10^3/uL (0.8-4.8) 11/04/24 15:09 [place] # (Auto) 0.5 10^3/uL (0.2-0.9) 11/04/24 15:09 Eos # (Auto) 0.2 10^3/uL (0.0-0.8) 11/04/24 15:09 Baso # (Auto) 0.0 10^3/uL (0.0-0.1) 11/04/24 15:09 Nucleated RBC % (auto) 0 % 11/04/24 15:09 Nucleated RBCs # 0.0 /100WBC 11/04/24 15:09 PT 12.10 SECONDS (12.1-14.9) 11/04/24 15:09 INR 0.84 (0.8-1.2) 11/04/24 15:09 D-Dimer 0.51 ug/mLFEU (0-0.59) 11/04/24 15:09 Sodium 134 mmol/L (136-145) L 11/04/24 15:09 Potassium 4.2 mmol/L (3.5-5.1) 11/04/24 15:09 Chloride 96 mmol/L (98-107) L 11/04/24 15:09 Carbon Dioxide 24 mmol/L (22-29) 11/04/24 15:09 Anion Gap 18.2 (5-19) 11/04/24 15:09 BUN 14 mg/dL (6-20) 11/04/24 15:09 Creatinine 1.0 mg/dL (0.7-1.2) 11/04/24 15:09 GFR Calculation 77.9 mL/min (90-130) L 11/04/24 15:09 Glucose 260 mg/dL (65-115) H 11/04/24 15:09 Calculated Osmolality 287 mOsm/kg (285-295) 11/04/24 15:09 Calcium 9.4 mg/dL (8.5-10.5) 11/04/24 15:09 Total Bilirubin 0.3 mg/dL (0.15-1.2) 11/04/24 15:09 AST 24 U/L (0-40) 11/04/24 15:09 ALT 35 U/L (0-41) 11/04/24 15:09 Alkaline Phosphatase 77 U/L (40-130) 11/04/24 15:09 Troponin T Baseline 7 ng/L (0-15) 11/04/24 15:09 Troponin T 120 Minute 7.36 ng/L (0-15) 11/04/24 16:37 Delta Troponin T 0.36 ABS# (0-10) 11/04/24 16:37 NT-Pro-B Natriuret Pep < 36 pg/mL (0-125) 11/04/24 15:09 Total Protein 7.0 g/dL (6.6-8.7) 11/04/24 15:09 Albumin 4.3 g/dL (3.5-5.2) 11/04/24 15:09 Globulin 2.7 g/dL (1.3-4.6) 11/04/24 15:09 Lipase 29 U/L (13-60) 11/04/24 15:09 All radiology interpretation(s) finalized by discharge EKG Data EKG 1: I personally reviewed and interpreted this EKG as follows: EKG Interpretation Date: 11/04/24 EKG interpretation time: 16:37 Interpretation: nsr hr [address] elevation qrs 86 qtc 386 Discharge Plan Discharge Patient Disposition: Home Clinical Impression: Shortness of breath, Chest pain Condition: Stable Prescriptions: No Action aspirin [Adult Aspirin Regimen] 81 mg tablet,delayed release (DR/EC) 81 mg PO QAM metformin 1,000 mg tablet extended release 24hr 1,000 mg PO BID (DME) Diabetic shoes with 3 inserts See Rx Instructions .Route .MEDSUPPLY Qty: 1 0RF Rx Instructions: As directed by [facility] fenofibrate nanocrystallized 145 mg tablet 145 mg PO DAILY Abilify 20 mg tablet 20 mg PO DAILY Qty: 30 5RF bupropion HCl [Wellbutrin XL] 150 mg tablet extended release 24 hr 150 mg PO QAM Qty: 30 5RF buspirone 30 mg tablet 30 mg PO BID 30 Days Qty: 60 5RF paroxetine HCl [Paxil] 30 mg tablet 60 mg PO DAILY 30 Days Qty: 60 5RF tizanidine 4 mg tablet 4 mg PO BID PRN (Reason: muscle spasticity) Qty: 60 0RF mupirocin [Centany] 2 % ointment 1 applic topical BID Qty: 22 0RF ezetimibe 10 mg tablet 10 mg PO DAILY Qty: 90 1RF nitroglycerin 0.4 mg tablet, sublingual See Rx Instructions .ROUTE .COMPLEX Qty: 25 2RF Dose Instruction: dissolve ONE tablet UNDER THE TONGUE every FIVE minutes NEEDED for CHEST pain: DO not exceed THREE doses PER episode Rx Instructions: Dissolve ONE tablet UNDER THE TONGUE every FIVE minutes NEEDED for CHEST pain: DO not exceed THREE doses PER episode isosorbide mononitrate 60 mg tablet extended release 24 hr 60 mg PO QAM Qty: 90 3RF dextroamphetamine-amphetamine 10 mg tablet 10 mg PO QAM 30 Days Qty: 30 0RF atorvastatin 80 mg tablet 80 mg PO QPM lisinopril 20 mg tablet 20 mg PO DAILY acetaminophen 500 mg Tablet 1,000 mg PO Q6H PRN (Reason: Pain) insulin lispro [Humalog KwikPen Insulin] 100 unit/mL insulin pen See Rx Instructions .ROUTE .COMPLEX Rx Instructions: Inject 12 units plus 2 on a sliding scale, max dose of 28 per dose Jardiance 10 mg tablet 10 mg PO DAILY potassium chloride 8 mEq capsule, extended release 8 meq PO DAILY PRN (Reason: Edema) furosemide 20 mg tablet 20 mg PO QAM PRN (Reason: Edema) omega-3 acid ethyl esters 1 gram capsule 1 cap PO BID insulin glargine [Lantus Solostar U-100 Insulin] 100 unit/mL (3 mL) insulin pen See Rx Instructions .ROUTE .COMPLEX Rx Instructions: INJECT 50 UNITS SUBCUTANEOUSLY EVERY MORNING AND 40 UNITS SUBCUTANEOUSLY EVERY EVENING. clopidogrel 75 mg Tablet 75 mg PO DAILY Qty: 90 0RF sulfamethoxazole-trimethoprim 800-160 mg tablet 1 tab PO BID amoxicillin-pot clavulanate 875-125 mg tablet 1 tab PO BID pioglitazone 45 mg tablet 45 mg PO DAILY metoprolol tartrate 50 mg tablet 50 mg PO BID Discharge Orders: Discharge ED (Routine); Ordered 11/04/24 Ordered By: Zachariah Licea Referrals: Devora Rivera MD [Primary Care Provider, Internal Medicine] Matthew Pantoja M.D [Physician, Cardiology] - 4-7 days Discharge Diet: Advance as tolerated Discharge Activity: Resume usual activity Patient Instructions: Chest Pain (ED), Dyspnea (ED) Print Language: Turkmen Coding Level of Care Code ED Hand 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
[2024-11-04 15:29] LABS: INR 0.84 (0.8-1.2)
[2024-11-04 15:32] LABS: D Dimer 0.51 ug/mLFEU (0-0.59)
[2024-11-04 15:34] LABS: Troponin(5th) Baseline 7 ng/L (0-15)
[2024-11-04 15:46] LABS: Alanine Aminotransferase 35 U/L (0-41); Albumin Level 4.3 g/dL (3.5-5.2); Alkaline Phosphatase 77 U/L (40-130); Anion Gap 18.2 (5-19); Aspartate Amino Transferase 24 U/L (0-40); Blood Urea Nitrogen 14 mg/dL (6-20); Calcium 9.4 mg/dL (8.5-10.5); Carbon Dioxide 24 mmol/L (22-29); Chloride 96 mmol/L (98-107); Creatinine Clr Calc Pharmacy 108.4001; Globulin 2.7 g/dL (1.3-4.6); Glomerular Filtration Rate 77.9 mL/min (90-130); Glucose 260 mg/dL (65-115); Lipase 29 U/L (13-60); NT Pro B Type Natriuretic Pept < 36 pg/mL (0-125); Osmolality Calculated 287 mOsm/kg (285-295); Potassium 4.2 mmol/L (3.5-5.1); Sodium 134 mmol/L (136-145); Total Bilirubin 0.3 mg/dL (0.15-1.2)
--- NOTE | 2024-11-04 16:22 | PC.PHAR ---
Pt reminded me that a lot of his medication refill dates are from June of 2024. He states he had an abundance of back stock that he needs to use up prior to ordering refills.
--- NOTE | 2024-11-04 16:37 | ECG_ITS ---
[facility] Test Date: 2024-11-04 Pat Name: Ronny Benitez Department: Room: Gender: Male Section Beamer: : 1970 Requested By: Zachariah Licea Order Number: [id number] Lavinia MD: Matthew Pantoja M.D. Measurements Intervals [place] Rate: 82 P: 42 NV: 143 QRS: -1 QRSD: 86 T: 48 QT: 347 QTc: 407 Interpretive Statements SINUS RHYTHM Compared to ECG 11/04/2024 14:49:15 No significant changes Electronically Signed On 11-07-2024 10:27:57 CDT by Matthew Pantoja M.D. [email or web address]
[2024-11-04 17:16] LABS: Troponin 5 2HR 7.36 ng/L (0-15); Troponin 5 2HR Delta 0.36 ABS# (0-10)
[2024-11-04] MEDS: FUROsemide 10 mg/mL SDV 4mL 40 MG IVP (17:32)
[2024-11-04 17:37] VITALS: BP 127/67; PULSE 80; O2SAT 98
== END 2024-11-04 17:45 | disposition home or self-care (01) ==
PROVIDERS: Emergency Provider Emergency Medicine; PCP Internal Medicine
DX: R06.02 Shortness of breath (principal); R07.9 Chest pain, unspecified; Z79.82 Long term (current) use of aspirin; Z79.84 Long term (current) use of oral hypoglycemic drugs; Z79.4 Long term (current) use of insulin; Z72.0 Tobacco use; E11.9 Type 2 diabetes mellitus without complications; I25.10 Atherosclerotic heart disease of native coronary artery without angina pectoris; I10 Essential (primary) hypertension; E78.5 Hyperlipidemia, unspecified
CPT/HCPCS: 36415; 71045; 80053; 83690; 83880; 84484; 85025; 85378; 85610; 93005; 93971; 96374; 99285; J1940

== ENCOUNTER → 2024-11-07 14:49 | Outpatient (BNVA) | payer OTHER, SELFPAY ==
[2024-07-20 09:31] VITALS: BP 125/64; BMI 40.3
== END ==
PROVIDERS: PCP Internal Medicine; Visit Provider Internal Medicine
DX: I10 Essential (primary) hypertension (principal); R07.9 Chest pain, unspecified; R06.02 Shortness of breath
CPT/HCPCS: 36415; 80048; 83880

== ENCOUNTER 2024-11-14 06:36 | Outpatient (CLI) | payer OTHER, SELFPAY ==
[2024-07-20 09:31] VITALS: BP 125/64; BMI 40.3
--- NOTE | 2024-11-14 | ECG_ITS ---
[facility]24[facility]14 Pat Name: Ronny Benitez Department: Room: Gender: Male Rehab Technician: : 1970 Requested By: Matthew Pantoja Order Number: [id number] Lavinia MD: Matthew Pantoja M.D. Interpretive Statements LEXISCAN SESTAMIBI STRESS TEST Procedure: At the baseline, the blood pressure was 86/64 mmHg with a heart rate of 49 bpm. The electrocardiogram showed sinus bradycardia, normal axis with normal ST and T's. The Lexiscan was infused over a period of 20 seconds. A total of 0.4 mg of Lexiscan was infused. The stress phase was continued for a total of 5 minutes. Heart rate was at the end of stress phase was 66 bpm and a blood pressure of 102/72 mmHg. The EKG at the peak infusion revealed normal sinus rhythm with no significant ST-T wave changes. Sestamibi was injected 20 seconds after the Lexiscan infusion. Blood pressure at the end of recovery phase was 94/65 mmHg with a heart rate of 64 bpm. Conclusion: 1. Normal EKG response to Lexiscan infusion 2. No Lexiscan induced chest pain or cardiac arrhythmia. 3. Normal blood pressure and heart rate response. 4. Sestamibi/sestamibi perfusion scan pending; see separate report. Electronically Signed On 11-19-2024 11:51:54 CDT by Matthew Pantoja M.D. [id number]
--- NOTE | 2024-11-14 06:54 | NMCV_ITS ---
NM carmen perf SPECT r/s* [id number] Ronny Benitez Age: 54 Gender: M : 1970 Exam Date: 11/14/2024 07:44 Ordering Phys: Carlos Alberto Means MD Technologist: JIMENA Rivas Exam Location: [facility] Indications: CP STRESS TEST Please see separate stress test report in [facility] for full findings IMAGE PROTOCOL Rest/Stress 1 Day Radiopharmaceutical Dose (mCi) Administration Site Administered by Rest: Tc-99m 10.6 IV Namita Villarreal, WEB ADMINISTRATOR Sestamibi Stress:Tc-99m 32.7 IV Namita Ibarragle, WEB ADMINISTRATOR Sestamibi Rest: 14-Nov-2024 60 Discovery 630 Stress: 14-Nov-2024 30 Discovery 630 0.4mg Lexiscan. Images obtained in supine and prone position. SPECT RESULTS Technical Quality: Excellent Raw Data Analysis: Normal Image Corrections: No attenuation or motion correction applied Summed Stress Score: 2 Summed Rest Score: 0 Summed Difference Score: 2 PERFUSION FINDINGS Medium sized area of persistently decreased tracer uptake noted in basal distal inferior wall which showed small to medium sized area of mild reversibility suggestive of medium size area of old myocardial infarction surrounded by small to medium size area of elvin-infarct ischemia in basal to distal inferior wall. FUNCTIONAL RESULTS (calculated via Gated SPECT) Stress Image LV EF (%): 60 Stress EDV (mL):114 TID: 1.07 Stress ESV (mL):46 FUNCTIONAL FINDINGS: Basal to distal inferior wall hypokinesis IMPRESSIONS Medium sized area of old myocardial infarction surrounded by small to medium sized area of mild elvin-infarct ischemia noted in basal to distal inferior wall suggestive of possible lesion in RCA territory. Real Eddy MD (Electronically Signed) Final Date: 17 Nov 2024 22:31 S
[2024-11-14 06:55] VITALS: BMI 42.4
--- NOTE | 2024-11-14 07:00 | USCV_ITS ---
Ronny Benitez Age: 54 Gender: M : 1970 Exam Date: 11/14/2024 07:19 Ordering Phys: Matthew Pantoja M.D ([email or web address]) Technologist: Exam Location[place] [facility] [place] Indication: sob BP: / HR: 91 Rhythm: Sinus Technical Quality: Adequate MEASUREMENTS (Male / Female) Normal Values 2D ECHO LV Diastolic Diameter PLAX 5.0 cm 4.2 - 5.9 / 3.9 - 5.3 cm IVS Diastolic Thickness 1.2 cm 0.6 - 1.0 / 0.6 - 0.9 cm IVS Systolic Thickness 1.7 cm LVPW Diastolic Thickness 1.3 cm 0.6 - 1.0 / 0.6 - 0.9 cm LVPW Systolic Thickness 2.1 cm LVOT Diameter 2.1 cm LV Ejection Fraction 2D Teich 60.6 % LV Ejection Fraction MOD 4C 67.9 % LV Ejection Fraction MOD 2C 74.0 % LV Ejection Fraction 2C AL 73.2 % LA Diameter 3.8 cm RA Systolic Volume 4C AL 46.3 ml RA Systolic Volume 4C MOD 44.7 ml Aorta at Sinotubular Diameter 3.1 cm M-MODE LA Ao Ratio MM 0.9 AV Cusp Separation MM 2.9 cm DOPPLER AV Peak Velocity 97.0 cm/s LVOT Peak Velocity 84.0 cm/s AV Area Cont Eq vti 2.6 cm squared AV Area Cont Eq pk 2.9 cm squared MV Peak Velocity 105.0 cm/s MV Area PHT 2.7 cm squared Mitral E to A Ratio 1.1 TR Peak Velocity 155.0 cm/s TR Peak Gradient 9.6 mmHg TV Peak E Velocity 83.0 cm/s PV Peak Velocity 75.0 cm/s FINDINGS Left Ventricle Left ventricle is normal in size. LV systolic function is normal with EF of 55-60%. No regional wall motion abnormalities are seen. Right Ventricle Normal in size and function Right Atrium Normal in size Left Atrium Dilated Mitral Valve Structurally normal mitral valve. Trace mitral regurgitation. Aortic Valve Structurally normal aortic valve. No significant stenosis or regurgitation Tricuspid Valve Insufficient TR jet to calculate RVSP. Pulmonic Valve Not well-visualized Pericardium Normal Aorta Normal in size IVC Not well-visualized CONCLUSIONS LV systolic function is normal with EF 55-60%. Left atrial dilation Trace mitral regurgitation Matthew Pantoja MD (Electronically Signed) Final Date: 20 Nov 2024 13:37 S
[2024-11-14] MEDS: perflutren protein-a microsphr 0.22 mg/mL SDV 3 mL IV (07:45)
[2024-11-14] MEDS: regadenoson 0.4 Mg/5 ml Syringe IVP (08:31)
[2024-11-14 08:43] VITALS: BP 94/62; PULSE 63
== END 2024-11-14 06:37 | disposition home or self-care (01) ==
LOC: CDL 06:38
PROVIDERS: PCP Internal Medicine; Visit Provider Internal Medicine
DX: R07.9 Chest pain, unspecified (principal); R06.02 Shortness of breath; I51.7 Cardiomegaly; I25.2 Old myocardial infarction; R93.1 Abnormal findings on diagnostic imaging of heart and coronary circulation
CPT/HCPCS: 36415; 78452; 93017; 96374; A9500; C8929; J2785

== ENCOUNTER 2024-11-30 11:23 | Outpatient (CLI) | payer OTHER, SELFPAY ==
[2024-07-20 09:31] VITALS: BP 125/64; BMI 40.3
[2024-11-30 13:00] LABS: Anion Gap 19.3 (5-19); Blood Urea Nitrogen 22 mg/dL (6-20); Calcium 9.3 mg/dL (8.5-10.5); Carbon Dioxide 21 mmol/L (22-29); Chloride 95 mmol/L (98-107); Glomerular Filtration Rate 69.8 mL/min (90-130); Glucose 346 mg/dL (65-115); NT Pro B Type Natriuretic Pept < 36 pg/mL (0-125); Osmolality Calculated 289 mOsm/kg (285-295); Potassium 4.3 mmol/L (3.5-5.1); Sodium 131 mmol/L (136-145)
== END 2024-11-30 11:24 | disposition home or self-care (01) ==
PROVIDERS: PCP Internal Medicine; Visit Provider Internal Medicine
DX: I10 Essential (primary) hypertension (principal); I21.3 ST elevation (STEMI) myocardial infarction of unspecified site; I25.118 Atherosclerotic heart disease of native coronary artery with other forms of angina pectoris
CPT/HCPCS: 36415; 80048; 83880

== ENCOUNTER 2024-12-12 05:59 | Outpatient (CLI) | payer OTHER, SELFPAY ==
[2024-07-20 09:31] VITALS: BP 125/64; BMI 40.3
[2024-12-12] VITALS (47 sets, daily range): BP systolic 65–130; BP diastolic 44–67; PULSE 51–75; RESP 1–24; TEMP 36.4–36.6; O2SAT 92–99; BMI 41.6
--- NOTE | 2024-12-12 06:00 | XACV_ITS ---
Exam Room: 2 Ht: 173 cm Wt: 124 kg BSA: 2.50 m2 Gender: Male : 1970 Any Known Allergies: Other Exam Priority: Routine Procedure(s): Procedure Description: Diagnostic procedure Procedure Description: PCI procedure Procedure Description: Drug Eluting Coronary Stent Procedure Description: PTCA Procedure Description: Miscellaneous Procedure Description: ACT Procedure Description: Coronary Angiography Diagnostic Cath Status: Elective Diagnostic Findings * INDICATION: Worsening angina/ abnormal stress test. * Left Main has no significant disease. * Left Anterior Descending has patent prior stent with mid vessel 40-50% stenosis. * Circumflex has mild luminal irregularities. * RCA is patent. Distal vessel stent is patent. Between distal RCA and PDA, ostial PDA has a significant 80% stenosis. Posterior Descending Right: severe 80% stenosis, RISHABH: 3 flow. * Coronary angiography shows right dominance. PCI Status: Elective Interventional Findings * Posterior Descending Right : 80% stenosis treated with a MDT NC EUPHORA RX [id number] BALLOON, MDT R ANA 3.0X15 TATE, and MDT NC EUPHORA RX 3.80M06RL BALLOON. 0% residual stenosis, RISHABH: 3 flow. * Procedure note: We engaged RCA with JR4 guide catheter. IV heparin was administered to maintain anticoagulation. Run-through wire was used to cross the stenosis and was put in distal PDA. We predilated the stenosis with 2.75 x 15 mm NC balloon. This was followed by placement of 3.0 x 15 mm resolute [place] drug-eluting stent overlapping with both RCA and PDA stents. We then postdilated the stent with 3.0 x 12 mm NC balloon. At this time some pinching of the PLV branch was seen. Run-through wire was directed into the PLV. We dilated the ostial PLV branch with balloon angioplasty. At this time final angiogram was performed that showed excellent stent expansion, no residual stenosis RISHABH-3 flow. Patient left the laborer syrup machine in a stable condition. . Conclusions 1. Severe PDA stenosis status post successful revascularization with 1 stent. Balloon angioplasty of ostial PLV.. 2. Posterior Descending Right to Posterior Descending Right was treated with a Balloon, Drug Eluting Stent, and Balloon. Recommendations * Dual antiplatelet therapy with aspirin and Plavix. * High intensity statin therapy. * Outpatient cardiology follow up in 2 weeks. Interventional RX Recommendation: PCI w/o planned CABG Diagnostic RX Recommendation: PCI w/o planned CABG Anticoagulation: Heparin Pressures Phase:Rest AO : 80 / 69 ( 74 ) @ 8:58:00 AM 88 / 79 ( 84 ) @ 9:03:00 AM 92 / 78 ( 85 ) @ 9:09:00 AM 93 / 79 ( 86 ) @ 9:19:00 AM Clinical Evaluation EBL: 5mL-10mL Procedural Details Procedure Consent Obtained. Pre-Procedure Time Out. Identified patient by full name and date of as verbalized by the patient/guarantor. Does the consent match the physician's order: Yes. Accurate & Complete Informed Consent: Yes. Inpatient/Outpatient History & Physical on Chart: Yes. If H&P is completed, is and addenduem needed: No. Visualize and Verify Site with Patient/Guarantor: N/A. Relevant Radiology Images available: Yes. The risks, benefits, and alternatives of sedation and/or procedure were discussed by physician. The patient agrees to continue. Procedure started. [facility] Clinical Fraility Score: 3: Managing Well. Director Mba Indications: Other. Chest Pain Symptom Assessment: Typical Angina Symptoms. Cardiovascular Instability: No. Correct patient, site and procedure confirmed by cath team. PERRLA. 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 Lungs clear x 5 lobes. IV Site on Arrival: 20 gauge in the left anticubital. IV Fluids: 0.9% NaCl at KVO. 0 mL infused prior to laborer syrup machine. Pre Procedural Pulses: bilateral dorsalis pedis was 3+. Pre Procedural Pulses: bilateral radial was 2+. Oxygen started at 2liters/min via nasal canula. right groin was prepped with chloroprep then draped in the usual sterile fashion. right radial was prepped with chloroprep then draped in the usual sterile fashion. Baseline sample Acquired. HR: 63 BPM. Physician notified. Physician arrived. Physician scrubbed in. Immediate Pre-Procedure Time Out. Correct Patient: Yes; Correct Procedure: Yes; Correct Site: Yes; Correct Patient Position: Yes; Correct Supplies: Yes; Dried Flammable Prep: Yes; Blood Products Available: N/A;. Lidocaine 1% infiltrated to the right radial. Arterial access obtained. A 5 nicarag[place] TIG catheter in over wire. Multiple views taken of left coronary artery. Multiple views taken of right coronary artery. Catheter removed over the exchange wire. A 5 nicaraguan JR4 catheter in over wire. Multiple views taken of right coronary artery. Catheter removed over the exchange wire. 6 nicaraguan JR 4 guide catheter was inserted over the wire. Runthrough guidewire was advanced through the guide catheter to lesion in the ostial PDA. Inflation number : 1 A MDT NC EUPHORA RX [id number] BALLOON was prepped and advanced across the R PDA , then inflated to 18 ASHLEY for 0:14 seconds. Inflation number: 2 The MDT NC EUPHORA RX 2.83R74CG BALLOON was reinflated across the R PDA, to 16 ASHLEY for 0:07 seconds. Balloon out. Results checked. Balloon inserted to lesion in the PDA. Stent inserted to lesion in the PDA. Inflation Number : 3 A MDT R ANA 3.0X15 TATE -Lot Number# [id number] Exp 03/08/2026 was prepped and advanced across the R PDA. The stent was deployed at 15 ASHLEY for 0:15 seconds. Stent balloon out over wire. Results checked. Balloon inserted to lesion in the PDA. Inflation number : 4 A MDT NC EUPHORA RX [id number] BALLOON was prepped and advanced across the R PDA , then inflated to 22 ASHLEY for 0:18 seconds. Balloon out. Results checked. Runthrough wire redirected to the PLV. Balloon inserted to lesion in the PLV. Inflation number : 1 A AB TREK 2.50X12 RX BALLOON was prepped and advanced across the PLV , then inflated to 12 ASHLEY for 0:19 seconds. Balloon out. Results checked. Wire out. ACT drawn. Results out of range high. Therapeutic limits - pre-heparin administration 90-150 seconds and monitoring heparin during a vascular procedure >250 seconds. Guide catheter out. Physician scrubbed out. Post Procedure: Pulses reassessed and unchanged. PERRLA. 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 No VTE prophylaxis required. Medication's Wasted: Lidocaine 1% = 18 mL. Medication's Wasted: Other = Fentanyl 50 mcg. Medication's Wasted: Nitro = 49.8 mg. Total IV fluids: 250 mL. PCI Indication: New Onset Angina. Post-op diagnosis: Severe PDA stenosis s/p TATE x1, Ballooning of PLV. Complications: none. Estimated blood loss: 5mL-10mL. Responsiveness - Normal response to verbal stimuli; alert and oriented, PERRLA. Airway - Unaffected, no intervention required; spontaneous ventilation. Circulation: W/N/L, pulses unchanged. Nausea/Vomiting: No. Procedure completed. Patient transferred by wheelchair to CPRU. ACT drawn. Results 311 seconds. Therapeutic limits - pre-heparin administration 90-150 seconds and monitoring heparin during a vascular procedure >250 seconds. A TR Band was successful obtaining hemostatsis at the Right Radial artery insertion site. Vital chart was stopped. Access Site Site: Right Radial artery Sheath Size: 6 Fr Hemostasis Method: TR Band Hemostasis Success: Successful Procedure Medications Start: 7:51 AM Stop: 7:51 AM Medication: Versed Amount: 1 mg Route: I.V. Start: 7:51 AM Stop: 7:51 AM Medication: Fentanyl Amount: 25 mcg Route: I.V. Start: 7:55 AM Stop: 7:55 AM Medication: Versed Amount: 1 mg Route: I.V. Start: 7:56 AM Stop: 7:56 AM Medication: Heparin Amount: 5000 units Route: I.V. Start: 7:56 AM Stop: 7:56 AM Medication: Nitrogylcerin Amount: 200 mcg Route: I.A. Start: 8:07 AM Stop: 8:07 AM Medication: Heparin Amount: 6000 units Route: I.V. Start: 8:08 AM Stop: 8:08 AM Medication: Fentanyl Amount: 25 mcg Route: I.V. Start: 8:16 AM Stop: 8:16 AM Medication: Heparin Amount: 1000 units Route: I.V. Start: 8:15 AM Stop: 8:15 AM Medication: 0.9% Saline Amount: 250 ml Route: I.V. bolus I, the attending physician, have reviewed and verified all procedure medications. Yes, all medications given per verbal order History/Risk Factors Hypertension: Yes Dyslipidemia: Yes Peripheral Arterial Disease (PAD): Yes Myocardial Infarction (SD): Yes Obesity: Yes Renal Disease: No Tobacco Use: Former Prior Interventions PCI: Yes CABG: No Valve Surgery: No Date of PCI: 07/13/2024 Report Signatures Finalized by Matthew Pantoja MD on 12/28/2024 03:46 PM
[2024-12-12] MEDS: diphenhydrAMINE 50 mg Capsule PO (06:20)
[2024-12-12 06:23] LABS: Basophils % 0.4 %; Eosinophils # 0.2 10^3/uL (0.0-0.8); Eosinophils % 3.2 %; Hematocrit 40.4 % (37-53); Lymphocytes # 1.6 10^3/uL (0.8-4.8); Lymphocytes % 28.5 %; Mean Corpuscular HGB Conc 32.7 g/dL (30-55); Mean Corpuscular Hemoglobin 27.9 pg (27-33); Mean Corpuscular Volume 85.4 fl (82-101); Mean Platelet Volume 10.3 fL (7.4-10.4); Monocytes # 0.6 10^3/uL (0.2-0.9); Monocytes % 10.9 %; Neutrophils # 3.24 10^3/uL (1.8-7.7); Neutrophils % 56.6 %; Nucleated Red Blood Cells % 0 %; Platelet Count 267 10^3/cmm (157-399); Red Blood Count 4.73 10^6/uL (3.85-5.65); Red Cell Distribution Width 14.5 % (12.1-15.1); White Blood Count 5.71 10^3/uL (3.29-11.43)
[2024-12-12 06:37] LABS: Anion Gap 20.4 (5-19); Blood Urea Nitrogen 20 mg/dL (6-20); Calcium 9.7 mg/dL (8.5-10.5); Carbon Dioxide 19 mmol/L (22-29); Chloride 99 mmol/L (98-107); Creatinine Clr Calc Pharmacy 83.3847; Glomerular Filtration Rate 57.5 mL/min (90-130); Glucose 154 mg/dL (65-115); Osmolality Calculated 284 mOsm/kg (285-295); Potassium 4.4 mmol/L (3.5-5.1); Sodium 134 mmol/L (136-145)
--- NOTE | 2024-12-12 07:45 | W.PM.OPSUD ---
Surgery/Procedure H&P Update DATE OF PROCEDURE: December 12, 2024 DATE H&P PERFORMED: 12/07/24 H&P UPDATE INFORMATION: I have reviewed H&P completed within last 30 days, I have examined patient prior to procedure and No changes to prior documentation PREOP DIAGNOSIS: Worsening angina/ abnormal stress test PRIMARY INDICATION FOR PROCEDURE: Worsening angina/ abnormal stress test PLANNED PROCEDURE: Operation Date: 12/12/24 07:00 Proposed Procedures p Cardiac Catheterization - [facility] w/wo LV & Coros(Left) - Matthew Panotja M.D Possible percutaneous coronary intervention PATIENT REASSESSED PRIOR TO SEDATION, WITH NO CHANGE NOTED: Yes PHYSICAL EXAM: alert, oriented x 3, clear to auscultation bilaterally and regular rate & rhythm AIRWAY EVAL/ANESTHESIA PLAN: normal airway, ASA III, Local Anesthesia, Risks, benefits & alternatives of sedation and/or procedure discussed and Patient agrees to continue as planned ADDITIONAL INFORMATION: Moderate sedation
--- NOTE | 2024-12-12 08:32 | P.PCN_ITS ---
Procedure Note: Date of procedure: 12/12/24 Pre-procedure diagnosis: Worsening angina/ abnormal stress test Post-procedure diagnosis: other (Severe PDA stenosis s/p PCI with 1 stent) Procedure: Performed in office position. LAD has moderate stenosis in mid section. Circumflex artery has mild to moderate luminal irregularities. Ostial PDA has severe 80% stenosis between the prior 2 stents. Status post successful revascularization with 1 stent. Balloon angioplasty of the PLV done. Aspirin and plavix for atleast 1 year High intensity statin therapy Estimated blood loss (mL): 10 Complications: None Condition: stable Disposition: floor Coding Level of Care Code Acute Code for [facility]
--- NOTE | 2024-12-12 12:18 | PC.NURSE ---
received from cardiac medical laboratory technical officer via w/c at 0850.report received.pt is alert and awake and oriented x 4.denies pain at present.sr on monitor.right radial tr band on and inflated.right hand is warm to touch and with brisk capillary.no hematoma noted.palpable radial pulse noted distal to tr band.pt instructed in activity restrictions s/p radial artery procedure..and instructed to notify staff for any bleeding,pain,sob,numbness...or for any concerns at all.pt verb understanding of instructions
[2024-12-12] MEDS: sodium chloride 0.9% 500 ML 999 ML IV (13:43)
--- NOTE | 2024-12-12 14:01 | PC.NURSE ---
dr haddad notified of low bp's..500 cc ns bplus began
--- NOTE | 2024-12-12 15:58 | PC.NURSE ---
tr band slowly deflated and eventually removed at 1500.no hematoma noted.right hand remains warm to touch and with brisk capillary refill.palpable radial pulse noted.site dressed with 2x2 gauze and secured with biocclusive drsg.pt instructed in activity restrictions s/p tr band removal..and instructed to notify staff for any bleeding,pain,numbness..or for any concerns at all.pt verb understanding of instructions
--- NOTE | 2024-12-12 16:43 | PC.NURSE ---
bp's remain low lloyd chan np notified and she came to assess pt.bp in right arm is higher than the left arm..but still low.she ordered to hold metoprolol,lisinopril,and imdur.pt was set for discharge this evening..but now will stay for observation of bp's
[2024-12-12 17:05] LABS: Glucose Point of Care 127 mg/dL (70-110)
[2024-12-12] MEDS: atorvastatin 40 mg Tablet 80 MG PO (17:20)
--- NOTE | 2024-12-12 19:34 | PC.NURSE ---
dr haddad updated to pt's bp.he stated no further ivf's at this time
[2024-12-12 20:26] LABS: Glucose Point of Care 154 mg/dL (70-110)
[2024-12-13] VITALS: BP 96/58; PULSE 58; RESP 13; O2SAT 99
[2024-12-13 03:36] VITALS: BP 103/60; PULSE 54; RESP 15; TEMP 36.8; O2SAT 99
[2024-12-13 04:52] LABS: Anion Gap 15.1 (5-19); Blood Urea Nitrogen 16 mg/dL (6-20); Calcium 8.3 mg/dL (8.5-10.5); Carbon Dioxide 22 mmol/L (22-29); Chloride 106 mmol/L (98-107); Creatinine Clr Calc Pharmacy 98.4274; Glomerular Filtration Rate 69.8 mL/min (90-130); Glucose 116 mg/dL (65-115); Osmolality Calculated 290 mOsm/kg (285-295); Potassium 4.1 mmol/L (3.5-5.1); Sodium 139 mmol/L (136-145)
[2024-12-13] MEDS: aspirin 81 mg EC Tablet PO (06:19)
[2024-12-13] MEDS: buPROPion XL (24 HR) 150 mg Tablet PO (06:19)
[2024-12-13 06:45] LABS: Glucose Point of Care 117 mg/dL (70-110)
[2024-12-13 08:00] VITALS: BP 110/77; PULSE 70; RESP 16; TEMP 36.4; O2SAT 99
[2024-12-13] MEDS: clopidogrel 75 mg Tablet PO (08:17)
[2024-12-13] MEDS: fenofibrate 145 mg Tablet PO (08:17)
[2024-12-13] MEDS: ezetimibe 10 mg Tablet PO (08:17)
--- NOTE | 2024-12-13 10:40 | PC.CHAP ---
Pastoral Care Encounter/Spiritual Assessment Type of Contact [] Declined day care home mother visit [] Patient/Family/Request visit [] Outpatient visit [] Follow-up visit [] Physician referral [] Code/Alert [x] Routine visit [] Staff referral [] Actively dying [] Patient sleeping [] Family support [] [] Out of room [] Palliative care [] [] Receiving care in room [] Pre-surgical visit [] Trauma [] Long length of stay [] ICU visit [] Other: Relational/Emotional Strength [x] Patient feels connected with others/family/visitors/staff [] Distress [] Loneliness/isolation [] Abandonment Spirituality of Patient [x] Person of Bettie [] Attends Yarsani of their Bettie [x] Believes in Prayer [] Reads Bible or Bahai materials [] There are Spiritual issues to be addressed Outboard Motor Inspector Interventions [x] Prayer [x] Active listening [] Non-anxious presence [x] Spiritual/emotional support [] Crisis/trauma care [] Spiritual counseling [] Bereavement support [] Provided bereavement packet [] Provided Bible/devotional materials [] Provided toy/stuffed animal, coloring book to patient or family member [] Provided Communion [] Anointing/[place] [] Salvation [x] Completed spiritual assessment [] Other: Impact on Illness or Injury [] Angry [] Fearful [] Anxious [] Often cries [] Exhaustion [] Unable to work [] Unable to attend sikhism [] Unable to walk/stand [] Unable to read [] Unable to drive [] Unable to eat/drink [] Unable to sleep [] Unable to be with family [] Patient intubated [] Other: Summary Time spent with patient 5 min
--- NOTE | 2024-12-13 10:46 | PM.DCS ---
Discharge Providers Date of Admission: 12/12/2024 Date of Discharge: December 13, 2024 Attending Provider at Admission: Dr. Pantoja Attending Provider at Discharge: Matthew Pantoja M.D Primary Care Provider: Devora Rivera MD Diagnoses at Discharge Discharge Diagnosis (1) HTN (hypertension): Status: Acute Qualifiers: Hypertension type: primary hypertension Qualified Code(s): I10 - Essential (primary) hypertension (2) CAD (coronary artery disease): Status: Acute Qualifiers: Coronary Disease-Associated Artery/Lesion type: [place] artery [place] vs. transplanted heart: [place] heart Associated angina: with stable angina Qualified Code(s): I25.118 - Atherosclerotic heart disease of [place] coronary artery with other forms of angina pectoris (3) Hyperlipidemia: Status: Acute Qualifiers: Hyperlipidemia type: mixed hyperlipidemia Qualified Code(s): E78.2 - Mixed hyperlipidemia Reason for Visit Reason for Visit: [id number] Brief History: Patient was previously seen in the emergency room with chest discomfort, shortness of breath and orthopnea. Main complaint is of shortness of breath. ACS was ruled out and he was discharged. He still gets easily winded. This is a change in the last few weeks. Blood pressure today is controlled. He is compliant with medications. Lexiscan was obtained that showed small to medium sized area of mild elvin-infarct ischemia in the inferior wall suggestive of possible lesion in the RCA territory, therefore, angiogram was scheduled. Hospital Course Hospital Course Patient underwent scheduled angiogram. LAD has moderate stenosis in mid section. Circumflex artery has mild to moderate luminal irregularities. Ostial PDA has severe 80% stenosis between the prior 2 stents. Status post successful revascularization with 1 stent. Balloon angioplasty of the PLV done. He tolerated procedure well. Patient's bp is soft at baseline. He developed asymptomatic hypotension, fluid bolus was given and bp medications held. Patient improved without any issues. He was discharged home the next day, and bp medication was changed. He denies any chest pain or shortness of breath. Cath site looks good. Physical Exam Narrative: General: No apparent distress, healthy appearing, well nourished HENMT: normoceophalic Muskuloskeletal: Full ROM Respiratory: Normal respiratory effort, clear to auscultation bilaterally throughout all lung cabrera, no use of accessory muscles Cardio: No JVD, regular rate, regular rhythm, S1 S2 normal, no murmurs, peripheral pulses 2+ radial palpated bilaterally Extremities: Full ROM, normal, normal capillary refill, no cyanosis or edema Neuro: Alert and oriented x4, no focal motor deficits Psych: Affect normal, mental status grossly normal Skin: Right radial cath site clean dry intact no signs or symptoms of hematoma Discharge Data Studies Completed and Pending Pending at discharge Category Date Time Status HIDE WASHER request for service Routine Exams 12/12/24 06:00 Taken Laboratory Results WBC 5.71 10^3/uL (3.29-11.43) 12/12/24 06:15 RBC 4.73 10^6/uL (3.85-5.65) 12/12/24 06:15 Hgb 13.20 g/dL (11.27-16.99) 12/12/24 06:15 Hct 40.4 % (37-53) 12/12/24 06:15 MCV 85.4 fl (82-101) 12/12/24 06:15 MCH 27.9 pg (27-33) 12/12/24 06:15 MCHC 32.7 g/dL (30-55) 12/12/24 06:15 RDW 14.5 % (12.1-15.1) 12/12/24 06:15 Plt Count 267 10^3/cmm (157-399) 12/12/24 06:15 MPV 10.3 fL (7.4-10.4) 12/12/24 06:15 Neut % (Auto) 56.6 % 12/12/24 06:15 Lymph % (Auto) 28.5 % 12/12/24 06:15 [place] % (Auto) 10.9 % 12/12/24 06:15 Eos % (Auto) 3.2 % 12/12/24 06:15 Baso % (Auto) 0.4 % 12/12/24 06:15 Neut # (Auto) 3.24 10^3/uL (1.8-7.7) 12/12/24 06:15 Lymph # (Auto) 1.6 10^3/uL (0.8-4.8) 12/12/24 06:15 [place] # (Auto) 0.6 10^3/uL (0.2-0.9) 12/12/24 06:15 Eos # (Auto) 0.2 10^3/uL (0.0-0.8) 12/12/24 06:15 Baso # (Auto) 0.0 10^3/uL (0.0-0.1) 12/12/24 06:15 Nucleated RBC % (auto) 0 % 12/12/24 06:15 Nucleated RBCs # 0.0 /100WBC 12/12/24 06:15 Sodium 139 mmol/L (136-145) 12/13/24 04:25 Potassium 4.1 mmol/L (3.5-5.1) 12/13/24 04:25 Chloride 106 mmol/L (98-107) 12/13/24 04:25 Carbon Dioxide 22 mmol/L (22-29) 12/13/24 04:25 Anion Gap 15.1 (5-19) 12/13/24 04:25 BUN 16 mg/dL (6-20) 12/13/24 04:25 Creatinine 1.1 mg/dL (0.7-1.2) 12/13/24 04:25 GFR Calculation 69.8 mL/min (90-130) L 12/13/24 04:25 Glucose 116 mg/dL (65-115) H 12/13/24 04:25 POC Glucose 117 mg/dL (70-110) H 12/13/24 06:21 Calculated Osmolality 290 mOsm/kg (285-295) 12/13/24 04:25 Calcium 8.3 mg/dL (8.5-10.5) L 12/13/24 04:25 Procedures Performed Date of procedure: 12/12/24 Pre-procedure diagnosis: Worsening angina/ abnormal stress test Post-procedure diagnosis: other (Severe PDA stenosis s/p PCI with 1 stent) Procedure: Performed in office position. LAD has moderate stenosis in mid section. Circumflex artery has mild to moderate luminal irregularities. Ostial PDA has severe 80% stenosis between the prior 2 stents. Status post successful revascularization with 1 stent. Balloon angioplasty of the PLV done. Aspirin and plavix for atleast 1 year High intensity statin therapy Estimated blood loss (mL): 10 Complications: None Condition: stable Disposition: floor Vitals Last Vital Signs Temp 97.6 F 12/13/24 08:00 Pulse 70 12/13/24 08:00 Resp 16 12/13/24 08:00 BP 110/77 12/13/24 08:00 Pulse Ox 99 12/13/24 08:00 O2 Del Method Nasal Cannula 12/13/24 08:00 O2 Flow Rate 2 12/13/24 08:00 Discharge Plan Discharge Patient Disposition: Home Prescriptions: New metoprolol succinate 25 mg tablet extended release 24 hr 12.5 mg PO DAILY Qty: 30 0RF Continued aspirin [Adult Aspirin Regimen] 81 mg tablet,delayed release (DR/EC) 81 mg PO QAM (DME) Diabetic shoes with 3 inserts See Rx Instructions .Route .MEDSUPPLY Qty: 1 0RF Rx Instructions: As directed by [facility] fenofibrate nanocrystallized 145 mg tablet 145 mg PO DAILY tizanidine 4 mg tablet 4 mg PO BID PRN (Reason: muscle spasticity) Qty: 60 0RF dextroamphetamine-amphetamine 10 mg tablet 10 mg PO QAM 30 Days Qty: 30 0RF Abilify 20 mg tablet 20 mg PO DAILY Qty: 30 5RF bupropion HCl [Wellbutrin XL] 150 mg tablet extended release 24 hr 150 mg PO QAM Qty: 30 5RF buspirone 30 mg tablet 30 mg PO BID 30 Days Qty: 60 5RF paroxetine HCl [Paxil] 30 mg tablet 60 mg PO DAILY 30 Days Qty: 60 5RF furosemide 20 mg tablet 20 mg PO DIRECTED Qty: 14 1RF Rx Instructions: every other day mupirocin [Centany] 2 % ointment 1 applic topical BID Qty: 22 0RF ezetimibe 10 mg tablet 10 mg PO DAILY Qty: 90 1RF nitroglycerin 0.4 mg tablet, sublingual See Rx Instructions .ROUTE .COMPLEX Qty: 25 2RF Dose Instruction: dissolve ONE tablet UNDER THE TONGUE every FIVE minutes NEEDED for CHEST pain: DO not exceed THREE doses PER episode Rx Instructions: Dissolve ONE tablet UNDER THE TONGUE every FIVE minutes NEEDED for CHEST pain: DO not exceed THREE doses PER episode atorvastatin 80 mg tablet 80 mg PO QPM acetaminophen 500 mg Tablet 1,000 mg PO Q6H PRN (Reason: Pain) insulin lispro [Humalog KwikPen Insulin] 100 unit/mL insulin pen See Rx Instructions .ROUTE .COMPLEX Rx Instructions: Inject 12 units plus 2 on a sliding scale, max dose of 28 per dose Jardiance 10 mg tablet 10 mg PO DAILY potassium chloride 8 mEq capsule, extended release 8 meq PO DAILY PRN (Reason: Edema) omega-3 acid ethyl esters 1 gram capsule 1 cap PO BID insulin glargine [Lantus Solostar U-100 Insulin] 100 unit/mL (3 mL) insulin pen See Rx Instructions .ROUTE .COMPLEX Rx Instructions: INJECT 50 UNITS SUBCUTANEOUSLY EVERY MORNING AND 40 UNITS SUBCUTANEOUSLY EVERY EVENING. sulfamethoxazole-trimethoprim 800-160 mg tablet 1 tab PO BID pioglitazone 45 mg tablet 45 mg PO DAILY clopidogrel 75 mg Tablet 75 mg PO DAILY Qty: 90 3RF Held metformin 1,000 mg tablet extended release 24hr 1,000 mg PO BID Hold Instructions: Resume on 12/15/24. Discontinued isosorbide mononitrate 60 mg tablet extended release 24 hr 60 mg PO QAM Qty: 90 3RF lisinopril 20 mg tablet 20 mg PO DAILY metoprolol tartrate 50 mg tablet 50 mg PO BID Discharge Orders: Discharge Order (Routine); Ordered 12/12/24 Ordered By: Clarisse Harley Referrals: Devora Rivera MD [Primary Care Provider, Internal Medicine] - 12/16/24 9:30 am Referral Note: This appointment with marcus SALDANA. Chantelle Cueva FNP [Nurse Practitioner, Cardiology] - 12/21/24 3:00 pm Diet: Advance as tolerated and Cardiac Activity: Increase activity as tolerated and Limit activity as instructed Patient Instructions: Metoprolol (By mouth), Coronary Angioplasty (DC), Chest Pain Stoplight, Post Angiogram Home Care Instructions Activity Restrictions/Additional Instructions: Discussed with patient no heavy lifting more than a gallon of milk for [address] No driving for 3 days. Monitor for and report signs or symptoms of bleeding. Monitor for and report s/s of infection such as fever 101 or greater, swelling, redness or pain to the wrist. Print Language: Citizen [place] Discharge Attestations Time Spent in Discharge Care*: less than 30 min Quality Metrics Clinical Quality Measures [ No reported AMI, CVA or VTE this stay] Coding Level of Care Code Acute Code for Chg Fwd Diagnoses Essential hypertension I10 Hypertension type: primary hypertension Coronary artery disease of [place] artery of [place] heart with stable angina pectoris I25.118 Coronary Disease-Associated Artery/Lesion type: [place] artery [place] vs. transplanted heart: [place] heart Associated angina: with stable angina Mixed hyperlipidemia E78.2 Hyperlipidemia type: mixed hyperlipidemia
== END 2024-12-13 10:25 | disposition home or self-care (01) ==
LOC: CCL 05:59 → CSU 08:43
PROVIDERS: PCP Internal Medicine; Visit Provider Internal Medicine
DX: I25.118 Atherosclerotic heart disease of native coronary artery with other forms of angina pectoris (principal); I10 Essential (primary) hypertension; E78.5 Hyperlipidemia, unspecified; I73.9 Peripheral vascular disease, unspecified; I25.2 Old myocardial infarction; E66.9 Obesity, unspecified; Z68.41 Body mass index [BMI] 40.0-44.9, adult; Z87.891 Personal history of nicotine dependence; Z95.5 Presence of coronary angioplasty implant and graft; I95.89 Other hypotension; Z79.82 Long term (current) use of aspirin; Z79.4 Long term (current) use of insulin; Z79.84 Long term (current) use of oral hypoglycemic drugs; Z82.49 Family history of ischemic heart disease and other diseases of the circulatory system
CPT/HCPCS: 36415; 36416; 80048; 82962; 85025; 85347; 92921; 93454; 99152; 99153; C1725; C1769; C1874; C1887; C1894; C9600; J1644; J2250; J3010; J3490; J7030; J7040; J9999; Q0163; Q9967

== ENCOUNTER → 2024-12-21 15:42 | Outpatient (BNVA) | payer OTHER, SELFPAY ==
[2024-07-20 09:31] VITALS: BP 125/64; BMI 40.3
== END ==
PROVIDERS: PCP Internal Medicine; Visit Provider Nurse Practitioner Family
DX: I25.118 Atherosclerotic heart disease of native coronary artery with other forms of angina pectoris (principal)
CPT/HCPCS: 36415; 80048

== ENCOUNTER 2025-05-10 11:37 | Outpatient (CLI) | payer OTHER, SELFPAY ==
[2024-07-20 09:31] VITALS: BP 125/64; BMI 40.3
[2025-05-10 12:18] LABS: Hematocrit 42.5 % (37-53); Hemoglobin 14.10 g/dL (11.27-16.99); Mean Corpuscular HGB Conc 33.2 g/dL (30-55); Mean Corpuscular Hemoglobin 26.9 pg (27-33); Mean Corpuscular Volume 81.0 fl (82-101); Nucleated Red Blood Cells % 0 %; Platelet Count 263 10^3/cmm (157-399); Red Blood Count 5.25 10^6/uL (3.85-5.65); White Blood Count 6.11 10^3/uL (3.29-11.43)
[2025-05-10 12:33] LABS: INR 1.00 (0.83-1.21)
[2025-05-10 12:41] LABS: Anion Gap 18.5 (5-19); Blood Urea Nitrogen 17 mg/dL (6-20); Calcium 9.4 mg/dL (8.5-10.5); Carbon Dioxide 24 mmol/L (22-29); Chloride 98 mmol/L (98-107); Cholesterol 163 mg/dL (0-200); Glucose 183 mg/dL (65-115); HDL Cholesterol 44 mg/dL (60-100); Osmolality Calculated 288 mOsm/kg (285-295); Potassium 4.5 mmol/L (3.5-5.1); Sodium 136 mmol/L (136-145); Triglycerides 159 mg/dL (0-150)
== END 2025-05-10 11:38 | disposition home or self-care (01) ==
LOC: LAB 11:38
PROVIDERS: PCP Internal Medicine; Visit Provider Internal Medicine
DX: I10 Essential (primary) hypertension (principal); I25.118 Atherosclerotic heart disease of native coronary artery with other forms of angina pectoris; I21.3 ST elevation (STEMI) myocardial infarction of unspecified site; E78.1 Pure hyperglyceridemia; E78.2 Mixed hyperlipidemia; R94.39 Abnormal result of other cardiovascular function study; R58 Hemorrhage, not elsewhere classified
CPT/HCPCS: 36415; 80048; 80061; 85025; 85610